=== PATIENT | female | born 1980 | race Two or more races ===

== ENCOUNTER → 2017-07-08 | Outpatient (CLI) | payer OTHER ==
[~2017-07-08] MED LIST: ALBU17IN2 INH; EFFE150C PO; GABA600T PO; GEMF600T PO; LEVO25TA5 PO; LITH300C PO; LITH600C PO; METH20TA29 PO; NORCOTAB PO; NORT25CA2 PO; PAME25CA PO; VENL150C43 PO; ZOFR4TAB3 PO; ZONI50CA3 PO
--- NOTE | 2017-07-08 18:43 | REP ---
Clinical: Anterior knee pain. Technique: AP, lateral, bilateral oblique and sunrise views of the left knee. Findings: No acute fracture dislocation. Mild medial and patellofemoral joint space narrowing along with subtle cortical irregularities to the femoral condyles and lateral tibial plateau. No obvious effusion. Impression: Mild degenerative changes. No obvious acute fracture or dislocation. Signed by Kurt Alvarado MD 07/08/2017 06:33 P
== END ==
LOC: M LRY 18:14
PROVIDERS: ATTEND Nurse Practitioner Family
DX: M17.12 Unilateral primary osteoarthritis, left knee (principal); M25.562 Pain in left knee

== ENCOUNTER 2017-08-26 23:45 | Emergency (ER) | payer OTHER ==
[2017-08-27] MEDS: NORCO, ANEXSIA 5/325MG TABLET (HYDROcodone/ACETAMINOPHEN) PO (02:06)
[2017-08-27] MEDS: NORCO 5/325MG TABLET (BULK FOR ED) PO (02:06)
== END 2017-08-27 02:08 | disposition home or self-care (01) ==
LOC: M ED 23:45
DX: N83.202 Unspecified ovarian cyst, left side (principal); E03.9 Hypothyroidism, unspecified; J45.909 Unspecified asthma, uncomplicated; K21.9 Gastro-esophageal reflux disease without esophagitis; G43.909 Migraine, unspecified, not intractable, without status migrainosus; K58.9 Irritable bowel syndrome, unspecified; Z79.899 Other long term (current) drug therapy; Z79.84 Long term (current) use of oral hypoglycemic drugs; Z88.5 Allergy status to narcotic agent; Z88.8 Allergy status to other drugs, medicaments and biological substances; Z87.42 Personal history of other diseases of the female genital tract
CPT/HCPCS: 76856

== ENCOUNTER 2017-09-16 11:28 | Inpatient (IN) | payer OTHER ==
[2017-09-16 12:52] LABS: AMPHETAMINES LEVEL URINE NEGATIVE (NEGATIVE); BARBITURATES URINE POSITIVE (NEGATIVE); BENZODIAZEPINES URINE NEGATIVE (NEGATIVE); CANNABINOIDS URINE NEGATIVE (NEGATIVE); COCAINE METABOLITE URINE NEGATIVE (NEGATIVE); METHADONE URINE NEGATIVE (NEGATIVE); OPIATES URINE NEGATIVE (NEGATIVE); PHENCYCLIDINE URINE NEGATIVE (NEGATIVE)
[2017-09-16 12:54] LABS: HEMATOCRIT 36.5 % (36.0-47.0); HEMOGLOBIN 11.5 g/dl (12.0-16.0); MEAN CORPUSCULAR HEMOGLOBIN 27.1 pg (27.0-33.0); MEAN CORPUSCULAR HGB CONC 31.5 g/dl (32.0-36.5); MEAN CORPUSCULAR VOLUME 86.1 fl (80.0-96.0); PLATELET COUNT, AUTOMATED 112 10^3/uL (150-450); RED BLOOD COUNT 4.24 10^6/uL (4.00-5.40); RED CELL DISTRIBUTION WIDTH 15.6 % (11.5-14.5)
[2017-09-16 13:22] LABS: ALBUMIN 3.1 GM/DL (3.2-5.2); ALBUMIN/GLOBULIN RATIO 0.76 (1.00-1.93); ALKALINE PHOSPHATASE 54 U/L (45-117); ALT/SGPT 15 U/L (12-78); ANION GAP 7 MEQ/L (8-16); AST/SGOT 9 U/L (7-37); BILIRUBIN,DIRECT < 0.1 MG/DL (0.0-0.2); BILIRUBIN,TOTAL 0.1 MG/DL (0.2-1.0); BLOOD UREA NITROGEN 16 MG/DL (7-18); CALCIUM LEVEL 8.4 MG/DL (8.5-10.1); CARBON DIOXIDE LEVEL 27 MEQ/L (21-32); CHLORIDE LEVEL 108 MEQ/L (98-107); ETHYL ALCOHOL (ETHANOL) < 0.003 % (0.000-0.010); GLOMERULAR FILTRATION RATE > 60.0 (>60); GLUCOSE, FASTING 108 MG/DL (70-100); POTASSIUM SERUM 4.5 MEQ/L (3.5-5.1); SALICYLATE LEVEL < 1.7 MG/DL (5.0-30.0); SODIUM LEVEL 142 MEQ/L (136-145); THYROID STIMULATING HORMONE 0.651 uIU/ML (0.358-3.740); TOTAL PROTEIN 7.2 GM/DL (6.4-8.2)
[2017-09-16 13:35] LABS: ACETAMINOPHEN LEVEL < 2.0 UG/ML (10.0-30.0)
[2017-09-16] MEDS ORDERED: MAALOX 30 ML SUSP *UDC PO (16:00)
[2017-09-16] MEDS ORDERED: traZODone 50 MG TAB PO (16:00)
[2017-09-16] MEDS ORDERED: MOM 30ML SUSPENSION UDC PO (16:00)
[2017-09-16 20:34] LABS: BEDSIDE GLUCOSE 82 MG/DL (70-105)
[2017-09-16] MEDS ORDERED: PRAZOSIN 1 MG CAP PO (21:00)
[2017-09-16] MEDS: GEMFIBROZIL 600 MG TAB PO (22:27)
[2017-09-16] MEDS: busPIRone 5 MG TAB PO (22:27)
[2017-09-16] MEDS: DIVALPROEX 500MG *ER* TAB PO (22:28)
[2017-09-16] MEDS: PRAZOSIN 1 MG CAP PO (22:29)
[2017-09-17] MEDS: LEVOTHYROXINE 50MCG TABLET (0.05MG) PO (06:19)
[2017-09-17 06:32] LABS: BEDSIDE GLUCOSE 85 MG/DL (70-105)
[2017-09-17] MEDS: ESCITALOPRAM OXALATE 10 MG TAB (LEXAPRO) PO (08:47)
[2017-09-17] MEDS: metFORMIN (GLUCOPHAGE) 500 MG TAB PO (08:47)
[2017-09-17] MEDS: buPROPion **XL** TABLET 150MG (WELLBUTRIN XL) PO (08:47)
[2017-09-17] MEDS: DIVALPROEX 500MG *ER* TAB PO ×2 (08:47→21:14)
[2017-09-17] MEDS: GEMFIBROZIL 600 MG TAB PO ×2 (08:48→21:14)
[2017-09-17] MEDS: busPIRone 5 MG TAB PO ×2 (08:48→21:14)
[2017-09-17] MEDS: ACETAMINOPHEN TAB 650MG DOSE (2X325MG) PO (08:48)
[2017-09-17 08:57] LABS: HEMATOCRIT 37.3 % (36.0-47.0); MEAN CORPUSCULAR HEMOGLOBIN 27.4 pg (27.0-33.0); MEAN CORPUSCULAR HGB CONC 32.2 g/dl (32.0-36.5); MEAN CORPUSCULAR VOLUME 85.2 fl (80.0-96.0); PLATELET COUNT, AUTOMATED 105 10^3/uL (150-450); RED BLOOD COUNT 4.38 10^6/uL (4.00-5.40); RED CELL DISTRIBUTION WIDTH 15.6 % (11.5-14.5)
[2017-09-17] MEDS ORDERED: ALBUTEROL 90 MCG/ACT 8GM HFA INHALER INH (09:15)
[2017-09-17] MEDS ORDERED: DOCUSATE SODIUM 100 MG CAP PO (09:15)
[2017-09-17] MEDS ORDERED: MIRALAX *UNIT DOSE* 17GM PACKET PO (09:15)
[2017-09-17 09:22] LABS: CONTROL LINE HCG INT CTR LINE PRESENT; HCG, SERUM QUALITATIVE NEGATIVE (NEGATIVE)
[2017-09-17 09:30] LABS: ALBUMIN 3.2 GM/DL (3.2-5.2); ALBUMIN/GLOBULIN RATIO 0.78 (1.00-1.93); ALKALINE PHOSPHATASE 54 U/L (45-117); ALT/SGPT 19 U/L (12-78); ANION GAP 8 MEQ/L (8-16); AST/SGOT 13 U/L (7-37); BILIRUBIN,TOTAL 0.2 MG/DL (0.2-1.0); BLOOD UREA NITROGEN 20 MG/DL (7-18); CALCIUM LEVEL 8.7 MG/DL (8.5-10.1); CARBON DIOXIDE LEVEL 28 MEQ/L (21-32); CHLORIDE LEVEL 104 MEQ/L (98-107); CREATININE FOR GFR 0.69 MG/DL (0.55-1.30); GLOMERULAR FILTRATION RATE > 60.0 (>60); GLUCOSE, FASTING 124 MG/DL (70-100); POTASSIUM SERUM 4.2 MEQ/L (3.5-5.1); SODIUM LEVEL 140 MEQ/L (136-145); TOTAL PROTEIN 7.3 GM/DL (6.4-8.2); VALPROIC ACID (DEPAKOTE) 55.9 UG/ML (50.0-100.0)
[2017-09-17] MEDS: PANTOPRAZOLE 40MG TAB (PROTONIX) PO (10:13)
[2017-09-17 11:02] LABS: ESTIMATED AVERAGE GLUCOSE 123 MG/DL (60-110); HEMOGLOBIN A1c 5.9 %
[2017-09-17 11:48] LABS: KETONE, URINE AUTO RFX TRACE mg/dL (NEGATIVE); LEUKOCYTE ESTERASE UR AUTO RFX NEGATIVE (NEGATIVE); NITRITE, URINE AUTO RFX NEGATIVE (NEGATIVE); RBC, URINE AUTO RFX 0 /HPF (0-3); SPECIFIC GRAVITY UR AUTO RFX 1.006 (1.002-1.035); SQUAM EPITHELIAL CELL UR AURFX 0 /HPF (0-6); WBC, URINE AUTO RFX 0 /HPF (0-3)
[2017-09-17 12:23] LABS: BEDSIDE GLUCOSE 79 MG/DL (70-105)
[2017-09-17] MEDS: IBUPROFEN 400 MG TAB PO (16:22)
[2017-09-17 17:07] LABS: BEDSIDE GLUCOSE 120 MG/DL (70-105)
[2017-09-17 22:41] LABS: BEDSIDE GLUCOSE 91 MG/DL (70-105)
[2017-09-18] MEDS: IBUPROFEN 400 MG TAB PO (00:36)
[2017-09-18] MEDS: ACETAMINOPHEN TAB 650MG DOSE (2X325MG) PO ×2 (02:40→21:07)
[2017-09-18] MEDS: LEVOTHYROXINE 50MCG TABLET (0.05MG) PO (05:38)
[2017-09-18 06:25] LABS: BEDSIDE GLUCOSE 81 MG/DL (70-105)
[2017-09-18 06:39] LABS: HEMATOCRIT 38.2 % (36.0-47.0); HEMOGLOBIN 12.3 g/dl (12.0-16.0); MEAN CORPUSCULAR HGB CONC 32.2 g/dl (32.0-36.5); MEAN CORPUSCULAR VOLUME 83.8 fl (80.0-96.0); PLATELET COUNT, AUTOMATED 122 10^3/uL (150-450); RED BLOOD COUNT 4.56 10^6/uL (4.00-5.40); RED CELL DISTRIBUTION WIDTH 15.5 % (11.5-14.5); WHITE BLOOD COUNT 13.9 10^3/uL (4.0-10.0)
[2017-09-18] MEDS: busPIRone 5 MG TAB PO ×3 (08:14→21:06)
[2017-09-18] MEDS: buPROPion **XL** TABLET 150MG (WELLBUTRIN XL) PO (08:14)
[2017-09-18] MEDS: CETIRIZINE (ZyrTEC) 10 MG TAB PO (08:14)
[2017-09-18] MEDS: DIVALPROEX 500MG *ER* TAB PO ×2 (08:14→21:06)
[2017-09-18] MEDS: GEMFIBROZIL 600 MG TAB PO ×2 (08:14→21:06)
[2017-09-18] MEDS: ESCITALOPRAM OXALATE 10 MG TAB (LEXAPRO) PO (08:15)
[2017-09-18] MEDS: metFORMIN (GLUCOPHAGE) 500 MG TAB PO (08:15)
[2017-09-18] MEDS: PANTOPRAZOLE 40MG TAB (PROTONIX) PO (08:15)
[2017-09-18] MEDS: FLUTICASONE PROP 0.05% NASAL SPRAY 16 GM (FLONASE) (11:30)
[2017-09-18] MEDS ORDERED: hydrOXYzine 50 MG TAB PO (11:45)
[2017-09-18] MEDS: cloNIDine 0.1 MG TAB PO (12:12)
[2017-09-18 15:02] LABS: DIFF SLIDE NUMBER 60
[2017-09-18 15:41] LABS: ANISOCYTOSIS 1+; ATYPICAL LYMPH 10 % (0-5); BASOPHILS 2 % (0-4); EOSINOPHILS 4 % (0-5); LYMPHOCYTES 27 % (16-52); MONOCYTES 8 % (0-8); NEUTROPHILS 49 % (35-75); PLATELET ESTIMATE DECREASED (NORMAL)
[2017-09-18 15:43] LABS: REASON FOR REVIEW WBC/LEUKEMIA/BLAST; SLIDE REVIEW Report; SOURCE PERIPHERAL SMEAR
[2017-09-18 17:03] LABS: BEDSIDE GLUCOSE 97 MG/DL (70-105)
[2017-09-19] MEDS: LEVOTHYROXINE 50MCG TABLET (0.05MG) PO (06:04)
[2017-09-19] MEDS: cloNIDine 0.1 MG TAB PO ×2 (06:29→12:09)
[2017-09-19 06:30] LABS: BEDSIDE GLUCOSE 96 MG/DL (70-105)
[2017-09-19] MEDS: GEMFIBROZIL 600 MG TAB PO (08:39)
[2017-09-19] MEDS: FLUTICASONE PROP 0.05% NASAL SPRAY 16 GM (FLONASE) (08:39)
[2017-09-19] MEDS: PANTOPRAZOLE 40MG TAB (PROTONIX) PO (08:39)
[2017-09-19] MEDS: buPROPion **XL** TABLET 150MG (WELLBUTRIN XL) PO (08:39)
[2017-09-19] MEDS: CETIRIZINE (ZyrTEC) 10 MG TAB PO (08:39)
[2017-09-19] MEDS: DIVALPROEX 500MG *ER* TAB PO (08:39)
[2017-09-19] MEDS: metFORMIN (GLUCOPHAGE) 500 MG TAB PO (08:40)
[2017-09-19] MEDS: busPIRone 5 MG TAB PO (08:40)
[2017-09-19] MEDS: IBUPROFEN 400 MG TAB PO (10:25)
[2017-09-19] MEDS: ACETAMINOPHEN TAB 650MG DOSE (2X325MG) PO (12:08)
== END 2017-09-19 14:15 | disposition home or self-care (01) | DRG 883 ==
LOC: M ED 11:28 → M ED INP 15:52 → M PSY 16:30
DX: F60.3 Borderline personality disorder (principal); F31.5 Bipolar disorder, current episode depressed, severe, with psychotic features; F41.0 Panic disorder [episodic paroxysmal anxiety]; I10 Essential (primary) hypertension; G47.33 Obstructive sleep apnea (adult) (pediatric); E11.9 Type 2 diabetes mellitus without complications; E03.9 Hypothyroidism, unspecified; Z99.89 Dependence on other enabling machines and devices; Z98.51 Tubal ligation status; Z90.710 Acquired absence of both cervix and uterus; Z90.49 Acquired absence of other specified parts of digestive tract; Z91.5 Personal history of self-harm; Z88.6 Allergy status to analgesic agent; Z88.8 Allergy status to other drugs, medicaments and biological substances; Z79.84 Long term (current) use of oral hypoglycemic drugs; E66.9 Obesity, unspecified

== ENCOUNTER 2017-10-22 14:32 | Inpatient (IN) | payer OTHER ==
[2017-10-22 15:51] LABS: HEMATOCRIT 36.2 % (36.0-47.0); HEMOGLOBIN 11.5 g/dl (12.0-15.5); MEAN CORPUSCULAR HEMOGLOBIN 26.7 pg (27.0-33.0); MEAN CORPUSCULAR HGB CONC 31.8 g/dl (32.0-36.5); PLATELET COUNT, AUTOMATED 223 10^3/uL (150-450); RED BLOOD COUNT 4.31 10^6/uL (4.00-5.40); RED CELL DISTRIBUTION WIDTH 16.2 % (11.5-14.5); WHITE BLOOD COUNT 16.1 10^3/uL (4.0-10.0)
[2017-10-22 16:01] LABS: CONTROL LINE HCG INT CTR LINE PRESENT; HCG, SERUM QUALITATIVE NEGATIVE (NEGATIVE)
[2017-10-22 16:03] LABS: AMPHETAMINES LEVEL URINE NEGATIVE (NEGATIVE); BARBITURATES URINE POSITIVE (NEGATIVE); BENZODIAZEPINES URINE NEGATIVE (NEGATIVE); CANNABINOIDS URINE NEGATIVE (NEGATIVE); COCAINE METABOLITE URINE NEGATIVE (NEGATIVE); METHADONE URINE NEGATIVE (NEGATIVE); OPIATES URINE POSITIVE (NEGATIVE); PHENCYCLIDINE URINE NEGATIVE (NEGATIVE)
[2017-10-22 16:14] LABS: ACETAMINOPHEN LEVEL < 2.0 UG/ML (10.0-30.0); ALBUMIN 2.9 GM/DL (3.2-5.2); ALBUMIN/GLOBULIN RATIO 0.66 (1.00-1.93); ALKALINE PHOSPHATASE 59 U/L (45-117); ALT/SGPT 14 U/L (12-78); ANION GAP 8 MEQ/L (8-16); AST/SGOT 20 U/L (7-37); BILIRUBIN,DIRECT < 0.1 MG/DL (0.0-0.2); BILIRUBIN,TOTAL < 0.1 MG/DL (0.2-1.0); BLOOD UREA NITROGEN 14 MG/DL (7-18); CALCIUM LEVEL 8.4 MG/DL (8.5-10.1); CARBON DIOXIDE LEVEL 25 MEQ/L (21-32); CHLORIDE LEVEL 108 MEQ/L (98-107); CREATININE FOR GFR 0.59 MG/DL (0.55-1.30); ETHYL ALCOHOL (ETHANOL) < 0.003 % (0.000-0.010); GLOMERULAR FILTRATION RATE > 60.0 (>60); GLUCOSE, FASTING 100 MG/DL (70-100); POTASSIUM SERUM 4.3 MEQ/L (3.5-5.1); SALICYLATE LEVEL < 1.7 MG/DL (5.0-30.0); SODIUM LEVEL 141 MEQ/L (136-145); THYROID STIMULATING HORMONE 0.879 uIU/ML (0.358-3.740); TOTAL PROTEIN 7.3 GM/DL (6.4-8.2); VALPROIC ACID (DEPAKOTE) 51.6 UG/ML (50.0-100.0)
[2017-10-22] MEDS ORDERED: traZODone 50 MG TAB PO (19:00)
[2017-10-22] MEDS ORDERED: MAALOX 30 ML SUSP *UDC PO (19:00)
[2017-10-22] MEDS ORDERED: MOM 30ML SUSPENSION UDC PO (19:00)
[2017-10-22] MEDS ORDERED: ALBUTEROL 90 MCG/ACT 8GM HFA INHALER INH (21:00)
[2017-10-22] MEDS: **NOTE PATIENT COMMENT** MISC XX (21:12)
[2017-10-22] MEDS: MELOXICAM (MOBIC) 7.5 MG TAB PO (21:40)
[2017-10-22] MEDS: LORazepam 1 MG TAB PO (21:40)
[2017-10-22] MEDS: DIVALPROEX 500MG *ER* TAB PO (21:40)
[2017-10-23] MEDS: LEVOTHYROXINE 50MCG TABLET (0.05MG) PO (06:18)
[2017-10-23] MEDS: LIDOCAINE 5% (LIDODERM) PATCH TD (08:31)
[2017-10-23] MEDS: DIVALPROEX 500MG *ER* TAB PO (08:31)
[2017-10-23] MEDS ORDERED: LORazepam 2 MG TAB PO (11:45)
[2017-10-23] MEDS: busPIRone 5 MG TAB PO ×3 (12:26→20:32)
[2017-10-23] MEDS: metFORMIN (GLUCOPHAGE) 500 MG TAB PO ×2 (12:26→17:23)
[2017-10-23] MEDS: VENLAFAXINE **XR** 75MG CAPSULE PO (12:26)
[2017-10-23] MEDS: GEMFIBROZIL 600 MG TAB PO ×2 (15:10→20:32)
[2017-10-23 16:44] LABS: BEDSIDE GLUCOSE 97 MG/DL (70-105)
[2017-10-23] MEDS: hydrOXYzine 50 MG TAB PO (20:32)
[2017-10-23] MEDS: **NOTE PATIENT COMMENT** MISC XX (21:09)
[2017-10-23] MEDS: FUROSEMIDE 20 MG TAB PO (22:21)
[2017-10-23] MEDS: cloNIDine 0.2 MG TAB PO (22:22)
[2017-10-23 23:03] LABS: ALBUMIN 2.9 GM/DL (3.2-5.2); ALBUMIN/GLOBULIN RATIO 0.63 (1.00-1.93); ALKALINE PHOSPHATASE 53 U/L (45-117); ALT/SGPT 16 U/L (12-78); ANION GAP 8 MEQ/L (8-16); AST/SGOT 13 U/L (7-37); BILIRUBIN,TOTAL 0.1 MG/DL (0.2-1.0); BLOOD UREA NITROGEN 15 MG/DL (7-18); CALCIUM LEVEL 8.9 MG/DL (8.5-10.1); CARBON DIOXIDE LEVEL 27 MEQ/L (21-32); CHLORIDE LEVEL 104 MEQ/L (98-107); CPK CREATINE PHOSPHOKINASE 92 U/L (26-192); CREATININE FOR GFR 0.75 MG/DL (0.55-1.30); GLOMERULAR FILTRATION RATE > 60.0 (>60); GLUCOSE, FASTING 94 MG/DL (70-100); POTASSIUM SERUM 4.1 MEQ/L (3.5-5.1); SODIUM LEVEL 139 MEQ/L (136-145); TOTAL PROTEIN 7.5 GM/DL (6.4-8.2); TROPONIN I < 0.02 NG/ML (< 0.10)
[2017-10-23 23:04] LABS: CK-MB VALUE MASS < 1.0 NG/ML (<3.6); MB/CK RELATIVE INDEX 1.08 (< OR =4)
[2017-10-24] MEDS: LEVOTHYROXINE 50MCG TABLET (0.05MG) PO (05:40)
[2017-10-24 05:55] LABS: BEDSIDE GLUCOSE 91 MG/DL (70-105)
[2017-10-24 07:37] LABS: ALBUMIN 2.9 GM/DL (3.2-5.2); ALBUMIN/GLOBULIN RATIO 0.73 (1.00-1.93); ALKALINE PHOSPHATASE 51 U/L (45-117); ALT/SGPT 14 U/L (12-78); ANION GAP 7 MEQ/L (8-16); AST/SGOT 13 U/L (7-37); BILIRUBIN,TOTAL 0.3 MG/DL (0.2-1.0); BLOOD UREA NITROGEN 13 MG/DL (7-18); CALCIUM LEVEL 8.6 MG/DL (8.5-10.1); CARBON DIOXIDE LEVEL 29 MEQ/L (21-32); CHLORIDE LEVEL 104 MEQ/L (98-107); CREATININE FOR GFR 0.69 MG/DL (0.55-1.30); GLOMERULAR FILTRATION RATE > 60.0 (>60); GLUCOSE, FASTING 87 MG/DL (70-100); POTASSIUM SERUM 4.1 MEQ/L (3.5-5.1); SODIUM LEVEL 140 MEQ/L (136-145); TOTAL PROTEIN 6.9 GM/DL (6.4-8.2)
[2017-10-24] MEDS: busPIRone 5 MG TAB PO ×3 (08:53→21:44)
[2017-10-24] MEDS: metFORMIN (GLUCOPHAGE) 500 MG TAB PO ×2 (08:53→17:37)
[2017-10-24] MEDS: VENLAFAXINE **XR** 75MG CAPSULE PO (08:53)
[2017-10-24] MEDS: GEMFIBROZIL 600 MG TAB PO ×2 (08:54→21:44)
[2017-10-24] MEDS ORDERED: MIRALAX *UNIT DOSE* 17GM PACKET PO (09:30)
[2017-10-24] MEDS: DOCUSATE SODIUM 100 MG CAP PO (09:55)
[2017-10-24] MEDS: PANTOPRAZOLE 40MG TAB (PROTONIX) PO ×2 (09:55→21:43)
[2017-10-24 10:45] LABS: HEMATOCRIT 37.4 % (36.0-47.0); HEMOGLOBIN 12.1 g/dl (12.0-15.5); MEAN CORPUSCULAR HEMOGLOBIN 26.7 pg (27.0-33.0); MEAN CORPUSCULAR HGB CONC 32.4 g/dl (32.0-36.5); MEAN CORPUSCULAR VOLUME 82.4 fl (80.0-96.0); PLATELET COUNT, AUTOMATED 215 10^3/uL (150-450); RED BLOOD COUNT 4.54 10^6/uL (4.00-5.40); RED CELL DISTRIBUTION WIDTH 15.9 % (11.5-14.5); WHITE BLOOD COUNT 15.4 10^3/uL (4.0-10.0)
[2017-10-24 12:53] LABS: KETONE, URINE AUTO RFX NEGATIVE (NEGATIVE); LEUKOCYTE ESTERASE UR AUTO RFX NEGATIVE (NEGATIVE); NITRITE, URINE AUTO RFX NEGATIVE (NEGATIVE); RBC, URINE AUTO RFX 1 /HPF (0-3); SPECIFIC GRAVITY UR AUTO RFX 1.014 (1.002-1.035); SQUAM EPITHELIAL CELL UR AURFX 9 /HPF (0-6); WBC, URINE AUTO RFX 1 /HPF (0-3)
[2017-10-24] MEDS: ACETAMINOPHEN TAB 650MG DOSE (2X325MG) PO (21:44)
[2017-10-25] MEDS: LEVOTHYROXINE 50MCG TABLET (0.05MG) PO (06:09)
[2017-10-25 06:44] LABS: BEDSIDE GLUCOSE 95 MG/DL (70-105)
[2017-10-25] MEDS: metFORMIN (GLUCOPHAGE) 500 MG TAB PO ×2 (08:58→17:10)
[2017-10-25] MEDS: VENLAFAXINE **XR** 75MG CAPSULE PO (08:59)
[2017-10-25] MEDS: GEMFIBROZIL 600 MG TAB PO ×2 (08:59→21:04)
[2017-10-25] MEDS: DOCUSATE SODIUM 100 MG CAP PO (08:59)
[2017-10-25] MEDS: PANTOPRAZOLE 40MG TAB (PROTONIX) PO ×2 (08:59→21:04)
[2017-10-25] MEDS: busPIRone 5 MG TAB PO ×3 (08:59→21:04)
[2017-10-25] MEDS: ACETAMINOPHEN TAB 650MG DOSE (2X325MG) PO ×2 (09:00→15:45)
[2017-10-25] MEDS: hydrOXYzine 50 MG TAB PO ×2 (13:04→18:29)
[2017-10-25 17:33] LABS: BEDSIDE GLUCOSE 128 MG/DL (70-105)
[2017-10-25 18:26] LABS: BEDSIDE GLUCOSE 96 MG/DL (70-105)
[2017-10-26] MEDS: LEVOTHYROXINE 50MCG TABLET (0.05MG) PO (06:01)
[2017-10-26 06:35] LABS: BEDSIDE GLUCOSE 102 MG/DL (70-105)
[2017-10-26] MEDS: metFORMIN (GLUCOPHAGE) 500 MG TAB PO ×2 (08:49→17:12)
[2017-10-26] MEDS: DOCUSATE SODIUM 100 MG CAP PO (08:49)
[2017-10-26] MEDS: VENLAFAXINE **XR** 75MG CAPSULE PO (08:49)
[2017-10-26] MEDS: GEMFIBROZIL 600 MG TAB PO ×2 (08:49→21:11)
[2017-10-26] MEDS: PANTOPRAZOLE 40MG TAB (PROTONIX) PO ×2 (08:49→21:11)
[2017-10-26] MEDS: busPIRone 5 MG TAB PO (08:49)
[2017-10-26] MEDS: busPIRone 10 MG TAB PO ×2 (15:10→21:11)
[2017-10-26 16:46] LABS: BEDSIDE GLUCOSE 104 MG/DL (70-105)
[2017-10-26 20:14] LABS: BEDSIDE GLUCOSE 100 MG/DL (70-105)
[2017-10-26] MEDS: ACETAMINOPHEN TAB 650MG DOSE (2X325MG) PO (21:17)
[2017-10-27] MEDS: LEVOTHYROXINE 50MCG TABLET (0.05MG) PO (06:08)
[2017-10-27 06:23] LABS: BEDSIDE GLUCOSE 99 MG/DL (70-105)
[2017-10-27] MEDS: PANTOPRAZOLE 40MG TAB (PROTONIX) PO ×2 (08:03→21:11)
[2017-10-27] MEDS: GEMFIBROZIL 600 MG TAB PO ×2 (08:03→21:10)
[2017-10-27] MEDS: busPIRone 10 MG TAB PO ×3 (08:03→21:11)
[2017-10-27] MEDS: DOCUSATE SODIUM 100 MG CAP PO (08:03)
[2017-10-27] MEDS: IBUPROFEN 400 MG TAB PO ×2 (08:03→15:30)
[2017-10-27] MEDS: VENLAFAXINE **XR** 75MG CAPSULE PO (08:03)
[2017-10-27] MEDS: metFORMIN (GLUCOPHAGE) 500 MG TAB PO ×2 (08:04→17:11)
[2017-10-27 17:17] LABS: BEDSIDE GLUCOSE 106 MG/DL (70-105)
[2017-10-27] MEDS: ACETAMINOPHEN TAB 650MG DOSE (2X325MG) PO (21:12)
[2017-10-28] MEDS: LEVOTHYROXINE 50MCG TABLET (0.05MG) PO (06:15)
[2017-10-28 06:54] LABS: BEDSIDE GLUCOSE 91 MG/DL (70-105)
[2017-10-28 07:08] LABS: HEMATOCRIT 36.4 % (36.0-47.0); HEMOGLOBIN 11.7 g/dl (12.0-15.5); MEAN CORPUSCULAR HGB CONC 32.1 g/dl (32.0-36.5); MEAN CORPUSCULAR VOLUME 83.9 fl (80.0-96.0); PLATELET COUNT, AUTOMATED 167 10^3/uL (150-450); RED BLOOD COUNT 4.34 10^6/uL (4.00-5.40); RED CELL DISTRIBUTION WIDTH 15.7 % (11.5-14.5); WHITE BLOOD COUNT 14.4 10^3/uL (4.0-10.0)
[2017-10-28] MEDS: DOCUSATE SODIUM 100 MG CAP PO (08:25)
[2017-10-28] MEDS: busPIRone 10 MG TAB PO ×3 (08:25→21:12)
[2017-10-28] MEDS: metFORMIN (GLUCOPHAGE) 500 MG TAB PO ×2 (08:25→17:06)
[2017-10-28] MEDS: PANTOPRAZOLE 40MG TAB (PROTONIX) PO ×2 (08:25→21:11)
[2017-10-28] MEDS: VENLAFAXINE **XR** 75MG CAPSULE PO (08:25)
[2017-10-28] MEDS: GEMFIBROZIL 600 MG TAB PO ×2 (08:25→21:12)
[2017-10-28] MEDS: IBUPROFEN 400 MG TAB PO ×2 (14:34→21:12)
[2017-10-28 17:14] LABS: BEDSIDE GLUCOSE 114 MG/DL (70-105)
[2017-10-29] MEDS: LEVOTHYROXINE 50MCG TABLET (0.05MG) PO (06:20)
[2017-10-29 06:45] LABS: BEDSIDE GLUCOSE 104 MG/DL (70-105)
[2017-10-29] MEDS: VENLAFAXINE **XR** 75MG CAPSULE PO (08:56)
[2017-10-29] MEDS: metFORMIN (GLUCOPHAGE) 500 MG TAB PO ×2 (08:56→17:18)
[2017-10-29] MEDS: GEMFIBROZIL 600 MG TAB PO ×2 (08:56→21:47)
[2017-10-29] MEDS: PANTOPRAZOLE 40MG TAB (PROTONIX) PO ×2 (08:56→21:47)
[2017-10-29] MEDS: busPIRone 10 MG TAB PO ×3 (08:56→21:47)
[2017-10-29] MEDS: DOCUSATE SODIUM 100 MG CAP PO (08:57)
[2017-10-29 16:44] LABS: BEDSIDE GLUCOSE 126 MG/DL (70-105)
[2017-10-30] MEDS: LEVOTHYROXINE 50MCG TABLET (0.05MG) PO (06:07)
[2017-10-30 06:18] LABS: BEDSIDE GLUCOSE 100 MG/DL (70-105)
[2017-10-30] MEDS: metFORMIN (GLUCOPHAGE) 500 MG TAB PO (08:27)
[2017-10-30] MEDS: PANTOPRAZOLE 40MG TAB (PROTONIX) PO (08:27)
[2017-10-30] MEDS: VENLAFAXINE **XR** 75MG CAPSULE PO (08:27)
[2017-10-30] MEDS: busPIRone 10 MG TAB PO (08:27)
[2017-10-30] MEDS: GEMFIBROZIL 600 MG TAB PO (08:27)
[2017-10-30] MEDS: DOCUSATE SODIUM 100 MG CAP PO (08:27)
== END 2017-10-30 11:19 | disposition home or self-care (01) | DRG 885 ==
LOC: M PSY 10-26 05:05 → M ED 14:32 → M ED INP 19:00 → M PSY 20:03
DX: F33.2 Major depressive disorder, recurrent severe without psychotic features (principal); Z68.42 Body mass index [BMI] 45.0-49.9, adult; Z63.4 Disappearance and death of family member; F50.81 Binge eating disorder; F45.1 Undifferentiated somatoform disorder; F41.9 Anxiety disorder, unspecified; Z79.899 Other long term (current) drug therapy; Z88.8 Allergy status to other drugs, medicaments and biological substances; E03.9 Hypothyroidism, unspecified; J45.909 Unspecified asthma, uncomplicated; K21.9 Gastro-esophageal reflux disease without esophagitis; G47.33 Obstructive sleep apnea (adult) (pediatric); M54.5 Low back pain; G43.909 Migraine, unspecified, not intractable, without status migrainosus; D72.829 Elevated white blood cell count, unspecified; K58.9 Irritable bowel syndrome, unspecified; E11.9 Type 2 diabetes mellitus without complications; E66.9 Obesity, unspecified

== ENCOUNTER 2017-11-11 12:25 | Emergency (ER) | payer OTHER ==
[2017-11-11] MEDS: ONDANSETRON 4MG/2ML VIAL (J2405) IV (13:44)
[2017-11-11] MEDS: METOCLOPRAMIDE INJ 10MG/2ML VIAL (J2765) IV (13:44)
[2017-11-11] MEDS: diphenhydrAMINE INJ 50MG/ML VIAL (J1200) IV (13:45)
[2017-11-11] MEDS: MORPHINE 4 MG/ML 1ML VIAL/SYRINGE (J2270) IV ×2 (14:43→14:45)
[2017-11-11] MEDS: NORCO, ANEXSIA 5/325MG TABLET (HYDROcodone/ACETAMINOPHEN) PO (14:51)
== END 2017-11-11 15:04 | disposition home or self-care (01) ==
LOC: M ED 12:25
DX: R51 Headache (principal); R11.0 Nausea; Z88.8 Allergy status to other drugs, medicaments and biological substances; Z79.899 Other long term (current) drug therapy; Z79.84 Long term (current) use of oral hypoglycemic drugs
CPT/HCPCS: J1200

== ENCOUNTER → 2017-11-19 | Outpatient (REF) | payer OTHER ==
[2017-11-19 13:11] LABS: BASO # 0.1 10^3/uL (0.0-0.2); BASO % 0.6 % (0.0-1.0); EOS # 0.9 10^3/uL (0.0-0.50); EOS % 7.3 % (0.0-3.0); HEMATOCRIT 38.4 % (36.0-47.0); IMMATURE GRANULOCYTE % 0.6 % (0-3.0); LYMPH # 3.9 10^3/uL (1.5-4.5); LYMPH % 32.4 % (24.0-44.0); MEAN CORPUSCULAR HEMOGLOBIN 26.6 pg (27.0-33.0); MEAN CORPUSCULAR HGB CONC 31.3 g/dl (32.0-36.5); MEAN CORPUSCULAR VOLUME 85.1 fl (80.0-96.0); MONO # 0.9 10^3/uL (0.0-0.8); MONO % 7.5 % (0.0-5.0); NEUTROPHILS # 6.3 10^3/uL (1.8-7.7); NEUTROPHILS % 51.6 % (36.0-66.0); PLATELET COUNT, AUTOMATED 268 10^3/uL (150-450); RED BLOOD COUNT 4.51 10^6/uL (4.00-5.40); RED CELL DISTRIBUTION WIDTH 15.4 % (11.5-14.5); WHITE BLOOD COUNT 12.2 10^3/uL (4.0-10.0)
[2017-11-19 13:38] LABS: TOTAL 25(OH) VITAMIN D 45.8 NG/ML (30.0-100.0)
[2017-11-19 13:39] LABS: ERYTHROCYTE SEDIMENTATION RATE 24 mm/hr (0-20)
[2017-11-19 14:09] LABS: ALBUMIN 3.5 GM/DL (3.2-5.2); ALBUMIN/GLOBULIN RATIO 0.83 (1.00-1.93); ALKALINE PHOSPHATASE 67 U/L (45-117); ALT/SGPT 21 U/L (12-78); ANION GAP 8 MEQ/L (8-16); AST/SGOT 12 U/L (7-37); BILIRUBIN,TOTAL < 0.1 MG/DL (0.2-1.0); BLOOD UREA NITROGEN 12 MG/DL (7-18); CALCIUM LEVEL 9.4 MG/DL (8.5-10.1); CARBON DIOXIDE LEVEL 25 MEQ/L (21-32); CHLORIDE LEVEL 108 MEQ/L (98-107); CREATININE FOR GFR 0.59 MG/DL (0.55-1.30); GLOMERULAR FILTRATION RATE > 60.0 (>60); GLUCOSE, FASTING 131 MG/DL (70-100); POTASSIUM SERUM 4.1 MEQ/L (3.5-5.1); RHEUMATOID FACTOR QUANT < 10.0 IU/ML (<15.0); SODIUM LEVEL 141 MEQ/L (136-145); THYROID STIMULATING HORMONE 0.796 uIU/ML (0.358-3.740); TOTAL PROTEIN 7.7 GM/DL (6.4-8.2)
[2017-11-20 14:15] LABS: ANTINUCLEAR ANTIBODIES DIRECT Negative (Negative)
== END ==
LOC: M LABNEURO 08:59
DX: R51 Headache (principal)

== ENCOUNTER 2018-02-13 13:26 | Emergency (ER) | payer OTHER ==
[2018-02-13] MEDS: NS 1,000 ML IV (15:08)
[2018-02-13] MEDS ORDERED: AMMONIA AROMATIC INHALANT (FLOOR STOCK) As Ordered (15:23)
[2018-02-13 15:25] LABS: BASO # 0.1 10^3/uL (0.0-0.2); BASO % 0.5 % (0.0-1.0); EOS # 1.2 10^3/uL (0.0-0.50); EOS % 7.1 % (0.0-3.0); HEMATOCRIT 40.4 % (36.0-47.0); IMMATURE GRANULOCYTE % 0.5 % (0-3.0); LYMPH # 3.6 10^3/uL (1.5-4.5); LYMPH % 21.8 % (24.0-44.0); MEAN CORPUSCULAR HEMOGLOBIN 26.3 pg (27.0-33.0); MEAN CORPUSCULAR HGB CONC 32.2 g/dl (32.0-36.5); MEAN CORPUSCULAR VOLUME 81.6 fl (80.0-96.0); MONO # 0.9 10^3/uL (0.0-0.8); MONO % 5.6 % (0.0-5.0); NEUTROPHILS # 10.7 10^3/uL (1.8-7.7); NEUTROPHILS % 64.5 % (36.0-66.0); PLATELET COUNT, AUTOMATED 224 10^3/uL (150-450); RED BLOOD COUNT 4.95 10^6/uL (4.00-5.40); RED CELL DISTRIBUTION WIDTH 15.6 % (11.5-14.5); WHITE BLOOD COUNT 16.5 10^3/uL (4.0-10.0)
[2018-02-13 15:32] LABS: BEDSIDE GLUCOSE 102 MG/DL (70-105)
[2018-02-13 15:37] LABS: ALBUMIN 3.4 GM/DL (3.2-5.2); ALBUMIN/GLOBULIN RATIO 0.67 (1.00-1.93); ALKALINE PHOSPHATASE 94 U/L (45-117); ALT/SGPT 34 U/L (12-78); ANION GAP 8 MEQ/L (8-16); AST/SGOT 21 U/L (7-37); BILIRUBIN,DIRECT < 0.1 MG/DL (0.0-0.2); BILIRUBIN,TOTAL 0.2 MG/DL (0.2-1.0); BLOOD UREA NITROGEN 11 MG/DL (7-18); CALCIUM LEVEL 9.1 MG/DL (8.5-10.1); CARBON DIOXIDE LEVEL 25 MEQ/L (21-32); CHLORIDE LEVEL 105 MEQ/L (98-107); CPK CREATINE PHOSPHOKINASE 58 U/L (26-192); CREATININE FOR GFR 0.82 MG/DL (0.55-1.30); GLOMERULAR FILTRATION RATE > 60.0 (>60); GLUCOSE, FASTING 90 MG/DL (70-100); POTASSIUM SERUM 3.8 MEQ/L (3.5-5.1); SODIUM LEVEL 138 MEQ/L (136-145); TOTAL PROTEIN 8.5 GM/DL (6.4-8.2); TROPONIN I < 0.02 NG/ML (< 0.10)
[2018-02-13 15:41] LABS: CK-MB VALUE MASS < 1.0 NG/ML (<3.6); MB/CK RELATIVE INDEX 1.72 (< OR =4)
[2018-02-13 16:50] LABS: KETONE, URINE AUTO RFX NEGATIVE (NEGATIVE); LEUKOCYTE ESTERASE UR AUTO RFX NEGATIVE (NEGATIVE); NITRITE, URINE AUTO RFX NEGATIVE (NEGATIVE); RBC, URINE AUTO RFX 1 /HPF (0-3); SPECIFIC GRAVITY UR AUTO RFX 1.009 (1.002-1.035); SQUAM EPITHELIAL CELL UR AURFX 1 /HPF (0-6); WBC, URINE AUTO RFX 0 /HPF (0-3)
== END 2018-02-13 18:09 | disposition home or self-care (01) ==
LOC: M ED 13:26
DX: R55 Syncope and collapse (principal); M54.9 Dorsalgia, unspecified; R26.2 Difficulty in walking, not elsewhere classified; E11.9 Type 2 diabetes mellitus without complications; J45.909 Unspecified asthma, uncomplicated; K21.9 Gastro-esophageal reflux disease without esophagitis; Z79.899 Other long term (current) drug therapy
CPT/HCPCS: 93005

== ENCOUNTER 2018-02-28 05:33 | Inpatient (IN) | payer OTHER ==
[2018-02-28] MEDS ORDERED: MOM 30ML SUSPENSION UDC PO (06:45)
[2018-02-28] MEDS ORDERED: ACETAMINOPHEN TAB 650MG DOSE (2X325MG) PO (06:45)
[2018-02-28] MEDS ORDERED: MAALOX 30 ML SUSP *UDC PO (06:45)
[2018-02-28] MEDS: NICOTINE 21MG/24HR 1 EA TRANSDERMAL TD (09:00)
[2018-02-28] MEDS ORDERED: MIRALAX *UNIT DOSE* 17GM PACKET PO (15:15)
[2018-02-28] MEDS ORDERED: PROMETHAZINE 25 MG TAB PO (15:15)
[2018-02-28] MEDS ORDERED: ALBUTEROL 90 MCG/ACT 8GM HFA INHALER INH (15:15)
[2018-02-28] MEDS: GABAPENTIN 300 MG CAP PO ×2 (15:29→21:06)
[2018-02-28] MEDS: busPIRone 10 MG TAB PO ×2 (15:29→21:05)
[2018-02-28 17:05] LABS: BEDSIDE GLUCOSE 83 MG/DL (70-105)
[2018-02-28] MEDS: metFORMIN XR 500MG TAB *GLUCOPHAGE XR PO (17:37)
[2018-02-28] MEDS: MONTELUKAST 10 MG TAB PO (21:05)
[2018-02-28] MEDS: GEMFIBROZIL 600 MG TAB PO (21:05)
[2018-02-28] MEDS: DOXEPIN 25 MG CAP PO (21:06)
[2018-02-28] MEDS: PANTOPRAZOLE 40MG TAB (PROTONIX) PO (21:06)
[2018-03-01] MEDS: LEVOTHYROXINE 50MCG TABLET (0.05MG) PO (06:18)
[2018-03-01 06:21] LABS: BEDSIDE GLUCOSE 84 MG/DL (70-105)
[2018-03-01] MEDS: metFORMIN XR 500MG TAB *GLUCOPHAGE XR PO ×2 (08:00→17:06)
[2018-03-01] MEDS: GEMFIBROZIL 600 MG TAB PO ×2 (08:18→21:23)
[2018-03-01] MEDS: CETIRIZINE (ZyrTEC) 10 MG TAB PO (08:18)
[2018-03-01] MEDS: METOPROLOL TART 25 MG TABLET PO (08:18)
[2018-03-01] MEDS: busPIRone 10 MG TAB PO ×3 (08:18→21:24)
[2018-03-01] MEDS: PANTOPRAZOLE 40MG TAB (PROTONIX) PO ×2 (08:18→21:25)
[2018-03-01] MEDS: GABAPENTIN 300 MG CAP PO ×3 (08:18→21:25)
[2018-03-01] MEDS: DOCUSATE SODIUM 100 MG CAP PO (12:09)
[2018-03-01] MEDS: hydrOXYzine 50 MG TAB PO (12:09)
[2018-03-01 16:47] LABS: BEDSIDE GLUCOSE 114 MG/DL (70-105)
[2018-03-01] MEDS: IBUPROFEN 800 MG TAB PO (18:04)
[2018-03-01] MEDS: ANALGESIC BALM CRM 120 GM TOP (21:00)
[2018-03-01] MEDS: MONTELUKAST 10 MG TAB PO (21:23)
[2018-03-01] MEDS: ARIPiprazole 10 MG TAB PO (21:24)
[2018-03-01] MEDS: DOXEPIN 25 MG CAP PO (21:25)
[2018-03-02] MEDS: LEVOTHYROXINE 50MCG TABLET (0.05MG) PO (06:18)
[2018-03-02 06:23] LABS: BEDSIDE GLUCOSE 91 MG/DL (70-105)
[2018-03-02] MEDS: metFORMIN XR 500MG TAB *GLUCOPHAGE XR PO ×2 (07:59→18:00)
[2018-03-02] MEDS: busPIRone 10 MG TAB PO ×3 (08:53→21:56)
[2018-03-02] MEDS: DOCUSATE SODIUM 100 MG CAP PO (08:53)
[2018-03-02] MEDS: GEMFIBROZIL 600 MG TAB PO ×2 (08:54→21:56)
[2018-03-02] MEDS: ARIPiprazole 10 MG TAB PO ×2 (08:54→21:56)
[2018-03-02] MEDS: GABAPENTIN 300 MG CAP PO ×3 (08:54→21:56)
[2018-03-02] MEDS: ACETAMINOPHEN 500 MG TAB PO (08:54)
[2018-03-02] MEDS: CETIRIZINE (ZyrTEC) 10 MG TAB PO (08:54)
[2018-03-02] MEDS: PANTOPRAZOLE 40MG TAB (PROTONIX) PO ×2 (08:54→21:56)
[2018-03-02] MEDS: METOPROLOL TART 25 MG TABLET PO (08:55)
[2018-03-02] MEDS: ANALGESIC BALM CRM 120 GM TOP ×3 (08:55→21:57)
[2018-03-02] MEDS: hydrOXYzine 50 MG TAB PO (14:18)
[2018-03-02 17:23] LABS: BEDSIDE GLUCOSE 102 MG/DL (70-105)
[2018-03-02] MEDS: MONTELUKAST 10 MG TAB PO (21:56)
[2018-03-02] MEDS: IBUPROFEN 800 MG TAB PO (21:56)
[2018-03-03] MEDS: LEVOTHYROXINE 50MCG TABLET (0.05MG) PO (06:01)
[2018-03-03 06:04] LABS: BEDSIDE GLUCOSE 98 MG/DL (70-105)
[2018-03-03] MEDS: metFORMIN XR 500MG TAB *GLUCOPHAGE XR PO ×2 (08:00→17:18)
[2018-03-03] MEDS: ARIPiprazole 10 MG TAB PO ×2 (08:36→21:03)
[2018-03-03] MEDS: busPIRone 10 MG TAB PO ×3 (08:36→21:03)
[2018-03-03] MEDS: PANTOPRAZOLE 40MG TAB (PROTONIX) PO ×2 (08:36→21:03)
[2018-03-03] MEDS: GEMFIBROZIL 600 MG TAB PO ×2 (08:36→21:03)
[2018-03-03] MEDS: GABAPENTIN 300 MG CAP PO ×3 (08:36→21:03)
[2018-03-03] MEDS: METOPROLOL TART 25 MG TABLET PO (08:37)
[2018-03-03] MEDS: ANALGESIC BALM CRM 120 GM TOP ×3 (08:37→21:00)
[2018-03-03] MEDS: CETIRIZINE (ZyrTEC) 10 MG TAB PO (08:37)
[2018-03-03] MEDS: ACETAMINOPHEN 500 MG TAB PO ×2 (08:42→16:14)
[2018-03-03] MEDS: IBUPROFEN 800 MG TAB PO (12:16)
[2018-03-03] MEDS: MONTELUKAST 10 MG TAB PO (21:03)
[2018-03-04] MEDS: LEVOTHYROXINE 50MCG TABLET (0.05MG) PO (06:07)
[2018-03-04] MEDS: metFORMIN XR 500MG TAB *GLUCOPHAGE XR PO ×2 (07:30→17:13)
[2018-03-04 07:33] LABS: BEDSIDE GLUCOSE 118 MG/DL (70-105)
[2018-03-04] MEDS: GEMFIBROZIL 600 MG TAB PO ×2 (08:51→21:11)
[2018-03-04] MEDS: PANTOPRAZOLE 40MG TAB (PROTONIX) PO ×2 (08:52→21:13)
[2018-03-04] MEDS: ANALGESIC BALM CRM 120 GM TOP ×3 (08:52→21:00)
[2018-03-04] MEDS: CETIRIZINE (ZyrTEC) 10 MG TAB PO (08:52)
[2018-03-04] MEDS: busPIRone 10 MG TAB PO ×3 (08:52→21:12)
[2018-03-04] MEDS: METOPROLOL TART 25 MG TABLET PO (08:52)
[2018-03-04] MEDS: ARIPiprazole 10 MG TAB PO ×2 (08:52→21:14)
[2018-03-04] MEDS: GABAPENTIN 300 MG CAP PO ×3 (08:52→21:14)
[2018-03-04] MEDS: hydrOXYzine 50 MG TAB PO ×2 (11:46→21:13)
[2018-03-04] MEDS: ACETAMINOPHEN 500 MG TAB PO (11:47)
[2018-03-04] MEDS: IBUPROFEN 800 MG TAB PO (14:39)
[2018-03-04] MEDS: LORazepam 1 MG TAB PO (15:21)
[2018-03-04 16:30] LABS: BEDSIDE GLUCOSE 105 MG/DL (70-105)
[2018-03-04] MEDS: MONTELUKAST 10 MG TAB PO (21:12)
[2018-03-04] MEDS: SUMAtriptan SUCCINATE 25 MG TAB PO (21:12)
[2018-03-04] MEDS: diphenhydrAMINE 50 MG CAP PO (21:14)
[2018-03-04] MEDS: TOPIRAMATE (TopAMAX) 25 MG TAB PO (21:14)
[2018-03-05] MEDS: LEVOTHYROXINE 50MCG TABLET (0.05MG) PO (06:11)
[2018-03-05 06:12] LABS: BEDSIDE GLUCOSE 104 MG/DL (70-105)
[2018-03-05] MEDS: metFORMIN XR 500MG TAB *GLUCOPHAGE XR PO ×2 (08:00→17:01)
[2018-03-05] MEDS: GEMFIBROZIL 600 MG TAB PO ×2 (08:39→21:00)
[2018-03-05] MEDS: busPIRone 10 MG TAB PO ×3 (08:40→21:01)
[2018-03-05] MEDS: METOPROLOL TART 25 MG TABLET PO (08:40)
[2018-03-05] MEDS: GABAPENTIN 300 MG CAP PO ×3 (08:40→21:02)
[2018-03-05] MEDS: ARIPiprazole 10 MG TAB PO ×2 (08:40→21:02)
[2018-03-05] MEDS: TOPIRAMATE (TopAMAX) 25 MG TAB PO (08:40)
[2018-03-05] MEDS: PANTOPRAZOLE 40MG TAB (PROTONIX) PO ×2 (08:40→21:02)
[2018-03-05] MEDS: CETIRIZINE (ZyrTEC) 10 MG TAB PO (08:40)
[2018-03-05] MEDS: ANALGESIC BALM CRM 120 GM TOP ×3 (08:41→21:00)
[2018-03-05 09:10] LABS: BEDSIDE GLUCOSE 96 MG/DL (70-105)
[2018-03-05 10:44] LABS: HEMATOCRIT 38.6 % (36.0-47.0); HEMOGLOBIN 12.4 g/dl (12.0-15.5); MEAN CORPUSCULAR HEMOGLOBIN 25.6 pg (27.0-33.0); MEAN CORPUSCULAR HGB CONC 32.1 g/dl (32.0-36.5); MEAN CORPUSCULAR VOLUME 79.6 fl (80.0-96.0); PLATELET COUNT, AUTOMATED 214 10^3/uL (150-450); RED BLOOD COUNT 4.85 10^6/uL (4.00-5.40); RED CELL DISTRIBUTION WIDTH 16.1 % (11.5-14.5)
[2018-03-05 11:04] LABS: ALBUMIN 3.2 GM/DL (3.2-5.2); ALBUMIN/GLOBULIN RATIO 0.82 (1.00-1.93); ALKALINE PHOSPHATASE 62 U/L (45-117); ALT/SGPT 29 U/L (12-78); ANION GAP 8 MEQ/L (8-16); AST/SGOT 19 U/L (7-37); BILIRUBIN,TOTAL 0.2 MG/DL (0.2-1.0); BLOOD UREA NITROGEN 10 MG/DL (7-18); CARBON DIOXIDE LEVEL 27 MEQ/L (21-32); CHLORIDE LEVEL 110 MEQ/L (98-107); CREATININE FOR GFR 0.79 MG/DL (0.55-1.30); GLOMERULAR FILTRATION RATE > 60.0 (>60); GLUCOSE, FASTING 92 MG/DL (70-100); POTASSIUM SERUM 4.1 MEQ/L (3.5-5.1); SODIUM LEVEL 145 MEQ/L (136-145); TOTAL PROTEIN 7.1 GM/DL (6.4-8.2)
[2018-03-05] MEDS: hydrOXYzine 50 MG TAB PO ×2 (11:30→21:45)
[2018-03-05] MEDS: ACETAMINOPHEN 500 MG TAB PO ×2 (11:30→21:46)
[2018-03-05 16:27] LABS: BEDSIDE GLUCOSE 87 MG/DL (70-105)
[2018-03-05] MEDS ORDERED: TOPIRAMATE (TopAMAX) 25 MG TAB PO (21:00)
[2018-03-05] MEDS: MONTELUKAST 10 MG TAB PO (21:01)
[2018-03-05] MEDS: DIVALPROEX 250MG *ER* TAB PO (21:02)
[2018-03-05] MEDS: diphenhydrAMINE 50 MG CAP PO (21:45)
[2018-03-06] MEDS: LEVOTHYROXINE 50MCG TABLET (0.05MG) PO (06:15)
[2018-03-06 06:17] LABS: BEDSIDE GLUCOSE 96 MG/DL (70-105)
[2018-03-06] MEDS: metFORMIN XR 500MG TAB *GLUCOPHAGE XR PO ×2 (07:42→17:04)
[2018-03-06] MEDS: PANTOPRAZOLE 40MG TAB (PROTONIX) PO ×2 (08:39→21:04)
[2018-03-06] MEDS: ARIPiprazole 10 MG TAB PO ×2 (08:39→21:05)
[2018-03-06] MEDS: GEMFIBROZIL 600 MG TAB PO ×2 (08:39→21:05)
[2018-03-06] MEDS: CETIRIZINE (ZyrTEC) 10 MG TAB PO (08:40)
[2018-03-06] MEDS: METOPROLOL TART 25 MG TABLET PO (08:40)
[2018-03-06] MEDS: busPIRone 10 MG TAB PO ×3 (08:40→21:05)
[2018-03-06] MEDS: GABAPENTIN 300 MG CAP PO ×3 (08:40→21:05)
[2018-03-06] MEDS: ANALGESIC BALM CRM 120 GM TOP ×3 (08:41→21:06)
[2018-03-06] MEDS: hydrOXYzine 50 MG TAB PO ×2 (10:35→18:35)
[2018-03-06] MEDS: IBUPROFEN 800 MG TAB PO (10:35)
[2018-03-06 16:47] LABS: BEDSIDE GLUCOSE 103 MG/DL (70-105)
[2018-03-06] MEDS: MONTELUKAST 10 MG TAB PO (21:05)
[2018-03-06] MEDS: DIVALPROEX 250MG *ER* TAB PO (21:05)
[2018-03-07] MEDS: LEVOTHYROXINE 50MCG TABLET (0.05MG) PO (06:11)
[2018-03-07] MEDS: metFORMIN XR 500MG TAB *GLUCOPHAGE XR PO ×2 (08:00→17:16)
[2018-03-07] MEDS: busPIRone 10 MG TAB PO ×3 (08:10→20:53)
[2018-03-07] MEDS: GABAPENTIN 300 MG CAP PO ×3 (08:10→20:53)
[2018-03-07] MEDS: ARIPiprazole 10 MG TAB PO ×2 (08:10→20:53)
[2018-03-07] MEDS: GEMFIBROZIL 600 MG TAB PO ×2 (08:10→20:53)
[2018-03-07] MEDS: METOPROLOL TART 25 MG TABLET PO (08:10)
[2018-03-07] MEDS: PANTOPRAZOLE 40MG TAB (PROTONIX) PO ×2 (08:10→20:53)
[2018-03-07] MEDS: CETIRIZINE (ZyrTEC) 10 MG TAB PO (08:11)
[2018-03-07] MEDS: ANALGESIC BALM CRM 120 GM TOP ×3 (08:11→20:54)
[2018-03-07] MEDS: hydrOXYzine 50 MG TAB PO (14:40)
[2018-03-07 16:49] LABS: BEDSIDE GLUCOSE 90 MG/DL (70-105)
[2018-03-07] MEDS: DIVALPROEX 500MG *ER* TAB PO (20:53)
[2018-03-07] MEDS: MONTELUKAST 10 MG TAB PO (20:54)
[2018-03-08] MEDS: LEVOTHYROXINE 50MCG TABLET (0.05MG) PO (06:10)
[2018-03-08 06:41] LABS: BEDSIDE GLUCOSE 95 MG/DL (70-105)
[2018-03-08] MEDS: metFORMIN XR 500MG TAB *GLUCOPHAGE XR PO ×2 (08:00→17:07)
[2018-03-08] MEDS: ANALGESIC BALM CRM 120 GM TOP ×3 (09:00→21:17)
[2018-03-08] MEDS: PANTOPRAZOLE 40MG TAB (PROTONIX) PO ×2 (09:06→21:16)
[2018-03-08] MEDS: CETIRIZINE (ZyrTEC) 10 MG TAB PO (09:06)
[2018-03-08] MEDS: GABAPENTIN 300 MG CAP PO ×3 (09:06→21:16)
[2018-03-08] MEDS: ARIPiprazole 10 MG TAB PO ×2 (09:06→21:16)
[2018-03-08] MEDS: GEMFIBROZIL 600 MG TAB PO ×2 (09:06→21:16)
[2018-03-08] MEDS: busPIRone 10 MG TAB PO ×3 (09:07→21:16)
[2018-03-08] MEDS: METOPROLOL TART 25 MG TABLET PO (09:07)
[2018-03-08 16:37] LABS: BEDSIDE GLUCOSE 96 MG/DL (70-105)
[2018-03-08] MEDS: ACETAMINOPHEN 500 MG TAB PO (18:55)
[2018-03-08] MEDS: hydrOXYzine 50 MG TAB PO (18:55)
[2018-03-08] MEDS: DIVALPROEX 500MG *ER* TAB PO (21:16)
[2018-03-08] MEDS: MONTELUKAST 10 MG TAB PO (21:16)
[2018-03-09] MEDS: LEVOTHYROXINE 50MCG TABLET (0.05MG) PO (06:02)
[2018-03-09 06:14] LABS: BEDSIDE GLUCOSE 88 MG/DL (70-105)
[2018-03-09] MEDS: busPIRone 10 MG TAB PO (08:15)
[2018-03-09] MEDS: PANTOPRAZOLE 40MG TAB (PROTONIX) PO (08:15)
[2018-03-09] MEDS: GEMFIBROZIL 600 MG TAB PO (08:15)
[2018-03-09] MEDS: metFORMIN XR 500MG TAB *GLUCOPHAGE XR PO (08:15)
[2018-03-09] MEDS: GABAPENTIN 300 MG CAP PO (08:16)
[2018-03-09] MEDS: ANALGESIC BALM CRM 120 GM TOP (08:16)
[2018-03-09] MEDS: METOPROLOL TART 25 MG TABLET PO (08:16)
[2018-03-09] MEDS: CETIRIZINE (ZyrTEC) 10 MG TAB PO (08:16)
[2018-03-09] MEDS: ARIPiprazole 10 MG TAB PO (08:16)
[2018-03-09] MEDS: hydrOXYzine 50 MG TAB PO (09:44)
== END 2018-03-09 10:27 | disposition home or self-care (01) | DRG 885 ==
LOC: M PSY 03-01 15:41 → M ED 05:33 → M ED INP 06:35 → M PSY 09:15
PROVIDERS: Psychiatry & Neurology Psychiatry
DX: F31.9 Bipolar disorder, unspecified (principal); Z68.42 Body mass index [BMI] 45.0-49.9, adult; F60.3 Borderline personality disorder; F41.0 Panic disorder [episodic paroxysmal anxiety]; G43.909 Migraine, unspecified, not intractable, without status migrainosus; Z79.899 Other long term (current) drug therapy; E03.9 Hypothyroidism, unspecified; E11.9 Type 2 diabetes mellitus without complications; K21.9 Gastro-esophageal reflux disease without esophagitis; G47.33 Obstructive sleep apnea (adult) (pediatric); K58.8 Other irritable bowel syndrome; Z90.81 Acquired absence of spleen; M54.5 Low back pain; E78.5 Hyperlipidemia, unspecified; K59.00 Constipation, unspecified; I10 Essential (primary) hypertension; E66.9 Obesity, unspecified; M25.561 Pain in right knee; M25.562 Pain in left knee

== ENCOUNTER 2018-04-10 13:37 | Emergency (ER) | payer OTHER ==
[2018-04-10] MEDS: NS 1,000 ML IV (16:07)
[2018-04-10 16:17] LABS: HEMATOCRIT 38.2 % (36.0-47.0); HEMOGLOBIN 12.2 g/dl (12.0-15.5); MEAN CORPUSCULAR HEMOGLOBIN 25.7 pg (27.0-33.0); MEAN CORPUSCULAR HGB CONC 31.9 g/dl (32.0-36.5); MEAN CORPUSCULAR VOLUME 80.4 fl (80.0-96.0); PLATELET COUNT, AUTOMATED 214 10^3/uL (150-450); RED BLOOD COUNT 4.75 10^6/uL (4.00-5.40); RED CELL DISTRIBUTION WIDTH 16.9 % (11.5-14.5); WHITE BLOOD COUNT 15.2 10^3/uL (4.0-10.0)
[2018-04-10 16:27] LABS: ADD MANUAL DIFFER YES; DIFF SLIDE NUMBER 237; POSITIVE MORPH POS FLAG
[2018-04-10 16:29] LABS: INR 0.92; PROTHROMBIN TIME 12.5 SECONDS (12.1-14.4)
[2018-04-10 16:30] LABS: PARTIAL THROMBOPLASTIN TIME 26.3 SECONDS (25.4-37.6)
[2018-04-10 16:43] LABS: BEDSIDE GLUCOSE 85 MG/DL (70-105)
[2018-04-10 16:51] LABS: ANION GAP 6 MEQ/L (8-16); BLOOD UREA NITROGEN 9 MG/DL (7-18); CALCIUM LEVEL 9.1 MG/DL (8.5-10.1); CARBON DIOXIDE LEVEL 28 MEQ/L (21-32); CHLORIDE LEVEL 110 MEQ/L (98-107); CK-MB VALUE MASS < 1.0 NG/ML (<3.6); CPK CREATINE PHOSPHOKINASE 65 U/L (26-192); CREATININE FOR GFR 0.62 MG/DL (0.55-1.30); GLOMERULAR FILTRATION RATE > 60.0 (>60); GLUCOSE, FASTING 97 MG/DL (70-100); MB/CK RELATIVE INDEX 1.54 (< OR =4); POTASSIUM SERUM 4.2 MEQ/L (3.5-5.1); SODIUM LEVEL 144 MEQ/L (136-145); THYROID STIMULATING HORMONE 0.794 uIU/ML (0.358-3.740); TROPONIN I < 0.02 NG/ML (< 0.10)
[2018-04-10 16:55] LABS: ATYPICAL LYMPH 18 % (0-5); BASOPHILS 1 % (0-4); EOSINOPHILS 9 % (0-5); LYMPHOCYTES 15 % (16-52); MONOCYTES 8 % (0-8); NEUTROPHILS 49 % (35-75)
[2018-04-10 16:56] LABS: PLATELET ESTIMATE NORMAL (NORMAL)
[2018-04-10] MEDS: ONDANSETRON 4MG/2ML VIAL (J2405) IV (17:14)
[2018-04-10] MEDS: ACETAMINOPHEN 325 MG TAB PO (17:14)
[2018-04-10] MEDS: KETOROLAC 30 MG/ML VIAL (J1885) IV (17:57)
[2018-04-10 18:10] LABS: AMPHETAMINES LEVEL URINE NEGATIVE (NEGATIVE); BARBITURATES URINE NEGATIVE (NEGATIVE); BENZODIAZEPINES URINE NEGATIVE (NEGATIVE); CANNABINOIDS URINE NEGATIVE (NEGATIVE); COCAINE METABOLITE URINE NEGATIVE (NEGATIVE); METHADONE URINE NEGATIVE (NEGATIVE); OPIATES URINE NEGATIVE (NEGATIVE); PHENCYCLIDINE URINE NEGATIVE (NEGATIVE)
[2018-04-10 19:04] LABS: CONTROL LINE MONO RF C INT CTR LINE PRESENT; MONO REFLEX EBV COMP NEGATIVE (NEGATIVE)
[2018-04-10] MEDS: diphenhydrAMINE INJ 50MG/ML VIAL (J1200) IV (19:15)
[2018-04-10] MEDS: MORPHINE 4 MG/ML 1ML VIAL/SYRINGE (J2270) IV (19:15)
[2018-04-10] MEDS: METOCLOPRAMIDE INJ 10MG/2ML VIAL (J2765) IV (19:37)
[2018-04-14 00:07] LABS: EBV VIRAL CAPSID AG IgM <36.0 U/mL (0.0-35.9)
[2018-04-14 00:07] LABS: EBV AB TO NUCLEAR ANTIGEN <18.0 U/mL (0.0-17.9); EBV VIRAL CAPSID AG IgG <18.0 U/mL (0.0-17.9)
== END 2018-04-10 20:08 | disposition home or self-care (01) ==
LOC: M ED 13:37
DX: G43.909 Migraine, unspecified, not intractable, without status migrainosus (principal); J06.9 Acute upper respiratory infection, unspecified; I10 Essential (primary) hypertension; J45.909 Unspecified asthma, uncomplicated; E03.9 Hypothyroidism, unspecified; G47.30 Sleep apnea, unspecified; K58.9 Irritable bowel syndrome, unspecified; E78.00 Pure hypercholesterolemia, unspecified; F33.9 Major depressive disorder, recurrent, unspecified; F41.9 Anxiety disorder, unspecified; Z88.5 Allergy status to narcotic agent; Z88.8 Allergy status to other drugs, medicaments and biological substances; Z79.899 Other long term (current) drug therapy; Z79.84 Long term (current) use of oral hypoglycemic drugs; Z86.69 Personal history of other diseases of the nervous system and sense organs
CPT/HCPCS: J2405

== ENCOUNTER 2018-05-03 17:20 | Emergency (ER) | payer OTHER ==
[2018-05-03] MEDS ORDERED: NS 1,000 ML IV (18:30)
[2018-05-03] MEDS: MORPHINE 4 MG/ML 1ML VIAL/SYRINGE (J2270) IV (20:37)
[2018-05-03] MEDS: FLUCONAZOLE 50MG TABLET PO (22:26)
[2018-05-03] MEDS: AMOXICILLIN 500 MG CAP PO (22:26)
[2018-05-03] MEDS: OXYCODONE/APAP 5MG/325MG(BULK FOR ED) 1 TABLET PO (22:27)
[2018-05-03 22:42] LABS: BEDSIDE GLUCOSE 91 MG/DL (70-105)
== END 2018-05-03 22:51 | disposition home or self-care (01) ==
LOC: M ED 17:20
DX: J02.9 Acute pharyngitis, unspecified (principal); B37.3 Candidiasis of vulva and vagina; Z88.5 Allergy status to narcotic agent; Z88.6 Allergy status to analgesic agent; Z88.8 Allergy status to other drugs, medicaments and biological substances; Z79.899 Other long term (current) drug therapy; Z79.84 Long term (current) use of oral hypoglycemic drugs; Z79.890 Hormone replacement therapy
CPT/HCPCS: J2270

== ENCOUNTER → 2018-05-12 | Outpatient (CLI) | payer OTHER ==
[~2018-05-12] MED LIST changes: -ALBU17IN2 INH; -EFFE150C PO; -GABA600T PO; -GEMF600T PO; -LEVO25TA5 PO; -LITH300C PO; -LITH600C PO; -METH20TA29 PO; +METHACHOLINE KIT (J7674) INH; -NORCOTAB PO; -NORT25CA2 PO; -PAME25CA PO; -VENL150C43 PO; -ZOFR4TAB3 PO; -ZONI50CA3 PO
== END ==
LOC: M CARPUL 11:46
DX: R06.00 Dyspnea, unspecified (principal)
CPT/HCPCS: J7674

== ENCOUNTER 2018-05-21 09:13 | Emergency (ER) | payer OTHER ==
[2018-05-21 09:56] LABS: HEMATOCRIT 37.1 % (36.0-47.0); HEMOGLOBIN 11.9 g/dl (12.0-15.5); MEAN CORPUSCULAR HEMOGLOBIN 25.6 pg (27.0-33.0); MEAN CORPUSCULAR HGB CONC 32.1 g/dl (32.0-36.5); PLATELET COUNT, AUTOMATED 338 10^3/uL (150-450); RED BLOOD COUNT 4.64 10^6/uL (4.00-5.40); WHITE BLOOD COUNT 16.8 10^3/uL (4.0-10.0)
[2018-05-21 10:26] LABS: APPEARANCE, URINE HAZY (CLEAR); BACTERIA, URINE AUTO 1+ (NEGATIVE); BILIRUBIN, URINE AUTO NEGATIVE (NEGATIVE); BLOOD, URINE BLOOD NEGATIVE (NEGATIVE); COLOR, URINE YELLOW (YELLOW); GLUCOSE, URINE (UA) AUTO NEGATIVE (NEGATIVE); KETONE, URINE AUTO NEGATIVE (NEGATIVE); LEUKOCYTE ESTERASE, URINE AUTO NEGATIVE (NEGATIVE); NITRITE, URINE AUTO NEGATIVE (NEGATIVE); PROTEIN, URINE AUTO NEGATIVE (NEGATIVE); RBC, URINE AUTO 0 /HPF (0-3); SPECIFIC GRAVITY URINE AUTO 1.006 (1.002-1.035); SQUAMOUS EPITHELIAL CELL UR AU 0 /HPF (0-6); UROBILINOGEN, URINE AUTO 0.2 mg/dL (0.0-2.0); WBC, URINE AUTO 1 /HPF (0-3)
[2018-05-21] MEDS: ACETAMINOPHEN 325 MG TAB PO (10:32)
[2018-05-21] MEDS: IBUPROFEN 800 MG TAB PO (10:32)
[2018-05-21 10:33] LABS: ALBUMIN 3.2 GM/DL (3.2-5.2); ALBUMIN/GLOBULIN RATIO 0.74 (1.00-1.93); ALKALINE PHOSPHATASE 64 U/L (45-117); ALT/SGPT 16 U/L (12-78); ANION GAP 8 MEQ/L (8-16); AST/SGOT 8 U/L (7-37); BILIRUBIN,DIRECT < 0.1 MG/DL (0.0-0.2); BILIRUBIN,TOTAL 0.2 MG/DL (0.2-1.0); BLOOD UREA NITROGEN 12 MG/DL (7-18); CALCIUM LEVEL 9.5 MG/DL (8.5-10.1); CARBON DIOXIDE LEVEL 23 MEQ/L (21-32); CHLORIDE LEVEL 109 MEQ/L (98-107); CREATININE FOR GFR 0.64 MG/DL (0.55-1.30); GLOMERULAR FILTRATION RATE > 60.0 (>60); GLUCOSE, FASTING 168 MG/DL (70-100); POTASSIUM SERUM 4.1 MEQ/L (3.5-5.1); SALICYLATE LEVEL < 1.7 MG/DL (5.0-30.0); SODIUM LEVEL 140 MEQ/L (136-145); THYROID STIMULATING HORMONE 0.688 uIU/ML (0.358-3.740); TOTAL PROTEIN 7.5 GM/DL (6.4-8.2)
[2018-05-21 10:34] LABS: ACETAMINOPHEN LEVEL < 2.0 UG/ML (10.0-30.0); ETHYL ALCOHOL (ETHANOL) < 0.003 % (0.000-0.010)
[2018-05-21] MEDS ORDERED: ISOVUE-370 76% 100ML VIAL (Q9967) As Ordered (13:02)
[2018-05-21] MEDS: PROMETHAZINE INJ 25 MG/ML VIAL (J2550) IM (14:10)
[2018-05-21 16:41] LABS: AMPHETAMINES LEVEL URINE NEGATIVE (NEGATIVE); BARBITURATES URINE NEGATIVE (NEGATIVE); BENZODIAZEPINES URINE NEGATIVE (NEGATIVE); CANNABINOIDS URINE NEGATIVE (NEGATIVE); COCAINE METABOLITE URINE NEGATIVE (NEGATIVE)
[2018-05-21 16:42] LABS: METHADONE URINE NEGATIVE (NEGATIVE); OPIATES URINE NEGATIVE (NEGATIVE); PHENCYCLIDINE URINE NEGATIVE (NEGATIVE)
[2018-05-21 18:08] LABS: LITHIUM LEVEL < 0.20 MEQ/L (0.60-1.20); VALPROIC ACID (DEPAKOTE) 24.4 UG/ML (50.0-100.0)
[2018-05-21] MEDS: GABAPENTIN 300 MG CAP PO (18:45)
[2018-05-21] MEDS: metFORMIN (GLUCOPHAGE) 500 MG TAB PO (18:46)
[2018-05-21] MEDS: DIVALPROEX 500 MG TAB PO (18:47)
[2018-05-21] MEDS: LITHIUM CARBONATE 300 MG CAP PO (18:47)
[2018-05-21] MEDS: busPIRone 10 MG TAB PO (18:47)
[2018-05-21] MEDS: GEMFIBROZIL 600 MG TAB PO (20:51)
[2018-05-21] MEDS: sulfaSALAzine 500 MG TABEC PO (20:52)
== END 2018-05-22 01:49 | disposition short-term general hospital (02) ==
LOC: M ED 05-22 01:49
DX: R45.851 Suicidal ideations (principal); F99 Mental disorder, not otherwise specified; Z91.5 Personal history of self-harm; Z88.8 Allergy status to other drugs, medicaments and biological substances; Z88.5 Allergy status to narcotic agent; Z88.4 Allergy status to anesthetic agent; Z79.899 Other long term (current) drug therapy; Z79.84 Long term (current) use of oral hypoglycemic drugs
CPT/HCPCS: Q9967

== ENCOUNTER → 2018-07-01 | Outpatient (REF) | payer OTHER ==
[~2018-07-01] MED LIST changes: +ACET-683 PO; +ALBU17IN2 INH; +AMOX500C PO; +ARIP10TAB PO; +ARIP1TAB2 PO; +ATIV1TAB7 PO; +BENA25TA10 PO; +BENT10CA PO; +BUPR150T3 PO; +BUSP10TA PO; +BUSP15TA47 PO; +BUSP5TA PO; +CARA1TAB6 PO; +CATA0.1T PO; +CLON0.1D3 TD; +COLA100C5 PO; +DEPA500T2 PO; +DICL1GEL3 TD; +DICY20TA11 PO; +EFFE150C2 PO; +FIOR1CAP PO; +FLON1SPR; +GABA-843 PO; +GABA600T PO; +GEMF600T5 PO; +HYDRO50TAB PO; +IBUP80TA PO; +IMOD2CAP PO; +LATU120T PO; +LEVO25TA5 PO; +LEVO50TA5 PO; +LEXA1TAB2 PO; +LIDO5DIS41 TD; +LITH300C PO; +LITH300T PO; +LITH600C PO; +MELO15TA28 PO; +METF500T13 PO; +METF500T4 PO; +METH20TA29 PO; -METHACHOLINE KIT (J7674) INH; +METO1TAB87 PO; +MIRA3350 PO; +MONT10TA2 PO; +NORCOTAB PO; +NORT25CA2 PO; +PAME25CA PO; +PANT40TA3 PO; +PERC5TAB12 PO; +PHEN1SUP6 PO; +PRAZ5CAP PO; +PROM50TA4 PO; +PROT1TAB2 PO; +RANI15TA PO; +SULF50TA; +SUMA50TA2 PO; +TRAZ-160 PO; +VENL150C43 PO; +VENL75CA47 PO; +WELLTAB40 PO; +ZOFR4TAB14 PO; +ZONI50CA3 PO; +ZYRT10CA PO
[2018-07-01 14:03] LABS: BACTERIA, URINE AUTO 1+ (NEGATIVE); RBC, URINE AUTO 1 /HPF (0-3); SQUAMOUS EPITHELIAL CELL UR AU 4 /HPF (0-6); WBC, URINE AUTO 1 /HPF (0-3)
== END ==
LOC: M SMT 13:39
PROVIDERS: ATTEND Specialist
DX: N30.90 Cystitis, unspecified without hematuria (principal)

== ENCOUNTER 2018-09-24 12:01 | Inpatient (IN) | payer OTHER ==
[~2018-09-24] VITALS: Ht 167.6 cm; Wt 134.7 kg
[~2018-09-24 12:01] MED LIST changes: -GABA600T PO; +GABA600T4 PO; -SULF50TA; +SULF50TA PO
[2018-09-24] MEDS ORDERED: SUCRALFATE SUSP 1GM/10ML UD PO ONE (12:30)
[2018-09-24] MEDS ORDERED: PRAZ2CAP PO (13:03)
[2018-09-24] MEDS ORDERED: DULO30CA PO (13:03)
[2018-09-24 13:33] LABS: HEMATOCRIT 36.4 % (36.0-47.0); HEMOGLOBIN 11.6 g/dl (12.0-15.5); MEAN CORPUSCULAR HEMOGLOBIN 26.7 pg (27.0-33.0); MEAN CORPUSCULAR HGB CONC 31.9 g/dl (32.0-36.5); MEAN CORPUSCULAR VOLUME 83.7 fl (80.0-96.0); PLATELET COUNT, AUTOMATED 399 10^3/uL (150-450); RED BLOOD COUNT 4.35 10^6/uL (4.00-5.40); WHITE BLOOD COUNT 14.2 10^3/uL (4.0-10.0)
[2018-09-24 13:47] LABS: AMPHETAMINES LEVEL URINE NEGATIVE (NEGATIVE); BARBITURATES URINE NEGATIVE (NEGATIVE); BENZODIAZEPINES URINE NEGATIVE (NEGATIVE); CANNABINOIDS URINE NEGATIVE (NEGATIVE); COCAINE METABOLITE URINE NEGATIVE (NEGATIVE); METHADONE URINE NEGATIVE (NEGATIVE); OPIATES URINE NEGATIVE (NEGATIVE); PHENCYCLIDINE URINE NEGATIVE (NEGATIVE)
[2018-09-24 14:16] LABS: ALT/SGPT 18 U/L (12-78); BILIRUBIN,DIRECT 0.1 MG/DL (0.0-0.2); BILIRUBIN,TOTAL 0.3 MG/DL (0.2-1.0); BLOOD UREA NITROGEN 9 MG/DL (7-18); CALCIUM LEVEL 9.5 MG/DL (8.5-10.1); CARBON DIOXIDE LEVEL 26 MEQ/L (21-32); CHLORIDE LEVEL 105 MEQ/L (98-107); CREATININE FOR GFR 0.71 MG/DL (0.55-1.30); ETHYL ALCOHOL (ETHANOL) < 0.003 % (0.000-0.010); GLOMERULAR FILTRATION RATE > 60.0 (>60); GLUCOSE, FASTING 106 MG/DL (70-100); LIPASE 467 U/L (73-393); POTASSIUM SERUM 4.4 MEQ/L (3.5-5.1); SALICYLATE LEVEL < 1.7 MG/DL (5.0-30.0); SODIUM LEVEL 139 MEQ/L (136-145); TOTAL PROTEIN 7.4 GM/DL (6.4-8.2)
[2018-09-24 14:17] LABS: ACETAMINOPHEN LEVEL < 2.0 UG/ML (10.0-30.0)
[2018-09-24] MEDS ORDERED: ALBU17IN2 INH (15:15)
[2018-09-24] MEDS ORDERED: BUSP15TA47 PO (15:15)
[2018-09-24] MEDS ORDERED: LITH300C PO (15:22)
[2018-09-24] MEDS ORDERED: SUMA50TA2 PO (15:22)
[2018-09-24] MEDS ORDERED: BENGGEL2 TOP (15:31)
[2018-09-24] MEDS ORDERED: CALC600T60 PO (15:31)
[2018-09-24] MEDS ORDERED: D 50CAP PO (15:31)
[2018-09-24] MEDS ORDERED: PROBCAP14 PO (15:31)
[2018-09-24] MEDS ORDERED: VITMTA PO (15:31)
[2018-09-24] MEDS ORDERED: PRED5TA PO (15:31)
[2018-09-24] MEDS ORDERED: OXYB10TA PO (15:31)
[2018-09-24] MEDS ORDERED: VITA500C24 PO (15:31)
[2018-09-24] MEDS ORDERED: B COTAB3 PO (15:31)
[2018-09-24] MEDS ORDERED: FERR325T3 PO (15:31)
[2018-09-24] MEDS ORDERED: MAGN400C2 PO (15:31)
[2018-09-24] MEDS ORDERED: CYCL10TA PO (15:31)
[2018-09-24] MEDS ORDERED: ACETAMINOPHEN TAB 650MG DOSE (2X325MG) PO PRN (15:45)
[2018-09-24] MEDS ORDERED: MOM 30ML SUSPENSION UDC PO PRN (15:45)
[2018-09-24] MEDS ORDERED: MAALOX 30 ML SUSP *UDC PO PRN (15:45)
[2018-09-24] MEDS ORDERED: traZODone 50 MG TAB PO PRN (15:45)
[2018-09-24 17:00] VITALS: BP 130/84
[2018-09-24] MEDS ORDERED: ALBUTEROL 90 MCG/ACT 8GM HFA INHALER INH PRN (18:15)
[2018-09-24] MEDS ORDERED: IBUPROFEN 800 MG TAB PO PRN (18:15)
[2018-09-24] MEDS ORDERED: CYCLOBENZAPRINE 10 MG TAB PO PRN (18:15)
[2018-09-24] MEDS ORDERED: DICYCLOMINE 10 MG CAP PO PRN (18:30)
--- NOTE | 2018-09-24 19:22 | ECGEPIP ---
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
[2018-09-24] MEDS: METOPROLOL TART 25 MG TABLET PO SCH (21:00)
[2018-09-24] MEDS: MONTELUKAST 10 MG TAB PO SCH (21:00)
[2018-09-24] MEDS: ANALGESIC BALM CRM 120 GM TOP SCH (21:00)
[2018-09-24] MEDS: GABAPENTIN 300 MG CAP PO SCH (21:00)
[2018-09-24] MEDS: GEMFIBROZIL 600 MG TAB PO SCH (21:00)
[2018-09-24] MEDS: PRAZOSIN 1 MG CAP PO SCH (21:00)
[2018-09-24] MEDS: sulfaSALAzine 500 MG TABEC PO SCH (21:00)
[2018-09-24] MEDS: busPIRone 5 MG TAB PO SCH (21:00)
[2018-09-24] MEDS ORDERED: LITHIUM CARBONATE 300 MG CAP PO SCH (21:00)
[2018-09-24] MEDS: PANTOPRAZOLE 40MG TAB (PROTONIX) PO SCH (21:00)
[2018-09-25 06:21] VITALS: BP 149/73
[2018-09-25] MEDS: LEVOTHYROXINE 50MCG TABLET (0.05MG) PO SCH (06:26)
[2018-09-25] MEDS: VITAMIN D 1,000 INTERNATIONAL UNITS TABLET PO SCH (08:27)
[2018-09-25] MEDS: MULTIVITAMINS/MINERALS THERAP 1 TAB PO SCH (08:28)
[2018-09-25] MEDS: oxyBUTYnin *DITROPAN XL* 5 MG TABCR PO SCH (08:29)
[2018-09-25] MEDS: VITAMIN B COMPLEX/VIT C CAP PO SCH (08:29)
[2018-09-25] MEDS: DULoxetine 30 MG CAP (CYMBALTA) PO SCH (08:29)
[2018-09-25] MEDS: sulfaSALAzine 500 MG TABEC PO SCH ×2 (08:29→20:39)
[2018-09-25] MEDS: busPIRone 5 MG TAB PO SCH ×2 (08:29→20:39)
[2018-09-25] MEDS: PANTOPRAZOLE 40MG TAB (PROTONIX) PO SCH ×2 (08:29→20:39)
[2018-09-25] MEDS: GABAPENTIN 300 MG CAP PO SCH ×3 (08:29→20:42)
[2018-09-25] MEDS ORDERED: LITHIUM CARBONATE 300 MG CAP PO SCH (09:00)
[2018-09-25] MEDS ORDERED: ASCORBIC ACID 500 MG TAB PO SCH (09:00)
--- NOTE | 2018-09-25 09:33 | HPEPDOC ---
[facility] Medical History & Physical Date of Admission Sep 24, 2018 History and Physical PCP: [facility] ATTENDING: Dr. Michelle Frazier HPI: 38yoF admitted to [facility] for unspecified depressive disorder, being medically examined today. No acute medical complaints today. Denies any fevers, chills, weakness, fatigue, LUCAS, CP, SOB, cough, palpitations, abdominal pain, N/V/D or changes in bowel or bladder habits. PMHx: Hypothyroid HLD Asthma Allergic rhinitis NIDDM, diet controlled. Anxiety Depression History of SI/SA, overdose. GERD IBS H/O ITP S/P splenectomy Migraine LUCAS. Follows with [facility]. chronic back pain, h/o injections with [facility]. Chronic knee pain BAM. CPAP. Pseudoseizure. (per pt) Follows with [facility]. OAB. [facility]. Rheumatoid arthritis PSHX: Appendectomy Tubal ligation Hysterectomy Splenectomy 2010 Cholecystectomy Sinus reconstruction Ventral hernia repair SOCHX: Resides in: [facility] Marital Status: Kids: 1 Tobacco use: denies ETOH: denies Illicit Drugs: Denies IV Drug Use: Denies Tattoos done unprofessionally: Denies FAMHX: Mother: Alive, DM Father: Alive, well ROS: As noted in HPI, otherwise 11pt ROS of systems reviewed and remarkable only for LMP NA, hysterectomy. PE: GEN: 38yoF, appears stated age. No acute distress. Alert and oriented x 3. Fl at affect, avoids eye contact. HEENT: Normocephalic, atraumatic. Pupils are equal, round, and reactive to light. Extraocular movements are intact. No nystagmus appreciated. Sclera are nonicteric. Conjunctiva without injection. Nose midline. EACs both patent BL. TMs both visualized and hansen with good cone of light, no bulging or erythema. No facial asymmetry. Moist mucous membranes. Dentition fair. Pharynx pink and moist, no cobblestoning. Neck supple, trachea midline. No lymphadenopathy or thyromegaly appreciated. CHEST: Regular rate and rhythm, +S1, +S2 LUNGS: Clear to auscultation bilaterally. No wheezes, rales, or rhonchi. Breathing appears symmetric and easy. Patient is speaking in full sentences. No accessory muscle use. ABD: Round, soft, non-tender, non-distended. +Bowel sounds throughout. No rebound or guarding. No costovertebral angle tenderness. EXT: Pulses 2+ bilaterally dorsalis pedis and radial. No lower extremity edema appreciated. SKIN: [place], dry, warm. Capillary refill <2sec. No rashes. NEURO: Alert and oriented x 3. Cranial nerves III-XII are intact. No focal deficits appreciated. EKG: SINUS RHYTHM MODERATE INTRAVENTRICULAR CONDUCTION DELAY SIMILAR TO 05/21/18 Electronically Signed On 09-24-2018 19:22:22 EDT by Vega Bass A&P: 38yoF admitted to [facility] for unspecified depressive disorder 1. Psych. Management as per Psychiatry. EKG on file. 2.. Follow up with PCP on discharge. 3. Chronic migraine headache. Patient remains on gabapentin 600 mg 3 times a day. Imitrex 50mg daily as needed.. Tylenol 650 mg every 6 hours as needed. Ibuprofen 800 mg Q8h as needed. Follows with [facility], consider consultation if needed. Pt states LUCAS have currently been controlled. 4. History of pseudoseizure. Continue outpt F/U with Neurology. 5. Chronic knee pain/back pain/chronic pain. Continue Tylenol as needed. Continue ibuprofen as needed. Continue gabapentin 600 mg by mouth 3 times a day. Continue Cymbalta 60 mg daily. Continue topical grey fernandez as needed. Continue Flexeril 10 mg BID prn. Pt has followed with [facility] in the past. Consider pain mgmt consultation if needed. 7. NIDDM. Diet controlled, not on meds currently. BS on admission noted to be 106. A1c 09/28 5.9. Consistent carbohydrate diet. Monitor. Continue outpt F/U with PCP. 8. Hypothyroidism. Continue levothyroxine 50 g daily. TSH is noted within normal limits. 9. Hyperlipidemia. Continue gemfibrozil 600 mg twice a day. 10. Gastroesophageal reflux disease. Continue Protonix 40 mg twice a day. 11. Hypertension. Continue metoprolol 25 mg daily. Monitor BP. 12. Obesity. BMI 48.5. Complicates care. TSH within normal limits A1c 3 noted to be 5.9 BS 106 on admission. 13. Asthma. Continue singular 10 mg daily. Continue albuterol HFA 2 puffs every 4 hours as needed. 14. IBS/Chronic constipation/Chronic abdominal pain. Pt states no recent changes/issues. Continue Bentyl 20mg Q6hr as needed. MOM daily as needed. 15. OAB. Continue Oxybutynin. Continue outpt F/U with [facility]. 16. Rheumatoid arthritis. Pt on sulfasalazine 1500mg BID. 17. BAM. Continue CPAP with home settings. 18. Staff member Kiya present throughout exam. Vital Signs Vital Signs Date Time Temp Pulse Resp B/P (MAP) Pulse Ox O2 Delivery O2 Flow Rate FiO2 09/25/18 06:21 97.7 66 14 149/73 (98) 09/24/18 17:00 99 09/24/18 15:33 Room Air Laboratory Data Labs 24H Laboratory Tests 2 09/24/18 13:07: Nucleated Red Blood Cells % (auto) 0.3H, Anion Gap 8, Glomerular Filtration Rate > 60.0, Calcium Level 9.5, Aspartate Amino Transf (AST/SGOT) 13, Alanine Aminotransferase (ALT/SGPT) 18, Alkaline Phosphatase 67, Total Bilirubin 0.3, Direct Bilirubin 0.1, Total Protein 7.4, Albumin 4.0, Albumin/Globulin Ratio 1.18, Lipase 467H, Thyroid Stimulating Hormone (TSH) 1.330, Salicylates Level < 1.7L, Urine Amphetamines Screen NEGATIVE, Urine Benzodiazepines Screen NEGATIVE, Urine Opiates Screen NEGATIVE, Urine Methadone Screen NEGATIVE, Acetaminophen Level < 2.0L, Urine Barbiturates Screen NEGATIVE, Urine Phencyclidine Screen NEGATIVE, Urine Cocaine Metabolite Screen NEGATIVE, Urine Cannabinoids Screen NEGATIVE, Ethyl Alcohol Level < 0.003 CBC/BMP Laboratory Tests 09/24/18 13:07 Red Blood Count 4.35, Mean Corpuscular Volume 83.7, Mean Corpuscular Hemoglobin 26.7 L, Mean Corpuscular Hemoglobin Concent 31.9 L, Red Cell Distribution Width 15.6 H Home Medications Scheduled (Magnesium) 400 Mg Cap, 400 MG PO BID (B Complex) 1 Tab Tab, 1 TAB PO DAILY (Probiotic) 1 Cap Cap, 1 CAP PO DAILY (Bengay Cold Therapy) 5 % Gel, 1 APLCT TOP QHS APPLIES TO KNEES AND LOWER BACK Ascorbic Acid (Vitamin C) 500 Mg Cap, 500 MG PO DAILY Buspirone HCl (Buspirone HCl) 15 Mg Tab, 15 MG PO BID Calcium Carbonate (Calcium) 600 Mg Tab, 600 MG PO DAILY Cholecalciferol (Vitamin D3) 5,000 Unit Cap, 10,000 UNIT PO DAILY Duloxetine Hcl (Cymbalta) 30 Mg Cap, 60 MG PO DAILY Ferrous Sulfate (Ferrous Sulfate) 325 Mg Tab, 325 MG PO QAM TAKES AT 3 AM WITH A GLASS OF ORANGE JUICE Gabapentin (Gabapentin) 300 Mg Cap, 600 MG PO TID Gemfibrozil (Gemfibrozil) 600 Mg Tab, 600 MG PO BID Levothyroxine Sodium (Synthroid) 50 Mcg Tab, 50 MCG PO DAILY Panacea Carbonate (Panacea Carbonate) 300 Mg Cap, 300 MG PO DAILY Panacea Carbonate (Panacea Carbonate) 300 Mg Cap, 600 MG PO QHS Metoprolol Tartrate (Metoprolol Tartrate) 25 Mg Tab, 25 MG PO QHS Montelukast Sodium (Montelukast Sodium) 10 Mg Tab, 10 MG PO QPM Multivitamins *[facility] STOCKED* (Thera M Plus *[facility] STOCKED*) 1 Tab Tab, 1 TAB PO DAILY Oxybutynin Chloride (Oxybutynin Chloride ER) 10 Mg Tab, 10 MG PO DAILY Pantoprazole Sodium (Pantoprazole Sodium) 40 Mg Tab, 40 MG PO BID Prazosin Hcl (Prazosin HCl) 2 Mg Cap, 4 MG PO QHS Prednisone (Prednisone) 5 Mg Tab, 10 MG PO DAILY TAPER. STARTED 09/18/18 INITIAL DOSING 4 TAB QD X 4 DAYS, THEN DECREASE BY 1 TABLET EVERY 4 DAYS UNTIL DONE. DURATION: 16 DAYS. (PT STATES TODAY IS FIRST DAY OF 2QD) Sulfasalazine (Sulfasalazine Delayed Release) 500 Mg Tabec, 1,500 MG PO BID Scheduled PRN Acetaminophen (Acetaminophen Extra Stren) 500 Mg Tab, 1,000 MG PO Q6H PRN for PAIN Albuterol Sulfate (Proventil Hfa) 108 Mcg/Act Aer, 2 PUFF INH Q4H PRN for SHORTNESS OF BREATH Cyclobenzaprine HCl (Cyclobenzaprine HCl) 10 Mg Tab, 10 MG PO BID PRN for MUSCLE SPASMS Dicyclomine HCl (Dicyclomine HCl) 20 Mg Tab, 20 MG PO QID PRN for ABDOMINAL PAIN Diphenhydramine Hcl (Benadryl Allergy) 25 Mg Tab, 50 MG PO PRN PRN for ALLERGIES Fluticasone Propionate (Flonase Allergy Relief) 50 Mcg/Act Spr, 1 SPRAY NA DAILY PRN for NASAL CONGESTION Hydroxyzine HCl (Hydroxyzine HCl) 50 Mg Tab, 50 MG PO Q6H PRN for ANXIETY MAY TAKE 100MG AT BEDTIME Ibuprofen (Ibuprofen) 800 Mg Tab, 800 MG PO Q8H PRN for PAIN Polyethylene Glycol (Miralax) 1 Pow Pow, 17 GM PO DAILY PRN for CONSTIPATION Promethazine Hcl (Promethazine HCl) 50 Mg Tab, 25 MG PO Q12H PRN for NAUSEA Sumatriptan Succinate (Sumatriptan Succinate) 50 Mg Tab, 50 MG PO DAILY PRN for HEADACHE Allergies Coded Allergies: Modafinil (Verified Allergy, Severe, THROAT SWELLS, 02/28/18) Zolpidem (Verified Allergy, Severe, RASH/DIFFICULTY BREATHING, 02/28/18) Bupivacaine (Verified Allergy, Intermediate, 02/28/18) Naproxen (Verified Allergy, Intermediate, RASH (TAKES IBUPROFEN AND MELOXICAM AT HOME), 02/28/18) Tramadol (Verified Allergy, Intermediate, RASH, 02/28/18) Trazodone (Verified Adverse Reaction, Intermediate, increases patient's depression, 02/28/18) Michaela Anderson Sep 25, 2018 09:33
--- NOTE | 2018-09-25 11:26 | MHHPEPDOC ---
General Date Of Admission: Sep 24, 2018 Legal Status: 9.39 Chief Complaint "I'm feeling suicidal". History of Present Illness HISTORY OF THE PRESENT ILLNESS: Patient is a 38 -year-old , female, with a history of depression, SA via OD, self harm, anxiety, borderline personality d/o well known to [facility] due to history multiple admissions who was sent to ED after seen at outpatient therapy appt where she was endorsing panic attacks and SI for a few days with plan to OD. Pt in the ED stated she been having panic attacks at times waking her from sleep during the night and causing headache, chest pain, stomach upset, and sore throat. Pt denies any triggers but her divorce was recently finalized after long separation due to him cheating on her. Pt's mother called from the ED and stated that pt at home appeared to be doing well. Pt in the ED endorsed depressed mood, anxiety, SI. Psychiatric Review of Systems Depression (2 or more weeks): depressed mood, feelings of worthlesness, difficulty concentrating, appetite changes, suicidal thoughts Verenice (4 or more days of): denies Psychosis: denies PTSD: history of trauma, mood fluctuations Anxiety: gen/non-specific anxiety, situational anxiety, stressor related anxiety, panic attacks Anxiety/ 6 months or more of: difficulty concentrating, irritability, muscle tension, personality cluster A,BC (b) Past Psychiatric History Previous Psychiatric Diagnosis: Major Depressive Disorder, Post Depression, Borderline Personality Disorder Previous Psychiatric Admissions: multiple in [place] for depression and SI, multiple to [facility] for SI last May 2018 Suicide Attempts: OD on pills 02/2018, hx cutting, banging head, hitting knees and legs with a hammer Psychiatric Follow-up: [facility] Psychiatric medications: wellburtin xl, depakote, ativan, buspar, latuda, effexor, lithium Past Medical History Medical Problems DMII, hypercholesteremia, IBS, Pseudoseizures, chronic pain, migraines, fibroids, hx of ovarian cysts Head Injury: No Seizures: No Hospitalizations: Yes Surgeries: Yes (appendectom , splenectomy 2010, hernia repair 2011, cholycystectomy 2012) Family Medical/Psychiatric HX Medical Problems noncontributory Psychiatric Disorders: No Addiction: No Suicide Attemps/Completions: No Addiction History other (food, shopping) Social History Childhood: Born and raised 2 parent home with 1 sister in [place], [place]. Good, happy childhood Abuse/Trauma: 1 tubal , 1 miscarriage Current Living Situation: lives with parents and sister in [place], [place] Education: high school edu, some college Employment: unemployed, on disability Social Support: family Legal: denies Marital: divorce recently finalized after long separation, and 15y/o in [place], cheated on her Mental Status Examination General Appearance: unkempt, appears stated age, hospital scubs/clothing Build: overweight Demeanor: very figety Eye Contact: poor Activity: anxious Behavior: cooperative, restless Speech: clear, spontaneous, normal volume, reg/rate,rhythm,volume Mood: depressed, anxious, irritable Mood panicky all the time Affect: constricted, flat, congruent, anxious Thought Process: logical/linear, depressed, intact, other (somatization) Thought Content (Delusions): denies SI, HI, AVH Thought Content (Other): preoccupied Thought Content (Aggressive): none reported Perception (Hallucinations): none reported Perception (Other): none reported Cognition (Impairment of): none reported Cognition(Intelligence Est.): average Oriented: Awake, Alert, Oriented times three Insight: poor Judgment: Poor Psychosis: Denies Diagnoses Major 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 I'm never home." States over the last 6wks she's had at 1 doctor appt per day for follow-up. Also states her rhuematoid arthritis, bladder cystitis, pain all getting worse. She has a history of being very somatic. Pt states her meds are ok. States lithium had to be decreased due to tremor outpatient and therefore not very effective for mood and anxiety now. Agreeable to discontinuing as unable to take therapeutic does due to side effect. Willing to try rexulti as an antidepressant augmentor of cymbalta and see if it's beneficial. Ris ks/benefits discussed. Continues to endorse anxiety and very somatic today. Appears anxious and fidgety. Denies SI and feels safe here. Denies HI, hallucinations, delusions. Initial Treatment Plan 1. Patient was admitted on a 9.39 status. 2. Complete history was obtained. 3. With patients permission, family will be contacted and database will be expanded. 4. Patients medication regimen will be reviewed and changed accordingly. 5. Patient will be provided with protected environment. 6. Patient will be treated with individual, group, and milieu therapies. 7. Patient will receive supportive psych-education. 8. Discharge planning will commence immediately. 9. Outpatient follow-up treatment will be strongly recommended. 10. The initial treatment plan will focus initially on: * Depression. * Risk for suicide. * Substance abuse. 11. d/c lithium and start rexulti 1mg daily ESTIMATED LENGTH OF STAY: 7-9 DAYS. TIME SPENT COUNSELING AND COORDINATING INITIAL CARE: 60 minutes. Vital Signs Vital Signs Date Time Temp Pulse Resp B/P (MAP) Pulse Ox O2 Delivery O2 Flow Rate FiO2 09/25/18 06:21 97.7 66 14 149/73 (98) 09/24/18 17:00 99 09/24/18 15:33 Room Air Laboratory Data 24H Labs Laboratory Tests 2 09/24/18 13:07: Nucleated Red Blood Cells % (auto) 0.3H, Anion Gap 8, Glomerular Filtration Rate > 60.0, Calcium Level 9.5, Aspartate Amino Transf (AST/SGOT) 13, Alanine Aminotransferase (ALT/SGPT) 18, Alkaline Phosphatase 67, Total Bilirubin 0.3, Direct Bilirubin 0.1, Total Protein 7.4, Albumin 4.0, Albumin/Globulin Ratio 1.18, Lipase 467H, Thyroid Stimulating Hormone (TSH) 1.330, Salicylates Level < 1.7L, Urine Amphetamines Screen NEGATIVE, Urine Benzodiazepines Screen NEGATIVE, Urine Opiates Screen NEGATIVE, Urine Methadone Screen NEGATIVE, Acetaminophen Level < 2.0L, Urine Barbiturates Screen NEGATIVE, Urine Phencyclidine Screen NEGATIVE, Urine Cocaine Metabolite Screen NEGATIVE, Urine Cannabinoids Screen NEGATIVE, Ethyl Alcohol Level < 0.003 CBC/BMP Laboratory Tests 09/24/18 13:07 Red Blood Count 4.35, Mean Corpuscular Volume 83.7, Mean Corpuscular Hemoglobin 26.7 L, Mean Corpuscular Hemoglobin Concent 31.9 L, Red Cell Distribution Width 15.6 H Medications Scheduled (Magnesium) 400 Mg Cap, 400 MG PO BID, (Reported) (B Complex) 1 Tab Tab, 1 TAB PO DAILY, (Reported) (Probiotic) 1 Cap Cap, 1 CAP PO DAILY, (Reported) (Bengay Cold Therapy) 5 % Gel, 1 APLCT TOP QHS, (Reported) APPLIES TO KNEES AND LOWER BACK Ascorbic Acid (Vitamin C) 500 Mg Cap, 500 MG PO DAILY, (Reported) Buspirone HCl (Buspirone HCl) 15 Mg Tab, 15 MG PO BID, (Reported) Calcium Carbonate (Calcium) 600 Mg Tab, 600 MG PO DAILY, (Reported) Cholecalciferol (Vitamin D3) 5,000 Unit Cap, 10,000 UNIT PO DAILY, (Reported) Duloxetine Hcl (Cymbalta) 30 Mg Cap, 60 MG PO DAILY, (Reported) Ferrous Sulfate (Ferrous Sulfate) 325 Mg Tab, 325 MG PO QAM, (Reported) TAKES AT 3 AM WITH A GLASS OF ORANGE JUICE Gabapentin (Gabapentin) 300 Mg Cap, 600 MG PO TID, (Reported) Gemfibrozil (Gemfibrozil) 600 Mg Tab, 600 MG PO BID, (Reported) Levothyroxine Sodium (Synthroid) 50 Mcg Tab, 50 MCG PO DAILY, (Reported) Th[place]morton Carbonate (Th[place]morton Carbonate) 300 Mg Cap, 300 MG PO DAILY, (Reported) [place] Carbonate ([place] Carbonate) 300 Mg Cap, 600 MG PO QHS, (Reported) Metoprolol Tartrate (Metoprolol Tartrate) 25 Mg Tab, 25 MG PO QHS, (Reported) Montelukast Sodium (Montelukast Sodium) 10 Mg Tab, 10 MG PO QPM, (Reported) Multivitamins *[facility] STOCKED* (Thera M Plus *[facility] STOCKED*) 1 Tab Tab, 1 TAB PO DAILY, (Reported) Oxybutynin Chloride (Oxybutynin Chloride ER) 10 Mg Tab, 10 MG PO DAILY, (Reported) Pantoprazole Sodium (Pantoprazole Sodium) 40 Mg Tab, 40 MG PO BID, (Reported) Prazosin Hcl (Prazosin HCl) 2 Mg Cap, 4 MG PO QHS, (Reported) Prednisone (Prednisone) 5 Mg Tab, 10 MG PO DAILY, (Reported) TAPER. STARTED 09/18/18 INITIAL DOSING 4 TAB QD X 4 DAYS, THEN DECREASE BY 1 TABLET EVERY 4 DAYS UNTIL DONE. DURATION: 16 DAYS. (PT STATES TODAY IS FIRST DAY OF 2QD) Sulfasalazine (Sulfasalazine Delayed Release) 500 Mg Tabec, 1,500 MG PO BID, (Reported) Scheduled PRN Acetaminophen (Acetaminophen Extra Stren) 500 Mg Tab, 1,000 MG PO Q6H PRN for PAIN, (Reported) Albuterol Sulfate (Proventil Hfa) 108 Mcg/Act Aer, 2 PUFF INH Q4H PRN for SHORTNESS OF BREATH, (Reported) Cyclobenzaprine HCl (Cyclobenzaprine HCl) 10 Mg Tab, 10 MG PO BID PRN for MUSCLE SPASMS, (Reported) Dicyclomine HCl (Dicyclomine HCl) 20 Mg Tab, 20 MG PO QID PRN for ABDOMINAL PAIN, (Reported) Diphenhydramine Hcl (Benadryl Allergy) 25 Mg Tab, 50 MG PO PRN PRN for ALLERGIES, (Reported) Fluticasone Propionate (Flonase Allergy Relief) 50 Mcg/Act Spr, 1 SPRAY NA DAILY PRN for NASAL CONGESTION, (Reported) Hydroxyzine HCl (Hydroxyzine HCl) 50 Mg Tab, 50 MG PO Q6H PRN for ANXIETY, (Reported) MAY TAKE 100MG AT BEDTIME Ibuprofen (Ibuprofen) 800 Mg Tab, 800 MG PO Q8H PRN for PAIN, (Reported) Polyethylene Glycol (Miralax) 1 Pow Pow, 17 GM PO DAILY PRN for CONSTIPATION, (Reported) Promethazine Hcl (Promethazine HCl) 50 Mg Tab, 25 MG PO Q12H PRN for NAUSEA, (Reported) Sumatriptan Succinate (Sumatriptan Succinate) 50 Mg Tab, 50 MG PO DAILY PRN for HEADACHE, (Reported) Allergies Coded Allergies: Modafinil (Verified Allergy, Severe, THROAT SWELLS, 02/28/18) Zolpidem (Verified Allergy, Severe, RASH/DIFFICULTY BREATHING, 02/28/18) Bupivacaine (Verified Allergy, Intermediate, 02/28/18) Naproxen (Verified Allergy, Intermediate, RASH (TAKES IBUPROFEN AND MELOXICAM AT HOME), 02/28/18) Tramadol (Verified Allergy, Intermediate, RASH, 02/28/18) Trazodone (Verified Adverse Reaction, Intermediate, increases patient's depression, 02/28/18) RADHA FOOTE DO Sep 25, 2018 11:26
[2018-09-25] MEDS ORDERED: BREXPIPRAZOLE 0.5MG TABLET (REXULTI) PO ONE (11:30)
[2018-09-25] MEDS: GEMFIBROZIL 600 MG TAB PO SCH ×2 (12:12→20:39)
[2018-09-25 18:00] VITALS: BP 148/79
[2018-09-25] MEDS: MONTELUKAST 10 MG TAB PO SCH (20:39)
[2018-09-25] MEDS: METOPROLOL TART 25 MG TABLET PO SCH (20:40)
[2018-09-25] MEDS: PRAZOSIN 1 MG CAP PO SCH (20:41)
[2018-09-25] MEDS: ANALGESIC BALM CRM 120 GM TOP SCH (21:00)
[2018-09-26 06:00] VITALS: BP 142/80
[2018-09-26] MEDS: LEVOTHYROXINE 50MCG TABLET (0.05MG) PO SCH (06:01)
[2018-09-26] MEDS: GABAPENTIN 300 MG CAP PO SCH ×3 (08:45→21:58)
[2018-09-26] MEDS: busPIRone 5 MG TAB PO SCH ×2 (08:45→21:58)
[2018-09-26] MEDS: GEMFIBROZIL 600 MG TAB PO SCH ×2 (08:45→21:57)
[2018-09-26] MEDS: sulfaSALAzine 500 MG TABEC PO SCH ×2 (08:46→21:57)
[2018-09-26] MEDS: oxyBUTYnin *DITROPAN XL* 5 MG TABCR PO SCH (08:46)
[2018-09-26] MEDS: VITAMIN D 1,000 INTERNATIONAL UNITS TABLET PO SCH (08:46)
[2018-09-26] MEDS: VITAMIN B COMPLEX/VIT C CAP PO SCH (08:47)
[2018-09-26] MEDS: BREXPIPRAZOLE 0.5MG TABLET (REXULTI) PO SCH (08:47)
[2018-09-26] MEDS: MULTIVITAMINS/MINERALS THERAP 1 TAB PO SCH (08:47)
[2018-09-26] MEDS: PANTOPRAZOLE 40MG TAB (PROTONIX) PO SCH ×2 (08:47→21:58)
[2018-09-26] MEDS: DULoxetine 30 MG CAP (CYMBALTA) PO SCH (08:47)
--- NOTE | 2018-09-26 09:59 | MHIPNPDOC ---
[facility] Progress Note Progress Note DATE OF SERVICE: 09/26/18 HISTORY: Patient is a 38 -year-old , female, with a history of depression, SA via OD, self harm, anxiety, borderline personality d/o well known to [facility] due to history multiple admissions who was sent to ED after seen at outpatient therapy appt where she was endorsing panic attacks and SI for a few days with plan to OD. Pt in the ED stated she been having panic attacks at times waking her from sleep during the night and causing headache, chest pain, stomach upset, and sore throat. Pt denies any triggers but her divorce was rec ently finalized after long separation due to him cheating on her. Pt's mother called from the ED and stated that pt at home appeared to be doing well. Pt in the ED endorsed depressed mood, anxiety, SI. VITAL SIGNS: See below. NEW TEST RESULTS: See below. CURRENT MEDICATIONS: See below. MENTAL STATUS EXAMINATION: General Appearance: clean, appears stated age, own clothing Build: overweight Demeanor: cooperative Eye Contact: poor Activity: irritable, slow Behavior: cooperative, slow Speech: clear, spontaneous, normal volume, reg/rate,rhythm,volume Mood: depressed, anxious, irritable Mood "ok" Affect: constricted, flat, congruent, anxious Thought Process: logical/linear, depressed, intact, other (somatization), worrisome thoughts, self deprecating thoughts, and procrastination Thought Content (Delusions): denies SI, HI, AVH Thought Content (Other): preoccupied Thought Content (Aggressive): none reported Perception (Hallucinations): none reported Perception (Other): none reported Cognition (Impairment of): none reported Cognition(Intelligence Est.): average Oriented: Awake, Alert, Oriented times three Insight: poor Judgment: Poor Psychosis: Denies DIAGNOSES: Major Depressive Disorder severe recurrent w/o psychosis Generalized Anxiety d/o Panic attack w/o agoraphobia Borderline personality d/o ASSESSMENT:Pt seen today and states she feels a little better. Is going to groups and does enjoy socializing on the unit which is the norm for her as at home she is isolates there, depends on her family to aid her, makes no effort toward independence, procrastinates and makes excuses why she can't go doing things (simple errands to getting a job, returning to school), and denies knowing where she aspires to be a year from now. Pt admits she likes to so cialize but makes no effort to do so when not in the hospital and will often just shake her head in agreement that she wants to go do something but won't do it. Therefore gave pt homework to write down her future goals/aspirations for me to see tomorrow so she can't just shake her head then not do it. She seems very involved in self pity. States she's tolerating rexulti but has yet to notice benefit. Appears depressed and sorry for self. Is tolerating the rest of her meds well and finding beneficial. Continues to struggle with anxiety related to worrisome thoughts, self deprecating thoughts, and procrastination. Denies SI and feels safe here. Denies HI, hallucinations, delusions. MANAGEMENT PLAN: continue plan Medications: rexulti 1mg daily Buspar 15 mg BID Cymbalta 60 mg DAILY Gabapentin 600 mg TID Atarax 50 mg Q6HP PRN PO ANXIETY Prazosin 4 mg QHS TIME SPENT: 30 minutes. Vital Signs Vital Signs Date Time Temp Pulse Resp B/P (MAP) Pulse Ox O2 Delivery O2 Flow Rate FiO2 09/26/18 06:00 97.9 65 12 142/80 (100) 09/24/18 17:00 99 09/24/18 15:33 Room Air Current Medications Current Medications Acetaminophen (Tylenol Tab) 650 mg Q6HP PRN PO HEADACHE or DISCOMFORT Last administered on 09/26/18at 01:58; Start 09/24/18 at 15:45 Al Hydrox/Mg Hydrox/Simethicone (Mylanta) 30 ml Q4HP PRN PO HEARTBURN/INDIGESTION; Start 09/24/18 at 15:45 Albuterol Sulfate (Proventil, Ventolin Hfa) 2 puff Q4HP PRN INH SHORTNESS OF BREATH; Start 09/24/18 at 18:15 Ascorbic Acid (Vitamin C) 500 mg DAILY PO ; Start 09/25/18 at 09:00; Status Cancel Brexpiprazole (Rexulti) 1 mg DAILY PO Last administered on 09/26/18at 08:47; Start 09/26/18 at 09:00 Buspirone HCl (Buspar) 15 mg BID PO Last administered on 09/26/18 08:45; Start 09/24/18 at 21:00 Cyclobenzaprine HCl (Flexeril) 10 mg BIDP PRN PO MUSCLE SPASMS; Start 09/24/18 at 18:15 Dicyclomine HCl (Bentyl) 20 mg Q6HP PRN PO ABDOMINAL PAIN Last administered on 09/25/18at 15:34; Start 09/24/18 at 18:30 Duloxetine HCl (Cymbalta) 60 mg DAILY PO Last administered on 09/26/18 08:47; Start 09/25/18 at 09:00 Gabapentin (Neurontin) 600 mg TID PO Last administered on 09/26/18 08:45; Start 09/24/18 at 21:00 Gemfibrozil (Lopid) 600 mg BID PO Last administered on 09/26/18 08:45; Start 09/24/18 at 21:00 Home Med (Med Rec Complete!) ASDIRECTED XX ; Start 09/24/18 at 15:45; Stop 09/24/18 at 15:51; Status DC Hydroxyzine HCl (Atarax) 50 mg Q6HP PRN PO ANXIETY; Start 09/24/18 at 18:15 Ibuprofen (Advil) 800 mg Q8HP PRN PO PAIN; Start 09/24/18 at 18:15 Levothyroxine Sodium (Synthroid) 50 mcg DAILY@0600 PO Last administered on 09/26/18at 06:01; Start 09/25/18 at 06:00 [place] Carbonate ([place] Carbonate) 300 mg DAILY PO Last administered on 09/25/18at 08:28; Start 09/25/18 at 09:00; Stop 09/25/18 at 11:28; Status DC [place] Carbonate ([place] Carbonate) 600 mg QHS PO ; Start 09/24/18 at 21:00; Stop 09/25/18 at 11:28; Status DC Magnesium Hydroxide (Milk Of Magnesia) 30 ml DAILYPRN PRN PO CONSTIPATION; Start 09/24/18 at 15:45 Menthol/Methyl Salicylate ([place]eng[place] Cream) apply to knees and lower back QHS TOP ; Start 09/24/18 at 21:00 Metoprolol Tartrate (Lopressor) 25 mg QHS PO Last administered on 09/25/18at 20:40; Start 09/24/18 at 21:00 Montelukast Sodium (Singulair) 10 mg QPM PO Last administered on 09/25/18 20:39; Start 09/24/18 at 21:00 Multivitamins (Theragram-M) 1 tab DAILY PO Last administered on 09/26/18 08:47; Start 09/25/18 at 09:00 Oxybutynin Chloride (Ditropan Xl) 10 mg DAILY PO Last administered on 09/26/18 08:46; Start 09/25/18 at 09:00 Pantoprazole Sodium (Protonix) 40 mg BID PO Last administered on 09/26/18 08:47; Start 09/24/18 at 21:00 Prazosin HCl (Minipress) 4 mg QHS PO Last administered on 09/25/18 20:41; Start 09/24/18 at 21:00 Sulfasalazine (Azulfidine Entabs) 1,500 mg BID PO Last administered on 09/26/18 08:46; Start 09/24/18 at 21:00 Sumatriptan Succinate (Imitrex) 50 mg DAILYPRN PRN PO HEADACHE; Start 09/24/18 at 18:15 Trazodone HCl (Desyrel) 50 mg QHSP PRN PO INSOMNIA; Start 09/24/18 at 15:45; Stop 09/24/18 at 15:55; Status DC Vitamin B Complex/ Vitamin C (Therapeutic B Complex w/C) 1 cap DAILY PO Last administered on 09/26/18 08:47; Start 09/25/18 at 09:00 Vitamin D (Vitamin D) 10,000 units DAILY PO Last administered on 09/26/18 08:46; Start 09/25/18 at 09:00 Allergies Coded Allergies: Modafinil (Verified Allergy, Severe, THROAT SWELLS, 02/28/18) Zolpidem (Verified Allergy, Severe, RASH/DIFFICULTY BREATHING, 02/28/18) Bupivacaine (Verified Allergy, Intermediate, 02/28/18) Naproxen (Verified Allergy, Intermediate, RASH (TAKES IBUPROFEN AND MELOXICAM AT HOME), 02/28/18) Tramadol (Verified Allergy, Intermediate, RASH, 02/28/18) Trazodone (Verified Adverse Reaction, Intermediate, increases patient's depression, 02/28/18) RADHA FOOTE DO Sep 26, 2018 9:59 am
[2018-09-26] MEDS: hydrOXYzine 50 MG TAB PO PRN ×2 (13:16→21:58)
[2018-09-26] MEDS: SUMAtriptan SUCCINATE 25 MG TAB PO PRN (13:16)
[2018-09-26 18:11] VITALS: BP 134/77
[2018-09-26] MEDS: MONTELUKAST 10 MG TAB PO SCH (21:58)
[2018-09-26] MEDS: METOPROLOL TART 25 MG TABLET PO SCH (21:58)
[2018-09-26] MEDS: ANALGESIC BALM CRM 120 GM TOP SCH (22:00)
[2018-09-26] MEDS: PRAZOSIN 1 MG CAP PO SCH (22:03)
[2018-09-27] MEDS: hydrOXYzine 50 MG TAB PO PRN (05:46)
[2018-09-27] MEDS: LEVOTHYROXINE 50MCG TABLET (0.05MG) PO SCH (06:10)
[2018-09-27 06:51] VITALS: BP 137/80
[2018-09-27] MEDS: GEMFIBROZIL 600 MG TAB PO SCH ×2 (08:18→21:11)
[2018-09-27] MEDS: MULTIVITAMINS/MINERALS THERAP 1 TAB PO SCH (08:18)
[2018-09-27] MEDS: VITAMIN B COMPLEX/VIT C CAP PO SCH (08:18)
[2018-09-27] MEDS: BREXPIPRAZOLE 0.5MG TABLET (REXULTI) PO SCH (08:18)
[2018-09-27] MEDS: GABAPENTIN 300 MG CAP PO SCH ×3 (08:18→21:10)
[2018-09-27] MEDS: oxyBUTYnin *DITROPAN XL* 5 MG TABCR PO SCH (08:18)
[2018-09-27] MEDS: sulfaSALAzine 500 MG TABEC PO SCH ×2 (08:18→21:10)
[2018-09-27] MEDS: PANTOPRAZOLE 40MG TAB (PROTONIX) PO SCH ×2 (08:18→21:11)
[2018-09-27] MEDS: busPIRone 5 MG TAB PO SCH ×2 (08:18→21:10)
[2018-09-27] MEDS: DULoxetine 30 MG CAP (CYMBALTA) PO SCH (08:19)
[2018-09-27] MEDS: VITAMIN D 1,000 INTERNATIONAL UNITS TABLET PO SCH (08:21)
--- NOTE | 2018-09-27 10:01 | MHIPNPDOC ---
[facility] Progress Note Progress Note DATE OF SERVICE: 09/27/18 HISTORY: Patient is a 38 -year-old , female, with a history of depression, SA via OD, self harm, anxiety, borderline personality d/o well known to [facility] due to history multiple admissions who was sent to ED after seen at outpatient therapy appt where she was endorsing panic attacks and SI for a few days with plan to OD. Pt in the ED stated she been having panic attacks at times waking her from sleep during the night and causing headache, chest pain, stomach upset, and sore throat. Pt denies any triggers but her divorce was rec ently finalized after long separation due to him cheating on her. Pt's mother called from the ED and stated that pt at home appeared to be doing well. Pt in the ED endorsed depressed mood, anxiety, SI. VITAL SIGNS: See below. NEW TEST RESULTS: See below. CURRENT MEDICATIONS: See below. MENTAL STATUS EXAMINATION: General Appearance: clean, appears stated age, own clothing Build: overweight Demeanor: cooperative Eye Contact: poor Activity: irritable, slow Behavior: cooperative, slow Speech: clear, spontaneous, normal volume, reg/rate,rhythm,volume Mood: depressed, anxious, irritable Mood "irritable" Affect: constricted, flat, congruent, anxious Thought Process: logical/linear, depressed, intact, other (somatization), worrisome thoughts, self deprecating thoughts, and procrastination Thought Content (Delusions): denies SI, HI, AVH Thought Content (Other): preoccupied Thought Content (Aggressive): none reported Perception (Hallucinations): none reported Perception (Other): none reported Cognition (Impairment of): none reported Cognition(Intelligence Est.): average Oriented: Awake, Alert, Oriented times three Insight: poor Judgment: Poor Psychosis: Denies DIAGNOSES: Major Depressive Disorder severe 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 She currently isn't on anything for insomnia and agreeable to trying doxepin prn insomnia to see if it helps. Pt did write down her goals for her future (art therapy, BOCES, basic computer course, starting a book club, bible study) and encouraged to start with one that is most important to her and go on from there in a slow/tolerable course so as not to become overwhelmed with a dramatic change in daily activity/responsibility. She is a very dependent person as easily likes to let others care for her rather than herself doing so which also she admits causes her poor self worth. Is going to groups and does enjoy socializing on the unit which is the norm for her as at home she is isolates there, depends on her family to aid her, makes no effort toward independence, procrastinates and makes excuses why she can't go doing things. Pt admits she likes to socialize but makes no effort to do so when not in the hospital and will often just shake her head in agreement that she wants to go do something but won't do it. She seems very involved in self pity. States she's tolerating rexulti but has yet to notice benefit. Appears depressed and sorry for self. Is tolerating the rest of her meds well and finding beneficial. Continues to struggle with anxiety related to worrisome thoughts, self deprecating thoughts, and procrastination. Denies SI and feels safe here. Denies HI, hallucinations, delusions. MANAGEMENT PLAN: continue plan. start doxepin prn insomnia and increase rexulti Medications: rexulti 2mg daily Buspar 15 mg BID Cymbalta 60 mg DAILY Gabapentin 600 mg TID Atarax 50 mg Q6HP PRN PO ANXIETY Prazosin 4 mg QHS doxepin 10mg qhs prn insomnia TIME SPENT: 30 minutes. Vital Signs Vital Signs Date Time Temp Pulse Resp B/P (MAP) Pulse Ox O2 Delivery O2 Flow Rate FiO2 09/27/18 06:51 98.5 69 16 137/80 (99) 09/24/18 17:00 99 09/24/18 15:33 Room Air Current Medications Current Medications Acetaminophen (Tylenol Tab) 650 mg Q6HP PRN PO HEADACHE or DISCOMFORT Last administered on 09/26/18at 01:58; Start 09/24/18 at 15:45 Al Hydrox/Mg Hydrox/Simethicone (Mylanta) 30 ml Q4HP PRN PO HEARTBURN/INDIGESTION; Start 09/24/18 at 15:45 Albuterol Sulfate (Proventil, Ventolin Hfa) 2 puff Q4HP PRN INH SHORTNESS OF BREATH; Start 09/24/18 at 18:15 Ascorbic Acid (Vitamin C) 500 mg DAILY PO ; Start 09/25/18 at 09:00; Status Cancel Brexpiprazole (Rexulti) 1 mg DAILY PO Last administered on 09/27/18at 08:18; Start 09/26/18 at 09:00 Buspirone HCl (Buspar) 15 mg BID PO Last administered on 09/27/18at 08:18; Start 09/24/18 at 21:00 Cyclobenzaprine HCl (Flexeril) 10 mg BIDP PRN PO MUSCLE SPASMS; Start 09/24/18 at 18:15 Dicyclomine HCl (Bentyl) 20 mg Q6HP PRN PO ABDOMINAL PAIN Last administered on 09/25/18at 15:34; Start 09/24/18 at 18:30 Duloxetine HCl (Cymbalta) 60 mg DAILY PO Last administered on 09/27/18at 08:19; Start 09/25/18 at 09:00 Gabapentin (Neurontin) 600 mg TID PO Last administered on 09/27/18at 08:18; Start 09/24/18 at 21:00 Gemfibrozil (Lopid) 600 mg BID PO Last administered on 09/27/18at 08:18; Start 09/24/18 at 21:00 Home Med (Med Rec Complete!) ASDIRECTED XX ; Start 09/24/18 at 15:45; Stop 09/24/18 at 15:51; Status DC Hydroxyzine HCl (Atarax) 50 mg Q6HP PRN PO ANXIETY Last administered on 09/27/18at 05:46; Start 09/24/18 at 18:15 Ibuprofen (Advil) 800 mg Q8HP PRN PO PAIN; Start 09/24/18 at 18:15 Levothyroxine Sodium (Synthroid) 50 mcg DAILY@0600 PO Last administered on 09/27/18at 06:10; Start 09/25/18 at 06:00 [place] Carbonate ([place] Carbonate) 300 mg DAILY PO Last administered on 09/25/18at 08:28; Start 09/25/18 at 09:00; Stop 09/25/18 at 11:28; Status DC [place] Carbonate ([place] Carbonate) 600 mg QHS PO ; Start 09/24/18 at 21:00; Stop 09/25/18 at 11:28; Status DC Magnesium Hydroxide (Milk Of Magnesia) 30 ml DAILYPRN PRN PO CONSTIPATION; Start 09/24/18 at 15:45 Menthol/Methyl Salicylate ([place]eng[place] Cream) apply to knees and lower back QHS TOP Last administered on 09/26/18 22:00; Start 09/24/18 at 21:00 Metoprolol Tartrate (Lopressor) 25 mg QHS PO Last administered on 09/26/18 21:58; Start 09/24/18 at 21:00 Montelukast Sodium (Singulair) 10 mg QPM PO Last administered on 09/26/18 21:58; Start 09/24/18 at 21:00 Multivitamins (Theragram-M) 1 tab DAILY PO Last administered on 09/27/18 08:18; Start 09/25/18 at 09:00 Oxybutynin Chloride (Ditropan Xl) 10 mg DAILY PO Last administered on 09/27/18 08:18; Start 09/25/18 at 09:00 Pantoprazole Sodium (Protonix) 40 mg BID PO Last administered on 09/27/18 08:18; Start 09/24/18 at 21:00 Prazosin HCl (Minipress) 4 mg QHS PO Last administered on 09/26/18 22:03; Start 09/24/18 at 21:00 Sulfasalazine (Azulfidine Entabs) 1,500 mg BID PO Last administered on 09/27/18 08:18; Start 09/24/18 at 21:00 Sumatriptan Succinate (Imitrex) 50 mg DAILYPRN PRN PO HEADACHE Last administered on 09/26/18 13:16; Start 09/24/18 at 18:15 Trazodone HCl (Desyrel) 50 mg QHSP PRN PO INSOMNIA; Start 09/24/18 at 15:45; Stop 09/24/18 at 15:55; Status DC Vitamin B Complex/ Vitamin C (Therapeutic B Complex w/C) 1 cap DAILY PO Last administered on 09/27/18 08:18; Start 09/25/18 at 09:00 Vitamin D (Vitamin D) 10,000 units DAILY PO Last administered on 09/27/18at 08:21; Start 09/25/18 at 09:00 Allergies Coded Allergies: Modafinil (Verified Allergy, Severe, THROAT SWELLS, 02/28/18) Zolpidem (Verified Allergy, Severe, RASH/DIFFICULTY BREATHING, 02/28/18) Bupivacaine (Verified Allergy, Intermediate, 02/28/18) Naproxen (Verified Allergy, Intermediate, RASH (TAKES IBUPROFEN AND MELOXICAM AT HOME), 02/28/18) Tramadol (Verified Allergy, Intermediate, RASH, 02/28/18) Trazodone (Verified Adverse Reaction, Intermediate, increases patient's depression, 02/28/18) RADHA FOOTE DO Sep 27, 2018 10:01
[2018-09-27] MEDS ORDERED: BREXPIPRAZOLE 0.5MG TABLET (REXULTI) PO ONE (10:15)
[2018-09-27 18:13] VITALS: BP 132/65
[2018-09-27] MEDS: SUMAtriptan SUCCINATE 25 MG TAB PO PRN (18:16)
[2018-09-27] MEDS: MONTELUKAST 10 MG TAB PO SCH (21:10)
[2018-09-27] MEDS: DOXEPIN 10 MG CAP PO PRN (21:11)
[2018-09-27] MEDS: PRAZOSIN 1 MG CAP PO SCH (21:11)
[2018-09-27] MEDS: METOPROLOL TART 25 MG TABLET PO SCH (21:11)
[2018-09-27] MEDS: ANALGESIC BALM CRM 120 GM TOP SCH (21:11)
[2018-09-28] MEDS: LEVOTHYROXINE 50MCG TABLET (0.05MG) PO SCH (06:00)
[2018-09-28 06:34] VITALS: BP 140/88
[2018-09-28] MEDS: BREXPIPRAZOLE 2MG TABLET (REXULTI) PO SCH (08:32)
[2018-09-28] MEDS: sulfaSALAzine 500 MG TABEC PO SCH ×2 (08:32→20:18)
[2018-09-28] MEDS: VITAMIN D 1,000 INTERNATIONAL UNITS TABLET PO SCH (08:33)
[2018-09-28] MEDS: oxyBUTYnin *DITROPAN XL* 5 MG TABCR PO SCH (08:33)
[2018-09-28] MEDS: DULoxetine 30 MG CAP (CYMBALTA) PO SCH (08:33)
[2018-09-28] MEDS: GABAPENTIN 300 MG CAP PO SCH ×3 (08:33→20:19)
[2018-09-28] MEDS: MULTIVITAMINS/MINERALS THERAP 1 TAB PO SCH (08:33)
[2018-09-28] MEDS: busPIRone 5 MG TAB PO SCH ×2 (08:33→20:19)
[2018-09-28] MEDS: VITAMIN B COMPLEX/VIT C CAP PO SCH (08:33)
[2018-09-28] MEDS: GEMFIBROZIL 600 MG TAB PO SCH ×2 (08:33→20:19)
[2018-09-28] MEDS: PANTOPRAZOLE 40MG TAB (PROTONIX) PO SCH ×2 (08:34→20:19)
[2018-09-28] MEDS: hydrOXYzine 50 MG TAB PO PRN (09:27)
--- NOTE | 2018-09-28 10:18 | MHIPNPDOC ---
[facility] Progress Note Progress Note DATE OF SERVICE: 09/28/18 HISTORY: Patient is a 38 -year-old , female, with a history of depression, SA via OD, self harm, anxiety, borderline personality d/o well known to [facility] due to history multiple admissions who was sent to ED after seen at outpatient therapy appt where she was endorsing panic attacks and SI for a few days with plan to OD. Pt in the ED stated she been having panic attacks at times waking her from sleep during the night and causing headache, chest pain, stomach upset, and sore throat. Pt denies any triggers but her divorce was rec ently finalized after long separation due to him cheating on her. Pt's mother called from the ED and stated that pt at home appeared to be doing well. Pt in the ED endorsed depressed mood, anxiety, SI. VITAL SIGNS: See below. NEW TEST RESULTS: See below. CURRENT MEDICATIONS: See below. MENTAL STATUS EXAMINATION: General Appearance: clean, appears stated age, own clothing Build: overweight Demeanor: cooperative Eye Contact: fair Activity: irritable, slow Behavior: cooperative, average Speech: clear, spontaneous, normal volume, reg/rate,rhythm,volume Mood: less depressed, anxious, less irritable Mood "ok" Affect: less constricted, congruent, anxious Thought Process: logical/linear, depressed, intact, other (somatization), worrisome thoughts, self deprecating thoughts, and procrastination Thought Content (Delusions): denies SI, HI, AVH Thought Content (Other): preoccupied Thought Content (Aggressive): none reported Perception (Hallucinations): none reported Perception (Other): none reported Cognition (Impairment of): none reported Cognition(Intelligence Est.): average Oriented: Awake, Alert, Oriented times three Insight: improving Judgment: improving Psychosis: Denies DIAGNOSES: Major Depressive Disorder severe recurrent w/o psychosis Generalized Anxiety d/o Panic attack w/o agoraphobia Borderline personality d/o ASSESSMENT:Pt seen today and states she feels "better." States increase in rexulti feels beneficial as mood, anxiety, and motivation are all improved today. Slept well with doxepin last night and tolerated it well. Denies nightmares. Is going to groups and does enjoy socializing on the unit which is the norm for her as at home she is isolates there, depends on her family to aid her, makes no effort toward independence, procrastinates and makes excuses why she can't go doing things. Provided continued support for pt to work on future goals with daily life activities (part-time job, education, meeting with friends). Is tolerating the rest of her meds well and finding beneficial. Continues to struggle with anxiety related to worrisome thoughts, self deprecating thoughts, and procrastination. Denies SI and feels safe here. Denies HI, hallucinations, delusions. MANAGEMENT PLAN: continue plan. Medications: rexulti 2mg daily Buspar 15 mg BID Cymbalta 60 mg DAILY Gabapentin 600 mg TID Atarax 50 mg Q6HP PRN PO ANXIETY Prazosin 4 mg QHS doxepin 10mg qhs prn insomnia TIME SPENT: 30 minutes. Vital Signs Vital Signs Date Time Temp Pulse Resp B/P (MAP) Pulse Ox O2 Delivery O2 Flow Rate FiO2 09/28/18 06:34 97.7 70 20 140/88 (105) 09/24/18 17:00 99 09/24/18 15:33 Room Air Current Medications Current Medications Acetaminophen (Tylenol Tab) 650 mg Q6HP PRN PO HEADACHE or DISCOMFORT Last administered on 09/26/18at 01:58; Start 09/24/18 at 15:45 Al Hydrox/Mg Hydrox/Simethicone (Mylanta) 30 ml Q4HP PRN PO HEARTBUR N/INDIGESTION; Start 09/24/18 at 15:45 Albuterol Sulfate (Proventil, Ventolin Hfa) 2 puff Q4HP PRN INH SHORTNESS OF BREATH; Start 09/24/18 at 18:15 Ascorbic Acid (Vitamin C) 500 mg DAILY PO ; Start 09/25/18 at 09:00; Status Cancel Brexpiprazole (Rexulti) 1 mg DAILY PO Last administered on 09/27/18at 08:18; Start 09/26/18 at 09:00; Stop 09/27/18 at 10:02; Status DC Brexpiprazole (Rexulti) 2 mg DAILY PO Last administered on 09/28/18at 08:32; Start 09/28/18 at 09:00 Buspirone HCl (Buspar) 15 mg BID PO Last administered on 09/28/18at 08:33; Start 09/24/18 at 21:00 Cyclobenzaprine HCl (Flexeril) 10 mg BIDP PRN PO MUSCLE SPASMS; Start 09/24/18 at 18:15 Dicyclomine HCl (Bentyl) 20 mg Q6HP PRN PO ABDOMINAL PAIN Last administered on 09/25/18at 15:34; Start 09/24/18 at 18:30 Doxepin HCl (SINEquan) 10 mg QHS PRN PO INSOMNIA Last administered on 09/27/18at 21:11; Start 09/27/18 at 21:00 Duloxetine HCl (Cymbalta) 60 mg DAILY PO Last administered on 09/28/18 08:33; Start 09/25/18 at 09:00 Gabapentin (Neurontin) 600 mg TID PO Last administered on 09/28/18at 08:33; Start 09/24/18 at 21:00 Gemfibrozil (Lopid) 600 mg BID PO Last administered on 09/28/18at 08:33; Start 09/24/18 at 21:00 Home Med (Med Rec Complete!) ASDIRECTED XX ; Start 09/24/18 at 15:45; Stop 09/24/18 at 15:51; Status DC Hydroxyzine HCl (Atarax) 50 mg Q6HP PRN PO ANXIETY Last administered on 09/27/18at 05:46; Start 09/24/18 at 18:15 Ibuprofen (Advil) 800 mg Q8HP PRN PO PAIN; Start 09/24/18 at 18:15 Levothyroxine Sodium (Synthroid) 50 mcg DAILY@0600 PO Last administered on 09/28/18at 06:00; Start 09/25/18 at 06:00 [place] Carbonate ([place] Carbonate) 300 mg DAILY PO Last administered on 09/25/18at 08:28; Start 09/25/18 at 09:00; Stop 09/25/18 at 11:28; Status DC [place] Carbonate ([place] Carbonate) 600 mg QHS PO ; Start 09/24/18 at 21:00; Stop 09/25/18 at 11:28; Status DC Magnesium Hydroxide (Milk Of Magnesia) 30 ml DAILYPRN PRN PO CONSTIPATION; Start 09/24/18 at 15:45 Menthol/Methyl Salicylate (Bengay Cream) apply to knees and lower back QHS TOP Last administered on 09/27/18 21:11; Start 09/24/18 at 21:00 Metoprolol Tartrate (Lopressor) 25 mg QHS PO Last administered on 09/27/18 21:11; Start 09/24/18 at 21:00 Montelukast Sodium (Singulair) 10 mg QPM PO Last administered on 09/27/18 21:10; Start 09/24/18 at 21:00 Multivitamins (Theragram-M) 1 tab DAILY PO Last administered on 09/28/18 08:33; Start 09/25/18 at 09:00 Oxybutynin Chloride (Ditropan Xl) 10 mg DAILY PO Last administered on 09/28/18 08:33; Start 09/25/18 at 09:00 Pantoprazole Sodium (Protonix) 40 mg BID PO Last administered on 09/28/18 08:34; Start 09/24/18 at 21:00 Prazosin HCl (Minipress) 4 mg QHS PO Last administered on 09/27/18 21:11; Start 09/24/18 at 21:00 Sulfasalazine (Azulfidine Entabs) 1,500 mg BID PO Last administered on 09/28/18 08:32; Start 09/24/18 at 21:00 Sumatriptan Succinate (Imitrex) 50 mg DAILYPRN PRN PO HEADACHE Last administered on 09/27/18 18:16; Start 09/24/18 at 18:15 Trazodone HCl (Desyrel) 50 mg QHSP PRN PO INSOMNIA; Start 09/24/18 at 15:45; Stop 09/24/18 at 15:55; Status DC Vitamin B Complex/ Vitamin C (Therapeutic B Complex w/C) 1 cap DAILY PO Last administered on 09/28/18 08:33; Start 09/25/18 at 09:00 Vitamin D (Vitamin D) 10,000 units DAILY PO Last administered on 09/28/18 08:33; Start 09/25/18 at 09:00 Allergies Coded Allergies: Modafinil (Verified Allergy, Severe, THROAT SWELLS, 02/28/18) Zolpidem (Verified Allergy, Severe, RASH/DIFFICULTY BREATHING, 02/28/18) Bupivacaine (Verified Allergy, Intermediate, 02/28/18) Naproxen (Verified Allergy, Intermediate, RASH (TAKES IBUPROFEN AND MELOXICAM AT HOME), 02/28/18) Tramadol (Verified Allergy, Intermediate, RASH, 02/28/18) Trazodone (Verified Adverse Reaction, Intermediate, increases patient's depression, 02/28/18) RADHA FOOTE DO Sep 28, 2018 9:24 am
[2018-09-28 18:51] VITALS: BP 144/80
[2018-09-28] MEDS: METOPROLOL TART 25 MG TABLET PO SCH (20:19)
[2018-09-28] MEDS: MONTELUKAST 10 MG TAB PO SCH (20:19)
[2018-09-28 20:20] VITALS: BP 154/90
[2018-09-28] MEDS: PRAZOSIN 1 MG CAP PO SCH (20:20)
[2018-09-28] MEDS: ANALGESIC BALM CRM 120 GM TOP SCH (20:21)
[2018-09-28] MEDS: DOXEPIN 10 MG CAP PO PRN (21:37)
[2018-09-29] MEDS: LEVOTHYROXINE 50MCG TABLET (0.05MG) PO SCH (06:07)
[2018-09-29 06:55] VITALS: BP 133/68
[2018-09-29] MEDS: MULTIVITAMINS/MINERALS THERAP 1 TAB PO SCH (08:30)
[2018-09-29] MEDS: DULoxetine 30 MG CAP (CYMBALTA) PO SCH (08:30)
[2018-09-29] MEDS: busPIRone 5 MG TAB PO SCH (08:30)
[2018-09-29] MEDS: GABAPENTIN 300 MG CAP PO SCH (08:30)
[2018-09-29] MEDS: VITAMIN B COMPLEX/VIT C CAP PO SCH (08:31)
[2018-09-29] MEDS: VITAMIN D 1,000 INTERNATIONAL UNITS TABLET PO SCH (08:31)
[2018-09-29] MEDS: sulfaSALAzine 500 MG TABEC PO SCH (08:31)
[2018-09-29] MEDS: oxyBUTYnin *DITROPAN XL* 5 MG TABCR PO SCH (08:31)
[2018-09-29] MEDS: GEMFIBROZIL 600 MG TAB PO SCH (08:31)
[2018-09-29] MEDS: PANTOPRAZOLE 40MG TAB (PROTONIX) PO SCH (08:31)
[2018-09-29] MEDS: BREXPIPRAZOLE 2MG TABLET (REXULTI) PO SCH (08:31)
[2018-09-29] MEDS ORDERED: DOXE10CA PO (08:51)
[2018-09-29] MEDS ORDERED: PRAZ2CAP PO (08:51)
[2018-09-29] MEDS ORDERED: HYDRO50TAB PO (08:51)
[2018-09-29] MEDS ORDERED: DULO30CA PO (08:51)
[2018-09-29] MEDS ORDERED: REXU1TAB4 PO (08:51)
[2018-09-29] MEDS ORDERED: BUSP15TA47 PO (08:52)
--- NOTE | 2018-09-29 08:53 | MHDSPDOC ---
[facility] Discharge Summary Discharge Summary DATE OF ADMISSION: Sep 24, 2018 at 3:37 pm DATE OF DISCHARGE: Sep 29, 2018 DISCHARGE DIAGNOSES: Major Depressive Disorder severe recurrent w/o psychosis Generalized Anxiety d/o Panic attack w/o agoraphobia Borderline personality d/o REASON FOR ADMISSION: Patient is a 38 -year-old , female, with a history of depression, SA via OD, self harm, anxiety, borderline personality d/o well known to [facility] due to history multiple admissions who was sent to ED after seen at outpatient therapy appt where she was endorsing panic attacks and SI for a few days with plan to OD. Pt in the ED stated she been having panic attacks at times waking her from sleep during the night and causing headache, chest pain, stomach upset, and sore throat. Pt denies any triggers but her divorce was recently finalized after long separation due to him cheating on her. Pt's mother called from the ED and stated that pt at home appeared to be doing well. Pt in the ED endorsed depressed mood, anxiety, SI. CONSULTANTS INVOLVED: TREATMENT AND PROGRESS ON THE UNIT : Pt was admitted to [facility], seen for psychiatric assessment and restarted on her outpatient Buspar 15 mg BID , C ymbalta 60 mg DAILY , Gabapentin 600 mg TID, Atarax 50 mg Q6HP PRN PO ANXIETY, Prazosin 4 mg QHS. Her lithium was discontinued due to side effect of tremor and she was started on rexulti increased to 2mg daily that she found beneficial and tolerated well. She was provided doxepin 10mg qhs prn insomnia. She was continued on her medical meds during admission. Pt found her medications beneficial and tolerated them well. She attended groups daily during her stay. Her symptoms improved with treatment. On day of discharge she denied depression, anxiety, insomnia, SI/HI, hallucinations, delusions. She was discharged home after family meeting with her parents with follow-up at [facility]. She felt safe for discharge. DISCHARGE ASSESSMENT: Pt seen today and states she feels "good" and is looking forward to being discharged home. States rexulti feels beneficial as mood, anxiety, and motivation are all improved. Slept well with doxepin last night and tolerated it well. Denies nightmares. Is going to groups and does enjoy socializing on the unit. Provided continued support for pt to work on future goals with daily life activities (part-time job, education, meeting with friends). Is tolerating the rest of her meds well and finding beneficial. Denies depression, anxiety, insomnia, SI/HI, hallucinations, delusions. Feels safe to be discharged home. MENTAL STATUS EXAMINATION ON DISCHARGE: General Appearance: clean, appears stated age, own clothing Build: overweight Demeanor: cooperative Eye Contact: fair Activity: average Behavior: cooperative, average Speech: clear, spontaneous, normal volume, reg/rate,rhythm,volume Mood: euthymic, full Mood "good" Affect: euthymic, full Thought Process: logical/linear, intact Thought Content (Delusions): denies SI, HI, AVH Thought Content (Other): none reported Thought Content (Aggressive): none reported Perception (Hallucinations): none reported Perception (Other): none reported Cognition (Impairment of): none reported Cognition(Intelligence Est.): average Oriented: Awake, Alert, Oriented times three Insight: good Judgment: good Psychosis: Denies MEDICATIONS ON DISCHARGE: rexulti 2mg daily Buspar 15 mg BID Cymbalta 60 mg DAILY Gabapentin 600 mg TID Atarax 50 mg Q6HP PRN PO ANXIETY Prazosin 4 mg QHS doxepin 10mg qhs prn insomnia PLAN/FOLLOWUP ARRANGEMENTS: D/c home with follow-up at [facility]. The amount of time spent in the coordination of care for this patient was approximately 30 minutes. Vital Signs/I&Os Vital Signs Date Time Temp Pulse Resp B/P (MAP) Pulse Ox O2 Delivery O2 Flow Rate FiO2 09/29/18 06:55 98.0 69 14 133/68 (89) 09/24/18 17:00 99 09/24/18 15:33 Room Air Medications Scheduled (Magnesium) 400 Mg Cap, 400 MG PO BID, (Reported) (B Complex) 1 Tab Tab, 1 TAB PO DAILY, (Reported) (Probiotic) 1 Cap Cap, 1 CAP PO DAILY, (Reported) (Bengay Cold Therapy) 5 % Gel, 1 APLCT TOP QHS, (Reported) APPLIES TO KNEES AND LOWER BACK Ascorbic Acid (Vitamin C) 500 Mg Cap, 500 MG PO DAILY, (Reported) Buspirone HCl (Buspirone HCl) 15 Mg Tab, 15 MG PO BID, (Reported) Calcium Carbonate (Calcium) 600 Mg Tab, 600 MG PO DAILY, (Reported) Cholecalciferol (Vitamin D3) 5,000 Unit Cap, 10,000 UNIT PO DAILY, (Reported) Duloxetine Hcl (Cymbalta) 30 Mg Cap, 60 MG PO DAILY, (Reported) Ferrous Sulfate (Ferrous Sulfate) 325 Mg Tab, 325 MG PO QAM, (Reported) TAKES AT 3 AM WITH A GLASS OF ORANGE JUICE Gabapentin (Gabapentin) 300 Mg Cap, 600 MG PO TID, (Reported) Gemfibrozil (Gemfibrozil) 600 Mg Tab, 600 MG PO BID, (Reported) Levothyroxine Sodium (Synthroid) 50 Mcg Tab, 50 MCG PO DAILY, (Reported) [place] Carbonate ([place] Carbonate) 300 Mg Cap, 300 MG PO DAILY, (Reported) [place] Carbonate ([place] Carbonate) 300 Mg Cap, 600 MG PO QHS, (Reported) Metoprolol Tartrate (Metoprolol Tartrate) 25 Mg Tab, 25 MG PO QHS, (Reported) Montelukast Sodium (Montelukast Sodium) 10 Mg Tab, 10 MG PO QPM, (Reported) Multivitamins *[facility] STOCKED* (Thera M Plus *[facility] STOCKED*) 1 Tab Tab, 1 TAB PO DAILY, (Reported) Oxybutynin Chloride (Oxybutynin Chloride ER) 10 Mg Tab, 10 MG PO DAILY, (Reported) Pantoprazole Sodium (Pantoprazole Sodium) 40 Mg Tab, 40 MG PO BID, (Reported) Prazosin Hcl (Prazosin HCl) 2 Mg Cap, 4 MG PO QHS, (Reported) Prednisone (Prednisone) 5 Mg Tab, 10 MG PO DAILY, (Reported) TAPER. STARTED 09/18/18 INITIAL DOSING 4 TAB QD X 4 DAYS, THEN DECREASE BY 1 TABLET EVERY 4 DAYS UNTIL DONE. DURATION: 16 DAYS. (PT STATES TODAY IS FIRST DAY OF 2QD) Sulfasalazine (Sulfasalazine Delayed Release) 500 Mg Tabec, 1,500 MG PO BID, (Reported) Scheduled PRN Acetaminophen (Acetaminophen Extra Stren) 500 Mg Tab, 1,000 MG PO Q6H PRN for PAIN, (Reported) Albuterol Sulfate (Proventil Hfa) 108 Mcg/Act Aer, 2 PUFF INH Q4H PRN for SHORTNESS OF BREATH, (Reported) Cyclobenzaprine HCl (Cyclobenzaprine HCl) 10 Mg Tab, 10 MG PO BID PRN for MUSCLE SPASMS, (Reported) Dicyclomine HCl (Dicyclomine HCl) 20 Mg Tab, 20 MG PO QID PRN for ABDOMINAL PAIN, (Reported) Diphenhydramine Hcl (Benadryl Allergy) 25 Mg Tab, 50 MG PO PRN PRN for ALLERGIES, (Reported) Fluticasone Propionate (Flonase Allergy Relief) 50 Mcg/Act Spr, 1 SPRAY NA DAILY PRN for NASAL CONGESTION, (Reported) Hydroxyzine HCl (Hydroxyzine HCl) 50 Mg Tab, 50 MG PO Q6H PRN for ANXIETY, ( Reported) MAY TAKE 100MG AT BEDTIME Ibuprofen (Ibuprofen) 800 Mg Tab, 800 MG PO Q8H PRN for PAIN, (Reported) Polyethylene Glycol (Miralax) 1 Pow Pow, 17 GM PO DAILY PRN for CONSTIPATION, ( Reported) Promethazine Hcl (Promethazine HCl) 50 Mg Tab, 25 MG PO Q12H PRN for NAUSEA, (Reported) Sumatriptan Succinate (Sumatriptan Succinate) 50 Mg Tab, 50 MG PO DAILY PRN for HEADACHE, (Reported) Allergies Coded Allergies: Modafinil (Verified Allergy, Severe, THROAT SWELLS, 02/28/18) Zolpidem (Verified Allergy, Severe, RASH/DIFFICULTY BREATHING, 02/28/18) Bupivacaine (Verified Allergy, Intermediate, 02/28/18) Naproxen (Verified Allergy, Intermediate, RASH (TAKES IBUPROFEN AND MELOXICAM AT HOME), 02/28/18) Tramadol (Verified Allergy, Intermediate, RASH, 02/28/18) Trazodone (Verified Adverse Reaction, Intermediate, increases patient's depression, 02/28/18) RADHA FOOTE DO Sep 29, 2018 8:53 am
[2018-09-29] MEDS: hydrOXYzine 50 MG TAB PO PRN (11:46)
[2018-09-29] MEDS: SUMAtriptan SUCCINATE 25 MG TAB PO PRN (11:46)
== END 2018-09-29 13:30 | disposition home or self-care (01) | DRG 751 ==
LOC: M ED 12:01 → M ED INP 15:37 → M PSY 16:51
PROVIDERS: ADMIT Psychiatry & Neurology Psychiatry; ATTEND Psychiatry & Neurology Psychiatry
DX: F33.2 Major depressive disorder, recurrent severe without psychotic features (principal); Z68.42 Body mass index [BMI] 45.0-49.9, adult; E11.9 Type 2 diabetes mellitus without complications; G40.909 Epilepsy, unspecified, not intractable, without status epilepticus; F41.0 Panic disorder [episodic paroxysmal anxiety]; F60.3 Borderline personality disorder; Z79.899 Other long term (current) drug therapy; Z88.8 Allergy status to other drugs, medicaments and biological substances; E03.9 Hypothyroidism, unspecified; K21.9 Gastro-esophageal reflux disease without esophagitis; G47.33 Obstructive sleep apnea (adult) (pediatric); M54.5 Low back pain; J45.909 Unspecified asthma, uncomplicated; G43.909 Migraine, unspecified, not intractable, without status migrainosus; M06.9 Rheumatoid arthritis, unspecified; E78.5 Hyperlipidemia, unspecified; E66.9 Obesity, unspecified; K59.00 Constipation, unspecified

== ENCOUNTER 2018-11-01 12:50 | Emergency (ER) | payer OTHER ==
[~2018-11-01] VITALS: Ht 167.6 cm; Wt 140.0 kg
[~2018-11-01 12:50] MED LIST changes: -ARIP10TAB PO; +ARIP1TAB PO; +B COTAB3 PO; +BENGGEL2 TOP; +CALC600T60 PO; +CYCL10TA PO; +D 50CAP PO; +DOXE10CA PO; +DULO30CA9 PO; +FERR325T3 PO; +HYDR-3715 PO; +MAGN400C2 PO; -NORCOTAB PO; +OXYB10TA PO; +PRAZ2CAP PO; +PRED5TA PO; +PROBCAP14 PO; +REXU1TAB4 PO; +VITA500C24 PO; +VITMTA PO
[2018-11-01 15:31] LABS: BASO # 0.1 10^3/uL (0.0-0.2); EOS # 0.4 10^3/uL (0.0-0.50); HEMATOCRIT 36.4 % (36.0-47.0); HEMOGLOBIN 11.5 g/dl (12.0-15.5); LYMPH # 3.6 10^3/uL (1.5-4.5); LYMPH % 46.4 % (24.0-44.0); MEAN CORPUSCULAR HEMOGLOBIN 26.6 pg (27.0-33.0); MEAN CORPUSCULAR HGB CONC 31.6 g/dl (32.0-36.5); MEAN CORPUSCULAR VOLUME 84.3 fl (80.0-96.0); MONO # 1.1 10^3/uL (0.0-0.8); MONO % 14.3 % (0.0-5.0); NEUTROPHILS # 2.6 10^3/uL (1.8-7.7); NEUTROPHILS % 32.5 % (36.0-66.0); PLATELET COUNT, AUTOMATED 102 10^3/uL (150-450); RED BLOOD COUNT 4.32 10^6/uL (4.00-5.40); WHITE BLOOD COUNT 7.8 10^3/uL (4.0-10.0)
[2018-11-01 15:51] LABS: ALBUMIN 3.8 GM/DL (3.2-5.2); ALT/SGPT 47 U/L (12-78); BILIRUBIN,DIRECT 0.1 MG/DL (0.0-0.2); BILIRUBIN,TOTAL 0.4 MG/DL (0.2-1.0); BLOOD UREA NITROGEN 7 MG/DL (7-18); CALCIUM LEVEL 8.7 MG/DL (8.5-10.1); CARBON DIOXIDE LEVEL 26 MEQ/L (21-32); CHLORIDE LEVEL 108 MEQ/L (98-107); CK-MB VALUE MASS < 1.0 NG/ML (<3.6); CPK CREATINE PHOSPHOKINASE 60 U/L (26-192); CREATININE FOR GFR 0.64 MG/DL (0.55-1.30); GLOMERULAR FILTRATION RATE > 60.0 (>60); GLUCOSE, FASTING 92 MG/DL (70-100); LIPASE 200 U/L (73-393); MB/CK RELATIVE INDEX 1.66 (< OR =4); NT-PRO BNP 32 PG/ML (<125); POTASSIUM SERUM 3.7 MEQ/L (3.5-5.1); SODIUM LEVEL 142 MEQ/L (136-145); THYROID STIMULATING HORMONE 0.951 uIU/ML (0.358-3.740); TOTAL PROTEIN 6.9 GM/DL (6.4-8.2); TROPONIN I < 0.02 NG/ML (< 0.10)
[2018-11-01] MEDS ORDERED: ISOVUE-370 76% 100ML VIAL (Q9967) As Ordered ONE (15:58)
[2018-11-01] MEDS ORDERED: ONDANSETRON 4MG/2ML VIAL (J2405) IV ONE (18:30)
[2018-11-01 18:58] LABS: CK-MB VALUE MASS < 1.0 NG/ML (<3.6); CPK CREATINE PHOSPHOKINASE 59 U/L (26-192); MB/CK RELATIVE INDEX 1.69 (< OR =4); TROPONIN I < 0.02 NG/ML (< 0.10)
[2018-11-01 21:00] VITALS: BP 126/81
--- NOTE | 2018-11-01 21:01 | ECGEPIP ---
Stationary ECG Study [facility] - ED Test Date: 2018-11-01 Pat Name: BROOKLYNN TINEO Department: Room: - Gender: F Patient Care Coordinator: : 1980 Requested By: Vega Medrano Order Number: [id number] Reading MD: Tiffanie Florence Measurements Intervals [place] Rate: 71 P: 49 DE: 164 QRS: 36 QRSD: 116 T: 40 QT: 419 QTc: 457 Interpretive Statements SINUS RHYTHM MODERATE INTRAVENTRICULAR CONDUCTION DELAY SIMILAR 09/24/18 Electronically Signed On 11-01-2018 21:01:31 EDT by Tiffanie Florence
--- NOTE | 2018-11-01 21:05 | ECGEPIP ---
Stationary ECG Study [facility] - ED Test Date: 2018-11-01 Pat Name: BROOKLYNN TINEO Department: Room: - Gender: F General Dentist/Owner: MARIBEL : 1980 Requested By: RICHIE Leonard PA-C Order Number: [id number] Reading MD: Tiffanie Florence Measurements Intervals [place] Rate: 77 P: 43 ND: 158 QRS: 41 QRSD: 107 T: 44 QT: 399 QTc: 454 Interpretive Statements SINUS RHYTHM IVCD SIMILAR 11/01/18 Electronically Signed On 11-01-2018 21:04:53 EDT by Tiffanie Florence
--- NOTE | 2018-11-02 08:15 | REP ---
REASON: Chest pain. FINDINGS: The superior mediastinal structures are midline. The cardiac silhouette is unremarkable in size, shape, and position. The diaphragmatic surfaces of the lungs are regular, and the costophrenic angles are clear. The pulmonary masterson are clear. The imaged osseous structures are intact. IMPRESSION: There is no acute cardiopulmonary disease. Electronically Signed by Reji Castro DO 11/02/2018 02:02 P
--- NOTE | 2018-11-02 08:17 | REP ---
REASON: Pain and swelling bilateral. TECHNIQUE: Multiple ultrasonographic images of the deep venous structures of the right and left thighs were obtained from the common femoral vein to the popliteal vein along with Doppler interrogation and color flow Doppler images. FINDINGS: There is no abnormal echogenic material seen within any of the visualized deep venous structures that would suggest acute thrombosis. Coaptation is unremarkable throughout. Doppler interrogation shows an expected response to respiratory variability and augmentation. The color flow images show what appears to be a normal vascular pattern throughout. IMPRESSION: There is no ultrasonographic evidence of deep venous thrombosis involving any of the visualized deep venous structures of the right and left thighs, as described above. Seen only on the right in the posterior popliteal fossa soft-tissues there is a 5 cm sized mixed echo but predominately anechoic structure consistent with a Helm's cyst. Electronically Signed by Reji Castro DO 11/02/2018 02:02 P
--- NOTE | 2018-11-02 09:13 | REP ---
REASON: Dyspnea and pain. PRIORS: None. CONTRAST: 100 mL Isovue-370. There is excellent visualization of the pulmonary arterial vasculature without evidence of a focal filling defect present that would be considered consistent with a pulmonary embolus. There are no pleural or pericardial effusions. The imaged upper abdomen is within normal limits. The imaged osseous structure are within normal limits. There are minimal bilateral pleural effusions. Evaluation of the lung masterson show no abnormal patch opacities, significant nodules, or masses. There is a slight increase in the interstitial markings, however, the lung masterson are less than optimally expanded. The hypoexpansion causes subsegmental atelectatic change. IMPRESSION:No evidence of a pulmonary embolus. Findings as described above. Electronically Signed by Reji Castro DO 11/02/2018 02:05 P
== END 2018-11-01 21:00 | disposition home or self-care (01) ==
LOC: M ED 12:50
DX: R07.89 Other chest pain (principal); I45.89 Other specified conduction disorders; I10 Essential (primary) hypertension; E78.5 Hyperlipidemia, unspecified; K21.9 Gastro-esophageal reflux disease without esophagitis; J45.909 Unspecified asthma, uncomplicated; G43.909 Migraine, unspecified, not intractable, without status migrainosus; K58.9 Irritable bowel syndrome, unspecified; G47.30 Sleep apnea, unspecified; F41.9 Anxiety disorder, unspecified; F32.9 Major depressive disorder, single episode, unspecified; F31.9 Bipolar disorder, unspecified; F43.10 Post-traumatic stress disorder, unspecified; Z79.899 Other long term (current) drug therapy; Z88.8 Allergy status to other drugs, medicaments and biological substances; Z88.6 Allergy status to analgesic agent; Z88.5 Allergy status to narcotic agent
CPT/HCPCS: 71046; 71275; 80048; 80076; 82550; 82553; 83690; 83880; 84439; 84443; 85025; 93005; 93041; 93970; 96374; 99285; J2405; Q9967

== ENCOUNTER 2019-01-04 11:03 | Emergency (ER) | payer OTHER ==
[~2019-01-04] VITALS: Ht 170.2 cm; Wt 139.1 kg
[~2019-01-04 11:03] MED LIST changes: +HYDR1TAB33 PO; -HYDRO50TAB PO; +METF-791 PO; -METF500T4 PO; -OXYB10TA PO; +OXYB10TA23 PO; +PROV108A INH; -TRAZ-160 PO; +TRAZ-252 PO; +ZONI50CA11 PO; -ZONI50CA3 PO
[2019-01-04 12:07] LABS: BASO # 0.2 10^3/uL (0.0-0.2); BASO % 1.3 % (0.0-1.0); EOS # 0.2 10^3/uL (0.0-0.50); EOS % 1.6 % (0.0-3.0); HEMATOCRIT 40.1 % (36.0-47.0); HEMOGLOBIN 12.6 g/dl (12.0-15.5); LYMPH # 2.8 10^3/uL (1.5-4.5); LYMPH % 21.9 % (24.0-44.0); MEAN CORPUSCULAR HEMOGLOBIN 26.5 pg (27.0-33.0); MEAN CORPUSCULAR HGB CONC 31.4 g/dl (32.0-36.5); MEAN CORPUSCULAR VOLUME 84.2 fl (80.0-96.0); NEUTROPHILS # 8.5 10^3/uL (1.8-7.7); NEUTROPHILS % 66.6 % (36.0-66.0); PLATELET COUNT, AUTOMATED 309 10^3/uL (150-450); RED BLOOD COUNT 4.76 10^6/uL (4.00-5.40); WHITE BLOOD COUNT 12.8 10^3/uL (4.0-10.0)
[2019-01-04 12:08] LABS: APPEARANCE, URINE HAZY (CLEAR); BACTERIA, URINE AUTO 1+ (NEGATIVE); BILIRUBIN, URINE AUTO NEGATIVE (NEGATIVE); BLOOD, URINE BLOOD NEGATIVE (NEGATIVE); COLOR, URINE AMBER (YELLOW); GLUCOSE, URINE (UA) AUTO NEGATIVE (NEGATIVE); KETONE, URINE AUTO NEGATIVE (NEGATIVE); LEUKOCYTE ESTERASE, URINE AUTO NEGATIVE (NEGATIVE); NITRITE, URINE AUTO NEGATIVE (NEGATIVE); PROTEIN, URINE AUTO NEGATIVE (NEGATIVE); RBC, URINE AUTO 3 /HPF (0-3); SPECIFIC GRAVITY URINE AUTO 1.009 (1.002-1.035); SQUAMOUS EPITHELIAL CELL UR AU 2 /HPF (0-6); TRANSITIONAL EPITHELIAL AUTO <1 /HPF; UROBILINOGEN, URINE AUTO 0.2 mg/dL (0.0-2.0); WBC, URINE AUTO 2 /HPF (0-3)
[2019-01-04] MEDS ORDERED: KETOROLAC 30 MG/ML VIAL (J1885) IM ONE (12:30)
[2019-01-04 12:35] LABS: BLOOD UREA NITROGEN 12 MG/DL (7-18); CALCIUM LEVEL 9.8 MG/DL (8.5-10.1); CARBON DIOXIDE LEVEL 25 MEQ/L (21-32); CHLORIDE LEVEL 107 MEQ/L (98-107); CREATININE FOR GFR 0.83 MG/DL (0.55-1.30); GLOMERULAR FILTRATION RATE > 60.0 (>60); GLUCOSE, FASTING 110 MG/DL (70-100); POTASSIUM SERUM 4.6 MEQ/L (3.5-5.1); SODIUM LEVEL 142 MEQ/L (136-145)
[2019-01-04 13:12] LABS: AMPHETAMINES LEVEL URINE NEGATIVE (NEGATIVE); BARBITURATES URINE NEGATIVE (NEGATIVE); BENZODIAZEPINES URINE NEGATIVE (NEGATIVE); CANNABINOIDS URINE NEGATIVE (NEGATIVE); COCAINE METABOLITE URINE NEGATIVE (NEGATIVE); METHADONE URINE NEGATIVE (NEGATIVE); OPIATES URINE NEGATIVE (NEGATIVE); PHENCYCLIDINE URINE NEGATIVE (NEGATIVE)
--- NOTE | 2019-01-04 13:42 | REP ---
Pelvic ultrasound including transabdominal, endovaginal and Doppler ultrasound assessment: Comparison is 05/21/2018. On the comparison study the patient had a hysterectomy, however the ovaries remain. There was a dominant 1.6 cm left ovarian follicle. On the study today the bladder is adequately distended. The uterus is again surgically absent however the ovaries remain. Right ovary: There is a 4.3 x 2.1 x 4.0 cm right ovarian cyst. Including the cyst the right ovary is enlarged measuring 5.7 x 3.4 x 4.6 cm. There is vascular flow in the right ovary. The Doppler resistive index of the parenchymal arteries is 0.49. Left ovary: The left ovary measures 3.3 x 2.6 x 2.0 cm. There is no dominant left ovarian mass, cyst or dominant follicle. The previous dominant follicle has involuted. There is vascular flow with the parenchymal artery Doppler resistive index of 0.49. Impression: Dominant right ovarian cyst as described. The previous left ovarian dominant follicle has involuted. Electronically Signed by Linden Armas MD 01/04/2019 01:34 P
[2019-01-04] MEDS ORDERED: ISOVUE-370 76% 100ML VIAL (Q9967) As Ordered ONE (14:21)
--- NOTE | 2019-01-04 15:44 | REP ---
CT of the abdomen and pelvis with IV contrast, without bowel contrast for worsening pelvic pain for 1 week: Comparisons are the abdomen pelvis CT dated 05/21/2008 and the pelvic ultrasound performed earlier today. The the patient has a cholecystectomy, appendectomy, splenectomy and hysterectomy. However, the patient's ovaries remain. The visualized lung masterson are unremarkable. The hepatic parenchyma, and pancreas and unremarkable. The adrenals are unremarkable. The kidneys are unremarkable. The 1 cm right renal simple cyst at the lower pole is seen to better advantage on the prior study because of differences in renal cortical enhancement but is faintly visible today. A tiny abdominal aorta is unremarkable. There is no retroperitoneal adenopathy or mass. There is no bowel distension or obstruction. The mesentery is unremarkable. The terminal ileum has an unremarkable appearance. There are a few normal-size mesenteric nodes in the right lower quadrant, as previously. There is no ascites. Pelvis: There is a 4.7 cm right adnexal cyst, similar to that identified on the pelvic ultrasound earlier today. The left adnexa is unremarkable. The a uterus is surgically absent. The vaginal cuff and adnexa are unremarkable. The bladder is unremarkable. There is no free fluid. The bowel and mesentery are unremarkable. Impression: There is a right adnexal cyst that measures 4.[address] This is similar to the pelvic ultrasound earlier today. Otherwise, essentially negative CT study of the abdomen and pelvis. There is a 1 cm simple right renal lower pole cyst. There is a cholecystectomy, splenectomy, appendectomy and hysterectomy. Electronically Signed by Linden Armas MD 01/04/2019 03:35 P
[2019-01-04] MEDS: NS 1,000 ML IV ONE ×2 (16:14→16:15)
[2019-01-04 18:21] VITALS: BP 127/66
--- NOTE | 2019-01-05 15:30 | ECGEPIP ---
[facility] - ED Test Date: 2019-01-04 Pat Name: BROOKLYNN TINEO Department: Room: - Gender: Female Him Analyst: NICOLE : 1980 Requested By: Marilou Dorsey [facility] Order Number: [id number] Reading MD: Tiffanie Florence Measurements Intervals [place] Rate: 70 P: 53 NC: 182 QRS: 66 QRSD: 109 T: 56 QT: 414 QTc: 447 Interpretive Statements SINUS RHYTHM IVCD similar to prior EKG 11/01/18 Electronically Signed on 01-05-2019 15:30:26 EDT by Tiffanie Florence
--- NOTE | 2019-01-11 14:41 | ED PDOC ---
Post-Departure Follow-Up dr simental faxed formal report of ct abd/p for fu Sha Barrera MD Jan 11, 2019 14:41
[2019-02-01] MEDS ORDERED: ETAN50PE SC (21:32)
[2019-05-07] MEDS ORDERED: DICY20TA11 PO (14:51)
[2019-05-07] MEDS ORDERED: ESTR2TAB2 PO (14:51)
[2019-05-07] MEDS ORDERED: HUMI40KI2 SC (14:51)
[2019-05-07] MEDS ORDERED: SYMB80INH INH (14:51)
[2019-05-07] MEDS ORDERED: TIZA4CAP PO (14:51)
[2019-05-07] MEDS ORDERED: BOTO10VL IM (14:51)
== END 2019-01-04 18:39 | disposition home or self-care (01) ==
LOC: M ED 11:03
DX: N83.201 Unspecified ovarian cyst, right side (principal); R29.6 Repeated falls; R42 Dizziness and giddiness; R53.1 Weakness; E11.9 Type 2 diabetes mellitus without complications; M54.9 Dorsalgia, unspecified; J32.9 Chronic sinusitis, unspecified; G43.909 Migraine, unspecified, not intractable, without status migrainosus; F44.5 Conversion disorder with seizures or convulsions; F31.9 Bipolar disorder, unspecified; G47.30 Sleep apnea, unspecified; E03.9 Hypothyroidism, unspecified; K58.9 Irritable bowel syndrome, unspecified; Z87.42 Personal history of other diseases of the female genital tract; D25.9 Leiomyoma of uterus, unspecified; Z87.891 Personal history of nicotine dependence; Z88.8 Allergy status to other drugs, medicaments and biological substances; Z88.6 Allergy status to analgesic agent; Z88.5 Allergy status to narcotic agent; Z79.899 Other long term (current) drug therapy
CPT/HCPCS: 74177; 76830; 76856; 80048; 80307; 81001; 84702; 85025; 87040; 93005; 93976; 96360; 96361; 96372; 99285; J1885; Q9967

== ENCOUNTER 2019-02-01 20:02 | Inpatient (IN) | payer OTHER ==
[~2019-02-01] VITALS: Ht 170.2 cm; Wt 134.4 kg
[~2019-02-01 20:02] MED LIST changes: -HYDR1TAB33 PO; +HYDRO50TAB PO; -METF-791 PO; +METF500T4 PO; +OXYB10TA PO; -OXYB10TA23 PO; -PROV108A INH; -ZONI50CA11 PO; +ZONI50CA3 PO
[2019-02-01] MEDS: ANALGESIC BALM CRM 120 GM TOP SCH (21:00)
[2019-02-01] MEDS ORDERED: ACETAMINOPHEN TAB 650MG DOSE (2X325MG) PO PRN (21:15)
[2019-02-01] MEDS ORDERED: MAALOX 30 ML SUSP *UDC PO PRN (21:15)
[2019-02-01] MEDS ORDERED: MOM 30ML SUSPENSION UDC PO PRN (21:15)
[2019-02-01] MEDS ORDERED: ENBR50IN4 SC (21:32)
[2019-02-01] MEDS ORDERED: VITA1CAP25 PO (21:32)
[2019-02-01] MEDS ORDERED: GLUCTAB6 PO (21:32)
[2019-02-01] MEDS ORDERED: MOBI4TAB PO (21:32)
[2019-02-01] MEDS ORDERED: GABA600T4 PO (21:32)
[2019-02-01] MEDS ORDERED: ASCO500T PO (21:32)
[2019-02-01] MEDS ORDERED: DULO60CA35 PO (21:32)
[2019-02-01] MEDS ORDERED: DOXE10CA PO (21:32)
[2019-02-01] MEDS ORDERED: PRAZ2CAP PO (21:32)
[2019-02-01] MEDS ORDERED: TOPI50TA9 PO (21:32)
[2019-02-01] MEDS ORDERED: ONDA4TAB6 PO (21:32)
[2019-02-01] MEDS ORDERED: NORT1TAB3 PO (21:32)
[2019-02-01] MEDS ORDERED: [UNRECOGNIZED DRUG - CODE] PO (21:32)
[2019-02-01] MEDS ORDERED: BUSP15TA47 PO (21:32)
[2019-02-01] MEDS ORDERED: REXU1TAB4 PO (21:32)
[2019-02-01] MEDS ORDERED: DICY20TA PO (21:32)
[2019-02-01] MEDS ORDERED: PRED5TA PO (21:32)
[2019-02-01] MEDS ORDERED: TROS60CA2 PO (21:32)
[2019-02-01] MEDS ORDERED: LITH300C PO (21:32)
[2019-02-01] MEDS ORDERED: TIZA4TAB4 PO (21:32)
[2019-02-01] MEDS ORDERED: BACITAB PO (21:32)
[2019-02-01] MEDS ORDERED: ALLE180T33 PO (21:32)
[2019-02-01] MEDS ORDERED: MIRALAX *UNIT DOSE* 17GM PACKET PO PRN (22:30)
[2019-02-01] MEDS ORDERED: CYCLOBENZAPRINE 10 MG TAB PO PRN (22:30)
[2019-02-01] MEDS ORDERED: PROMETHAZINE 25 MG TAB PO PRN (22:30)
[2019-02-01] MEDS ORDERED: ALBUTEROL 90 MCG/ACT 8GM HFA INHALER INH PRN (22:30)
[2019-02-01] MEDS ORDERED: CALCIUM CARBONATE 500 MG CHEW U/D PO PRN (22:30)
[2019-02-01 23:26] VITALS: BP 160/93
[2019-02-01] MEDS: PRAZOSIN 1 MG CAP PO SCH (23:57)
[2019-02-01] MEDS: GABAPENTIN 300 MG CAP PO SCH (23:58)
[2019-02-01] MEDS: MONTELUKAST 10 MG TAB PO SCH (23:58)
[2019-02-01] MEDS: MAGNESIUM OXIDE 400 MG TAB (MAG-OX) PO SCH (23:58)
[2019-02-01] MEDS: PANTOPRAZOLE 40MG TAB (PROTONIX) PO SCH (23:58)
[2019-02-01] MEDS: busPIRone 5 MG TAB PO SCH (23:58)
[2019-02-01] MEDS: DOXEPIN 10 MG CAP PO SCH (23:59)
[2019-02-02] MEDS: LEVOTHYROXINE 50MCG TABLET (0.05MG) PO SCH (06:28)
[2019-02-02] MEDS: GEMFIBROZIL 600 MG TAB PO SCH ×2 (06:30→17:11)
[2019-02-02 06:38] VITALS: BP 116/60
[2019-02-02] MEDS: FLUTICASONE PROP 0.05% NASAL SPRAY 16 GM (FLONASE) NARES SCH ×2 (08:28→21:13)
[2019-02-02] MEDS: PANTOPRAZOLE 40MG TAB (PROTONIX) PO SCH ×2 (08:29→21:15)
[2019-02-02] MEDS: sulfaSALAzine 500 MG TABEC PO SCH ×2 (08:29→21:15)
[2019-02-02] MEDS: MULTIVITAMINS/MINERALS THERAP 1 TAB PO SCH (08:29)
[2019-02-02] MEDS: LACTOBACILLUS ACIDOPHILUS CAP (BACID) PO SCH (08:29)
[2019-02-02] MEDS: DULoxetine 30 MG CAP (CYMBALTA) PO SCH (08:29)
[2019-02-02] MEDS: ASCORBIC ACID 500 MG TAB PO SCH (08:29)
[2019-02-02] MEDS: busPIRone 5 MG TAB PO SCH ×2 (08:29→21:16)
[2019-02-02] MEDS: VITAMIN B COMPLEX/VIT C CAP PO SCH (08:29)
[2019-02-02] MEDS: BREXPIPRAZOLE 2MG TABLET (REXULTI) PO SCH (08:29)
[2019-02-02] MEDS: GABAPENTIN 300 MG CAP PO SCH ×3 (08:29→21:16)
[2019-02-02] MEDS: FERROUS SULFATE 325MG TAB PO SCH (08:30)
[2019-02-02] MEDS: MAGNESIUM OXIDE 400 MG TAB (MAG-OX) PO SCH ×2 (08:30→21:14)
[2019-02-02] MEDS: hydrOXYzine 50 MG TAB PO PRN (11:49)
[2019-02-02] MEDS: SUMAtriptan SUCCINATE 25 MG TAB PO PRN (11:49)
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
[2019-02-02 18:00] VITALS: BP 118/61
--- NOTE | 2019-02-02 20:13 | HPEPDOC ---
General Date of Admission Feb 01, 2019 at 21:13 Date of Service: Feb 02, 2019 Chief Complaint The patient is a 38-year-old female admitted with a reason for visit of Unspecified Depressive D/O. History of Present Illness 38-year-old female with past medical history listed below has been admitted to the inpatient mental health unit for an unspecified depressive disorder. At this time, the patient states that she is feeling well and denies any complaints of fevers, chills, chest pain, palpitations, abdominal pain, or any nausea/vomiting/diarrhea. Home Medications Scheduled Ascorbic Acid (Ascorbic Acid) 500 Mg Tablet, 500 MG PO DAILY, (Reported) Brexpiprazole (Rexulti) 2 Mg Tablet, 2 MG PO DAILY, (Reported) Buspirone HCl (Buspirone HCl) 15 Mg Tablet, 15 MG PO BID, (Reported) Calcium/Magnesium/Vitamin D3 (Bacilio-Mag Complex 300-150 mg Tab) 1 Each Tablet, 1 TAB PO DAILY, (Reported) Cholecalciferol (Vitamin D3) (Vitamin D3) 50,000 Unit Capsule, 50,000 UNIT PO 1XWK, (Reported) FRIDAY MORNINGS Doxepin HCl (Doxepin HCl) 10 Mg Capsule, 10 MG PO QHS, (Reported) Duloxetine HCl (Duloxetine HCl) 60 Mg Capsule.dr, 60 MG PO DAILY, (Reported) Etanercept (Enbrel Sureclick) 50 Mg/1 Ml Pen.injctr, 50 MG SC 1XWK, (Reported) FRIDAY MORNINGS Ferrous Sulfate (Ferrous Sulfate) 325 Mg Tab, 325 MG PO DAILY, (Reported) Fexofenadine HCl (Essie Allergy) 180 Mg Tablet, 180 MG PO DAILY, (Reported) Gabapentin (Gabapentin) 600 Mg Tablet, 600 MG PO TID, (Reported) Gemfibrozil (Gemfibrozil) 600 Mg Tab, 600 MG PO BID, (Reported) Gluc Dyer/Chondro Dyer A/Vit C/Mn (Glucosamine Chondroitin Tab) 1 Each Tablet, 1 TAB PO DAILY, (Reported) L.acidoph/L.bulg/B.bif/S.therm (Bacid Caplet) 1 Each Tablet, 1 TAB PO DAILY, (Reported) Levothyroxine Sodium (Levothyroxine Sodium) 50 Mcg Tab, 50 MCG PO DAILY, (Reported) Heartland Carbonate (Heartland Carbonate) 300 Mg Capsule, 300 MG PO QHS, (Reported) Magnesium Oxide (Magnesium) 400 Mg Cap, 400 MG PO BID, (Reported) Menthol (Bengay) 5 % Gel, 1 DOSE TOP QHS, (Reported) APPLIES TO KNEES AND LOWER BACK Montelukast Sodium (Montelukast Sodium) 10 Mg Tab, 10 MG PO QHS, (Reported) Multivitamins (Thera M Plus Tablet) 1 Tab Tab, 1 TAB PO DAILY, (Reported) Norethindrone-Ethinyl Estrad (Nortrel 1-35 28 Tablet) 1 Each Tablet, 1 EACH PO DAILY, (Reported) Pantoprazole Sodium (Pantoprazole Sodium) 40 Mg Tab, 40 MG PO BID, (Reported) Prazosin Hcl (Prazosin HCl) 2 Mg Capsule, 4 MG PO QHS, (Reported) Prednisone (Prednisone) 5 Mg Tablet, 5 MG PO DAILY, (Reported) Sulfasalazine (Sulfasalazine Dr) 500 Mg Tabec, 1,500 MG PO BID, (Reported) Topiramate (Topiramate) 50 Mg Tablet, 50 MG PO BID, (Reported) Trospium Chloride (Trospium Chloride ER) 60 Mg Cap.er.24h, 60 MG PO DAILY, (Reported) Vitamin B Complex (Vitamin B Complex) 1 Tab Tab, 1 TAB PO DAILY, (Reported) Scheduled PRN Acetaminophen (Acetaminophen) 500 Mg Tab, 1,000 MG PO Q6H PRN for PAIN, (Reported) Albuterol Sulfate (Proventil Hfa) 108 Mcg/Act Aer, 2 PUFF INH Q4H PRN for SHORTNESS OF BREATH, (Reported) Dicyclomine HCl (Dicyclomine HCl) 20 Mg Tablet, 20 MG PO Q6H PRN for ABDOMINAL PAIN, (Reported) Fluticasone Propionate (Flonase Allergy Relief) 50 Mcg/Act Spr, 1 SPRAY NA DAILY PRN for NASAL CONGESTION, (Reported) Ibuprofen (Ibuprofen) 800 Mg Tab, 800 MG PO Q8H PRN for PAIN, (Reported) Meloxicam (Mobic) 7.5 Mg Tablet, 7.5 MG PO DAILY PRN for PAIN, (Reported) WITH FOOD Ondansetron (Ondansetron Odt) 4 Mg Tab.rapdis, 4 MG PO TID PRN for NAUSEA, (Reported) Polyethylene Glycol 3350 (Miralax) 1 Pow Pow, 17 GM PO DAILY PRN for CONSTIPATION, (Reported) Sumatriptan Succinate (Sumatriptan Succinate) 50 Mg Tab, 50 MG PO BID PRN for HEADACHE, (Reported) Tizanidine HCl (Tizanidine HCl) 4 Mg Tablet, 4 MG PO TID PRN for MUSCLE SPASMS, (Reported) Allergies Coded Allergies: modafinil (Verified Allergy, Severe, throat swells, 11/01/18) zolpidem (Verified Allergy, Severe, rash/difficulty breathing, 11/01/18) bupivacaine (Verified Allergy, Intermediate, 11/01/18) naproxen (Verified Allergy, Intermediate, rash (takes ibuprofen and meloxicam at home), 11/01/18) tramadol (Verified Allergy, Unknown, rash, 11/01/18) trazodone (Verified Adverse Reaction, Intermediate, increased patient's depression, 11/01/18) Past Medical History Medical History Hypothyroid HLD Asthma Allergic rhinitis NIDDM, diet controlled. Anxiety Depression History of SI/SA, overdose. GERD IBS H/O ITP S/P splenectomy Migraine LUCAS. Follows with [facility]. chronic back pain, h/o injections with [facility]. Chronic knee pain BAM. CPAP. Pseudoseizure. (per pt) Follows with [facility]. OAB. [facility] Urology. Rheumatoid arthritis Surgical History Appendectomy Tubal ligation Hysterectomy Splenectomy 2010 Cholecystectomy Sinus reconstruction Ventral hernia repair Social History Resides in: [facility] Marital Status: Kids: 1 Tobacco use: denies ETOH: denies Illicit Drugs: Denies IV Drug Use: Denies Review of Systems Other systems 10 point review of systems negative unless otherwise specified in HPI. Physical Examination General Exam: Positive: Alert, Cooperative, No Acute Distress ENT Exam: Positive: Atraumatic, Mucous membr. moist/pink Neck Exam: Negative: JVD Chest Exam: Positive: Clear to auscultation, Normal air movement Heart Exam: Positive: Rate Normal, Normal S1, Normal S2 Abdomen Exam: Positive: Soft; Negative: Tenderness Extremity Exam: Negative: Tenderness, Swelling Psych Exam: Positive: Oriented x 3 Vital Signs Vital Signs Date Time Temp Pulse Resp B/P (MAP) Pulse Ox O2 Delivery O2 Flow Rate FiO2 02/02/19 18:00 98.8 62 16 118/61 (80) 02/01/19 20:34 95 Room Air Plan / VTE VTE Prophylaxis Ordered?: No VTE Exclusion Mechanical Proph: Low Risk for VTE Plan Plan Psych disorder Management as per Psychiatry Chronic migraine headache. Continue regimen as ordered History of pseudoseizure. Continue outpt F/U with Neurology. Chronic knee pain/back pain/chronic pain. Continue regimen as ordered NIDDM. Diet controlled, not on meds currently. Continue outpt F/U with PCP. Hypothyroidism. Continue levothyroxine 50 g daily. TSH is noted within normal limits. Hyperlipidemia. Continue gemfibrozil 600 mg twice a day. Gastroesophageal reflux disease. Continue Protonix 40 mg twice a day. Hypertension. Continue metoprolol 25 mg daily. Obesity Complicates care. Asthma. Continue singular 10 mg daily. Continue albuterol HFA 2 puffs every 4 hours as needed. IBS/Chronic constipation/Chronic abdominal pain. Continue Bentyl 20mg Q6hr as needed. MOM daily as needed. OAB. Continue Oxybutynin. Continue outpt F/U with [facility] Urology. Rheumatoid arthritis. sulfasalazine 1500mg BID ESTELLA FLANNERY MD Feb 02, 2019 20:13
[2019-02-02] MEDS: ANALGESIC BALM CRM 120 GM TOP SCH (21:00)
[2019-02-02] MEDS ORDERED: PRAMIPEXOLE 0.25 MG TAB PO SCH (21:00)
[2019-02-02] MEDS: MONTELUKAST 10 MG TAB PO SCH (21:13)
[2019-02-02] MEDS: PRAZOSIN 1 MG CAP PO SCH (21:15)
[2019-02-02] MEDS: DOXEPIN 10 MG CAP PO SCH (21:15)
[2019-02-03] MEDS: LEVOTHYROXINE 50MCG TABLET (0.05MG) PO SCH (06:05)
[2019-02-03 06:32] VITALS: BP 127/69
[2019-02-03] MEDS: GEMFIBROZIL 600 MG TAB PO SCH ×2 (07:20→16:58)
[2019-02-03] MEDS: MAGNESIUM OXIDE 400 MG TAB (MAG-OX) PO SCH ×2 (08:19→21:29)
[2019-02-03] MEDS: sulfaSALAzine 500 MG TABEC PO SCH ×2 (08:20→21:29)
[2019-02-03] MEDS: DULoxetine 30 MG CAP (CYMBALTA) PO SCH (08:20)
[2019-02-03] MEDS: BREXPIPRAZOLE 2MG TABLET (REXULTI) PO SCH (08:20)
[2019-02-03] MEDS: FLUTICASONE PROP 0.05% NASAL SPRAY 16 GM (FLONASE) NARES SCH ×2 (08:20→21:32)
[2019-02-03] MEDS: VITAMIN B COMPLEX/VIT C CAP PO SCH (08:20)
[2019-02-03] MEDS: MULTIVITAMINS/MINERALS THERAP 1 TAB PO SCH (08:20)
[2019-02-03] MEDS: busPIRone 5 MG TAB PO SCH ×2 (08:20→21:29)
[2019-02-03] MEDS: FERROUS SULFATE 325MG TAB PO SCH (08:20)
[2019-02-03] MEDS: PANTOPRAZOLE 40MG TAB (PROTONIX) PO SCH ×2 (08:20→21:29)
[2019-02-03] MEDS: GABAPENTIN 300 MG CAP PO SCH ×3 (08:20→21:26)
[2019-02-03] MEDS: LACTOBACILLUS ACIDOPHILUS CAP (BACID) PO SCH (08:20)
[2019-02-03] MEDS: ASCORBIC ACID 500 MG TAB PO SCH (08:20)
[2019-02-03] MEDS: ACETAMINOPHEN 500 MG TAB PO PRN (11:23)
[2019-02-03] MEDS: IBUPROFEN 800 MG TAB PO PRN (12:23)
[2019-02-03 13:54] LABS: HEMATOCRIT 38.2 % (36.0-47.0); HEMOGLOBIN 12.3 g/dl (12.0-15.5); MEAN CORPUSCULAR HEMOGLOBIN 27.3 pg (27.0-33.0); MEAN CORPUSCULAR HGB CONC 32.2 g/dl (32.0-36.5); MEAN CORPUSCULAR VOLUME 84.9 fl (80.0-96.0); PLATELET COUNT, AUTOMATED 363 10^3/uL (150-450); WHITE BLOOD COUNT 11.6 10^3/uL (4.0-10.0)
[2019-02-03 14:22] LABS: ALBUMIN 3.8 GM/DL (3.2-5.2); ALT/SGPT 26 U/L (12-78); BILIRUBIN,TOTAL 0.2 MG/DL (0.2-1.0); BLOOD UREA NITROGEN 16 MG/DL (7-18); CALCIUM LEVEL 9.3 MG/DL (8.5-10.1); CARBON DIOXIDE LEVEL 26 MEQ/L (21-32); CHLORIDE LEVEL 107 MEQ/L (98-107); CREATININE FOR GFR 0.77 MG/DL (0.55-1.30); GLOMERULAR FILTRATION RATE > 60.0 (>60); GLUCOSE, FASTING 133 MG/DL (70-100); POTASSIUM SERUM 3.8 MEQ/L (3.5-5.1); SODIUM LEVEL 139 MEQ/L (136-145); TOTAL PROTEIN 7.9 GM/DL (6.4-8.2)
--- NOTE | 2019-02-03 14:42 | MHIPNPDOC ---
[facility] Progress Note Progress Note Date of Service: 02/03/2019 History of Present Illness The patient a 38-year-old woman presented to [facility] after being brought from [facility]. Initially in the ER, she had presented with back pain, but had subsequently endorsed suicidal thoughts and severe depression for the last month with an intent to overdose or crash her car. She was transported to [facility] for evaluation and subsequently made to the inpatient mental health unit. Interval History The patient is met with today. She describes that she has not noticed any significant change and was curious whether she had been started on the Mirapex the previous evening. She denies any new side effects. She reports continued p roblems with flank pain and dysuria. She otherwise has no other complaints and reports that her depression still is difficult and she has difficulties coping with on the unit as well as anxiety around others. No major behavioral problems noted over the evening. Review Of Systems As above. Psychotherapy None on this visit. Vital Signs Reviewed. Mental Status Examination General: Fair hygiene Speech: Spontaneous and fluid Thought processes: Hopeless and pessimistic MSK: Smooth and coordinated gait, no signs of tremors or involuntary orofacial movements Thought content: Future orientated Abstract reasoning, and computation: Intact Description of associations: Intact Description of abnormal or psychotic thoughts: The patient admits to passive suicidality at this moment. Denies any homicidal ideation. Denies any auditory or visual hallucinations. Does not appear to be responding to internal stimuli. Judgment: Poor Insight: Fair Orientation: Alert and orientated 3 Cognition: Grossly normal Recent and remote memory: Intact Attention span and concentration: Intact Fund of knowledge: Adequate Mood: "Bad" Affect: Profoundly dysthymic with a constricted range. Diagnoses Unspecified depressive disorder. Rule out bipolar disorder versus MDD versus adjustment disorder. Unspecified personality disorder. Rule out borderline versus dependent personality. Unspecified trauma disorder. Rule out adjustment versus PTSD. Assessment and Plan The patient appears to make little improvement with the pramipexole 0.25 mg daily, however, increased to 0.5 mg with continuation of her other medications as listed below such as REXULTI 2 mg nightly and duloxetine 60 mg daily. Her chronic pain and dysuria as well as flank pain will be parsed out with a urinalysis and CMP, CBC as she does not have one on file here as she was transferred from an outside hospital. Disposition The patient will need an inpatient admission lasting longer than two midnights due to the severity of her depression and suicidality. Time Spent 20 minutes [id number]. Friday Vital Signs Vital Signs Date Time Temp Pulse Resp B/P (MAP) Pulse Ox O2 Delivery O2 Flow Rate FiO2 02/03/19 06:32 97.9 72 14 127/69 (88) 02/01/19 20:34 95 Room Air Laboratory Data 24H Labs Laboratory Tests 2 02/03/19 13:32: Nucleated Red Blood Cells % (auto) 0.0, Anion Gap 6L, Glomerular Filtration Rate > 60.0, Blood Urea Nitrogen 16, Creatinine 0.77, Sodium Level 139, Potassium Level 3.8, Chloride Level 107, Carbon Dioxide Level 26, Calcium Level 9.3, Aspartate Amino Transf (AST/SGOT) 24, Alanine Aminotransferase (ALT/SGPT) 26, Alkaline Phosphatase 50, Total Bilirubin 0.2, Total Protein 7.9, Albumin 3.8, Albumin/Globulin Ratio 0.93L CBC/BMP Laboratory Tests 02/03/19 13:32 Red Blood Count 4.50, Mean Corpuscular Volume 84.9, Mean Corpuscular Hemoglobin 27.3, Mean Corpuscular Hemoglobin Concent 32.2, Red Cell Distribution Width 16.4 H, Calcium Level 9.3, Aspartate Amino Transf (AST/SGOT) 24, Alanine Aminotransferase (ALT/SGPT) 26, Alkaline Phosphatase 50, Total Bilirubin 0.2, Total Protein 7.9, Albumin 3.8 Current Medications Current Medications Acetaminophen (Tylenol Tab) 650 mg Q6HP PRN PO HEADACHE or DISCOMFORT; Start 02/01/19 at 21:15; Stop 02/01/19 at 22:31; Status DC Acetaminophen (Tylenol Tab) 1,000 mg Q6HP PRN PO PAIN / FEVER Last administered on 02/03/19at 11:23; Start 02/01/19 at 22:30 Al Hydrox/Mg Hydrox/Simethicone (Mylanta) 30 ml Q4HP PRN PO HEARTBURN/INDIGESTION; Start 02/01/19 at 21:15 Albuterol Sulfate (Proventil, Ventolin Hfa) 2 puff Q4HP PRN INH SHORTNESS OF BREATH; Start 02/01/19 at 22:30 Ascorbic Acid (Vitamin C) 500 mg DAILY PO Last administered on 02/03/19 08:20; Start 02/02/19 at 09:00 Brexpiprazole (Rexulti) 2 mg DAILY PO Last administered on 02/03/19 08:20; Start 02/02/19 at 09:00 Buspirone HCl (Buspar) 15 mg BID PO Last administered on 02/03/19 08:20; Start 02/01/19 at 21:00 Calcium Carbonate (Tums) 500 mg DAILY PRN PO INDIGESTION; Start 02/01/19 at 22:30 Cyclobenzaprine HCl (Flexeril) 10 mg BIDP PRN PO MUSCLE SPASMS Last administered on 02/02/19 21:13; Start 02/01/19 at 22:30 Doxepin HCl (SINEquan) 10 mg QHS PO Last administered on 02/02/19 21:15; Start 02/01/19 at 21:00 Duloxetine HCl (Cymbalta) 60 mg DAILY PO Last administered on 02/03/19 08:20; Start 02/02/19 at 09:00 Ferrous Sulfate (Ferrous Sulfate) 325 mg DAILY PO Last administered on 02/03/19 08:20; Start 02/02/19 at 09:00 Fluticasone Propionate (Flonase 0.05% Nasal [place]) 1 spray BID NARES Last administered on 02/03/19 08:20; Start 02/02/19 at 09:00 Gabapentin (Neurontin) 600 mg TID PO Last administered on 02/03/19 08:20; Start 02/01/19 at 21:00 Gemfibrozil (Lopid) 600 mg BID@0730,1730 PO Last administered on 02/03/19 07:20; Start 02/02/19 at 07:30 Home Med (Med Rec Complete!) ASDIRECTED XX ; Start 02/01/19 at 21:45; Stop 02/01/19 at 21:45; Status DC Hydroxyzine HCl (Atarax) 50 mg Q6HP PRN PO ANXIETY Last administered on 02/02/19 11:49; Start 02/01/19 at 22:30 Ibuprofen (Advil) 800 mg Q8HP PRN PO MODERATE PAIN (PS 5-7) Last administered on 7/24/19at 12:23; Start 02/01/19 at 22:30 Lactobacillus Acidophilus (Bacid) 1 ea DAILY PO Last administered on 02/03/19 08:20; Start 02/02/19 at 09:00 Levothyroxine Sodium (Synthroid) 50 mcg DAILY@06 PO Last administered on 06:05; Start 02/02/19 at 06:00 Magnesium Hydroxide (Milk Of Magnesia) 30 ml DAILYPRN PRN PO CONSTIPATION; Start 02/01/19 at 21:15 Magnesium Oxide (Mag-Ox) 400 mg BID PO Last administered on 02/03/19 08:19; Start 02/01/19 at 21:00 Menthol/Methyl Salicylate (Bengay Cream) 1 dose QHS TOP ; Start 02/01/19 at 21:00 Montelukast Sodium (Singulair) 10 mg QHS PO Last administered on 02/02/19at 2 1:13; Start 02/01/19 at 21:00 Multivitamins (Theragram-M) 1 tab DAILY PO Last administered on 02/03/19 08:20; Start 02/02/19 at 09:00 Pantoprazole Sodium (Protonix) 40 mg BID PO Last administered on 02/03/19 08:20; Start 02/01/19 at 21:00 Polyethylene Glycol (Miralax) 1 pkt DAILYPRN PRN PO CONSTIPATION; Start 02/01/19 at 22:30 Pramipexole Dihydrochloride (Mirapex) 0.25 mg QHS PO Last administered on 02/02/19 21:16; Start 02/02/19 at 21:00; Stop 02/03/19 at 13:15; Status DC Pramipexole Dihydrochloride (Mirapex) 0.5 mg QHS PO ; Start 02/03/19 at 21:00 Prazosin HCl (Minipress) 4 mg QHS PO Last administered on 02/02/19 21:15; Start 02/01/19 at 21:00 Promethazine HCl (Phenergan) 25 mg Q12HP PRN PO NAUSEA Last administered on 02/03/19 11:27; Start 02/01/19 at 22:30 Sulfasalazine (Azulfidine Entabs) 1,500 mg BID PO Last administered on 7/24/19at 08:20; Start 02/02/19 at 09:00 Sumatriptan Succinate (Imitrex) 50 mg DAILYPRN PRN PO MIGRAINE Last administered on 02/02/19at 11:49; Start 02/01/19 at 22:30 Vitamin B Complex/ Vitamin C (Therapeutic B Complex w/C) 1 cap DAILY PO Last a dministered on 02/03/19at 08:20; Start 02/02/19 at 09:00 Allergies Coded Allergies: modafinil (Verified Allergy, Severe, throat swells, 11/01/18) zolpidem (Verified Allergy, Severe, rash/difficulty breathing, 11/01/18) bupivacaine (Verified Allergy, Intermediate, 11/01/18) naproxen (Verified Allergy, Intermediate, rash (takes ibuprofen and oscar oxicam at home), 11/01/18) tramadol (Verified Allergy, Unknown, rash, 11/01/18) trazodone (Verified Adverse Reaction, Intermediate, increased patient's depression, 11/01/18) JOSE HATCH DO Feb 03, 2019 14:42
[2019-02-03 17:30] LABS: APPEARANCE, URINE HAZY (CLEAR); BACTERIA, URINE AUTO 1+ (NEGATIVE); BILIRUBIN, URINE AUTO NEGATIVE (NEGATIVE); BLOOD, URINE BLOOD NEGATIVE (NEGATIVE); COLOR, URINE AMBER (YELLOW); GLUCOSE, URINE (UA) AUTO NEGATIVE (NEGATIVE); KETONE, URINE AUTO NEGATIVE (NEGATIVE); LEUKOCYTE ESTERASE, URINE AUTO NEGATIVE (NEGATIVE); NITRITE, URINE AUTO NEGATIVE (NEGATIVE); PROTEIN, URINE AUTO NEGATIVE (NEGATIVE); RBC, URINE AUTO 0 /HPF (0-3); SPECIFIC GRAVITY URINE AUTO 1.012 (1.002-1.035); SQUAMOUS EPITHELIAL CELL UR AU 1 /HPF (0-6); UROBILINOGEN, URINE AUTO 0.2 mg/dL (0.0-2.0); WBC, URINE AUTO 0 /HPF (0-3)
[2019-02-03 18:00] VITALS: BP 141/88
[2019-02-03] MEDS: hydrOXYzine 50 MG TAB PO PRN (18:50)
[2019-02-03] MEDS: ANALGESIC BALM CRM 120 GM TOP SCH (21:00)
[2019-02-03] MEDS ORDERED: PRAMIPEXOLE 0.25 MG TAB PO SCH (21:00)
[2019-02-03] MEDS: DOXEPIN 10 MG CAP PO SCH (21:27)
[2019-02-03] MEDS: PRAZOSIN 1 MG CAP PO SCH (21:29)
[2019-02-03] MEDS: MONTELUKAST 10 MG TAB PO SCH (21:29)
[2019-02-04] MEDS: LEVOTHYROXINE 50MCG TABLET (0.05MG) PO SCH (06:07)
[2019-02-04 06:31] VITALS: BP 144/81
[2019-02-04] MEDS: GEMFIBROZIL 600 MG TAB PO SCH ×2 (07:35→17:05)
[2019-02-04] MEDS: PANTOPRAZOLE 40MG TAB (PROTONIX) PO SCH ×2 (08:45→20:42)
[2019-02-04] MEDS: FLUTICASONE PROP 0.05% NASAL SPRAY 16 GM (FLONASE) NARES SCH ×2 (08:45→20:44)
[2019-02-04] MEDS: ASCORBIC ACID 500 MG TAB PO SCH (08:45)
[2019-02-04] MEDS: MAGNESIUM OXIDE 400 MG TAB (MAG-OX) PO SCH ×2 (08:45→20:43)
[2019-02-04] MEDS: LACTOBACILLUS ACIDOPHILUS CAP (BACID) PO SCH (08:45)
[2019-02-04] MEDS: sulfaSALAzine 500 MG TABEC PO SCH ×2 (08:45→20:43)
[2019-02-04] MEDS: VITAMIN B COMPLEX/VIT C CAP PO SCH (08:45)
[2019-02-04] MEDS: DULoxetine 30 MG CAP (CYMBALTA) PO SCH (08:45)
[2019-02-04] MEDS: BREXPIPRAZOLE 2MG TABLET (REXULTI) PO SCH (08:45)
[2019-02-04] MEDS: GABAPENTIN 300 MG CAP PO SCH ×3 (08:45→20:43)
[2019-02-04] MEDS: MULTIVITAMINS/MINERALS THERAP 1 TAB PO SCH (08:46)
[2019-02-04] MEDS: FERROUS SULFATE 325MG TAB PO SCH (08:46)
[2019-02-04] MEDS: busPIRone 5 MG TAB PO SCH ×2 (08:46→20:42)
--- NOTE | 2019-02-04 11:19 | IPNPDOC ---
Text Note Date of Service The patient was seen on 02/04/19. NOTE Subjective: Complains of frequency and lower abdominal pain. Denies chills or f ever. Objective GENERAL: Obese female in no acute distress SKIN : Warm, dry intact HEENT: Atraumatic, normocephalic, PERRL, moist mucous membrane CARDIOVASCULAR: Regular rate and rhythm, S1S2, no JVD, no edema, distal pulses + palpable RESP: CTAB, no accessory muscle use noted ABDOMEN: BS+ non distended non tender MS: no joint deformities NEURO: Alert and oriented x 3, CN2-12 grossly intact PSYCH: no anxiety or agitation, appropriate mood and affect. Assessment and plan Dysuria -With complaints of flank pain -CT abdomen and pelvis completed 01/04/2019 abnormal for 4 cm right adnexal cyst -Consult RESOLUTION SPECIALIST specialist for persisting symptoms and pain -Pain control -Follow recommendations by RESOLUTION SPECIALIST specialist VSSteven, I+O VS, Steven, I+O Laboratory Tests 02/03/19 13:32 Red Blood Count 4.50, Mean Corpuscular Volume 84.9, Mean Corpuscular Hemoglobin 27.3, Mean Corpuscular Hemoglobin Concent 32.2, Red Cell Distribution Width 16.4 H, Calcium Level 9.3, Aspartate Amino Transf (AST/SGOT) 24, Alanine Aminotransferase (ALT/SGPT) 26, Alkaline Phosphatase 50, Total Bilirubin 0.2, Total Protein 7.9, Albumin 3.8 Vital Signs Date Time Temp Pulse Resp B/P (MAP) Pulse Ox O2 Delivery O2 Flow Rate FiO2 02/04/19 06:31 99.6 71 14 144/81 (102) 02/01/19 20:34 95 Room Air [facility] Feb 04, 2019 11:18
--- NOTE | 2019-02-04 15:38 | CR ---
DATE OF CONSULTATION:02/04/2019 A 38-year-old female hospital day number two, admitted to the inpatient mental health unit (IM) with worsening depression and suicidal ideations. She relates to her providers that she has had intermittent pelvic pain for several months. This pain got worse in the last day on the right side. It is sharp and intermittent. On 01/04/2019, she was diagnosed with a 5 cm right ovarian cyst on ultrasound. She has been on control pills through the gynecologic ([facility]AM [facility]UCKER) provider for the purpose of trying to suppress ovarian cyst formation. She also relates that she leaks urine and has strong urgency symptoms. She sees Dr. Sherita Cedeno for her [facility]AM [facility]UCKER care. PAST MEDICAL HISTORY: 1. Hypothyroidism. 2. Asthma. 3. Allergic rhinitis. 4. Peh-xengnvk-oparnulzt diabetes. 5. Anxiety. 6. Depression. 7. Gastroesophageal reflux disease (GERD). 8. Irritable bowel syndrome (IBS). 9. Chronic back pain. 10. Migraines. 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 12. Ovarian cysts. PAST SURGICAL HISTORY: 1. Appendectomy. 2. Tubal ligation. 3. Hysterectomy. 4. Splenectomy. 5. Cholecystectomy. 6. Sinus reconstruction. 7. Ventral hernia repair. ALLERGIES: 1. TRAZODONE. 2. TRAMADOL. 3. NAPROXEN. 4. BUPIVACAINE. 5. ZOLPIDEM. 6. MODAFINIL. SOCIAL HISTORY: The patient lives in [place], [place]. She is . She has one child. Denies current use of alcohol or drugs. FAMILY HISTORY: Noncontributory. REVIEW OF SYSTEMS: Negative. PHYSICAL EXAMINATION: Blood pressure 144/81, temperature 99.6, pulse 71. She is no apparent distress. HEAD AND NECK: Normal. LUNGS: Clear. HEART: Regular rate and rhythm. ABDOMEN: Nontender, soft, nondistended. No masses palpable. PELVIC EXAMINATION: Deferred. EXTREMITIES: Nontender. IMAGING STUDIES: Ultrasound 01/04/2019 revealed a 5 x 4 cm cyst of the right ovary confirmed on CT scan. ASSESSMENT: A 38-year-old female with intermittent right ovarian cyst and pelvic pain. RECOMMENDATIONS: Repeat pelvic ultrasound to assess for resolution of right ovarian cyst since it has now been a month since her prior imaging study. Could consider control pills to help with cyst suppression. We will follow.
--- NOTE | 2019-02-04 16:31 | REP ---
REASON FOR EXAM: History of right ovarian cyst. COMPARISON EXAM: 01/04/2019 which showed a 4.3 x 2.1 x 4 cm right ovarian cyst. Transvesical and transvaginal imaging was obtained. Patient is status-post a hysterectomy. Right ovary measures 2.6 x 2.6 x 2.7 cm. This is seen previously and has resolved. The right ovarian RI is 0.46. Left ovary measures 3.2 x 2.2 x 3.0 cm and is within normal limits with an RI of 0.62. Urinary bladder measures 8 x 7 x 9 cm. IMPRESSION:Status post hysterectomy. Pelvic ultrasonography is within normal limits. Previously present right ovarian cyst has resolved. Electronically Signed by Reji Castro DO 02/05/2019 02:15 P
[2019-02-04 18:00] VITALS: BP 148/88
[2019-02-04] MEDS: hydrOXYzine 50 MG TAB PO PRN (18:24)
[2019-02-04] MEDS: ACETAMINOPHEN 500 MG TAB PO PRN (18:55)
[2019-02-04 20:35] VITALS: BP 162/78
[2019-02-04] MEDS: MONTELUKAST 10 MG TAB PO SCH (20:42)
[2019-02-04] MEDS: SUMAtriptan SUCCINATE 25 MG TAB PO PRN (20:42)
[2019-02-04 20:43] VITALS: BP 162/78
[2019-02-04] MEDS: IBUPROFEN 800 MG TAB PO PRN (20:43)
[2019-02-04] MEDS: PRAZOSIN 1 MG CAP PO SCH (20:43)
[2019-02-04] MEDS: ANALGESIC BALM CRM 120 GM TOP SCH (20:44)
[2019-02-04] MEDS: DOXEPIN 10 MG CAP PO SCH (20:44)
[2019-02-04] MEDS ORDERED: PRAMIPEXOLE 0.25 MG TAB PO SCH (21:00)
[2019-02-04 21:27] VITALS: BP 143/76
--- NOTE | 2019-02-04 23:24 | REPVR ---
EXAM: CT Head Without Contrast EXAM DATE/TIME: 02/04/2019 10:47 PM CLINICAL HISTORY: 38 years old, female; Injury or trauma; Fall; Initial encounter; Blunt trauma (contusions or hematomas); Consciousness not specified; Additional info: Patient fell, hit head TECHNIQUE: Imaging protocol: Computed tomography images of the head without contrast. Radiation optimization: All CT scans at this facility use at least one of these dose optimization techniques: automated exposure control; mA and/or kV adjustment per patient size (includes targeted exams where dose is matched to clinical indication); or iterative reconstruction. COMPARISON: CT Head without contrast 04/10/2018 3:38 PM FINDINGS: Brain: Normal. No hemorrhage. Unremarkable white matter. No mass effect. Ventricles: Normal. No ventriculomegaly. Bones/joints: Unremarkable. No acute fracture. Sinuses: Visualized sinuses are unremarkable. No fluid levels. Mastoid air cells: Visualized mastoid air cells are well aerated. No mastoid effusion. Soft tissues: Unremarkable. IMPRESSION: Negative noncontrast head CT, unchanged from 04/10/2018. Electronically signed by: Jamel Woodard On 02/04/2019 23:23:51 PM
--- NOTE | 2019-02-04 23:37 | ECGEPIP ---
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
[2019-02-05] MEDS: ACETAMINOPHEN 500 MG TAB PO PRN (06:15)
[2019-02-05] MEDS: LEVOTHYROXINE 50MCG TABLET (0.05MG) PO SCH (06:15)
[2019-02-05 06:43] VITALS: BP 140/90
[2019-02-05] MEDS: GEMFIBROZIL 600 MG TAB PO SCH (07:40)
[2019-02-05] MEDS: FLUTICASONE PROP 0.05% NASAL SPRAY 16 GM (FLONASE) NARES SCH (07:58)
[2019-02-05] MEDS: ASCORBIC ACID 500 MG TAB PO SCH (07:59)
[2019-02-05] MEDS: sulfaSALAzine 500 MG TABEC PO SCH (07:59)
[2019-02-05] MEDS: busPIRone 5 MG TAB PO SCH (07:59)
[2019-02-05] MEDS: MULTIVITAMINS/MINERALS THERAP 1 TAB PO SCH (07:59)
[2019-02-05] MEDS: GABAPENTIN 300 MG CAP PO SCH (07:59)
[2019-02-05] MEDS: DULoxetine 30 MG CAP (CYMBALTA) PO SCH (07:59)
[2019-02-05] MEDS: MAGNESIUM OXIDE 400 MG TAB (MAG-OX) PO SCH (07:59)
[2019-02-05] MEDS: BREXPIPRAZOLE 2MG TABLET (REXULTI) PO SCH (07:59)
[2019-02-05] MEDS: PANTOPRAZOLE 40MG TAB (PROTONIX) PO SCH (07:59)
[2019-02-05] MEDS: VITAMIN B COMPLEX/VIT C CAP PO SCH (08:00)
[2019-02-05] MEDS: FERROUS SULFATE 325MG TAB PO SCH (08:00)
[2019-02-05] MEDS: LACTOBACILLUS ACIDOPHILUS CAP (BACID) PO SCH (08:00)
--- NOTE | 2019-02-05 08:36 | MHIPNPDOC ---
[facility] Progress Note Progress Note Date of Service: 02/04/2019 History of Present Illness The patient a 38-year-old woman presented to [facility] after being brought from [facility]. Initially in the ER, she had presented with back pain, but had subsequently endorsed suicidal thoughts and severe depression for the last month with an intent to overdose or crash her car. She was transported to [facility] for evaluation and subsequently made to the inpatient mental health unit. Interval History The patient's met with today. She has notably made some progress with her depression. She has done well with the pramipexole augmentation to her Rexulti and reports that she is more able to socialize and that she no longer has any suicidal thoughts. She still reports some feelings of self harm. Her family are still confused at the amount of stressors as it appears discordant with their observations. The patient does report some chronic flank pain that is getting worse. Hospital has saw patient and recommended a CHEMICAL ENGINEERING TECHNOLOGIST consult of which ordered a ultrasound due to the history of ovarian cysts. She's been attending groups with no major behavioral problems on the unit. Review Of Systems Denies any side effects from her pramipexole such as nauseousness. Continues to report her flank pain. Psychotherapy None on this visit. Vital Signs Reviewed. Mental Status Examination General: Fair hygiene Speech: Spontaneous and fluid Thought processes: Hopeless and pessimistic MSK: Smooth and coordinated gait, no signs of tremors or involuntary orofacial movements Thought content: Future orientated Abstract reasoning, and computation: Intact Description of associations: Intact Description of abnormal or psychotic thoughts: The patient admits to self harm thoughts, but no suicidal thoughts or homicidal thoughts. Denies any auditory or visual hallucinations. Does not appear to be responding to internal stimuli. Judgment: Improving Insight: Improving Orientation: Alert and orientated 3 Cognition: Grossly normal Recent and remote memory: Intact Attention span and concentration: Intact Fund of knowledge: Adequate Mood: "Okay" Affect: Less dysthymic with a constricted range. Diagnoses Unspecified depressive disorder. Rule out bipolar disorder versus MDD versus adjustment disorder. Unspecified personality disorder. Rule out borderline versus dependent personality. Unspecified trauma disorder. Rule out adjustment versus PTSD. Assessment and Plan The patient appears to be making some modest improvements on the pramipexole augmentation. Will increase to 0.75 mg daily, continuing Rexulti and duloxetine as below as well as doxepin with no changes. Psychometric could be useful. However, her SPOA application only required the initial intake note. Disposition The patient will need a further inpatient admission in order to titrate her me dications and accurately parse out her diagnosis as well as ensure a safe and effective discharge plan. Time Spent 15 minutes. Vital Signs Vital Signs Date Time Temp Pulse Resp B/P (MAP) Pulse Ox O2 Delivery O2 Flow Rate FiO2 02/05/19 06:43 98.6 78 18 140/90 (107) 02/04/19 21:27 96 02/01/19 20:34 Room Air Current Medications Current Medications Medications (Trade) Dose Ordered Sig/Acstro Route PRN Reason Start Time Stop Time Status Last Admin Dose Admin Acetaminophen (Tylenol Tab) 650 mg Q6HP PRN PO HEADACHE or DISCOMFORT 02/01/19 21:15 02/01/19 22:31 DC Acetaminophen (Tylenol Tab) 1,000 mg Q6HP PRN PO PAIN / FEVER 02/01/19 22:30 02/05/19 06:15 Al Hydrox/Mg Hydrox/Simethicone (Mylanta) 30 ml Q4HP PRN PO HEARTBURN/INDIGESTION 02/01/19 21:15 Albuterol Sulfate (Proventil, Ventolin Hfa) 2 puff Q4HP PRN INH SHORTNESS OF BREATH 02/01/19 22:30 Ascorbic Acid (Vitamin C) 500 mg DAILY PO 02/02/19 09:00 02/05/19 07:59 Brexpiprazole (Rexulti) 2 mg DAILY PO 02/02/19 09:00 02/05/19 07:59 Buspirone HCl (Buspar) 15 mg BID PO 02/01/19 21:00 02/05/19 07:59 Calcium Carbonate (Tums) 500 mg DAILY PRN PO INDIGESTION 02/01/19 22:30 Cyclobenzaprine HCl (Flexeril) 10 mg BIDP PRN PO MUSCLE SPASMS 02/01/19 22:30 02/02/19 21:13 Doxepin HCl (SINEquan) 10 mg QHS PO 02/01/19 21:00 02/04/19 20:44 Duloxetine HCl (Cymbalta) 60 mg DAILY PO 02/02/19 09:00 02/05/19 07:59 Ferrous Sulfate (Ferrous Sulfate) 325 mg DAILY PO 02/02/19 09:00 02/05/19 08:00 Fluticasone Propionate (Flonase 0.05% Nasal [place]) 1 spray BID NARES 02/02/19 09:00 02/05/19 07:58 Gabapentin (Neurontin) 600 mg TID PO 02/01/19 21:00 02/05/19 07:59 Gemfibrozil (Lopid) 600 mg BID@0730,1730 PO 02/02/19 07:30 02/05/19 07:40 Home Med (Med Rec Complete!) ASDIRECTED XX 02/01/19 21:45 02/01/19 21:45 DC Hydroxyzine HCl (Atarax) 50 mg Q6HP PRN PO ANXIETY 02/01/19 22:30 02/04/19 18:24 Ibuprofen (Advil) 800 mg Q8HP PRN PO MODERATE PAIN (PS 5-7) 02/01/19 22:30 02/04/19 20:43 Lactobacillus Acidophilus (Bacid) 1 ea DAILY PO 02/02/19 09:00 02/05/19 08:00 Levothyroxine Sodium (Synthroid) 50 mcg DAILY@06 PO 02/02/19 06:00 02/05/19 06:15 Magnesium Hydroxide (Milk Of Magnesia) 30 ml DAILYPRN PRN PO CONSTIPATION 02/01/19 21:15 Magnesium Oxide (Mag-Ox) 400 mg BID PO 02/01/19 21:00 02/05/19 07:59 Menthol/Methyl Salicylate (Bengay Cream) 1 dose QHS TOP 02/01/19 21:00 Montelukast Sodium (Singulair) 10 mg QHS PO 02/01/19 21:00 02/04/19 20:42 Multivitamins (Theragram-M) 1 tab DAILY PO 02/02/19 09:00 02/05/19 07:59 Pantoprazole Sodium (Protonix) 40 mg BID PO 02/01/19 21:00 02/05/19 07:59 Polyethylene Glycol (Miralax) 1 pkt DAILYPRN PRN PO CONSTIPATION 02/01/19 22:30 Pramipexole Dihydrochloride (Mirapex) 0.25 mg QHS PO 02/02/19 21:00 02/03/19 13:15 DC 02/02/19 21:16 Pramipexole Dihydrochloride (Mirapex) 0.5 mg QHS PO 02/03/19 21:00 02/04/19 15:49 DC 02/03/19 21:26 Pramipexole Dihydrochloride (Mirapex) 0.75 mg QHS PO 02/04/19 21:00 02/04/19 20:44 Prazosin HCl (Minipress) 4 mg QHS PO 02/01/19 21:00 02/04/19 20:43 Promethazine HCl (Phenergan) 25 mg Q12HP PRN PO NAUSEA 02/01/19 22:30 02/03/19 11:27 Sulfasalazine (Azulfidine Entabs) 1,500 mg BID PO 02/02/19 09:00 02/05/19 07:59 Sumatriptan Succinate (Imitrex) 50 mg DAILYPRN PRN PO MIGRAINE 02/01/19 22:30 02/04/19 20:42 Vitamin B Complex/ Vitamin C (Therapeutic B Complex w/C) 1 cap DAILY PO 02/02/19 09:00 02/05/19 08:00 Allergies Coded Allergies: modafinil (Verified Allergy, Severe, throat swells, 11/01/18) zolpidem (Verified Allergy, Severe, rash/difficulty breathing, 11/01/18) bupivacaine (Verified Allergy, Intermediate, 11/01/18) naproxen (Verified Allergy, Intermediate, rash (takes ibuprofen and meloxicam at home), 11/01/18) tramadol (Verified Allergy, Unknown, rash, 11/01/18) trazodone (Verified Adverse Reaction, Intermediate, increased patient's depression, 11/01/18) JOSE HATCH DO Feb 05, 2019 08:36
[2019-02-05] MEDS ORDERED: MIRA0.254 PO (09:42)
[2019-02-05] MEDS: hydrOXYzine 50 MG TAB PO PRN (09:49)
--- NOTE | 2019-02-05 13:19 | MHDSPDOC ---
[facility] Discharge Summary Discharge Summary DATE OF ADMISSION: Feb 01, 2019 at 21:13 DATE OF DISCHARGE: 02/05/19 Date of Service: 02/05/2019 Diagnoses Unspecified depressive disorder. Unspecified trauma/stress-related disorder. History of Present Illness The patient a 38-year-old woman presented to [facility] after being brought from [facility]. Initially in the ER, she had presented with back pain, but had subsequently endorsed suicidal thoughts and severe depression for the last month with an intent to overdose or crash her car. She was transported to [facility] for evaluation and subsequently made to the inpatient mental health unit. Consultants Involved Hospitalist/PCP screening [employer] Consult for cysts CT scan after reported fall with CT head that was normal Treatment and Progress On The Unit The patient was admitted to the unit initially suicidal. She was on a complex medication regimen including Cymbalta 60 mg daily and Rexulti 2 mg nightly with doxepin for sleep among many medications for medical conditions as well. The patient was placed on augmentation with pramipexole starting initially at 0.25 mg daily and increased to 0.75 mg nightly that had an effective treatment response with her depression lifting. She became no longer suicidal and did not express any self-harm thoughts or suicidal thoughts of the 24 hours prior to her discharge. She was able to attend to groups and had no major behavioral problems on the unit. She did have one notable episode of a reported fall; however, staff observed it and appeared to be more behavioral as the patient has had times in the past where she has done this for attention. She does carry a diagnosis of borderline personality disorder. However, testing was not able to be done in time for her discharge. However, it's highly recommended that she undergo testing. Collateral information from her parents revealed no significant stressors and that she was welcome to return to home. Discharge Assessment 38-year-old woman who presents depressed. She has a complex set of diagnoses that are conflicting at times. She did appear to benefit from a low-dose augmentation with pramipexole. It's unclear whether she is bipolar borderline, primary unipolar depression or PTSD. However, outpatient testing could be quite helpful in determining a suitable treatment plan for her. Mental Status Examination General: Well dressed with good hygiene Speech: Spontaneous and fluid Thought processes: Linear and logical MSK: Smooth and coordinated gait, no signs of tremors or involuntary orofacial movements Thought content: Future orientated Abstract reasoning, and computation: Intact Description of associations: Intact Description of abnormal or psychotic thoughts: Denies any suicidal or homicidal ideation. Denies any auditory or visual hallucinations. Does not appear to be responding to internal stimuli. Does not appear to be endorsing any bizarre or paranoid ideation. Judgment: fair Insight: fair Orientation: Alert and orientated 3 Cognition: Grossly normal Recent and remote memory: Intact Attention span and concentration: Intact Fund of knowledge: Adequate Mood: "okay" Affect: Euthymic with a full range Follow Up The social work team worked during the predischarge meeting in order to evaluate for further issues of lethality address them fully before discharge. They worked on safety planning with the patient's family members in order to ensure that the patient will have a safe and effective discharge. Time Spent The amount of time spent in the coordination of care for this patient was approximately 30 minutes. Friday Vital Signs/I&Os Vital Signs Date Time Temp Pulse Resp B/P (MAP) Pulse Ox O2 Delivery O2 Flow Rate FiO2 02/05/19 06:43 98.6 78 18 140/90 (107) 02/04/19 21:27 96 02/01/19 20:34 Room Air Medications Scheduled Ascorbic Acid (Ascorbic Acid) 500 Mg Tablet, 500 MG PO DAILY, (Reported) Brexpiprazole (Rexulti) 2 Mg Tablet, 2 MG PO DAILY, (Reported) Buspirone HCl (Buspirone HCl) 15 Mg Tablet, 15 MG PO BID, (Reported) Calcium/Magnesium/Vitamin D3 (Bacilio-Mag Complex 300-150 mg Tab) 1 Each Tablet, 1 TAB PO DAILY, (Reported) Cholecalciferol (Vitamin D3) (Vitamin D3) 50,000 Unit Capsule, 50,000 UNIT PO 1XWK, (Reported) FRIDAY MORNINGS Doxepin HCl (Doxepin HCl) 10 Mg Capsule, 10 MG PO QHS, (Reported) Duloxetine HCl (Duloxetine HCl) 60 Mg Capsule.dr, 60 MG PO DAILY, (Reported) Etanercept (Enbrel Sureclick) 50 Mg/1 Ml Pen.injctr, 50 MG SC 1XWK, (Reported) FRIDAY MORNINGS Ferrous Sulfate (Ferrous Sulfate) 325 Mg Tab, 325 MG PO DAILY, (Reported) Fexofenadine HCl (Essie Allergy) 180 Mg Tablet, 180 MG PO DAILY, (Reported) Gabapentin (Gabapentin) 600 Mg Tablet, 600 MG PO TID, (Reported) Gemfibrozil (Gemfibrozil) 600 Mg Tab, 600 MG PO BID, (Reported) Gluc Dyer/Chondro Dyer A/Vit C/Mn (Glucosamine Chondroitin Tab) 1 Each Tablet, 1 TAB PO DAILY, (Reported) L.acidoph/L.bulg/B.bif/S.therm (Bacid Caplet) 1 Each Tablet, 1 TAB PO DAILY, (Reported) Levothyroxine Sodium (Levothyroxine Sodium) 50 Mcg Tab, 50 MCG PO DAILY, (Reported) [place]ley Carbonate (Hurley Carbonate) 300 Mg Capsule, 300 MG PO QHS, (Reported) Magnesium Oxide (Magnesium) 400 Mg Cap, 400 MG PO BID, (Reported) Menthol (Bengay) 5 % Gel, 1 DOSE TOP QHS, (Reported) APPLIES TO KNEES AND LOWER BACK Montelukast Sodium (Montelukast Sodium) 10 Mg Tab, 10 MG PO QHS, (Reported) Multivitamins (Thera M Plus Tablet) 1 Tab Tab, 1 TAB PO DAILY, (Reported) Norethindrone-Ethinyl Estrad (Nortrel 1-35 28 Tablet) 1 Each Tablet, 1 EACH PO DAILY, (Reported) Pantoprazole Sodium (Pantoprazole Sodium) 40 Mg Tab, 40 MG PO BID, (Reported) Pramipexole Di-HCl (Mirapex) 0.25 Mg Tablet, 0.75 MG PO QHS for mood for 7 Days, #21 Prazosin Hcl (Prazosin HCl) 2 Mg Capsule, 4 MG PO QHS, (Reported) Prednisone (Prednisone) 5 Mg Tablet, 5 MG PO DAILY, (Reported) Sulfasalazine (Sulfasalazine Dr) 500 Mg Tabec, 1,500 MG PO BID, (Reported) Topiramate (Topiramate) 50 Mg Tablet, 50 MG PO BID, (Reported) Trospium Chloride (Trospium Chloride ER) 60 Mg Cap.er.24h, 60 MG PO DAILY, (Reported) Vitamin B Complex (Vitamin B Complex) 1 Tab Tab, 1 TAB PO DAILY, (Reported) Scheduled PRN Acetaminophen (Acetaminophen) 500 Mg Tab, 1,000 MG PO Q6H PRN for PAIN, (Reported) Albuterol Sulfate (Proventil Hfa) 108 Mcg/Act Aer, 2 PUFF INH Q4H PRN for SHORTNESS OF BREATH, (Reported) Dicyclomine HCl (Dicyclomine HCl) 20 Mg Tablet, 20 MG PO Q6H PRN for ABDOMINAL PAIN, (Reported) Fluticasone Propionate (Flonase Allergy Relief) 50 Mcg/Act Spr, 1 SPRAY NA DAILY PRN for NASAL CONGESTION, (Reported) Ibuprofen (Ibuprofen) 800 Mg Tab, 800 MG PO Q8H PRN for PAIN, (Reported) Meloxicam (Mobic) 7.5 Mg Tablet, 7.5 MG PO DAILY PRN for PAIN, (Reported) WITH FOOD Ondansetron (Ondansetron Odt) 4 Mg Tab.rapdis, 4 MG PO TID PRN for NAUSEA, (Reported) Polyethylene Glycol 3350 (Miralax) 1 Pow Pow, 17 GM PO DAILY PRN for CONSTIPATION, (Reported) Sumatriptan Succinate (Sumatriptan Succinate) 50 Mg Tab, 50 MG PO BID PRN for HEADACHE, (Reported) Tizanidine HCl (Tizanidine HCl) 4 Mg Tablet, 4 MG PO TID PRN for MUSCLE SPASMS, (Reported) Allergies Coded Allergies: modafinil (Verified Allergy, Severe, throat swells, 11/01/18) zolpidem (Verified Allergy, Severe, rash/difficulty breathing, 11/01/18) bupivacaine (Verified Allergy, Intermediate, 11/01/18) naproxen (Verified Allergy, Intermediate, rash (takes ibuprofen and meloxicam at home), 11/01/18) tramadol (Verified Allergy, Unknown, rash, 11/01/18) trazodone (Verified Adverse Reaction, Intermediate, increased patient's depression, 11/01/18) JOSE HATCH DO Feb 05, 2019 13:19
== END 2019-02-05 13:00 | disposition home or self-care (01) | DRG 754 ==
LOC: M ED 20:02 → M ED INP 21:13 → M PSY 22:51
PROVIDERS: ADMIT Psychiatry & Neurology Psychiatry; ATTEND Psychiatry & Neurology Addiction Medicine
DX: F32.9 Major depressive disorder, single episode, unspecified (principal); E11.9 Type 2 diabetes mellitus without complications; R45.851 Suicidal ideations; F43.9 Reaction to severe stress, unspecified; Z79.899 Other long term (current) drug therapy; Z88.8 Allergy status to other drugs, medicaments and biological substances; E03.9 Hypothyroidism, unspecified; J30.9 Allergic rhinitis, unspecified; G47.33 Obstructive sleep apnea (adult) (pediatric); J45.909 Unspecified asthma, uncomplicated; K21.9 Gastro-esophageal reflux disease without esophagitis; G43.909 Migraine, unspecified, not intractable, without status migrainosus; M54.5 Low back pain; M06.9 Rheumatoid arthritis, unspecified; E78.5 Hyperlipidemia, unspecified; E66.9 Obesity, unspecified; N83.201 Unspecified ovarian cyst, right side

== ENCOUNTER 2019-02-10 01:43 | Inpatient (IN) | payer OTHER ==
[~2019-02-10] VITALS: Ht 170.2 cm; Wt 138.3 kg
[~2019-02-10 01:43] MED LIST changes: +ALLE180T33 PO; +ASCO500T PO; +BACITAB PO; +DICY20TA PO; +DULO60CA35 PO; +ETAN50PE SC; +GLUCTAB6 PO; +HYDR1TAB33 PO; -HYDRO50TAB PO; +MIRA0.254 PO; +MOBI4TAB PO; +NORT1TAB3 PO; +ONDA4TAB6 PO; -OXYB10TA PO; +OXYB10TA2 PO; +TIZA4TAB4 PO; +TOPI50TA9 PO; +TROS60CA2 PO; +VITA1CAP25 PO; +[UNRECOGNIZED DRUG - CODE] PO
[2019-02-10] MEDS ORDERED: MOM 30ML SUSPENSION UDC PO PRN (03:00)
[2019-02-10] MEDS ORDERED: MIRA0.254 PO (03:09)
[2019-02-10] MEDS ORDERED: DIPH25CA32 PO (03:11)
[2019-02-10] MEDS ORDERED: KETOROLAC 60 MG/2 ML VIAL (J1885) IM ONE (03:45)
[2019-02-10 04:48] VITALS: BP 145/84
--- NOTE | 2019-02-10 08:43 | HPEPDOC ---
[facility] Medical History & Physical Date of Admission Feb 10, 2019 Date of Service: Feb 10, 2019 History and Physical CHIEF COMPLAINT: suicide attempt/OD HISTORY OF PRESENT ILLNESS: Pt is a 38y/o f with multiple medical problems including DMII, hypothyroid, asthma, anxiety/depression with multiple [facility] who presents for drug overdose/suicide attempt. Pt recently discharged on 02/05/19 after presenting for depression and SI. Pt was at home on day of presentation when she decided to overdose on tylenol, ibuprofen, benedryl, a muscle relaxer and a medication for nausea. Per pt she took a total of about 50 pills. PT currently endorsing suicidal ideation but denies homicidal ideation. Pt endorses some N and abdominal discomfort but denies other symptoms of fever, chills, CP, SOB, V, diarrhea, leg pain or swelling. PAST MEDICAL HISTORY: Hypothyroid HLD Asthma Allergic rhinitis NIDDM, diet controlled. Anxiety Depression History of SI/SA, overdose. GERD IBS H/O ITP S/P splenectomy Migraine LUCAS. Follows with [facility]. chronic back pain, h/o injections with [place] [facility]. Chronic knee pain BAM. CPAP. Pseudoseizure. (per pt) Follows with [facility]. OAB. [facility]. Rheumatoid arthritis PAST SURGICAL HISTORY: Appendectomy Tubal ligation Hysterectomy Splenectomy 2011 Cholecystectomy Sinus reconstruction Ventral hernia repair SOCIAL HISTORY: Marital Status: Kids: 1 Tobacco use: denies ETOH: denies Illicit Drugs: Denies IV Drug Use: Denies FAMILY HISTORY: DMII ALLERGIES: Please see below. REVIEW OF SYSTEMS: 14 point ROS reviewed and pertinent pos and neg documented as per HPI. All other reviewed ROS neg. HOME MEDICATIONS: Please see below. PHYSICAL EXAMINATION: VITAL SIGNS: Please see below. GENERAL APPEARANCE: depressed, obese appearing female sitting on exam table in NAD, HEENT: PERRL, EOMI, OP clear, tongue straight CARDIOVASCULAR: RRR, nl s1/2 no mrg LUNGS: CTA b/l no w/r/r ABDOMEN: obese, soft, NTTP, ND MUSCULOSKELETAL: no gross deformities EXTREMITIES: no edema, intact distal pulses NEUROLOGICAL: no focal deficits, moving all extremities spontaneous PSYCHIATRIC: depressed mood, A&Ox3 LABORATORY DATA: See below. MICROBIOLOGY: Please see below. ASSESSMENT: Pt is a 38y/o f with multiple medical problems including DMII, hypothyroid, asthma, anxiety/depression with multiple suicide attempts who presents for drug overdose/suicide attempt. Pt endorses taking tylenol along with ibuprofen, benydryl, nausea medicine and a muscle relaxer. Pt still having suicidal thoughts. PLAN: 1. OD -tylenol level as i can't find where this was done -basic labs (BMP, CBC, mag) also don't see where this was checked -EKG 2. depression/bipolar/PTSD/borderline personality disorder -Management as per Psychiatry 3. History of pseudoseizure. -Continue outpt F/U with Neurology. 4. Chronic knee pain/back pain/chronic pain. -will cont. to monitor -have held ibuprofen and tylenol given that these are the medicines she overdosed on -will have to reintroduce when safe 5. NIDDM. -Diet controlled, not on meds currently. -Continue outpt F/U with PCP. -Diabetic cardiac diet 6. Hypothyroidism. -Continue levothyroxine 50 g daily. 7. Hyperlipidemia. -Continue gemfibrozil 600 mg twice a day. 8. Gastroesophageal reflux disease. -Continue Protonix 40 mg twice a day. 9. Hypertension. -will cont. to monitor -can start HTN med as needed -currently pt between SBP 120's-140's 10. Morbid Obesity -Complicates care. 11. Asthma. -Continue albuterol HFA 2 puffs every 4 hours as needed. 12. IBS/Chronic constipation/Chronic abdominal pain. -miralax PRN 13. OAB. -Continue outpt F/U with [facility]rology. 14. Rheumatoid arthritis. -cont. sulfasalazine 1500mg BID -cont. pred 5mg 15. Migraine Headache -cont. home meds DVT PPX: low risk and ambulatory Vital Signs Vital Signs Date Time Temp Pulse Resp B/P (MAP) Pulse Ox O2 Delivery O2 Flow Rate FiO2 02/10/19 04:48 99.6 78 14 145/84 (104) 98 02/10/19 03:42 Room Air Home Medications Scheduled Ascorbic Acid (Ascorbic Acid) 500 Mg Tablet, 500 MG PO DAILY Brexpiprazole (Rexulti) 2 Mg Tablet, 2 MG PO DAILY Buspirone HCl (Buspirone HCl) 15 Mg Tablet, 15 MG PO BID Calcium/Magnesium/Vitamin D3 (Bacilio-Mag Complex 300-150 mg Tab) 1 Each Tablet, 1 TAB PO DAILY Cholecalciferol (Vitamin D3) (Vitamin D3) 50,000 Unit Capsule, 50,000 UNIT PO 1XWK FRIDAY MORNINGS Doxepin HCl (Doxepin HCl) 10 Mg Capsule, 10 MG PO QHS Duloxetine HCl (Duloxetine HCl) 60 Mg Capsule.dr, 60 MG PO DAILY Etanercept (Enbrel Sureclick) 50 Mg/1 Ml Pen.injctr, 50 MG SC 1XWK FRIDAY MORNINGS Ferrous Sulfate (Ferrous Sulfate) 325 Mg Tab, 325 MG PO DAILY Fexofenadine HCl (Essie Allergy) 180 Mg Tablet, 180 MG PO DAILY Gabapentin (Gabapentin) 600 Mg Tablet, 600 MG PO TID Gemfibrozil (Gemfibrozil) 600 Mg Tab, 600 MG PO BID Gluc Dyer/Chondro Dyer A/Vit C/Mn (Glucosamine Chondroitin Tab) 1 Each Tablet, 1 TAB PO DAILY L.acidoph/L.bulg/B.bif/S.therm (Bacid Caplet) 1 Each Tablet, 1 TAB PO DAILY Levothyroxine Sodium (Levothyroxine Sodium) 50 Mcg Tab, [address] [place] Carbonate ([place] Carbonate) 300 Mg Capsule, 300 MG PO QHS Magnesium Oxide (Magnesium) 400 Mg Cap, 400 MG PO BID Menthol (Bengay) 5 % Gel, 1 DOSE TOP QHS APPLIES TO KNEES AND LOWER BACK Montelukast Sodium (Montelukast Sodium) 10 Mg Tab, 10 MG PO QHS Multivitamins (Thera M Plus Tablet) 1 Tab Tab, 1 TAB PO DAILY Norethindrone-Ethinyl Estrad (Nortrel 1-35 28 Tablet) 1 Each Tablet, 1 EACH PO DAILY Pantoprazole Sodium (Pantoprazole Sodium) 40 Mg Tab, 40 MG PO BID Pramipexole Di-HCl (Mirapex) 0.25 Mg Tablet, 0.75 MG PO QHS Prazosin Hcl (Prazosin HCl) 2 Mg Capsule, 4 MG PO QHS Prednisone (Prednisone) 5 Mg Tablet, 5 MG PO DAILY PATIENT STATES SHE IS ON THE 1 TABLET DAILY PORTION OF THE TAPER Sulfasalazine (Sulfasalazine Dr) 500 Mg Tabec, 1,500 MG PO BID Topiramate (Topiramate) 50 Mg Tablet, 50 MG PO BID Trospium Chloride (Trospium Chloride ER) 60 Mg Cap.er.24h, 60 MG PO DAILY Vitamin B Complex (Vitamin B Complex) 1 Tab Tab, 1 TAB PO DAILY Scheduled PRN Acetaminophen (Acetaminophen) 500 Mg Tab, 1,000 MG PO Q6H PRN for PAIN Albuterol Sulfate (Proventil Hfa) 108 Mcg/Act Aer, 2 PUFF INH Q4H PRN for SHORTNESS OF BREATH Dicyclomine HCl (Dicyclomine HCl) 20 Mg Tablet, 20 MG PO Q6H PRN for ABDOMINAL PAIN Diphenhydramine HCl (Diphenhydramine HCl) 25 Mg Capsule, 25 MG PO Q6H PRN for ALLERGY Fluticasone Propionate (Flonase Allergy Relief) 50 Mcg/Act Spr, 1 SPRAY NA DAILY PRN for NASAL CONGESTION Ibuprofen (Ibuprofen) 800 Mg Tab, 800 MG PO Q8H PRN for PAIN Meloxicam (Mobic) 7.5 Mg Tablet, 7.5 MG PO DAILY PRN for PAIN WITH FOOD Ondansetron (Ondansetron Odt) 4 Mg Tab.rapdis, 4 MG PO TID PRN for NAUSEA Polyethylene Glycol 3350 (Miralax) 1 Pow Pow, 17 GM PO DAILY PRN for CONSTIPATION Sumatriptan Succinate (Sumatriptan Succinate) 50 Mg Tab, 50 MG PO BID PRN for HEADACHE Tizanidine HCl (Tizanidine HCl) 4 Mg Tablet, 4 MG PO TID PRN for MUSCLE SPASMS Allergies Coded Allergies: modafinil (Verified Allergy, Severe, throat swells, 02/10/19) zolpidem (Verified Allergy, Severe, rash/difficulty breathing, 02/10/19) bupivacaine (Verified Allergy, Intermediate, 02/10/19) naproxen (Verified Allergy, Intermediate, rash (takes ibuprofen and meloxicam at home), 02/10/19) tramadol (Verified Allergy, Unknown, rash, 02/10/19) trazodone (Verified Adverse Reaction, Intermediate, increased patient's depression, 02/10/19) A-FIB/CHADSVASC A-FIB History Current/History of A-Fib/PAF?: No DEA ANGEL MD Feb 10, 2019 08:43
[2019-02-10] MEDS ORDERED: FLUTICASONE PROP 0.05% NASAL SPRAY 16 GM (FLONASE) PRN ×2 (08:45→09:00)
[2019-02-10] MEDS ORDERED: MIRALAX *UNIT DOSE* 17GM PACKET PO PRN (08:45)
[2019-02-10] MEDS ORDERED: ALBUTEROL 90 MCG/ACT 8GM HFA INHALER INH PRN (08:45)
[2019-02-10] MEDS ORDERED: busPIRone 5 MG TAB PO SCH (09:00)
[2019-02-10] MEDS ORDERED: BREXPIPRAZOLE 2MG TABLET (REXULTI) PO SCH (09:00)
[2019-02-10] MEDS ORDERED: GABAPENTIN 300 MG CAP PO SCH (09:00)
[2019-02-10 09:11] LABS: HEMATOCRIT 36.7 % (36.0-47.0); HEMOGLOBIN 11.4 g/dl (12.0-15.5); MEAN CORPUSCULAR HEMOGLOBIN 27.5 pg (27.0-33.0); MEAN CORPUSCULAR HGB CONC 31.1 g/dl (32.0-36.5); MEAN CORPUSCULAR VOLUME 88.4 fl (80.0-96.0); PLATELET COUNT, AUTOMATED 295 10^3/uL (150-450); RED BLOOD COUNT 4.15 10^6/uL (4.00-5.40); WHITE BLOOD COUNT 14.9 10^3/uL (4.0-10.0)
[2019-02-10 09:18] LABS: BLOOD UREA NITROGEN 9 MG/DL (7-18); CALCIUM LEVEL 8.3 MG/DL (8.5-10.1); CARBON DIOXIDE LEVEL 24 MEQ/L (21-32); CHLORIDE LEVEL 112 MEQ/L (98-107); CREATININE FOR GFR 0.71 MG/DL (0.55-1.30); GLOMERULAR FILTRATION RATE > 60.0 (>60); GLUCOSE, FASTING 104 MG/DL (70-100); MAGNESIUM LEVEL 2.1 MG/DL (1.8-2.4); POTASSIUM SERUM 3.6 MEQ/L (3.5-5.1); SODIUM LEVEL 142 MEQ/L (136-145)
--- NOTE | 2019-02-10 09:51 | MHHPEPDOC ---
[facility] History & Physical History and Physical DATE OF ADMISSION: Feb 10, 2019 at 02:56 Date of Service: 02/10/2019 Chief Complaint "I don't want to talk about it." History of Present Illness The patient a 30 year old female presents again shortly after being discharged from the unit. She reports that she had done quite well after leaving the unit with a positive outlook. However, she had notable problems on the day of her reported overdose. She reported waking up on that day feeling anxious and hopeless that was resistant to her falling asleep again. She reports that she was generally unable to attend to her sudden sense of impulsivity and reports that she took an overdose of Tylenol and several other medications and then subsequently sought care from her assertive outpatient team that had coincidentally an appointment that very same day. She was brought to the ER and evaluate and subsequently admitted. However, reviewing the integrated healthcare notes from [facility], it appears at the patients Tylenol was very low even sub-therapeutic, suggesting that the events described by the patient were unlikely to be accurate. The patient reports that her depression appears to generally be controlled, but she still struggles with hopelessness and impulsivity. When the patient was met with, she described feeling ashamed and remorseful about the attempt that it brought her back but describing that she was unsure as to why she had done this despite reportedly feeling better with no recurrence of her symptoms since her discharge. The psychosocial information below is derived from my previous H&P. Review Of Systems Depression: As above, has had episodes in the past but none currently. Anxiety: Has had in the past, reports baseline level at this time. Verenice: No recent behaviors or symptoms reported. Psychotic: No recent behaviors or symptoms reported. Trauma: No changes in symptoms. Borderline: Previously screened as positive. Past Psychiatric History The patient reports no history of psychiatric admissions, medication trials or current follow up. Allergies Please see below. Family Psychiatric History The patient denies/is unaware any history of mental health history including addictions and suicide. Social History Substance Abuse History The patient denies any excessive alcohol use, tobacco or illicit drug use, denies history of substance use treatment. Medical History Patient has no significant past medical history. Mental Status Examination General: Well dressed with good hygienentated Abstract reasoning, and computation: Intact Description of associations: Intact Description of abnormal or psychotic thoughts: Admits to passive suicidal ideation but no plan or intention. Denies any homicidal thoughts. Denies any auditory or visual hallucinations. Does not appear to be responding to internal stimuli. Judgment: limited Insight: poor Orientation: Alert and orientated 3 Cognition: Grossly normal Recent and remote memory: Intact Attention span and concentration: Intact Fund of knowledge: Adequate Mood: "okay" Affect: Dysthymic with a constricted range Diagnoses Unspecified depressive disorder. R/O Bipolar disorder Unsp Trauma/Stressor Borderline personality disorder. Assessment and Plan The patient is a 38 year old woman with a history of borderline personality disorder presents after an impulsive overdose that does not appear to have been as significant as the patient had reported who was admitted under an involuntary status. She reports no significant symptoms or recurrence of her depression. Her diagnosis is still very unclear. However, borderline personality disorder remains a high level on the differential for her current presentation as she has reported difficulties tolerating stress with her family and despite having very little responsibilities hase patient ymptoms and suicidal thoughtser to stabilize her symptoms and suicidal thoughts as well as improve her ioms and suicidal thoughts as well as improve her ineffectivuicidal thoughts as well as i mprove her ineffective coping and plan for a more safe and effective discharge. Problem List 1. Depression 2. Anxiety 3. Ineffective coping Initial Treatment Plan 1. Patient was admitted on a 9.39 legal status. 2. Complete history was obtained. 3. With patients permission, family will be contacted and database will be expanded. 4. Patients medication regimen will be reviewed and changed accordingly. 5. Patient will be provided with protected environment. 6. Patient will be treated with individual, group, and milieu therapies. 7. Patient will receive supportive psych-education. 8. Discharge planning will commence immediately. 9. Outpatient follow-up treatment will be strongly recommended. 10. The initial treatment plan will focus initially on a medication wash out which was discussed with the patient. Will be discontinuing patients brexpiprazole, Cymbalta, cutting prazosin to 1 milligram nightly from 4 in order to ascertain her baseline symptoms as well as potentially getting psychological testing. Her lithium was additionally removed as this likely due to her chronic impulsivity likely related from borderline personality disorder poses a risk with little benefit as the studies are primarily done in patients with confirmed bipolar disorder and suicide and is currently off-label for borderline patients and general suicide prevention Estimated Length Of Stay 4 days. Time Spent 45 minutes. Friday Vital Signs Vital Signs Date Time Temp Pulse Resp B/P (MAP) Pulse Ox O2 Delivery O2 Flow Rate FiO2 02/10/19 04:48 99.6 78 14 145/84 (104) 98 02/10/19 03:42 Room Air Laboratory Data 24H Labs Laboratory Tests 2 02/10/19 08:31: Nucleated Red Blood Cells % (auto) 0.0, Anion Gap 6L, Glomerular Filtration Rate > 60.0, Blood Urea Nitrogen 9, Creatinine 0.71, Sodium Level 142, Potassium Level 3.6, Chloride Level 112H, Carbon Dioxide Level 24, Calcium Level 8.3L, Magnesium Level 2.1, Acetaminophen Level < 2.0L CBC/BMP Laboratory Tests 02/10/19 08:31 Red Blood Count 4.15, Mean Corpuscular Volume 88.4, Mean Corpuscular Hemoglobin 27.5, Mean Corpuscular Hemoglobin Concent 31.1 L, Red Cell Distribution Width 16.7 H, Calcium Level 8.3 L Medications Scheduled Ascorbic Acid (Ascorbic Acid) 500 Mg Tablet, 500 MG PO DAILY, (Reported) Brexpiprazole (Rexulti) 2 Mg Tablet, 2 MG PO DAILY, (Reported) Buspirone HCl (Buspirone HCl) 15 Mg Tablet, 15 MG PO BID, (Reported) Calcium/Magnesium/Vitamin D3 (Bacilio-Mag Complex 300-150 mg Tab) 1 Each Tablet, 1 TAB PO DAILY, (Reported) Cholecalciferol (Vitamin D3) (Vitamin D3) 50,000 Unit Capsule, 50,000 UNIT PO 1XWK, (Reported) FRIDAY MORNINGS Doxepin HCl (Doxepin HCl) 10 Mg Capsule, 10 MG PO QHS, (Reported) Duloxetine HCl (Duloxetine HCl) 60 Mg Capsule.dr, 60 MG PO DAILY, (Reported) Etanercept (Enbrel Sureclick) 50 Mg/1 Ml Pen.injctr, 50 MG SC 1XWK, (Reported) FRIDAY MORNINGS Ferrous Sulfate (Ferrous Sulfate) 325 Mg Tab, 325 MG PO DAILY, (Reported) Fexofenadine HCl (Essie Allergy) 180 Mg Tablet, 180 MG PO DAILY, (Reported) Gabapentin (Gabapentin) 600 Mg Tablet, 600 MG PO TID, (Reported) Gemfibrozil (Gemfibrozil) 600 Mg Tab, 600 MG PO BID, (Reported) Gluc Dyer/Chondro Dyer A/Vit C/Mn (Glucosamine Chondroitin Tab) 1 Each Tablet, 1 TAB PO DAILY, (Reported) L.acidoph/L.bulg/B.bif/S.therm (Bacid Caplet) 1 Each Tablet, 1 TAB PO DAILY, (Reported) Levothyroxine Sodium (Levothyroxine Sodium) 50 Mcg Tab, 50 MCG PO DAILY, (Reported) [place] Carbonate (R[place]bury Carbonate) 300 Mg Capsule, 300 MG PO QHS, (Reported) Magnesium Oxide (Magnesium) 400 Mg Cap, 400 MG PO BID, (Reported) Menthol (Bengay) 5 % Gel, 1 DOSE TOP QHS, (Reported) APPLIES TO KNEES AND LOWER BACK Montelukast Sodium (Montelukast Sodium) 10 Mg Tab, 10 MG PO QHS, (Reported) Multivitamins (Thera M Plus Tablet) 1 Tab Tab, 1 TAB PO DAILY, (Reported) Norethindrone-Ethinyl Estrad (Nortrel 1-35 28 Tablet) 1 Each Tablet, 1 EACH PO DAILY, (Reported) Pantoprazole Sodium (Pantoprazole Sodium) 40 Mg Tab, 40 MG PO BID, (Reported) Pramipexole Di-HCl (Mirapex) 0.25 Mg Tablet, 0.75 MG PO QHS, (Reported) Prazosin Hcl (Prazosin HCl) 2 Mg Capsule, 4 MG PO QHS, (Reported) Prednisone (Prednisone) 5 Mg Tablet, 5 MG PO DAILY, (Reported) PATIENT STATES SHE IS ON THE 1 TABLET DAILY PORTION OF THE TAPER Sulfasalazine (Sulfasalazine Dr) 500 Mg Tabec, 1,500 MG PO BID, (Reported) Topiramate (Topiramate) 50 Mg Tablet, 50 MG PO BID, (Reported) Trospium Chloride (Trospium Chloride ER) 60 Mg Cap.er.24h, 60 MG PO DAILY, (Reported) Vitamin B Complex (Vitamin B Complex) 1 Tab Tab, 1 TAB PO DAILY, (Reported) Scheduled PRN Acetaminophen (Acetaminophen) 500 Mg Tab, 1,000 MG PO Q6H PRN for PAIN, (Reported) Albuterol Sulfate (Proventil Hfa) 108 Mcg/Act Aer, 2 PUFF INH Q4H PRN for SHORTNESS OF BREATH, (Reported) Dicyclomine HCl (Dicyclomine HCl) 20 Mg Tablet, 20 MG PO Q6H PRN for ABDOMINAL PAIN, (Reported) Diphenhydramine HCl (Diphenhydramine HCl) 25 Mg Capsule, 25 MG PO Q6H PRN for ALLERGY, (Reported) Fluticasone Propionate (Flonase Allergy Relief) 50 Mcg/Act Spr, 1 SPRAY NA DAILY PRN for NASAL CONGESTION, (Reported) Ibuprofen (Ibuprofen) 800 Mg Tab, 800 MG PO Q8H PRN for PAIN, (Reported) Meloxicam (Mobic) 7.5 Mg Tablet, 7.5 MG PO DAILY PRN for PAIN, (Reported) WITH FOOD Ondansetron (Ondansetron Odt) 4 Mg Tab.rapdis, 4 MG PO TID PRN for NAUSEA, (Reported) Polyethylene Glycol 3350 (Miralax) 1 Pow Pow, 17 GM PO DAILY PRN for CONSTIPATION, (Reported) Sumatriptan Succinate (Sumatriptan Succinate) 50 Mg Tab, 50 MG PO BID PRN for HEADACHE, (Reported) Tizanidine HCl (Tizanidine HCl) 4 Mg Tablet, 4 MG PO TID PRN for MUSCLE SPASMS, (Reported) Allergies Coded Allergies: modafinil (Verified Allergy, Severe, throat swells, 02/10/19) zolpidem (Verified Allergy, Severe, rash/difficulty breathing, 02/10/19) bupivacaine (Verified Allergy, Intermediate, 02/10/19) naproxen (Verified Allergy, Intermediate, rash (takes ibuprofen and meloxicam at home), 02/10/19) tramadol (Verified Allergy, Unknown, rash, 02/10/19) trazodone (Verified Adverse Reaction, Intermediate, increased patient's depression, 02/10/19) JOSE HATCH DO Feb 10, 2019 09:50
[2019-02-10] MEDS: sulfaSALAzine 500 MG TABEC PO SCH ×2 (10:16→21:04)
[2019-02-10] MEDS: LACTOBACILLUS ACIDOPHILUS CAP (BACID) PO SCH (10:17)
[2019-02-10] MEDS: ASCORBIC ACID 500 MG TAB PO SCH (10:18)
[2019-02-10] MEDS: MULTIVITAMINS/MINERALS THERAP 1 TAB PO SCH (10:18)
[2019-02-10] MEDS: FEXOFENADINE 60 MG TAB PO SCH (10:19)
[2019-02-10] MEDS: predniSONE 5 MG TAB PO SCH (10:19)
[2019-02-10] MEDS: PANTOPRAZOLE 40MG TAB (PROTONIX) PO SCH ×2 (10:20→21:04)
[2019-02-10] MEDS: TOPIRAMATE (TopAMAX) 25 MG TAB PO SCH ×2 (10:20→21:04)
[2019-02-10] MEDS: FERROUS SULFATE 325MG TAB PO SCH (10:20)
[2019-02-10] MEDS: LEVOTHYROXINE 50MCG TABLET (0.05MG) PO SCH (10:24)
[2019-02-10] MEDS: GEMFIBROZIL 600 MG TAB PO SCH ×2 (10:24→17:25)
[2019-02-10] MEDS ORDERED: RAMELTEON 8 MG TAB (ROZEREM) PO PRN (13:30)
[2019-02-10] MEDS: GABAPENTIN 400 MG CAP PO SCH ×2 (15:15→21:03)
[2019-02-10 18:00] VITALS: BP 142/84
[2019-02-10 21:00] VITALS: BP 158/98
[2019-02-10] MEDS ORDERED: LITHIUM CARBONATE 300 MG CAP PO SCH (21:00)
[2019-02-10] MEDS ORDERED: DOXEPIN 10 MG CAP PO SCH (21:00)
[2019-02-10] MEDS ORDERED: PRAMIPEXOLE 0.25 MG TAB PO SCH (21:00)
[2019-02-10] MEDS ORDERED: PRAZOSIN 1 MG CAP PO SCH ×2 (21:00)
[2019-02-10] MEDS: MONTELUKAST 10 MG TAB PO SCH (21:04)
[2019-02-10 22:30] VITALS: BP 158/86
[2019-02-11] MEDS ORDERED: LORazepam 1 MG TAB PO ONE (00:45)
[2019-02-11] MEDS ORDERED: LORazepam 0.5 MG TAB PO ONE (01:00)
[2019-02-11] MEDS: LEVOTHYROXINE 50MCG TABLET (0.05MG) PO SCH (05:36)
[2019-02-11 06:34] VITALS: BP 130/70
[2019-02-11] MEDS: LACTOBACILLUS ACIDOPHILUS CAP (BACID) PO SCH (08:46)
[2019-02-11] MEDS: GABAPENTIN 400 MG CAP PO SCH ×3 (08:46→21:02)
[2019-02-11] MEDS: FERROUS SULFATE 325MG TAB PO SCH (08:46)
[2019-02-11] MEDS: PANTOPRAZOLE 40MG TAB (PROTONIX) PO SCH ×2 (08:46→21:02)
[2019-02-11] MEDS: TOPIRAMATE (TopAMAX) 25 MG TAB PO SCH ×2 (08:48→21:02)
[2019-02-11] MEDS: predniSONE 5 MG TAB PO SCH (08:48)
[2019-02-11] MEDS: GEMFIBROZIL 600 MG TAB PO SCH ×2 (08:48→17:49)
[2019-02-11] MEDS: MULTIVITAMINS/MINERALS THERAP 1 TAB PO SCH (08:48)
[2019-02-11] MEDS: ASCORBIC ACID 500 MG TAB PO SCH (08:48)
[2019-02-11] MEDS: sulfaSALAzine 500 MG TABEC PO SCH ×2 (08:49→21:03)
[2019-02-11] MEDS: FEXOFENADINE 60 MG TAB PO SCH (08:49)
--- NOTE | 2019-02-11 09:19 | MHIPNPDOC ---
[facility] Progress Note Progress Note Date of Service: 02/11/2019 History of Present Illness The patient a 30 year old female presents again shortly after being discharged from the unit. She reports that she had done quite well after leaving the unit with a positive outlook. However, she had notable problems on the day of her reported overdose. She reported waking up on that day feeling anxious and hopeless that was resistant to her falling asleep again. She reports that she was generally unable to attend to her sudden sense of impulsivity and reports that she took an overdose of Tylenol and several other medications and then subsequently sought care from her assertive outpatient team that had coincidentally an appointment that very same day. She was brought to the ER and evaluate and subsequently admitted. However, reviewing the integrated healthcare notes from [facility], it appears at the patients Tylenol was very low even sub-therapeutic, suggesting that the events described by the patient were unlikely to be accurate. The patient reports that her depression appears to generally be controlled, but she still struggles with hopelessness and impulsivity. Interval History The patient's met with today. She describes that she had had a difficult time sleeping and had been given a dose of Ativan to help sleep. She is currently being worked up by the medical providers for difficulties with chest pain and breathing and leukocytosis. She reports that she has been having more nightmares and without her CPAP machine is unable to sleep. She reports being sleepy during the day secondary to this with increased anxiety and depression in the medication washout period. Staff have noticed that she is generally isolative to her room, but at times will get up to engage with groups. No major behavioral problems noted overnight. Review Of Systems Reports the aforementioned malaise symptoms, nightmares and insomnia as mentioned above. Psychotherapy None on this visit. Vital Signs Reviewed. Mental Status Examination General: Well dressed with good hygiene Speech: Spontaneous and fluid Thought processes: Linear and logical MSK: Smooth and coordinated gait, no signs of tremors or involuntary orofacial movements Thought content: Future orientated Abstract reasoning, and computation: Intact Description of associations: Intact Description of abnormal or psychotic thoughts: Admits to passive suicidal ideation but no plan or intention. Denies any homicidal thoughts. Denies any auditory or visual hallucinations. Does not appear to be responding to internal stimuli. Judgment: limited Insight: poor Orientation: Alert and orientated 3 Cognition: Grossly normal Recent and remote memory: Intact Attention span and concentration: Intact Fund of knowledge: Adequate Mood: "okay" Affect: Dysthymic with a constricted range Diagnoses Unspecified depressive disorder Borderline personality disorder Unspecified trauma/stressor related disorder Assessment and Plan The patient has had some recurrence of possible PTSD related symptoms. However, her overall diagnosis is difficult at this time. She after discussion consented to starting venlafaxine 37.5 mg extended release daily after a long and complex discussion in which the risks and benefits were explored, as well as potential alternatives. Additionally temazepam 7.5 mg nightly was started as needed for insomnia. Patient's CPAP will be brought in, discussed the risks, benefits and potential side effects in relation to her sleep apnea on the unit. Patient stated that she would take it if she needed to. Increased prazosin to 2 mg nightly due to nightmares. Discussed with patient Gmapryl Raman as a potential therapeutic community for her as she has done poorly in the outpatient setting. Disposition The patient will need a further inpatient admission likely longer than two midnights in order to stabilize her symptoms and suicidal thoughts as well as improve her ineffective coping and plan for a more safe and effective discharge. Time Spent 20 minutes face to face. Vital Signs Vital Signs Date Time Temp Pulse Resp B/P (MAP) Pulse Ox O2 Delivery O2 Flow Rate FiO2 02/11/19 06:34 97.3 70 14 130/70 (90) 02/10/19 04:48 98 02/10/19 03:42 Room Air Current Medications Current Medications Medications (Trade) Dose Ordered Sig/Castro Route PRN Reason Start Time Stop Time Status Last Admin Dose Admin Acetaminophen (Tylenol Tab) 650 mg Q6HP PRN PO HEADACHE or DISCOMFORT 02/10/19 03:00 Al Hydrox/Mg Hydrox/Simethicone (Mylanta) 30 ml Q4HP PRN PO HEARTBURN/INDIGESTION 02/10/19 03:00 Albuterol Sulfate (Proventil, Ventolin Hfa) 2 puff Q4H PRN INH SHORTNESS OF BREATH 02/10/19 08:45 Ascorbic Acid (Vitamin C) 500 mg DAILY PO 02/10/19 09:00 02/11/19 08:48 Brexpiprazole (Rexulti) 2 mg DAILY PO 02/10/19 09:00 02/10/19 13:24 DC 02/10/19 10:22 Buspirone HCl (Buspar) 15 mg BID PO 02/10/19 09:00 02/10/19 13:24 DC 02/10/19 10:17 Doxepin HCl (SINEquan) 10 mg QHS PO 02/10/19 21:00 02/10/19 21:00 DC Ferrous Sulfate (Ferrous Sulfate) 325 mg DAILY PO 02/10/19 09:00 02/11/19 08:46 Fexofenadine HCl (Essie) 180 mg DAILY PO 02/10/19 09:00 02/11/19 08:49 Fluticasone Propionate (Flonase 0.05% Nasal [place]) 1 SPRAY IN EACH NOSTRIL DAILY PRN NA NASAL CONGESTION 02/10/19 09:00 Fluticasone Propionate (Flonase 0.05% Nasal [place]) 1 spray DAILY PRN NA NASAL CONGESTION 02/10/19 08:45 02/10/19 08:59 DC Gabapentin (Neurontin) 400 mg TID PO 02/10/19 16:00 02/11/19 08:46 Gabapentin (Neurontin) 600 mg TID PO 02/10/19 09:00 02/10/19 13:25 DC 02/10/19 10:18 Gemfibrozil (Lopid) 600 mg BID@0800,1800 PO 02/10/19 08:00 02/11/19 08:48 Home Med (Med Rec Complete!) ASDIRECTED XX 02/10/19 03:30 02/10/19 03:30 DC Lactobacillus Acidophilus (Bacid) 1 ea DAILY PO 02/10/19 09:00 02/11/19 08:46 Levothyroxine Sodium (Synthroid) 50 mcg DAILY@0600 PO 02/10/19 06:00 02/11/19 05:36 [place] Carbonate ([place] Carbonate) 300 mg QHS PO 02/10/19 21:00 02/10/19 21:00 DC Magnesium Hydroxide (Milk Of Magnesia) 30 ml DAILYPRN PRN PO CONSTIPATION 02/10/19 03:00 Montelukast Sodium (Singulair) 10 mg QHS PO 02/10/19 21:00 02/10/19 21:04 Multivitamins (Theragram-M) 1 tab DAILY PO 02/10/19 09:00 02/11/19 08:48 Pantoprazole Sodium (Protonix) 40 mg BID PO 02/10/19 09:00 02/11/19 08:46 Polyethylene Glycol (Miralax) 1 pkt DAILY PRN PO CONSTIPATION 02/10/19 08:45 Pramipexole Dihydrochloride (Mirapex) 0.75 mg QHS PO 02/10/19 21:00 02/10/19 21:00 DC Prazosin HCl (Minipress) 1 mg QHS PO 02/10/19 21:00 02/10/19 21:07 Prazosin HCl (Minipress) 4 mg QHS PO 02/10/19 21:00 02/10/19 21:00 DC Prednisone (Deltasone) 5 mg DAILY PO 02/10/19 09:00 02/11/19 08:48 Ramelteon (Rozerem) 8 mg QHS PRN PO sleep 02/10/19 13:30 02/10/19 21:04 Sulfasalazine (Azulfidine Entabs) 1,500 mg BID PO 02/10/19 09:00 02/11/19 08:49 Sumatriptan Succinate (Imitrex) 50 mg BID PRN PO HEADACHE 02/10/19 08:45 Topiramate (TopAMAX) 50 mg BID PO 02/10/19 09:00 02/11/19 08:48 Allergies Coded Allergies: modafinil (Verified Allergy, Severe, throat swells, 02/10/19) zolpidem (Verified Allergy, Severe, rash/difficulty breathing, 02/10/19) bupivacaine (Verified Allergy, Intermediate, 02/10/19) naproxen (Verified Allergy, Intermediate, rash (takes ibuprofen and meloxicam at home), 02/10/19) tramadol (Verified Allergy, Unknown, rash, 02/10/19) trazodone (Verified Adverse Reaction, Intermediate, increased patient's depression, 02/10/19) JOSE HATCH DO Feb 11, 2019 09:19
--- NOTE | 2019-02-11 09:59 | ECGEPIP ---
[facility] Test Date: 2019-02-10 Pat Name: BROOKLYNN TINEO Department: Room: [place] [address] Gender: Female Processing Spec: MALU : 1980 Requested By: EDA Gonzales Order Number: [id number] Reading MD: Joe Fajardo Measurements Intervals [place] Rate: 75 P: 55 [place]: 174 QRS: 65 QRSD: 109 T: 42 QT: 390 QTc: 437 Interpretive Statements SINUS RHYTHM QTc normalized from tracing done 02-04-19 Electronically Signed on 02-11-2019 9:59:19 EDT by Joe Fajardo
[2019-02-11] MEDS ORDERED: ISOVUE-370 76% 100ML VIAL (Q9967) As Ordered ONE (11:48)
[2019-02-11 12:13] LABS: BASO # 0.1 10^3/uL (0.0-0.2); BASO % 0.5 % (0.0-1.0); EOS # 0.4 10^3/uL (0.0-0.50); EOS % 3.3 % (0.0-3.0); HEMATOCRIT 38.3 % (36.0-47.0); HEMOGLOBIN 12.1 g/dl (12.0-15.5); LYMPH # 2.4 10^3/uL (1.5-4.5); LYMPH % 18.9 % (24.0-44.0); MEAN CORPUSCULAR HEMOGLOBIN 27.8 pg (27.0-33.0); MEAN CORPUSCULAR HGB CONC 31.6 g/dl (32.0-36.5); MEAN CORPUSCULAR VOLUME 87.8 fl (80.0-96.0); MONO # 1.1 10^3/uL (0.0-0.8); MONO % 8.5 % (0.0-5.0); NEUTROPHILS # 8.5 10^3/uL (1.8-7.7); NEUTROPHILS % 68.3 % (36.0-66.0); PLATELET COUNT, AUTOMATED 291 10^3/uL (150-450); RED BLOOD COUNT 4.36 10^6/uL (4.00-5.40); WHITE BLOOD COUNT 12.5 10^3/uL (4.0-10.0)
[2019-02-11 12:36] LABS: ERYTHROCYTE SEDIMENTATION RATE 7 mm/hr (0-20)
[2019-02-11 12:46] LABS: CK-MB VALUE MASS < 1.0 NG/ML (<3.6); CPK CREATINE PHOSPHOKINASE 74 U/L (26-192); MB/CK RELATIVE INDEX 1.35 (< OR =4); TROPONIN I < 0.02 NG/ML (< 0.10)
--- NOTE | 2019-02-11 13:24 | IPNPDOC ---
Date Seen The patient was seen on 02/11/19. Progress Note SUBJECTIVE: Pt denies any fever, chills, sore throat, ear discharge, nausea, vomiting, abdominal pain, sob, pleurisy, cough, dysuria, urgency, frequency. she c/o chest tightness last for hours on and off nonexertional with history of gerd in the past without hematemesis, dysphagia, weight loss,hematochezia, or melena. Substernal wihtout radiation down left arm, or feeling of impending doom. car diac markers negative. OBJECTIVE: PHYSICAL EXAMINATION: VITALS: PLS SEE BELOW GENERAL APPEARANCE: flat affect. obese NAD, no conversational dyspnea, no use of accessory respiratory muscles. HEENT: anicteric no jaundice PERRL, EOMI, OP clear, tongue midline CARDIOVASCULAR: RRR S1S2 LUNGS: CTA b/l AEBE ABDOMEN: obese, soft, NT ND MUSCULOSKELETAL: no gross deformities EXTREMITIES: no edema, intact distal pulses NEUROLOGICAL: no focal deficits, moving all extremities spontaneous PSYCHIATRIC: depressed mood, A&Ox3 LABORATORY DATA, IMAGING STUDIES, MICROBIOLOGY: PLS SEE BELOW ASSESSMENT AND PLAN: Pt is a 38y/o f with multiple medical problems including DMII, hypothyroid, asthma, anxiety/depression with multiple suicide attempts who presents for drug overdose/suicide attempt. Pt recently discharged on 02/05/19 after presenting for depression and SI. Pt was at home on day of presentation when she decided to overdose on tylenol, ibuprofen, benedryl, a muscle relaxer and a medication for nausea. Per pt she took a total of about 50 pills. PT currently endorsing suicidal ideation but denies homicidal ideation. Pt endorses some N and abdominal discomfort but denies other symptoms of fever, chills, CP, SOB, V, diarrhea, leg pain or swelling. Intentional Drug Overdose -managed by primary team Leukocytosis -reactive, inflammatory, vs infectious -due to history of splenectomy, will need full infectious workup and empiric abx if becomes febrile 100.4 or higher. -check procalcitonin, esr,crp, ct chest due to c/o chest tightness with white count elevation to rule out early pneumonia. depression/bipolar/PTSD/borderline personality disorder -Management as per Psychiatry History of pseudoseizure. -Continue outpt F/U with Neurology. Chronic knee pain/back pain/chronic pain. -will cont. to monitor -have held ibuprofen and tylenol given that these are the medicines she overdosed on -will have to reintroduce when safe NIDDM. -Diet controlled, not on meds currently. -Continue outpt F/U with PCP. -Diabetic cardiac diet Hypothyroidism. -Continue levothyroxine 50 g daily. Hyperlipidemia. -Continue gemfibrozil 600 mg twice a day. Gastroesophageal reflux disease. -Continue Protonix 40 mg twice a day. Hypertension. -will cont. to monitor -can start HTN med as needed -currently pt between SBP 120's-140's Morbid Obesity BMI 47 -Complicates care. Asthma. -Continue albuterol HFA 2 puffs every 4 hours as needed. IBS/Chronic constipation/Chronic abdominal pain. -miralax PRN OverActive Bladder. -Continue outpt F/U with [facility]. Rheumatoid arthritis. -cont. sulfasalazine 1500mg BID -cont. pred 5mg Migraine Headache -cont. home meds History of splenectomy -at risk for gram negative infections. -monitor for fevers -check ua, ct chest due to c/o chest pressure. History of SI/SA, overdose. -managed by primary team DVT PPX: low risk and ambulatory VS, I&O, 24H, Fishbone Vital Signs/I&O Vital Signs Date Time Temp Pulse Resp B/P (MAP) Pulse Ox O2 Delivery O2 Flow Rate FiO2 02/11/19 06:34 97.3 70 14 130/70 (90) 02/10/19 04:48 98 02/10/19 03:42 Room Air Laboratory Data 24H LABS Laboratory Tests 2 02/11/19 11:50: Immature Granulocyte % (Auto) 0.5, White Blood Count 12.5H, Red Blood Count 4.36, Hemoglobin 12.1, Hematocrit 38.3, Mean Corpuscular Volume 87.8, Mean Corpu scular Hemoglobin 27.8, Mean Corpuscular Hemoglobin Concent 31.6L, Red Cell Distribution Width 16.9H, Platelet Count 291, Neutrophils (%) (Auto) 68.3H, Lymphocytes (%) (Auto) 18.9L, Monocytes (%) (Auto) 8.5H, Eosinophils (%) (Auto) 3.3H, Basophils (%) (Auto) 0.5, Neutrophils # (Auto) 8.5H, Lymphocytes # (Auto) 2.4, Monocytes # (Auto) 1.1H, Eosinophils # (Auto) 0.4, Basophils # (Auto) 0.1, Nucleated Red Blood Cells % (auto) 0.0, Erythrocyte Sedimentation Rate 7, D- Dimer, Quantitative 1000.62H, Total Creatine Kinase 74, Creatine Kinase MB < 1.0, Creatine Kinase MB Relative Index 1.35, Troponin I < 0.02, C-Reactive Protein, Quantitative 1.20H, Thyroid Stimulating Hormone (TSH) 2.510 CBC/BMP Laboratory Tests 02/11/19 11:50 Red Blood Count 4.36, Mean Corpuscular Volume 87.8, Mean Corpuscular Hemoglobin 27.8, Mean Corpuscular Hemoglobin Concent 31.6 L, Red Cell Distribution Width 16.9 H, Neutrophils (%) (Auto) 68.3 H, Lymphocytes (%) (Auto) 18.9 L, Monocytes (%) (Auto) 8.5 H, Eosinophils (%) (Auto) 3.3 H, Basophils (%) (Auto) 0.5, Neutrophils # (Auto) 8.5 H, Lymphocytes # (Auto) 2.4, Monocytes # (Auto) 1.1 H, Eosinophils # (Auto) 0.4, Basophils # (Auto) 0.1 [place] DIAZ MD Feb 11, 2019 13:18
--- NOTE | 2019-02-11 13:50 | REP ---
Clinical: Acute chest pain and leukocytosis . Comparison: 11/01/2018 . Technique: PA and lateral. Findings: The mediastinum and cardiac silhouette are normal. The lung masterson are clear and without acute consolidation, effusion, or pneumothorax. The skeletal structures are intact and normal. Impression: 1. No acute cardiopulmonary process. Electronically Signed by Kurt Alvarado MD 02/11/2019 01:42 P
[2019-02-11 13:55] LABS: HEMOGLOBIN A1c 5.2 %
[2019-02-11 18:00] VITALS: BP 148/82
[2019-02-11] MEDS: MONTELUKAST 10 MG TAB PO SCH (21:02)
[2019-02-11] MEDS: PRAZOSIN 1 MG CAP PO SCH (21:03)
[2019-02-11] MEDS: TEMAZEPAM 7.5 MG CAP PO PRN (21:29)
[2019-02-12] MEDS ORDERED: MIRTAZAPINE 15 MG TAB PO ONE (01:30)
[2019-02-12] MEDS: LEVOTHYROXINE 50MCG TABLET (0.05MG) PO SCH (06:07)
[2019-02-12 06:41] VITALS: BP 150/80
[2019-02-12] MEDS: MULTIVITAMINS/MINERALS THERAP 1 TAB PO SCH (08:06)
[2019-02-12] MEDS: FERROUS SULFATE 325MG TAB PO SCH (08:06)
[2019-02-12] MEDS: LACTOBACILLUS ACIDOPHILUS CAP (BACID) PO SCH (08:06)
[2019-02-12] MEDS: GABAPENTIN 400 MG CAP PO SCH ×3 (08:07→21:25)
[2019-02-12] MEDS: PANTOPRAZOLE 40MG TAB (PROTONIX) PO SCH ×2 (08:07→21:25)
[2019-02-12] MEDS: GEMFIBROZIL 600 MG TAB PO SCH ×2 (08:07→17:22)
[2019-02-12] MEDS: predniSONE 5 MG TAB PO SCH (08:07)
[2019-02-12] MEDS: sulfaSALAzine 500 MG TABEC PO SCH ×2 (08:07→21:23)
[2019-02-12] MEDS: FEXOFENADINE 60 MG TAB PO SCH (08:07)
[2019-02-12] MEDS: ASCORBIC ACID 500 MG TAB PO SCH (08:07)
[2019-02-12] MEDS: TOPIRAMATE (TopAMAX) 25 MG TAB PO SCH ×2 (08:07→21:25)
[2019-02-12] MEDS ORDERED: VENLAFAXINE **XR** 37.5 MG CAPSULE PO SCH (09:00)
[2019-02-12 11:59] LABS: BASO # 0.1 10^3/uL (0.0-0.2); BASO % 0.4 % (0.0-1.0); EOS # 0.5 10^3/uL (0.0-0.50); EOS % 4.1 % (0.0-3.0); HEMATOCRIT 37.8 % (36.0-47.0); LYMPH # 2.9 10^3/uL (1.5-4.5); LYMPH % 24.2 % (24.0-44.0); MEAN CORPUSCULAR HGB CONC 31.7 g/dl (32.0-36.5); MEAN CORPUSCULAR VOLUME 84.9 fl (80.0-96.0); MONO # 1.2 10^3/uL (0.0-0.8); MONO % 9.7 % (0.0-5.0); NEUTROPHILS # 7.2 10^3/uL (1.8-7.7); NEUTROPHILS % 61.3 % (36.0-66.0); PLATELET COUNT, AUTOMATED 274 10^3/uL (150-450); RED BLOOD COUNT 4.45 10^6/uL (4.00-5.40); WHITE BLOOD COUNT 11.8 10^3/uL (4.0-10.0)
[2019-02-12 12:18] LABS: ERYTHROCYTE SEDIMENTATION RATE 6 mm/hr (0-20)
[2019-02-12] MEDS: MAALOX 30 ML SUSP *UDC PO PRN (12:33)
[2019-02-12] MEDS: SUMAtriptan SUCCINATE 25 MG TAB PO PRN (17:22)
[2019-02-12 17:32] VITALS: BP_SYST 152; BP_SYST 185; BP_DIAS 106; BP_DIAS 82
[2019-02-12] MEDS: PRAZOSIN 1 MG CAP PO SCH (21:24)
[2019-02-12] MEDS: MONTELUKAST 10 MG TAB PO SCH (21:25)
--- NOTE | 2019-02-12 21:29 | MHIPNPDOC ---
[facility] Progress Note Progress Note Inpatient Progress Note Jessica Birch MRN: N/[id number] Date of : N/A Date of Service: 02/12/2019 History of Present Illness The patient a 30 year old female presents again shortly after being discharged from the unit. She reports that she had done quite well after leaving the unit with a positive outlook. However, she had notable problems on the day of her reported overdose. She reported waking up on that day feeling anxious and hopeless that was resistant to her falling asleep again. She reports that she was generally unable to attend to her sudden sense of impulsivity and reports that she took an overdose of Tylenol and several other medications and then subsequently sought care from her assertive outpatient team that had coincidentally an appointment that very same day. She was brought to the ER and evaluate and subsequently admitted. However, reviewing the integrated healthcare notes from [facility], it appears at the patients Tylenol was very low even sub-therapeutic, suggesting that the events described by the patient were unlikely to be accurate. The patient reports that her depression appears to gen erally be controlled, but she still struggles with hopelessness and impulsivity. Interval History The patient still reports significant depression, hopelessness and loss of interest. She reports insomnia, and that she was able to be given ramelteon last night that was helpful for her sleep. She notably complained of problems with her mother, however, she was noted to have a visit with her mother that she describes as productive this evening. Nurses notes that she is generally isolated at her room at times. However, she reports only some mild GI upset from her venlafaxine today. She describes that she feels the [facility] is too expensive for her and that she is hopeless about options to help her feel better. She has reported some self-harm behavior on unit, namely scratching herself with an earring but relinquished it on her own volition. Review Of Systems Denies any tremors. Report some continued chronic dizziness. Psychotherapy None on this visit. Vital Signs Reviewed. Mental Status Examination General: Well dressed with good hygiene Speech: Spontaneous and fluid Thought processes: Linear and logical MSK: Smooth and coordinated gait, no signs of tremors or involuntary orofacial movements Thought content: Future orientated Abstract reasoning, and computation: Intact Description of associations: Intact Description of abnormal or psychotic thoughts: Admits to passive suicidal ideation but no plan or intention. Denies any homicidal thoughts. Denies any auditory or visual hallucinations. Does not appear to be responding to internal stimuli. Judgment: limited Insight: poor Orientation: Alert and orientated 3 Cognition: Grossly normal Recent and remote memory: Intact Attention span and concentration: Intact Fund of knowledge: Adequate Mood: "okay" Affect: Dysthymic with a constricted range Diagnoses Unspecified depressive disorder Borderline personality disorder Unspecified trauma/stressor related disorder Assessment and Plan The patient appears to continue to tolerate the medication washout. She has a significant history of likely borderline personality disorder. However, it's unclear as to what continues to feed her readmissions as she does have significant avoidance behaviors. She does appear to continue to be somatically preoccupied. We'll increase Effexor to 75 mg daily, increase temazepam to 15 mg nightly with Rozerem 8 mg nightly. Disposition The patient will need a further inpatient admission in order to treat her suicidality and depression. Time Spent 15 minutes [id number]. Friday Vital Signs Vital Signs Date Time Temp Pulse Resp B/P (MAP) Pulse Ox O2 Delivery O2 Flow Rate FiO2 02/12/19 21:24 152/90 02/12/19 17:32 98.4 18 02/12/19 06:41 96 02/10/19 04:48 98 02/10/19 03:42 Room Air Laboratory Data 24H Labs Laboratory Tests 2 02/12/19 11:15: Urine Color YELLOW, Urine Appearance CLEAR, Urine pH 7.0, Urine Specific [place] 1.005, Urine Protein NEGATIVE, Urine Glucose (UA) NEGATIVE, Urine Ketones NEGATIVE, Urine Blood NEGATIVE, Urine Nitrite NEGATIVE, Urine Bilirubin NEG ATIVE, Urine Urobilinogen 0.2, Urine Leukocyte Esterase NEGATIVE, Urine WBC (Auto) 2, Urine RBC (Auto) 1, Urine Hyaline Casts (Auto) 0, Urine Bacteria (Auto) 1+H, Urine Squamous Epithelial Cells 0, Urine Sperm (Auto) 02/12/19 11:31: Immature Granulocyte % (Auto) 0.3, White Blood Count 11.8H, Red Blood Count 4.45, Hemoglobin 12.0, Hematocrit 37.8, Mean Corpuscular Volume 84.9, Mean Corpuscular Hemoglobin 27.0, Mean Corpuscular Hemoglobin Concent 31.7L, Red Cell Distribution Width 16.6H, Platelet Count 274, Neutrophils (%) (Auto) 61.3, Lymphocytes (%) (Auto) 24.2, Monocytes (%) (Auto) 9.7H, Eosinophils (%) (Auto) 4.1H, Basophils (%) (Auto) 0.4, Neutrophils # (Auto) 7.2, Lymphocytes # (Auto) 2.9, Monocytes # (Auto) 1.2H, Eosinophils # (Auto) 0.5, Basophils # (Auto) 0.1, Nucleated Red Blood Cells % (auto) 0.0, Erythrocyte Sedimentation Rate 6, C- Reactive Protein, Quantitative 1.51H CBC/BMP Laboratory Tests 02/12/19 11:31 Red Blood Count 4.45, Mean Corpuscular Volume 84.9, Mean Corpuscular Hemoglobin 27.0, Mean Corpuscular Hemoglobin Concent 31.7 L, Red Cell Distribution Width 16.6 H, Neutrophils (%) (Auto) 61.3, Lymphocytes (%) (Auto) 24.2, Monocytes (%) (Auto) 9.7 H, Eosinophils (%) (Auto) 4.1 H, Basophils (%) (Auto) 0.4, Neutrophils # (Auto) 7.2, Lymphocytes # (Auto) 2.9, Monocytes # (Auto) 1.2 H, Eosinophils # (Auto) 0.5, Basophils # (Auto) 0.1 Current Medications Current Medications Medications (Trade) Dose Ordered Sig/Castro Route PRN Reason Start Time Stop Time Status Last Admin Dose Admin Acetaminophen (Tylenol Tab) 650 mg Q6HP PRN PO HEADACHE or DISCOMFORT 02/10/19 03:00 Al Hydrox/Mg Hydrox/Simethicone (Mylanta) 30 ml Q4HP PRN PO HEARTBURN/INDIGESTION 02/10/19 03:00 02/12/19 12:33 Albuterol Sulfate (Proventil, Ventolin Hfa) 2 puff Q4H PRN INH SHORTNESS OF BREATH 02/10/19 08:45 Ascorbic Acid (Vitamin C) 500 mg DAILY PO 02/10/19 09:00 02/12/19 08:07 Brexpiprazole (Rexulti) 2 mg DAILY PO 02/10/19 09:00 02/10/19 13:24 DC 02/10/19 10:22 Buspirone HCl (Buspar) 15 mg BID PO 02/10/19 09:00 02/10/19 13:24 DC 02/10/19 10:17 Doxepin HCl (SINEquan) 10 mg QHS PO 02/10/19 21:00 02/10/19 21:00 DC Ferrous Sulfate (Ferrous Sulfate) 325 mg DAILY PO 02/10/19 09:00 02/12/19 08:06 Fexofenadine HCl (Essie) 180 mg DAILY PO 02/10/19 09:00 02/12/19 08:07 Fluticasone Propionate (Flonase 0.05% Nasal [place]) 1 SPRAY IN EACH NOSTRIL DAILY PRN NA NASAL CONGESTION 02/10/19 09:00 Fluticasone Propionate (Flonase 0.05% Nasal [place]) 1 spray DAILY PRN NA NASAL CONGESTION 02/10/19 08:45 02/10/19 08:59 DC Gabapentin (Neurontin) 400 mg TID PO 02/10/19 16:00 02/12/19 21:25 Gabapentin (Neurontin) 600 mg TID PO 02/10/19 09:00 02/10/19 13:25 DC 02/10/19 10:18 Gemfibrozil (Lopid) 600 mg BID@0800,1800 PO 02/10/19 08:00 02/12/19 17:22 Home Med (Med Rec Complete!) ASDIRECTED XX 02/10/19 03:30 02/10/19 03:30 DC Lactobacillus Acidophilus (Bacid) 1 ea DAILY PO 02/10/19 09:00 02/12/19 08:06 Levothyroxine Sodium (Synthroid) 50 mcg DAILY@0600 PO 02/10/19 06:00 02/12/19 06:07 Hughes Carbonate (Hughes Carbonate) 300 mg QHS PO 02/10/19 21:00 02/10/19 21:00 DC Magnesium Hydroxide (Milk Of Magnesia) 30 ml DAILYPRN PRN PO CONSTIPATION 02/10/19 03:00 Montelukast Sodium (Singulair) 10 mg QHS PO 02/10/19 21:00 02/12/19 21:25 Multivitamins (Theragram-M) 1 tab DAILY PO 02/10/19 09:00 02/12/19 08:06 Pantoprazole Sodium (Protonix) 40 mg BID PO 02/10/19 09:00 02/12/19 21:25 Polyethylene Glycol (Miralax) 1 pkt DAILY PRN PO CONSTIPATION 02/10/19 08:45 Pramipexole Dihydrochloride (Mirapex) 0.75 mg QHS PO 02/10/19 21:00 02/10/19 21:00 DC Prazosin HCl (Minipress) 1 mg QHS PO 02/10/19 21:00 02/11/19 16:31 DC 02/10/19 21:07 Prazosin HCl (Minipress) 2 mg QHS PO 02/11/19 21:00 02/12/19 21:24 Prazosin HCl (Minipress) 4 mg QHS PO 02/10/19 21:00 02/10/19 21:00 DC Prednisone (Deltasone) 5 mg DAILY PO 02/10/19 09:00 02/12/19 08:07 Ramelteon (Rozerem) 8 mg QHS PRN PO sleep 02/10/19 13:30 02/11/19 16:31 DC 02/10/19 21:04 Sulfasalazine (Azulfidine Entabs) 1,500 mg BID PO 02/10/19 09:00 02/12/19 21:23 Sumatriptan Succinate (Imitrex) 50 mg BID PRN PO HEADACHE 02/10/19 08:45 02/12/19 17:22 Temazepam (Restoril) 7.5 mg QHSP PRN PO sleep 02/11/19 16:45 02/11/19 21:29 Topiramate (TopAMAX) 50 mg BID PO 02/10/19 09:00 02/12/19 21:25 Venlafaxine HCl (Effexor Xr) 37.5 mg DAILY PO 02/12/19 09:00 02/12/19 08:07 Allergies Coded Allergies: modafinil (Verified Allergy, Severe, throat swells, 02/10/19) zolpidem (Verified Allergy, Severe, rash/difficulty breathing, 02/10/19) bupivacaine (Verified Allergy, Intermediate, 02/10/19) naproxen (Verified Allergy, Intermediate, rash (takes ibuprofen and meloxicam at home), 02/10/19) tramadol (Verified Allergy, Unknown, rash, 02/10/19) trazodone (Verified Adverse Reaction, Intermediate, increased patient's depression, 02/10/19) JOSE HATCH DO Feb 12, 2019 21:29
[2019-02-12] MEDS: TEMAZEPAM 7.5 MG CAP PO PRN (21:44)
[2019-02-12] MEDS: RAMELTEON 8 MG TAB (ROZEREM) PO SCH (22:39)
[2019-02-13] MEDS: LEVOTHYROXINE 50MCG TABLET (0.05MG) PO SCH (06:11)
[2019-02-13 06:55] VITALS: BP 122/69
[2019-02-13] MEDS: TOPIRAMATE (TopAMAX) 25 MG TAB PO SCH ×2 (08:44→21:11)
[2019-02-13] MEDS: LACTOBACILLUS ACIDOPHILUS CAP (BACID) PO SCH (08:44)
[2019-02-13] MEDS: GABAPENTIN 400 MG CAP PO SCH ×3 (08:44→21:12)
[2019-02-13] MEDS: GEMFIBROZIL 600 MG TAB PO SCH ×2 (08:44→18:01)
[2019-02-13] MEDS: FEXOFENADINE 60 MG TAB PO SCH (08:45)
[2019-02-13] MEDS: sulfaSALAzine 500 MG TABEC PO SCH ×2 (08:45→21:11)
[2019-02-13] MEDS: MULTIVITAMINS/MINERALS THERAP 1 TAB PO SCH (08:45)
[2019-02-13] MEDS: predniSONE 5 MG TAB PO SCH (08:45)
[2019-02-13] MEDS: VENLAFAXINE **XR** 75MG CAPSULE PO SCH (08:45)
[2019-02-13] MEDS: ASCORBIC ACID 500 MG TAB PO SCH (08:45)
[2019-02-13] MEDS: ACETAMINOPHEN TAB 650MG DOSE (2X325MG) PO PRN ×2 (08:46→18:01)
[2019-02-13] MEDS: FERROUS SULFATE 325MG TAB PO SCH (08:46)
[2019-02-13] MEDS: PANTOPRAZOLE 40MG TAB (PROTONIX) PO SCH ×2 (08:46→21:11)
--- NOTE | 2019-02-13 10:33 | MHIPNPDOC ---
[facility] Progress Note Progress Note DATE OF SERVICE: 02/13/19 HISTORY: Per Dr. Dorsey "The patient a 30 year old female presents again shortly after being discharged from the unit. She reports that she had done quite well after leaving the unit with a positive outlook. However, she had notable problems on the day of her reported overdose. She reported waking up on that day feeling anxious and hopeless that was resistant to her falling asleep again. She reports that she was generally unable to attend to her sudden sense of impulsivity and reports that she took an overdose of Tylenol and several other medications and then subsequently sought care from her assertive outpatient team that had coincidentally an appointment that very same day. She was brought to the ER and evaluate and subsequently admitted. However, reviewing the integrated healthcare notes from [facility], it appears at the patients Tylenol was very low even sub-therapeutic, suggesting that the events described by the patient were unlikely to be accurate. The patient reports that her depression appears to generally be controlled, but she still struggles with hopelessness and impulsivity. " Interval History Per Dr. Dorsey "The patient's met with today. She describes that she had had a difficult time sleeping and had been given a dose of Ativan to help sleep. She is currently being worked up by the medical providers for difficulties with chest pain and breathing and leukocytosis. She reports that she has been having more nightmares and without her CPAP machine is unable to sleep. She reports being sleepy during the day secondary to this with increased anxiety and depression in the m edication washout period. Staff have noticed that she is generally isolative to her room, but at times will get up to engage with groups. No major behavioral problems noted overnight." Vital Signs Reviewed. Mental Status Examination General: Well dressed with good hygiene Speech: Spontaneous and fluid Thought processes: Linear and logical MSK: Smooth and coordinated gait, no signs of tremors or involuntary orofacial movements Thought content: Future orientated Abstract reasoning, and computation: Intact Description of associations: Intact Description of abnormal or psychotic thoughts: Denies suicidal ideation even passive. Denies any homicidal thoughts. Denies any auditory or visual halluc inations. Does not appear to be responding to internal stimuli. Judgment: limited Insight: poor Orientation: Alert and orientated 3 Cognition: Grossly normal Recent and remote memory: Intact Attention span and concentration: Intact Fund of knowledge: Adequate Mood: "not good" (due to knee pain) Affect: appears to be in moderate pain, euthymic Diagnoses Unspecified depressive disorder Borderline personality disorder Unspecified trauma/stressor related disorder Assessment:Pt seen and states that her mood is ok just is having knee pain b/c "snapped" it today (knee cracked on bending down) and is waiting for motrin from nurse. Otherwise, no complaints, euthymic and pleasant. States she's being social on the milieu which is beneficial. States she slept well last night. Feels she is tolerating her medications and they're beneficial. She is attending groups and finding them helpful. She denies SI/HI, hallucinations, delusions. Pt feels safe here. Plan: Continue Dr. Dorsey's treatment Minutes: 30min Vital Signs Vital Signs Date Time Temp Pulse Resp B/P (MAP) Pulse Ox O2 Delivery O2 Flow Rate FiO2 02/13/19 06:55 98.0 68 16 122/69 (86) 02/10/19 04:48 98 02/10/19 03:42 Room Air Laboratory Data 24H Labs Laboratory Tests 2 02/12/19 11:15: Urine Color YELLOW, Urine Appearance CLEAR, Urine pH 7.0, Urine Specific [place] 1.005, Urine Protein NEGATIVE, Urine Glucose (UA) NEGATIVE, Urine Ketones NEGATIVE, Urine Blood NEGATIVE, Urine Nitrite NEGATIVE, Urine Bilirubin NEGATIVE, Urine Urobilinogen 0.2, Urine Leukocyte Esterase NEGATIVE, Urine WBC (Auto) 2, Urine RBC (Auto) 1, Urine Hyaline Casts (Auto) 0, Urine Bacteria (Auto) 1+H, Urine Squamous Epithelial Cells 0, Urine Sperm (Auto) 02/12/19 11:31: Immature Granulocyte % (Auto) 0.3, White Blood Count 11.8H, Red Blood Count 4.45, Hemoglobin 12.0, Hematocrit 37.8, Mean Corpuscular Volume 84.9, Mean Corpuscular Hemoglobin 27.0, Mean Corpuscular Hemoglobin Concent 31.7L, Red Cell Distribution Width 16.6H, Platelet Count 274, Neutrophils (%) (Auto) 61.3, Lymphocytes (%) (Auto) 24.2, Monocytes (%) (Auto) 9.7H, Eosinophils (%) (Auto) 4.1H, Basophils (%) (Auto) 0.4, Neutrophils # (Auto) 7.2, Lymphocytes # (Auto) 2.9, Monocytes # (Auto) 1.2H, Eosinophils # (Auto) 0.5, Basophils # (Auto) 0.1, Nucleated Red Blood Cells % (auto) 0.0, Erythrocyte Sedimentation Rate 6, C- Reactive Protein, Quantitative 1.51H CBC/BMP Laboratory Tests 02/12/19 11:31 Red Blood Count 4.45, Mean Corpuscular Volume 84.9, Mean Corpuscular Hemoglobin 27.0, Mean Corpuscular Hemoglobin Concent 31.7 L, Red Cell Distribution Width 16.6 H, Neutrophils (%) (Auto) 61.3, Lymphocytes (%) (Auto) 24.2, Monocytes (%) (Auto) 9.7 H, Eosinophils (%) (Auto) 4.1 H, Basophils (%) (Auto) 0.4, Neutro phils # (Auto) 7.2, Lymphocytes # (Auto) 2.9, Monocytes # (Auto) 1.2 H, Eosinophils # (Auto) 0.5, Basophils # (Auto) 0.1 Current Medications Current Medications Medications (Trade) Dose Ordered Sig/Castro Route PRN Reason Start Time Stop Time Status Last Admin Dose Admin Acetaminophen (Tylenol Tab) 650 mg Q6HP PRN PO HEADACHE or DISCOMFORT 02/10/19 03:00 02/13/19 08:46 Al Hydrox/Mg Hydrox/Simethicone (Mylanta) 30 ml Q4HP PRN PO HEARTBURN/INDIGESTION 02/10/19 03:00 02/12/19 12:33 Albuterol Sulfate (Proventil, Ventolin Hfa) 2 puff Q4H PRN INH SHORTNESS OF BREATH 02/10/19 08:45 Ascorbic Acid (Vitamin C) 500 mg DAILY PO 02/10/19 09:00 02/13/19 08:45 Brexpiprazole (Rexulti) 2 mg DAILY PO 02/10/19 09:00 02/10/19 13:24 DC 02/10/19 10:22 Buspirone HCl (Buspar) 15 mg BID PO 02/10/19 09:00 02/10/19 13:24 DC 02/10/19 10:17 Doxepin HCl (SINEquan) 10 mg QHS PO 02/10/19 21:00 02/10/19 21:00 DC Ferrous Sulfate (Ferrous Sulfate) 325 mg DAILY PO 02/10/19 09:00 02/13/19 08:46 Fexofenadine HCl (Essie) 180 mg DAILY PO 02/10/19 09:00 02/13/19 08:45 Fluticasone Propionate (Flonase 0.05% Nasal [place]) 1 SPRAY IN EACH NOSTRIL DAILY PRN NA NASAL CONGESTION 02/10/19 09:00 Fluticasone Propionate (Flonase 0.05% Nasal [place]) 1 spray DAILY PRN NA NASAL CONGESTION 02/10/19 08:45 02/10/19 08:59 DC Gabapentin (Neurontin) 400 mg TID PO 02/10/19 16:00 02/13/19 08:44 Gabapentin (Neurontin) 600 mg TID PO 02/10/19 09:00 02/10/19 13:25 DC 02/10/19 10:18 Gemfibrozil (Lopid) 600 mg BID@0800,1800 PO 02/10/19 08:00 02/13/19 08:44 Home Med (Med Rec Complete!) ASDIRECTED XX 02/10/19 03:30 02/10/19 03:30 DC Lactobacillus Acidophilus (Bacid) 1 ea DAILY PO 02/10/19 09:00 02/13/19 08:44 Levothyroxine Sodium (Synthroid) 50 mcg DAILY@0600 PO 02/10/19 06:00 02/13/19 06:11 M[place] Carbonate (Mccrory Carbonate) 300 mg QHS PO 02/10/19 21:00 02/10/19 21:00 DC Magnesium Hydroxide (Milk Of Magnesia) 30 ml DAILYPRN PRN PO CONSTIPATION 02/10/19 03:00 Montelukast Sodium (Singulair) 10 mg QHS PO 02/10/19 21:00 02/12/19 21:25 Multivitamins (Theragram-M) 1 tab DAILY PO 02/10/19 09:00 02/13/19 08:45 Pantoprazole Sodium (Protonix) 40 mg BID PO 02/10/19 09:00 02/13/19 08:46 Polyethylene Glycol (Miralax) 1 pkt DAILY PRN PO CONSTIPATION 02/10/19 08:45 Pramipexole Dihydrochloride (Mirapex) 0.75 mg QHS PO 02/10/19 21:00 02/10/19 21:00 DC Prazosin HCl (Minipress) 1 mg QHS PO 02/10/19 21:00 02/11/19 16:31 DC 02/10/19 21:07 Prazosin HCl (Minipress) 2 mg QHS PO 02/11/19 21:00 02/12/19 21:24 Prazosin HCl (Minipress) 4 mg QHS PO 02/10/19 21:00 02/10/19 21:00 DC Prednisone (Deltasone) 5 mg DAILY PO 02/10/19 09:00 02/13/19 08:45 Ramelteon (Rozerem) 8 mg QHS PO 02/12/19 21:00 02/12/19 22:39 Ramelteon (Rozerem) 8 mg QHS PRN PO sleep 02/10/19 13:30 02/11/19 16:31 DC 02/10/19 21:04 Sulfasalazine (Azulfidine Entabs) 1,500 mg BID PO 02/10/19 09:00 02/13/19 08:45 Sumatriptan Succinate (Imitrex) 50 mg BID PRN PO HEADACHE 02/10/19 08:45 02/12/19 17:22 Temazepam (Restoril) 7.5 mg QHSP PRN PO sleep 02/11/19 16:45 02/12/19 21:59 DC 02/12/19 21:44 Temazepam (Restoril) 15 mg QHSP PRN PO sleep 02/12/19 22:00 Topiramate (TopAMAX) 50 mg BID PO 02/10/19 09:00 02/13/19 08:44 Venlafaxine HCl (Effexor Xr) 37.5 mg DAILY PO 02/12/19 09:00 02/12/19 21:59 DC 02/12/19 08:07 Venlafaxine HCl (Effexor Xr) 75 mg DAILY PO 02/13/19 09:00 02/13/19 08:45 Allergies Coded Allergies: modafinil (Verified Allergy, Severe, throat swells, 02/10/19) zolpidem (Verified Allergy, Severe, rash/difficulty breathing, 02/10/19) bupivacaine (Verified Allergy, Intermediate, 02/10/19) naproxen (Verified Allergy, Intermediate, rash (takes ibuprofen and oscar oxicam at home), 02/10/19) tramadol (Verified Allergy, Unknown, rash, 02/10/19) trazodone (Verified Adverse Reaction, Intermediate, increased patient's depression, 02/10/19) RADHA FOOTE DO Feb 13, 2019 10:33 am
--- NOTE | 2019-02-13 12:53 | REP ---
Clinical: Trauma. Technique: AP, lateral, bilateral oblique and sunrise views right knee . Findings: Mild degenerative changes are appreciated. No definite acute fracture. Impression: No definite acute fracture or dislocation. Electronically Signed by Kurt Alvarado MD 02/13/2019 12:45 P
[2019-02-13 18:23] VITALS: BP 156/90
[2019-02-13] MEDS: PRAZOSIN 1 MG CAP PO SCH (21:11)
[2019-02-13] MEDS: RAMELTEON 8 MG TAB (ROZEREM) PO SCH (21:12)
[2019-02-13] MEDS: TEMAZEPAM 15 MG CAP PO PRN (21:12)
[2019-02-13] MEDS: MONTELUKAST 10 MG TAB PO SCH (21:12)
[2019-02-14] MEDS: LEVOTHYROXINE 50MCG TABLET (0.05MG) PO SCH (06:11)
[2019-02-14] MEDS: ACETAMINOPHEN TAB 650MG DOSE (2X325MG) PO PRN ×2 (06:32→13:59)
[2019-02-14 06:56] VITALS: BP 142/83
[2019-02-14] MEDS: ASCORBIC ACID 500 MG TAB PO SCH (09:58)
[2019-02-14] MEDS: GABAPENTIN 400 MG CAP PO SCH ×3 (09:58→20:47)
[2019-02-14] MEDS: predniSONE 5 MG TAB PO SCH (09:58)
[2019-02-14] MEDS: VENLAFAXINE **XR** 75MG CAPSULE PO SCH (09:58)
[2019-02-14] MEDS: LACTOBACILLUS ACIDOPHILUS CAP (BACID) PO SCH (09:58)
[2019-02-14] MEDS: MULTIVITAMINS/MINERALS THERAP 1 TAB PO SCH (09:58)
[2019-02-14] MEDS: FERROUS SULFATE 325MG TAB PO SCH (09:58)
[2019-02-14] MEDS: PANTOPRAZOLE 40MG TAB (PROTONIX) PO SCH ×2 (09:58→20:46)
[2019-02-14] MEDS: GEMFIBROZIL 600 MG TAB PO SCH ×2 (09:58→17:42)
[2019-02-14] MEDS: sulfaSALAzine 500 MG TABEC PO SCH ×2 (09:58→20:46)
[2019-02-14] MEDS: FEXOFENADINE 60 MG TAB PO SCH (09:58)
[2019-02-14] MEDS: TOPIRAMATE (TopAMAX) 25 MG TAB PO SCH ×2 (09:58→20:46)
[2019-02-14 18:27] VITALS: BP 153/87
[2019-02-14] MEDS: RAMELTEON 8 MG TAB (ROZEREM) PO SCH (20:46)
[2019-02-14] MEDS: TEMAZEPAM 15 MG CAP PO PRN (20:46)
[2019-02-14] MEDS: PRAZOSIN 1 MG CAP PO SCH (20:47)
[2019-02-14] MEDS: MONTELUKAST 10 MG TAB PO SCH (20:47)
[2019-02-14 22:15] VITALS: BP 143/89
[2019-02-15] MEDS ORDERED: LORazepam 2 MG TAB PO ONE (03:15)
[2019-02-15] MEDS: LEVOTHYROXINE 50MCG TABLET (0.05MG) PO SCH (06:14)
[2019-02-15 06:56] VITALS: BP 138/98
[2019-02-15] MEDS: GEMFIBROZIL 600 MG TAB PO SCH ×2 (08:35→17:20)
[2019-02-15] MEDS: GABAPENTIN 400 MG CAP PO SCH ×3 (08:35→20:42)
[2019-02-15] MEDS: ASCORBIC ACID 500 MG TAB PO SCH (08:35)
[2019-02-15] MEDS: MULTIVITAMINS/MINERALS THERAP 1 TAB PO SCH (08:36)
[2019-02-15] MEDS: predniSONE 5 MG TAB PO SCH (08:36)
[2019-02-15] MEDS: PANTOPRAZOLE 40MG TAB (PROTONIX) PO SCH ×2 (08:36→20:41)
[2019-02-15] MEDS: TOPIRAMATE (TopAMAX) 25 MG TAB PO SCH ×2 (08:36→20:41)
[2019-02-15] MEDS: sulfaSALAzine 500 MG TABEC PO SCH ×2 (08:36→20:42)
[2019-02-15] MEDS: FERROUS SULFATE 325MG TAB PO SCH (08:36)
[2019-02-15] MEDS: LACTOBACILLUS ACIDOPHILUS CAP (BACID) PO SCH (08:36)
[2019-02-15] MEDS: FEXOFENADINE 60 MG TAB PO SCH (08:36)
[2019-02-15] MEDS: VENLAFAXINE **XR** 75MG CAPSULE PO SCH (08:36)
--- NOTE | 2019-02-15 10:51 | MHIPNPDOC ---
[facility] Progress Note Progress Note Date of Service: 02/15/2019 History of Present Illness The patient a 30 year old female presents again shortly after being discharged from the unit. She reports that she had done quite well after leaving the unit with a positive outlook. However, she had notable problems on the day of her reported overdose. She reported waking up on that day feeling anxious and hopeless that was resistant to her falling asleep again. She reports that she was generally unable to attend to her sudden sense of impulsivity and reports that she took an overdose of Tylenol and several other medications and then subsequently sought care from her assertive outpatient team that had coincidentally an appointment that very same day. She was brought to the ER and evaluate and subsequently admitted. However, reviewing the integrated healthcare notes from [facility], it appears at the patients Tylenol was very low even sub-therapeutic, suggesting that the events described by the patient were unlikely to be accurate. The patient reports that her depression appears to generally be controlled, but she still struggles with hopelessness and impulsivity. Interval History The patient's met with today. She describes the she increasingly depressed, hopeless and has thoughts of self-harm. She describes that she scratches herself. She additionally notes seeing reported "visual hallucination" of "Satan" as she is attempting to go to bed. She describes that this is fairly dysphoric and uncomfortable for her. Staff note at times, she is able to socialize, but at other times appears to focus heavily and be preoccupied on somatic complaints. She has been attending groups and has had no major behavioral problems on the unit per report. Review Of Systems Patient reports increased depression, hopelessness, loss of energy and fatigue as well as reported onset of visual hallucinations. Psychotherapy None on this visit. Vital Signs Reviewed. Mental Status Examination General: Well dressed with good hygiene Speech: Spontaneous and fluid Thought processes: Linear and logical MSK: Smooth and coordinated gait, no signs of tremors or involuntary orofacial movements Thought content: Future orientated Abstract reasoning, and computation: Intact Description of associations: Intact Description of abnormal or psychotic thoughts: Admits to passive suicidal ideati on but no plan or intention. Denies any homicidal thoughts. Denies any auditory or visual hallucinations. Does not appear to be responding to internal stimuli. Judgment: limited Insight: poor Orientation: Alert and orientated 3 Cognition: Grossly normal Recent and remote memory: Intact Attention span and concentration: Intact Fund of knowledge: Adequate Mood: "bad" Affect: Dysthymic with a constricted range Diagnoses Unspecified depressive disorder Borderline personality disorder Unspecified trauma/stressor related disorder Assessment and Plan The patient appears to be stating she's having some form of visual halluc inations that appear primarily to be hypnagogic hallucinations. The patient's sleep generally appears interrupted as her CPAP has finally been brought in. However, her depression will still need continued treatment with a titration up to 112.5 mg of Effexor of which she appears to be tolerating well. The temazepam appears ineffective for her sleep and thus will be discontinued. Appears that low-dose Ativan appears to be helpful for the patient's sleep and thus 0.5 mg at night is needed. 8 mg of ramelteon will be continued and prazosin will be increased to 4 mg nightly as this has had positive effects in the past. Additionally, the patient will be petitioned for transfer to [place] as she has done fairly poorly as an outpatient with chronic impulsivity and depression being generally poorly handled. The patient's condition continues to deteriorate despite medication washout. Disposition The patient will need a further inpatient admission in order to stabilize her self-harm behaviors and severe depression. Time Spent 20 minutes face to face Friday Vital Signs Vital Signs Date Time Temp Pulse Resp B/P (MAP) Pulse Ox O2 Delivery O2 Flow Rate FiO2 02/15/19 06:56 98.9 77 16 138/98 (111) 02/10/19 04:48 98 02/10/19 03:42 Room Air Current Medications Current Medications Medications (Trade) Dose Ordered Sig/Castro Route PRN Reason Start Time Stop Time Status Last Admin Dose Admin Acetaminophen (Tylenol Tab) 650 mg Q6HP PRN PO HEADACHE or DISCOMFORT 02/10/19 03:00 02/14/19 13:59 Al Hydrox/Mg Hydrox/Simethicone (Mylanta) 30 ml Q4HP PRN PO HEARTBURN/INDIGESTION 02/10/19 03:00 02/12/19 12:33 Albuterol Sulfate (Proventil, Ventolin Hfa) 2 puff Q4H PRN INH SHORTNESS OF BREATH 02/10/19 08:45 Ascorbic Acid (Vitamin C) 500 mg DAILY PO 02/10/19 09:00 02/15/19 08:35 Brexpiprazole (Rexulti) 2 mg DAILY PO 02/10/19 09:00 02/10/19 13:24 DC 02/10/19 10:22 Buspirone HCl (Buspar) 15 mg BID PO 02/10/19 09:00 02/10/19 13:24 DC 02/10/19 10:17 Doxepin HCl (SINEquan) 10 mg QHS PO 02/10/19 21:00 02/10/19 21:00 DC Ferrous Sulfate (Ferrous Sulfate) 325 mg DAILY PO 02/10/19 09:00 02/15/19 08:36 Fexofenadine HCl (Essie) 180 mg DAILY PO 02/10/19 09:00 02/15/19 08:36 Fluticasone Propionate (Flonase 0.05% Nasal [place]) 1 SPRAY IN EACH NOSTRIL DAILY PRN NA NASAL CONGESTION 02/10/19 09:00 Fluticasone Propionate (Flonase 0.05% Nasal [place]) 1 spray DAILY PRN NA NASAL CONGESTION 02/10/19 08:45 02/10/19 08:59 DC Gabapentin (Neurontin) 400 mg TID PO 02/10/19 16:00 02/15/19 08:35 Gabapentin (Neurontin) 600 mg TID PO 02/10/19 09:00 02/10/19 13:25 DC 02/10/19 10:18 Gemfibrozil (Lopid) 600 mg BID@0800,1800 PO 02/10/19 08:00 02/15/19 08:35 Home Med (Med Rec Complete!) ASDIRECTED XX 02/10/19 03:30 02/10/19 03:30 DC Ibuprofen (Advil) 800 mg Q6HP PRN PO PAIN SCALE 6-10 02/13/19 21:30 Lactobacillus Acidophilus (Bacid) 1 ea DAILY PO 02/10/19 09:00 02/15/19 08:36 Levothyroxine Sodium (Synthroid) 50 mcg DAILY@0600 PO 02/10/19 06:00 02/15/19 06:14 Ferrer Comunidad Carbonate (Ferrer Comunidad Carbonate) 300 mg QHS PO 02/10/19 21:00 02/10/19 21:00 DC Magnesium Hydroxide (Milk Of Magnesia) 30 ml DAILYPRN PRN PO CONSTIPATION 02/10/19 03:00 Montelukast Sodium (Singulair) 10 mg QHS PO 02/10/19 21:00 02/14/19 20:47 Multivitamins (Theragram-M) 1 tab DAILY PO 02/10/19 09:00 02/15/19 08:36 Pantoprazole Sodium (Protonix) 40 mg BID PO 02/10/19 09:00 02/15/19 08:36 Polyethylene Glycol (Miralax) 1 pkt DAILY PRN PO CONSTIPATION 02/10/19 08:45 Pramipexole Dihydrochloride (Mirapex) 0.75 mg QHS PO 02/10/19 21:00 02/10/19 21:00 DC Prazosin HCl (Minipress) 1 mg QHS PO 02/10/19 21:00 02/11/19 16:31 DC 02/10/19 21:07 Prazosin HCl (Minipress) 2 mg QHS PO 02/11/19 21:00 02/14/19 20:47 Prazosin HCl (Minipress) 4 mg QHS PO 02/10/19 21:00 02/10/19 21:00 DC Prednisone (Deltasone) 5 mg DAILY PO 02/10/19 09:00 02/15/19 08:36 Ramelteon (Rozerem) 8 mg QHS PO 02/12/19 21:00 02/14/19 20:46 Ramelteon (Rozerem) 8 mg QHS PRN PO sleep 02/10/19 13:30 02/11/19 16:31 DC 02/10/19 21:04 Sulfasalazine (Azulfidine Entabs) 1,500 mg BID PO 02/10/19 09:00 02/15/19 08:36 Sumatriptan Succinate (Imitrex) 50 mg BID PRN PO HEADACHE 02/10/19 08:45 02/12/19 17:22 Temazepam (Restoril) 7.5 mg QHSP PRN PO sleep 02/11/19 16:45 02/12/19 21:59 DC 02/12/19 21:44 Temazepam (Restoril) 15 mg QHSP PRN PO sleep 02/12/19 22:00 02/14/19 20:46 Topiramate (TopAMAX) 50 mg BID PO 02/10/19 09:00 02/15/19 08:36 Venlafaxine HCl (Effexor Xr) 37.5 mg DAILY PO 02/12/19 09:00 02/12/19 21:59 DC 02/12/19 08:07 Venlafaxine HCl (Effexor Xr) 75 mg DAILY PO 02/13/19 09:00 02/15/19 08:36 Allergies Coded Allergies: modafinil (Verified Allergy, Severe, throat swells, 02/10/19) zolpidem (Verified Allergy, Severe, rash/difficulty breathing, 02/10/19) bupivacaine (Verified Allergy, Intermediate, 02/10/19) naproxen (Verified Allergy, Intermediate, rash (takes ibuprofen and meloxicam at home), 02/10/19) tramadol (Verified Allergy, Unknown, rash, 02/10/19) trazodone (Verified Adverse Reaction, Intermediate, increased patient's depression, 02/10/19) JOSE HATCH DO Feb 15, 2019 10:51
[2019-02-15] MEDS: SUMAtriptan SUCCINATE 25 MG TAB PO PRN (11:48)
[2019-02-15] MEDS ORDERED: LORazepam 0.5 MG TAB PO PRN (15:45)
[2019-02-15 18:19] VITALS: BP 136/77
[2019-02-15 20:39] VITALS: BP 158/100
[2019-02-15] MEDS: IBUPROFEN 800 MG TAB PO PRN (20:39)
[2019-02-15] MEDS: RAMELTEON 8 MG TAB (ROZEREM) PO SCH (20:41)
[2019-02-15] MEDS: PRAZOSIN 1 MG CAP PO SCH (20:41)
[2019-02-15] MEDS: MONTELUKAST 10 MG TAB PO SCH (20:41)
--- NOTE | 2019-02-15 21:06 | ECGEPIP ---
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
[2019-02-15 22:06] VITALS: BP 120/73
[2019-02-16] MEDS: LEVOTHYROXINE 50MCG TABLET (0.05MG) PO SCH (06:14)
[2019-02-16 06:41] VITALS: BP 140/78
[2019-02-16] MEDS: GEMFIBROZIL 600 MG TAB PO SCH ×2 (07:38→17:05)
[2019-02-16] MEDS: sulfaSALAzine 500 MG TABEC PO SCH ×2 (09:01→20:12)
[2019-02-16] MEDS: TOPIRAMATE (TopAMAX) 25 MG TAB PO SCH ×2 (09:01→20:12)
[2019-02-16] MEDS: VENLAFAXINE **XR** 37.5 MG CAPSULE PO SCH (09:01)
[2019-02-16] MEDS: LACTOBACILLUS ACIDOPHILUS CAP (BACID) PO SCH (09:01)
[2019-02-16] MEDS: PANTOPRAZOLE 40MG TAB (PROTONIX) PO SCH ×2 (09:01→20:11)
[2019-02-16] MEDS: GABAPENTIN 400 MG CAP PO SCH ×3 (09:01→20:11)
[2019-02-16] MEDS: MULTIVITAMINS/MINERALS THERAP 1 TAB PO SCH (09:01)
[2019-02-16] MEDS: predniSONE 5 MG TAB PO SCH (09:02)
[2019-02-16] MEDS: ASCORBIC ACID 500 MG TAB PO SCH (09:02)
[2019-02-16] MEDS: FERROUS SULFATE 325MG TAB PO SCH (09:02)
[2019-02-16] MEDS: FEXOFENADINE 60 MG TAB PO SCH (09:02)
[2019-02-16] MEDS: IBUPROFEN 800 MG TAB PO PRN (13:17)
[2019-02-16] MEDS ORDERED: OXYMETAZOLINE NASAL SPRAY (AFRIN) PRN (16:15)
--- NOTE | 2019-02-16 17:17 | MHIPNPDOC ---
[facility] Progress Note Progress Note Date of Service: 02/16/2019 History of Present Illness The patient a 30 year old female presents again shortly after being discharged from the unit. She reports that she had done quite well after leaving the unit with a positive outlook. However, she had notable problems on the day of her reported overdose. She reported waking up on that day feeling anxious and hopeless that was resistant to her falling asleep again. She reports that she was generally unable to attend to her sudden sense of impulsivity and reports that she took an overdose of Tylenol and several other medications and then subsequently sought care from her assertive outpatient team that had coincidentally an appointment that very same day. She was brought to the ER and evaluate and subsequently admitted. However, reviewing the integrated healthcare notes from [facility], it appears at the patients Tylenol was very low even sub-therapeutic, suggesting that the events described by the patient were unlikely to be accurate. The patient reports that her depression appears to generally be controlled, but she still struggles with hopelessness and impulsivity. Interval History The patient is met with today. She describes that she is doing "somewhat better." She is on 112 of Effexor. She reports that she has the self-harm thoughts of wanting to cut, but no overt suicidal thoughts at this time. Discussed with patient the options for treatment, review completed related to her stay and authorized until . The patient's situation appears to continue to regress, however, she does not demonstrate any concerning behaviors at this time on the unit. She is attending groups, but generally remains isolative and unsocial. Discussed with patient the option of clozapine and treating her self-harm thoughts with this off-label treatment. Review Of Systems Denies any side effects from her medication such as dizziness, tremors, GI upset or chest pain. Psychotherapy None on this visit. Vital Signs Reviewed. Mental Status Examination General: Well dressed with good hygiene Speech: Spontaneous and fluid Thought processes: Linear and logical MSK: Smooth and coordinated gait, no signs of tremors or involuntary orofacial movements Thought content: Future orientated Abstract reasoning, and computation: Intact Description of associations: Intact Description of abnormal or psychotic thoughts: Denies any suicidal ideation, but admits to self-harm, self-mutilation thoughts. Denies any homicidal thoughts. Denies any auditory or visual hallucinations. Does not appear to be responding to internal stimuli. Judgment: limited Insight: poor Orientation: Alert and orientated 3 Cognition: Grossly normal Recent and remote memory: Intact Attention span and concentration: Intact Fund of knowledge: Adequate Mood: "bad" Affect: Dysthymic with a constricted range Diagnoses Unspecified depressive disorder Borderline personality disorder Unspecified trauma/stressor related disorder Assessment and Plan The patient will be continued on Effexor 112.5 mg daily and Rozerem 8 mg for sleep, however, she will be started on clozapine 25 mg nightly. Discussed with the patient extensively the risk, benefits as well as potential side effects of this medication regimen. Additionally, we will draw a CBC at this time. Disposition The patient will need a further inpatient admission in order to stabilize her self-harm behaviors and severe depression. Time Spent 20 minutes [id number]. Friday Vital Signs Vital Signs Date Time Temp Pulse Resp B/P (MAP) Pulse Ox O2 Delivery O2 Flow Rate FiO2 02/16/19 06:41 97.8 77 14 140/78 (98) 02/10/19 04:48 98 02/10/19 03:42 Room Air Laboratory Data CBC/BMP Current Medications Current Medications Medications (Trade) Dose Ordered Sig/Castro Route PRN Reason Start Time Stop Time Status Last Admin Dose Admin Acetaminophen (Tylenol Tab) 650 mg Q6HP PRN PO HEADACHE or DISCOMFORT 02/10/19 03:00 02/14/19 13:59 Al Hydrox/Mg Hydrox/Simethicone (Mylanta) 30 ml Q4HP PRN PO HEARTBURN/INDIGESTION 02/10/19 03:00 02/12/19 12:33 Albuterol Sulfate (Proventil, Ventolin Hfa) 2 puff Q4H PRN INH SHORTNESS OF BREATH 02/10/19 08:45 Ascorbic Acid (Vitamin C) 500 mg DAILY PO 02/10/19 09:00 02/16/19 09:02 Brexpiprazole (Rexulti) 2 mg DAILY PO 02/10/19 09:00 02/10/19 13:24 DC 02/10/19 10:22 Buspirone HCl (Buspar) 15 mg BID PO 02/10/19 09:00 02/10/19 13:24 DC 02/10/19 10:17 Clozapine (Clozaril) 25 mg QHS PO 02/16/19 21:00 Doxepin HCl (SINEquan) 10 mg QHS PO 02/10/19 21:00 02/10/19 21:00 DC Ferrous Sulfate (Ferrous Sulfate) 325 mg DAILY PO 02/10/19 09:00 02/16/19 09:02 Fexofenadine HCl (Essie) 180 mg DAILY PO 02/10/19 09:00 02/16/19 09:02 Fluticasone Propionate (Flonase 0.05% Nasal [place]) 1 SPRAY IN EACH NOSTRIL DAILY PRN NA NASAL CONGESTION 02/10/19 09:00 Fluticasone Propionate (Flonase 0.05% Nasal [place]) 1 spray DAILY PRN NA NASAL CONGESTION 02/10/19 08:45 02/10/19 08:59 DC Gabapentin (Neurontin) 400 mg TID PO 02/10/19 16:00 02/16/19 15:29 Gabapentin (Neurontin) 600 mg TID PO 02/10/19 09:00 02/10/19 13:25 DC 02/10/19 10:18 Gemfibrozil (Lopid) 600 mg BID@0800,1800 PO 02/10/19 08:00 02/16/19 17:05 Home Med (Med Rec Complete!) ASDIRECTED XX 02/10/19 03:30 02/10/19 03:30 DC Ibuprofen (Advil) 800 mg Q6HP PRN PO PAIN SCALE 6-10 02/13/19 21:30 02/16/19 13:17 Lactobacillus Acidophilus (Bacid) 1 ea DAILY PO 02/10/19 09:00 02/16/19 09:01 Levothyroxine Sodium (Synthroid) 50 mcg DAILY@0600 PO 02/10/19 06:00 02/16/19 06:14 [place] Carbonate ([place] Carbonate) 300 mg QHS PO 02/10/19 21:00 02/10/19 21:00 DC Lorazepam (Ativan) 0.5 mg QHSP PRN PO ANXIETY 02/15/19 15:45 Magnesium Hydroxide (Milk Of Magnesia) 30 ml DAILYPRN PRN PO CONSTIPATION 02/10/19 03:00 Montelukast Sodium (Singulair) 10 mg QHS PO 02/10/19 21:00 02/15/19 20:41 Multivitamins (Theragram-M) 1 tab DAILY PO 02/10/19 09:00 02/16/19 09:01 Oxymetazoline HCl (Afrin) 2 spray BID PRN NA congestion 02/16/19 16:15 Pantoprazole Sodium (Protonix) 40 mg BID PO 02/10/19 09:00 02/16/19 09:01 Polyethylene Glycol (Miralax) 1 pkt DAILY PRN PO CONSTIPATION 02/10/19 08:45 Pramipexole Dihydrochloride (Mirapex) 0.75 mg QHS PO 02/10/19 21:00 02/10/19 21:00 DC Prazosin HCl (Minipress) 1 mg QHS PO 02/10/19 21:00 02/11/19 16:31 DC 02/10/19 21:07 Prazosin HCl (Minipress) 2 mg QHS PO 02/11/19 21:00 02/15/19 15:35 DC 02/14/19 20:47 Prazosin HCl (Minipress) 4 mg QHS PO 02/10/19 21:00 02/10/19 21:00 DC Prazosin HCl (Minipress) 4 mg QHS PO 02/15/19 21:00 02/15/19 20:41 Prednisone (Deltasone) 5 mg DAILY PO 02/10/19 09:00 02/16/19 09:02 Ramelteon (Rozerem) 8 mg QHS PO 02/12/19 21:00 02/15/19 20:41 Ramelteon (Rozerem) 8 mg QHS PRN PO sleep 02/10/19 13:30 02/11/19 16:31 DC 02/10/19 21:04 Sulfasalazine (Azulfidine Entabs) 1,500 mg BID PO 02/10/19 09:00 02/16/19 09:01 Sumatriptan Succinate (Imitrex) 50 mg BID PRN PO HEADACHE 02/10/19 08:45 02/15/19 11:48 Temazepam (Restoril) 7.5 mg QHSP PRN PO sleep 02/11/19 16:45 02/12/19 21:59 DC 02/12/19 21:44 Temazepam (Restoril) 15 mg QHSP PRN PO sleep 02/12/19 22:00 02/15/19 15:35 DC 02/14/19 20:46 Topiramate (TopAMAX) 50 mg BID PO 02/10/19 09:00 02/16/19 09:01 Venlafaxine HCl (Effexor Xr) 37.5 mg DAILY PO 02/12/19 09:00 02/12/19 21:59 DC 02/12/19 08:07 Venlafaxine HCl (Effexor Xr) 75 mg DAILY PO 02/13/19 09:00 02/15/19 15:35 DC 02/15/19 08:36 Venlafaxine HCl (Effexor Xr) 112.5 mg DAILY PO 02/16/19 09:00 02/16/19 09:01 Allergies Coded Allergies: modafinil (Verified Allergy, Severe, throat swells, 02/10/19) zolpidem (Verified Allergy, Severe, rash/difficulty breathing, 02/10/19) bupivacaine (Verified Allergy, Intermediate, 02/10/19) naproxen (Verified Allergy, Intermediate, rash (takes ibuprofen and meloxicam at home), 02/10/19) tramadol (Verified Allergy, Unknown, rash, 02/10/19) trazodone (Verified Adverse Reaction, Intermediate, increased patient's depression, 02/10/19) JOSE HATCH DO Feb 16, 2019 17:17
[2019-02-16 17:20] LABS: BASO # 0.1 10^3/uL (0.0-0.2); BASO % 0.8 % (0.0-1.0); EOS # 0.6 10^3/uL (0.0-0.50); EOS % 4.7 % (0.0-3.0); HEMATOCRIT 39.7 % (36.0-47.0); HEMOGLOBIN 12.6 g/dl (12.0-15.5); LYMPH # 3.4 10^3/uL (1.5-4.5); LYMPH % 28.5 % (24.0-44.0); MEAN CORPUSCULAR HEMOGLOBIN 27.4 pg (27.0-33.0); MEAN CORPUSCULAR HGB CONC 31.7 g/dl (32.0-36.5); MEAN CORPUSCULAR VOLUME 86.3 fl (80.0-96.0); MONO % 8.7 % (0.0-5.0); NEUTROPHILS # 6.7 10^3/uL (1.8-7.7); NEUTROPHILS % 56.8 % (36.0-66.0); PLATELET COUNT, AUTOMATED 214 10^3/uL (150-450); WHITE BLOOD COUNT 11.7 10^3/uL (4.0-10.0)
[2019-02-16 18:00] VITALS: BP 120/58
[2019-02-16] MEDS: RAMELTEON 8 MG TAB (ROZEREM) PO SCH (20:11)
[2019-02-16] MEDS: cloZAPine 25 MG TAB (S0136) PO SCH (20:11)
[2019-02-16] MEDS: MONTELUKAST 10 MG TAB PO SCH (20:11)
[2019-02-16] MEDS: PRAZOSIN 1 MG CAP PO SCH (20:13)
[2019-02-17] MEDS ORDERED: OLANZapine ORAL DISINTEGRATING TAB 5MG PO PRN (02:37)
[2019-02-17] MEDS: LEVOTHYROXINE 50MCG TABLET (0.05MG) PO SCH (06:03)
[2019-02-17 06:38] VITALS: BP 143/84
[2019-02-17] MEDS: GEMFIBROZIL 600 MG TAB PO SCH ×2 (07:30→17:15)
[2019-02-17 08:45] VITALS: BP 141/83
[2019-02-17] MEDS: VENLAFAXINE **XR** 37.5 MG CAPSULE PO SCH (09:07)
[2019-02-17] MEDS: LACTOBACILLUS ACIDOPHILUS CAP (BACID) PO SCH (09:07)
[2019-02-17] MEDS: FEXOFENADINE 60 MG TAB PO SCH (09:07)
[2019-02-17] MEDS: FERROUS SULFATE 325MG TAB PO SCH (09:07)
[2019-02-17] MEDS: ASCORBIC ACID 500 MG TAB PO SCH (09:07)
[2019-02-17] MEDS: sulfaSALAzine 500 MG TABEC PO SCH ×2 (09:07→20:05)
[2019-02-17] MEDS: predniSONE 5 MG TAB PO SCH (09:07)
[2019-02-17] MEDS: TOPIRAMATE (TopAMAX) 25 MG TAB PO SCH ×2 (09:08→20:06)
[2019-02-17] MEDS: GABAPENTIN 400 MG CAP PO SCH ×3 (09:08→20:06)
[2019-02-17] MEDS: PANTOPRAZOLE 40MG TAB (PROTONIX) PO SCH ×2 (09:08→20:05)
[2019-02-17] MEDS: MULTIVITAMINS/MINERALS THERAP 1 TAB PO SCH (09:08)
[2019-02-17 10:50] LABS: CK-MB VALUE MASS < 1.0 NG/ML (<3.6); CPK CREATINE PHOSPHOKINASE 62 U/L (26-192); MB/CK RELATIVE INDEX 1.61 (< OR =4); TROPONIN I < 0.02 NG/ML (< 0.10)
--- NOTE | 2019-02-17 10:51 | MHIPNPDOC ---
[facility] Progress Note Progress Note Date of Service: 02/17/2019 History of Present Illness The patient a 30 year old female presents again shortly after being discharged from the unit. She reports that she had done quite well after leaving the unit with a positive outlook. However, she had notable problems on the day of her reported overdose. She reported waking up on that day feeling anxious and hopeless that was resistant to her falling asleep again. She reports that she was generally unable to attend to her sudden sense of impulsivity and reports that she took an overdose of Tylenol and several other medications and then subsequently sought care from her assertive outpatient team that had coincidentally an appointment that very same day. She was brought to the ER and evaluate and subsequently admitted. However, reviewing the integrated healthcare notes from [facility], it appears at the patients Tylenol was very low even sub-therapeutic, suggesting that the events described by the patient were unlikely to be accurate. The patient reports that her depression appears to generally be controlled, but she still struggles with hopelessness and impulsivity. Interval History The patient is met with today. She describes being initially over sedated as she was given some Zyprexa last night for anxiety. She was tried on Clozaril last night and does report significant reduction in her self-harm thoughts. She describes still feeling somewhat depressed, but that things feel to be lifting. She describes sleeping quite deeply last night. Staff notes no behavioral problems and that she has not been engaging in any self-harm behavior, which archie ear to be quite big improvements for the patient. She has had no demanding behavior or other issues that we expect that she would. Review Of Systems Denies any GI upset. Reports continued sinus congestion. Denies tremors. Reports the aforementioned over sedation. Reports improving mood and interest. Psychotherapy None on this visit. Vital Signs Reviewed. Mental Status Examination General: Well dressed with good hygiene Speech: Spontaneous and fluid Thought processes: Linear and logical MSK: Smooth and coordinated gait, no signs of tremors or involuntary orofacial movements Thought content: Future orientated Abstract reasoning, and computation: Intact Description of associations: Intact Description of abnormal or psychotic thoughts: Denies any suicidal ideation, but admits to improving self-harm thoughts. Denies any homicidal thoughts. Denies any auditory or visual hallucinations. Does not appear to be responding to internal stimuli. Judgment: Improving. Insight: Improving. Orientation: Alert and orientated 3 Cognition: Grossly normal Recent and remote memory: Intact Attention span and concentration: Intact Fund of knowledge: Adequate Mood: "Okay" Affect: Improving with euthymic affect. Diagnoses Unspecified depressive disorder Borderline personality disorder Unspecified trauma/stressor related disorder Assessment and Plan The patient appears to be making strong improvement on the unit. Her venlafaxine will be increased to 150 mg daily as this improves compliance as it comes in a single tablet. Additionally, Rozerem will be discontinued. The reported dizziness she had had this morning and over sedation means that her Minipress will be cut to 2 mg nightly from 4 as Clozaril 25 will usually cause quite a bit of sedation and dizziness. Will continue Clozaril 25 at this time as appears to be making improvements. She is currently still pending [place] transfer. Disposition The patient will need a further inpatient admission in order to further stabilize her medication regimen. However, she could be potentially averted from a long-term inpatient admission depending on her improvement. Time Spent 15 minutes [id number]. Friday Vital Signs Vital Signs Date Time Temp Pulse Resp B/P (MAP) Pulse Ox O2 Delivery O2 Flow Rate FiO2 02/17/19 08:45 107 18 141/83 (102) 02/17/19 06:38 97.6 Laboratory Data 24H Labs Laboratory Tests 2 02/16/19 16:57: Immature Granulocyte % (Auto) 0.5, White Blood Count 11.7H, Red Blood Count 4.60, Hemoglobin 12.6, Hematocrit 39.7, Mean Corpuscular Volume 86.3, Mean Corpuscular Hemoglobin 27.4, Mean Corpuscular Hemoglobin Concent 31.7L, Red Cell Distribution Width 16.7H, Platelet Count 214, Neutrophils (%) (Auto) 56.8, Lymphocytes (%) (Auto) 28.5, Monocytes (%) (Auto) 8.7H, Eosinophils (%) (Auto) 4.7H, Basophils (%) (Auto) 0.8, Neutrophils # (Auto) 6.7, Lymphocytes # (Auto) 3.4, Monocytes # (Auto) 1.0H, Eosinophils # (Auto) 0.6H, Basophils # (Auto) 0.1, Nucleated Red Blood Cells % (auto) 0.0 02/17/19 09:54: Total Creatine Kinase 62, Creatine Kinase MB < 1.0, Creatine Kinase MB Relative Index 1.61, Troponin I < 0.02 CBC/BMP Laboratory Tests 02/16/19 16:57 Red Blood Count 4.60, Mean Corpuscular Volume 86.3, Mean Corpuscular Hemoglobin 27.4, Mean Corpuscular Hemoglobin Concent 31.7 L, Red Cell Distribution Width 16.7 H, Neutrophils (%) (Auto) 56.8, Lymphocytes (%) (Auto) 28.5, Monocytes (%) (Auto) 8.7 H, Eosinophils (%) (Auto) 4.7 H, Basophils (%) (Auto) 0.8, Neutrophils # (Auto) 6.7, Lymphocytes # (Auto) 3.4, Monocytes # (Auto) 1.0 H, Eosinophils # (Auto) 0.6 H, Basophils # (Auto) 0.1 Current Medications Current Medications Medications (Trade) Dose Ordered Sig/Castro Route PRN Reason Start Time Stop Time Status Last Admin Dose Admin Acetaminophen (Tylenol Tab) 650 mg Q6HP PRN PO HEADACHE or DISCOMFORT 02/10/19 03:00 02/14/19 13:59 Al Hydrox/Mg Hydrox/Simethicone (Mylanta) 30 ml Q4HP PRN PO HEARTBURN/INDIGESTION 02/10/19 03:00 02/12/19 12:33 Albuterol Sulfate (Proventil, Ventolin Hfa) 2 puff Q4H PRN INH SHORTNESS OF BREATH 02/10/19 08:45 Ascorbic Acid (Vitamin C) 500 mg DAILY PO 02/10/19 09:00 02/17/19 09:07 Brexpiprazole (Rexulti) 2 mg DAILY PO 02/10/19 09:00 02/10/19 13:24 DC 02/10/19 10:22 Buspirone HCl (Buspar) 15 mg BID PO 02/10/19 09:00 02/10/19 13:24 DC 02/10/19 10:17 Clozapine (Clozaril) 25 mg QHS PO 02/16/19 21:00 02/16/19 20:11 Doxepin HCl (SINEquan) 10 mg QHS PO 02/10/19 21:00 02/10/19 21:00 DC Ferrous Sulfate (Ferrous Sulfate) 325 mg DAILY PO 02/10/19 09:00 02/17/19 09:07 Fexofenadine HCl (Essie) 180 mg DAILY PO 02/10/19 09:00 02/17/19 09:07 Fluticasone Propionate (Flonase 0.05% Nasal [place]) 1 SPRAY IN EACH NOSTRIL DAILY PRN NA NASAL CONGESTION 02/10/19 09:00 Fluticasone Propionate (Flonase 0.05% Nasal [place]) 1 spray DAILY PRN NA NASAL CONGESTION 02/10/19 08:45 02/10/19 08:59 DC Gabapentin (Neurontin) 400 mg TID PO 02/10/19 16:00 02/17/19 09:08 Gabapentin (Neurontin) 600 mg TID PO 02/10/19 09:00 02/10/19 13:25 DC 02/10/19 10:18 Gemfibrozil (Lopid) 600 mg BID@0800,1800 PO 02/10/19 08:00 02/17/19 07:30 Home Med (Med Rec Complete!) ASDIRECTED XX 02/10/19 03:30 02/10/19 03:30 DC Ibuprofen (Advil) 800 mg Q6HP PRN PO PAIN SCALE 6-10 02/13/19 21:30 02/16/19 13:17 Lactobacillus Acidophilus (Bacid) 1 ea DAILY PO 02/10/19 09:00 02/17/19 09:07 Levothyroxine Sodium (Synthroid) 50 mcg DAILY@0600 PO 02/10/19 06:00 02/17/19 06:03 [place] Carbonate ([place] Carbonate) 300 mg QHS PO 02/10/19 21:00 02/10/19 21:00 DC Lorazepam (Ativan) 0.5 mg QHSP PRN PO ANXIETY 02/15/19 15:45 02/16/19 21:15 Magnesium Hydroxide (Milk Of Magnesia) 30 ml DAILYPRN PRN PO CONSTIPATION 02/10/19 03:00 Montelukast Sodium (Singulair) 10 mg QHS PO 02/10/19 21:00 02/16/19 20:11 Multivitamins (Theragram-M) 1 tab DAILY PO 02/10/19 09:00 02/17/19 09:08 Olanzapine (ZyPREXA ZYDIS) 5 mg BIDP PRN PO anxiety/agitation 02/17/19 02:37 02/19/19 02:37 02/17/19 02:47 Oxymetazoline HCl (Afrin) 2 spray BID PRN NA congestion 02/16/19 16:15 02/16/19 21:17 Pantoprazole Sodium (Protonix) 40 mg BID PO 02/10/19 09:00 02/17/19 09:08 Polyethylene Glycol (Miralax) 1 pkt DAILY PRN PO CONSTIPATION 02/10/19 08:45 Pramipexole Dihydrochloride (Mirapex) 0.75 mg QHS PO 02/10/19 21:00 02/10/19 21:00 DC Prazosin HCl (Minipress) 1 mg QHS PO 02/10/19 21:00 02/11/19 16:31 DC 02/10/19 21:07 Prazosin HCl (Minipress) 2 mg QHS PO 02/11/19 21:00 02/15/19 15:35 DC 02/14/19 20:47 Prazosin HCl (Minipress) 4 mg QHS PO 02/10/19 21:00 02/10/19 21:00 DC Prazosin HCl (Minipress) 4 mg QHS PO 02/15/19 21:00 02/16/19 20:13 Prednisone (Deltasone) 5 mg DAILY PO 02/10/19 09:00 02/17/19 09:07 Ramelteon (Rozerem) 8 mg QHS PO 02/12/19 21:00 02/16/19 20:11 Ramelteon (Rozerem) 8 mg QHS PRN PO sleep 02/10/19 13:30 02/11/19 16:31 DC 02/10/19 21:04 Sulfasalazine (Azulfidine Entabs) 1,500 mg BID PO 02/10/19 09:00 02/17/19 09:07 Sumatriptan Succinate (Imitrex) 50 mg BID PRN PO HEADACHE 02/10/19 08:45 02/15/19 11:48 Temazepam (Restoril) 7.5 mg QHSP PRN PO sleep 02/11/19 16:45 02/12/19 21:59 DC 02/12/19 21:44 Temazepam (Restoril) 15 mg QHSP PRN PO sleep 02/12/19 22:00 02/15/19 15:35 DC 02/14/19 20:46 Topiramate (TopAMAX) 50 mg BID PO 02/10/19 09:00 02/17/19 09:08 Venlafaxine HCl (Effexor Xr) 37.5 mg DAILY PO 02/12/19 09:00 02/12/19 21:59 DC 02/12/19 08:07 Venlafaxine HCl (Effexor Xr) 75 mg DAILY PO 02/13/19 09:00 02/15/19 15:35 DC 02/15/19 08:36 Venlafaxine HCl (Effexor Xr) 112.5 mg DAILY PO 02/16/19 09:00 02/17/19 09:07 Allergies Coded Allergies: modafinil (Verified Allergy, Severe, throat swells, 02/10/19) zolpidem (Verified Allergy, Severe, rash/difficulty breathing, 02/10/19) bupivacaine (Verified Allergy, Intermediate, 02/10/19) naproxen (Verified Allergy, Intermediate, rash (takes ibuprofen and meloxicam at home), 02/10/19) tramadol (Verified Allergy, Unknown, rash, 02/10/19) trazodone (Verified Adverse Reaction, Intermediate, increased patient's depression, 02/10/19) JOSE HATCH DO Feb 17, 2019 10:51
[2019-02-17] MEDS ORDERED: PILL CUTTER 1 EACH XX PRN (12:00)
[2019-02-17] MEDS ORDERED: PROPRANOLOL 10 MG TAB PO PRN (13:15)
[2019-02-17] MEDS: IBUPROFEN 800 MG TAB PO PRN (14:30)
[2019-02-17 18:00] VITALS: BP 142/94
[2019-02-17] MEDS: MONTELUKAST 10 MG TAB PO SCH (20:05)
[2019-02-17] MEDS: cloZAPine 25 MG TAB (S0136) PO SCH (20:05)
[2019-02-17] MEDS: PRAZOSIN 1 MG CAP PO SCH (20:06)
[2019-02-18] MEDS: LEVOTHYROXINE 50MCG TABLET (0.05MG) PO SCH (06:01)
[2019-02-18 06:29] VITALS: BP 120/72
[2019-02-18] MEDS: ASCORBIC ACID 500 MG TAB PO SCH (08:19)
[2019-02-18] MEDS: predniSONE 5 MG TAB PO SCH (08:19)
[2019-02-18] MEDS: PANTOPRAZOLE 40MG TAB (PROTONIX) PO SCH ×2 (08:19→20:36)
[2019-02-18] MEDS: MULTIVITAMINS/MINERALS THERAP 1 TAB PO SCH (08:19)
[2019-02-18] MEDS: GEMFIBROZIL 600 MG TAB PO SCH ×2 (08:19→17:01)
[2019-02-18] MEDS: LACTOBACILLUS ACIDOPHILUS CAP (BACID) PO SCH (08:19)
[2019-02-18] MEDS: GABAPENTIN 400 MG CAP PO SCH ×3 (08:19→20:35)
[2019-02-18] MEDS: FERROUS SULFATE 325MG TAB PO SCH (08:19)
[2019-02-18] MEDS: TOPIRAMATE (TopAMAX) 25 MG TAB PO SCH ×2 (08:20→20:37)
[2019-02-18] MEDS: SUMAtriptan SUCCINATE 25 MG TAB PO PRN (08:20)
[2019-02-18] MEDS: VENLAFAXINE **XR** 75MG CAPSULE PO SCH (08:20)
[2019-02-18] MEDS: FEXOFENADINE 60 MG TAB PO SCH (08:20)
[2019-02-18] MEDS: sulfaSALAzine 500 MG TABEC PO SCH ×2 (08:20→20:36)
--- NOTE | 2019-02-18 08:35 | ECGEPIP ---
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
--- NOTE | 2019-02-18 16:18 | MHIPNPDOC ---
[facility] Progress Note Progress Note Date of Service: 02/18/2019 History of Present Illness The patient a 30-year-old female presents again shortly after being discharged from the unit. She reports that she had done quite well after leaving the unit with a positive outlook. However, she had notable problems on the day of her reported overdose. She reported waking up on that day feeling anxious and hopeless that was resistant to her falling asleep again. She reports that she was generally unable to attend to her sudden sense of impulsivity and reports that she took an overdose of Tylenol and several other medications and then subsequently sought care from her assertive outpatient team that had coincidentally an appointment that very same day. She was brought to the ER and evaluated and subsequently admitted. However, reviewing the [facility] are notes from [facility], it appears that the patient's Tylenol was very low, even subtherapeutic, suggesting that the events described by the patient were unlikely to be accurate. The patient reports that her depression appears to generally be controlled, but she still struggles with hopelessness and impulsivity. Interval History The patient's met with today in her room. She reports doing somewhat better and that she only has fleeting thoughts of reported "cutting" that are much more manageable since she started the clozapine. She does report some continued sedation during the day but has notably been in groups and much more social today, engaging in puzzles with strong improvement. The patient was spoken to about long-term treatment and that now, with her improvement, she would likely not be accepted and discussed at length with the patient alternative treatments as well as encouraging her with her positive improvement. She's had no behavioral problems on the unit for several days now and has been engaging in groups. The self-harm thoughts and behavior that had been present earlier on have not re-manifest despite the patient being allowed to have her home clothing. Review Of Systems Denies any constipation, tremors, or other concerning side effects from her clozapine. Psychotherapy None on this visit. Vital Signs Reviewed. Mental Status Examination General: Well dressed with good hygiene Speech: Spontaneous and fluid Thought processes: Linear and logical MSK: Smooth and coordinated gait, no signs of tremors or involuntary orofacial movements Thought content: Future orientated Abstract reasoning, and computation: Intact Description of associations: Intact Description of abnormal or psychotic thoughts: Denies any suicidal ideation, but admits to fleeting self-harm thoughts, primarily "cutting." Denies any homicidal thoughts. Denies any auditory or visual hallucinations. Does not appear to be responding to internal stimuli. Judgment: Improving. Insight: Improving. Orientation: Alert and orientated 3 Cognition: Grossly normal Recent and remote memory: Intact Attention span and concentration: Intact Fund of knowledge: Adequate Mood: "Okay" Affect: Improving with euthymic affect. Diagnoses Unspecified depressive disorder Borderline personality disorder Unspecified trauma/stressor related disorder Assessment and Plan The patient appears to be making some improvement on the clozapine. The venlafaxine will be continued at 150 mg daily, prazosin at 2 mg daily, and clozapine increased to 50 mg daily with a CBC tomorrow to monitor closely, as she is also on immunosuppressive medications for her autoimmune disorders. She does appear to be making improvements now on the clozapine, which is surprising to the treatment team, as she had had significant time with little improvement. After discussing with the patient, she was initially frustrated with long-term treatment being not recommended at this time. However, after significant reframing, the patient was able to see the positives of the situation and that outpatient could be much more helpful. Disposition The patient will need a further inpatient admission in order to titrate her clozapine to full effect. She has multiple readmissions and thus a judicious titration to full effect would likely reduce the chances of a readmission. Additionally, the patient's home environment will need to have advanced safety planning with removal of any excess meds, clearing of her pharmacy, and 7-day supplies prescribed for all medications. Time Spent 15 minutes face to face. Vital Signs Vital Signs Date Time Temp Pulse Resp B/P (MAP) Pulse Ox O2 Delivery O2 Flow Rate FiO2 02/18/19 08:14 Room Air 02/18/19 06:29 97.2 72 18 120/72 (88) Current Medications Current Medications Medications (Trade) Dose Ordered Sig/Castro Route PRN Reason Start Time Stop Time Status Last Admin Dose Admin Acetaminophen (Tylenol Tab) 650 mg Q6HP PRN PO HEADACHE or DISCOMFORT 02/10/19 03:00 02/14/19 13:59 Al Hydrox/Mg Hydrox/Simethicone (Mylanta) 30 ml Q4HP PRN PO HEARTBURN/INDIGESTION 02/10/19 03:00 02/12/19 12:33 Albuterol Sulfate (Proventil, Ventolin Hfa) 2 puff Q4H PRN INH SHORTNESS OF BREATH 02/10/19 08:45 Ascorbic Acid (Vitamin C) 500 mg DAILY PO 02/10/19 09:00 02/18/19 08:19 Brexpiprazole (Rexulti) 2 mg DAILY PO 02/10/19 09:00 02/10/19 13:24 DC 02/10/19 10:22 Buspirone HCl (Buspar) 15 mg BID PO 02/10/19 09:00 02/10/19 13:24 DC 02/10/19 10:17 Clozapine (Clozaril) 25 mg QHS PO 02/16/19 21:00 02/18/19 16:18 DC 02/17/19 20:05 Clozapine (Clozaril) 50 mg QHS PO 02/18/19 21:00 UNV Doxepin HCl (SINEquan) 10 mg QHS PO 02/10/19 21:00 02/10/19 21:00 DC Ferrous Sulfate (Ferrous Sulfate) 325 mg DAILY PO 02/10/19 09:00 02/18/19 08:19 Fexofenadine HCl (Essie) 180 mg DAILY PO 02/10/19 09:00 02/18/19 08:20 Fluticasone Propionate (Flonase 0.05% Nasal [place]) 1 SPRAY IN EACH NOSTRIL DAILY PRN NA NASAL CONGESTION 02/10/19 09:00 Fluticasone Propionate (Flonase 0.05% Nasal [place]) 1 spray DAILY PRN NA NASAL CONGESTION 02/10/19 08:45 02/10/19 08:59 DC Gabapentin (Neurontin) 400 mg TID PO 02/10/19 16:00 02/18/19 08:19 Gabapentin (Neurontin) 600 mg TID PO 02/10/19 09:00 02/10/19 13:25 DC 02/10/19 10:18 Gemfibrozil (Lopid) 600 mg BID@0800,1800 PO 02/10/19 08:00 02/18/19 08:19 Home Med (Med Rec Complete!) ASDIRECTED XX 02/10/19 03:30 02/10/19 03:30 DC Ibuprofen (Advil) 800 mg Q6HP PRN PO PAIN SCALE 6-10 02/13/19 21:30 02/17/19 14:30 Lactobacillus Acidophilus (Bacid) 1 ea DAILY PO 02/10/19 09:00 02/18/19 08:19 Levothyroxine Sodium (Synthroid) 50 mcg DAILY@0600 PO 02/10/19 06:00 02/18/19 06:01 [place] Carbonate ([place] Carbonate) 300 mg QHS PO 02/10/19 21:00 02/10/19 21:00 DC Lorazepam (Ativan) 0.25 mg QHSP PRN PO ANXIETY 02/17/19 11:45 Lorazepam (Ativan) 0.5 mg QHSP PRN PO ANXIETY 02/15/19 15:45 02/17/19 11:43 DC 02/16/19 21:15 Magnesium Hydroxide (Milk Of Magnesia) 30 ml DAILYPRN PRN PO CONSTIPATION 02/10/19 03:00 Montelukast Sodium (Singulair) 10 mg QHS PO 02/10/19 21:00 02/17/19 20:05 Multivitamins (Theragram-M) 1 tab DAILY PO 02/10/19 09:00 02/18/19 08:19 Olanzapine (ZyPREXA ZYDIS) 5 mg BIDP PRN PO anxiety/agitation 02/17/19 02:37 02/19/19 02:37 02/17/19 02:47 Oxymetazoline HCl (Afrin) 2 spray BID PRN NA congestion 02/16/19 16:15 02/16/19 21:17 Pantoprazole Sodium (Protonix) 40 mg BID PO 02/10/19 09:00 02/18/19 08:19 Polyethylene Glycol (Miralax) 1 pkt DAILY PRN PO CONSTIPATION 02/10/19 08:45 Pramipexole Dihydrochloride (Mirapex) 0.75 mg QHS PO 02/10/19 21:00 02/10/19 21:00 DC Prazosin HCl (Minipress) 1 mg QHS PO 02/10/19 21:00 02/11/19 16:31 DC 02/10/19 21:07 Prazosin HCl (Minipress) 2 mg QHS PO 02/11/19 21:00 02/15/19 15:35 DC 02/14/19 20:47 Prazosin HCl (Minipress) 2 mg QHS PO 02/17/19 21:00 02/17/19 20:06 Prazosin HCl (Minipress) 4 mg QHS PO 02/10/19 21:00 02/10/19 21:00 DC Prazosin HCl (Minipress) 4 mg QHS PO 02/15/19 21:00 02/17/19 11:43 DC 02/16/19 20:13 Prednisone (Deltasone) 5 mg DAILY PO 02/10/19 09:00 02/18/19 08:19 Propranolol HCl (Inderal) 10 mg Q6H PRN PO anxiety 02/17/19 13:15 Ramelteon (Rozerem) 8 mg QHS PO 02/12/19 21:00 02/17/19 11:43 DC 02/16/19 20:11 Ramelteon (Rozerem) 8 mg QHS PRN PO sleep 02/10/19 13:30 02/11/19 16:31 DC 02/10/19 21:04 Sulfasalazine (Azulfidine Entabs) 1,500 mg BID PO 02/10/19 09:00 02/18/19 08:20 Sumatriptan Succinate (Imitrex) 50 mg BID PRN PO HEADACHE 02/10/19 08:45 02/18/19 08:20 Temazepam (Restoril) 7.5 mg QHSP PRN PO sleep 02/11/19 16:45 02/12/19 21:59 DC 02/12/19 21:44 Temazepam (Restoril) 15 mg QHSP PRN PO sleep 02/12/19 22:00 02/15/19 15:35 DC 02/14/19 20:46 Topiramate (TopAMAX) 50 mg BID PO 02/10/19 09:00 02/18/19 08:20 Venlafaxine HCl (Effexor Xr) 37.5 mg DAILY PO 02/12/19 09:00 02/12/19 21:59 DC 02/12/19 08:07 Venlafaxine HCl (Effexor Xr) 75 mg DAILY PO 02/13/19 09:00 02/15/19 15:35 DC 02/15/19 08:36 Venlafaxine HCl (Effexor Xr) 112.5 mg DAILY PO 02/16/19 09:00 02/17/19 11:43 DC 02/17/19 09:07 Venlafaxine HCl (Effexor Xr) 150 mg DAILY PO 02/18/19 09:00 02/18/19 08:20 Allergies Coded Allergies: modafinil (Verified Allergy, Severe, throat swells, 02/10/19) zolpidem (Verified Allergy, Severe, rash/difficulty breathing, 02/10/19) bupivacaine (Verified Allergy, Intermediate, 02/10/19) naproxen (Verified Allergy, Intermediate, rash (takes ibuprofen and meloxicam at home), 02/10/19) tramadol (Verified Allergy, Unknown, rash, 02/10/19) trazodone (Verified Adverse Reaction, Intermediate, increased patient's depression, 02/10/19) JOSE HATCH DO Feb 18, 2019 16:18
[2019-02-18 18:00] VITALS: BP 142/97
[2019-02-18] MEDS: PRAZOSIN 1 MG CAP PO SCH (20:35)
[2019-02-18] MEDS: MONTELUKAST 10 MG TAB PO SCH (20:35)
[2019-02-18] MEDS ORDERED: cloZAPine 25 MG TAB (S0136) PO SCH (21:00)
[2019-02-19] MEDS: LEVOTHYROXINE 50MCG TABLET (0.05MG) PO SCH (06:09)
[2019-02-19 06:43] VITALS: BP 140/87
[2019-02-19 07:07] LABS: HEMATOCRIT 37.8 % (36.0-47.0); MEAN CORPUSCULAR HEMOGLOBIN 27.9 pg (27.0-33.0); MEAN CORPUSCULAR HGB CONC 31.7 g/dl (32.0-36.5); MEAN CORPUSCULAR VOLUME 87.9 fl (80.0-96.0); PLATELET COUNT, AUTOMATED 212 10^3/uL (150-450)
[2019-02-19 07:12] LABS: WHITE BLOOD COUNT 11.7 10^3/uL (4.0-10.0)
[2019-02-19] MEDS: GEMFIBROZIL 600 MG TAB PO SCH ×2 (07:32→17:23)
[2019-02-19 07:38] LABS: ATYPICAL LYMPH 3 % (0-5); EOSINOPHILS 5 % (0-5); LYMPHOCYTES 49 % (16-52); MONOCYTES 7 % (0-8); NEUTROPHILS 36 % (35-75); PLATELET ESTIMATE NORMAL (NORMAL); POLYCHROMASIA 1+
[2019-02-19 07:39] LABS: ANISOCYTOSIS 1+
[2019-02-19] MEDS: NORTREL PO SCH (09:01)
[2019-02-19] MEDS: LACTOBACILLUS ACIDOPHILUS CAP (BACID) PO SCH (09:02)
[2019-02-19] MEDS: sulfaSALAzine 500 MG TABEC PO SCH ×2 (09:02→21:40)
[2019-02-19] MEDS: FEXOFENADINE 60 MG TAB PO SCH (09:02)
[2019-02-19] MEDS: predniSONE 5 MG TAB PO SCH (09:03)
[2019-02-19] MEDS: TOPIRAMATE (TopAMAX) 25 MG TAB PO SCH ×2 (09:03→21:41)
[2019-02-19] MEDS: PANTOPRAZOLE 40MG TAB (PROTONIX) PO SCH ×2 (09:03→21:41)
[2019-02-19] MEDS: ASCORBIC ACID 500 MG TAB PO SCH (09:03)
[2019-02-19] MEDS: GABAPENTIN 400 MG CAP PO SCH ×3 (09:03→21:40)
[2019-02-19] MEDS: MULTIVITAMINS/MINERALS THERAP 1 TAB PO SCH (09:03)
[2019-02-19] MEDS: FERROUS SULFATE 325MG TAB PO SCH (09:03)
[2019-02-19] MEDS: VENLAFAXINE **XR** 75MG CAPSULE PO SCH (09:03)
--- NOTE | 2019-02-19 10:05 | MHIPNPDOC ---
[facility] Progress Note Progress Note Date of Service: 02/19/2019 History of Present Illness The patient a 30-year-old female presents again shortly after being discharged from the unit. She reports that she had done quite well after leaving the unit with a positive outlook. However, she had notable problems on the day of her reported overdose. She reported waking up on that day feeling anxious and hopeless that was resistant to her falling asleep again. She reports that she was generally unable to attend to her sudden sense of impulsivity and reports that she took an overdose of Tylenol and several other medications and then subsequently sought care from her assertive outpatient team that had coincidentally an appointment that very same day. She was brought to the ER and evaluated and subsequently admitted. However, reviewing the integrated healthcare notes from [facility], it appears that the patient's Tylenol was very low, even subtherapeutic, suggesting that the events described by the patient were unlikely to be accurate. The patient reports that her depression appears to generally be controlled, but she still struggles with hopelessness and impulsivity. Interval History The patient is met with today and she describes that she is feeling much improved. She does report some initial sleepiness in the morning, but that she no longer has any suicidal or self-harm thoughts. She has been much more engaged in the unit, much more applicable and social per nursing. Review Of Systems Denies any side effects of medication such as constipation, tremors, or GI upset. Psychotherapy None on this visit. Vital Signs Reviewed. Mental Status Examination General: Well dressed with good hygiene Speech: Spontaneous and fluid Thought processes: Linear and logical MSK: Smooth and coordinated gait, no signs of tremors or involuntary orofacial movements Thought content: Future orientated Abstract reasoning, and computation: Intact Description of associations: Intact Description of abnormal or psychotic thoughts: Denies any suicidal or homicidal ideation. Denies any auditory or visual hallucinations. Does not appear to be responding to internal stimuli. Does not appear to be endorsing any bizarre or paranoid ideation. Judgment: fair Insight: fair Orientation: Alert and orientated 3 Cognition: Grossly normal Recent and remote memory: Intact Attention span and concentration: Intact Fund of knowledge: Adequate Mood: "okay" Affect: Euthymic with a full range Diagnoses Unspecified depressive disorder Borderline personality disorder Unspecified trauma/stressor related disorder Assessment and Plan The patient appears to making good improvement on Clozaril and thus will be increased to 75 mg daily. Continue Effexor 150 mg, Minipress 2 mg and as needed Ativan low-dose for sleep. Patient will likely be ready for discharge on Friday. No need for long-term treatment as her improvement is doing well with consistent improvement. Disposition Needs a further inpatient admission in order to continue to titrate the medication and plan for an ideally safe and effective discharge. Time Spent 15 minutes [id number]. Friday Vital Signs Vital Signs Date Time Temp Pulse Resp B/P (MAP) Pulse Ox O2 Delivery O2 Flow Rate FiO2 02/19/19 06:43 98.1 85 16 140/87 (104) 02/18/19 08:14 Room Air Laboratory Data 24H Labs Laboratory Tests 2 02/19/19 06:37: White Blood Count 11.7H, Red Blood Count 4.30, Hemoglobin 12.0, Hematocrit 37.8, Mean Corpuscular Volume 87.9, Mean Corpuscular Hemoglobin 27.9, Mean Corpuscular Hemoglobin Concent 31.7L, Red Cell Distribution Width 16.9H, Platelet Count 212, Lymphocytes # (Auto) , Nucleated Red Blood Cells % (auto) 0.0, Neutrophils 36, Lymphocytes (Manual) 49, Monocytes (Manual) 7, Eosinophils (Manual) 5, Atypical Lymphocytes 3, Platelet Estimate NORMAL, Polychromasia 1+, Anisocytosis 1+, Macrocytosis 1+ CBC/BMP Laboratory Tests 02/19/19 06:37 Red Blood Count 4.30, Mean Corpuscular Volume 87.9, Mean Corpuscular Hemoglobin 27.9, Mean Corpuscular Hemoglobin Concent 31.7 L, Red Cell Distribution Width 16.9 H, Lymphocytes # (Auto) Current Medications Current Medications Medications (Trade) Dose Ordered Sig/Castro Route PRN Reason Start Time Stop Time Status Last Admin Dose Admin Acetaminophen (Tylenol Tab) 650 mg Q6HP PRN PO HEADACHE or DISCOMFORT 02/10/19 03:00 02/14/19 13:59 Al Hydrox/Mg Hydrox/Simethicone (Mylanta) 30 ml Q4HP PRN PO HEARTBURN/INDIGESTION 02/10/19 03:00 02/12/19 12:33 Albuterol Sulfate (Proventil, Ventolin Hfa) 2 puff Q4H PRN INH SHORTNESS OF BREATH 02/10/19 08:45 Ascorbic Acid (Vitamin C) 500 mg DAILY PO 02/10/19 09:00 02/19/19 09:03 Brexpiprazole (Rexulti) 2 mg DAILY PO 02/10/19 09:00 02/10/19 13:24 DC 02/10/19 10:22 Buspirone HCl (Buspar) 15 mg BID PO 02/10/19 09:00 02/10/19 13:24 DC 02/10/19 10:17 Clozapine (Clozaril) 25 mg QHS PO 02/16/19 21:00 02/18/19 16:18 DC 02/17/19 20:05 Clozapine (Clozaril) 50 mg QHS PO 02/18/19 21:00 02/18/19 20:36 Doxepin HCl (SINEquan) 10 mg QHS PO 02/10/19 21:00 02/10/19 21:00 DC Ferrous Sulfate (Ferrous Sulfate) 325 mg DAILY PO 02/10/19 09:00 02/19/19 09:03 Fexofenadine HCl (Essie) 180 mg DAILY PO 02/10/19 09:00 02/19/19 09:02 Fluticasone Propionate (Flonase 0.05% Nasal [place]) 1 SPRAY IN EACH NOSTRIL DAILY PRN NA NASAL CONGESTION 02/10/19 09:00 Fluticasone Propionate (Flonase 0.05% Nasal [place]) 1 spray DAILY PRN NA NASAL CONGESTION 02/10/19 08:45 02/10/19 08:59 DC Gabapentin (Neurontin) 400 mg TID PO 02/10/19 16:00 02/19/19 09:03 Gabapentin (Neurontin) 600 mg TID PO 02/10/19 09:00 02/10/19 13:25 DC 02/10/19 10:18 Gemfibrozil (Lopid) 600 mg BID@0800,1800 PO 02/10/19 08:00 02/19/19 07:32 Home Med (Med Rec Complete!) ASDIRECTED XX 02/10/19 03:30 02/10/19 03:30 DC Ibuprofen (Advil) 800 mg Q6HP PRN PO PAIN SCALE 6-10 02/13/19 21:30 02/17/19 14:30 Lactobacillus Acidophilus (Bacid) 1 ea DAILY PO 02/10/19 09:00 02/19/19 09:02 Levothyroxine Sodium (Synthroid) 50 mcg DAILY@0600 PO 02/10/19 06:00 02/19/19 06:09 [place] Carbonate ([place] Carbonate) 300 mg QHS PO 02/10/19 21:00 02/10/19 21:00 DC Lorazepam (Ativan) 0.25 mg QHSP PRN PO ANXIETY 02/17/19 11:45 Lorazepam (Ativan) 0.5 mg QHSP PRN PO ANXIETY 02/15/19 15:45 02/17/19 11:43 DC 02/16/19 21:15 Magnesium Hydroxide (Milk Of Magnesia) 30 ml DAILYPRN PRN PO CONSTIPATION 02/10/19 03:00 Miscellaneous (Unresolved Patient Own Med Order) SEE LABEL COMMENTS DAILY XX 02/18/19 09:00 02/18/19 18:57 DC Montelukast Sodium (Singulair) 10 mg QHS PO 02/10/19 21:00 02/18/19 20:35 Multivitamins (Theragram-M) 1 tab DAILY PO 02/10/19 09:00 02/19/19 09:03 Olanzapine (ZyPREXA ZYDIS) 5 mg BIDP PRN PO anxiety/agitation 02/17/19 02:37 02/19/19 02:37 DC 02/17/19 02:47 Oxymetazoline HCl (Afrin) 2 spray BID PRN NA congestion 02/16/19 16:15 02/16/19 21:17 Pantoprazole Sodium (Protonix) 40 mg BID PO 02/10/19 09:00 02/19/19 09:03 Patient Own Medication (Patient'S Own Med) Nortrel 1-35 1 tab po daily DAILY PO 02/19/19 09:00 02/19/19 09:01 Polyethylene Glycol (Miralax) 1 pkt DAILY PRN PO CONSTIPATION 02/10/19 08:45 Pramipexole Dihydrochloride (Mirapex) 0.75 mg QHS PO 02/10/19 21:00 02/10/19 21:00 DC Prazosin HCl (Minipress) 1 mg QHS PO 02/10/19 21:00 02/11/19 16:31 DC 02/10/19 21:07 Prazosin HCl (Minipress) 2 mg QHS PO 02/11/19 21:00 02/15/19 15:35 DC 02/14/19 20:47 Prazosin HCl (Minipress) 2 mg QHS PO 02/17/19 21:00 02/18/19 20:35 Prazosin HCl (Minipress) 4 mg QHS PO 02/10/19 21:00 02/10/19 21:00 DC Prazosin HCl (Minipress) 4 mg QHS PO 02/15/19 21:00 02/17/19 11:43 DC 02/16/19 20:13 Prednisone (Deltasone) 5 mg DAILY PO 02/10/19 09:00 02/19/19 09:03 Propranolol HCl (Inderal) 10 mg Q6H PRN PO anxiety 02/17/19 13:15 Ramelteon (Rozerem) 8 mg QHS PO 02/12/19 21:00 02/17/19 11:43 DC 02/16/19 20:11 Ramelteon (Rozerem) 8 mg QHS PRN PO sleep 02/10/19 13:30 02/11/19 16:31 DC 02/10/19 21:04 Sulfasalazine (Azulfidine Entabs) 1,500 mg BID PO 02/10/19 09:00 02/19/19 09:02 Sumatriptan Succinate (Imitrex) 50 mg BID PRN PO HEADACHE 02/10/19 08:45 02/18/19 08:20 Temazepam (Restoril) 7.5 mg QHSP PRN PO sleep 02/11/19 16:45 02/12/19 21:59 DC 02/12/19 21:44 Temazepam (Restoril) 15 mg QHSP PRN PO sleep 02/12/19 22:00 02/15/19 15:35 DC 02/14/19 20:46 Topiramate (TopAMAX) 50 mg BID PO 02/10/19 09:00 02/19/19 09:03 Venlafaxine HCl (Effexor Xr) 37.5 mg DAILY PO 02/12/19 09:00 02/12/19 21:59 DC 02/12/19 08:07 Venlafaxine HCl (Effexor Xr) 75 mg DAILY PO 02/13/19 09:00 02/15/19 15:35 DC 02/15/19 08:36 Venlafaxine HCl (Effexor Xr) 112.5 mg DAILY PO 02/16/19 09:00 02/17/19 11:43 DC 02/17/19 09:07 Venlafaxine HCl (Effexor Xr) 150 mg DAILY PO 02/18/19 09:00 02/19/19 09:03 Allergies Coded Allergies: modafinil (Verified Allergy, Severe, throat swells, 02/10/19) zolpidem (Verified Allergy, Severe, rash/difficulty breathing, 02/10/19) bupivacaine (Verified Allergy, Intermediate, 02/10/19) naproxen (Verified Allergy, Intermediate, rash (takes ibuprofen and meloxicam at home), 02/10/19) tramadol (Verified Allergy, Unknown, rash, 02/10/19) trazodone (Verified Adverse Reaction, Intermediate, increased patient's depression, 02/10/19) JOSE HATCH DO Feb 19, 2019 10:05
[2019-02-19] MEDS: SUMAtriptan SUCCINATE 25 MG TAB PO PRN (11:37)
[2019-02-19 18:08] VITALS: BP 136/67
[2019-02-19] MEDS: IBUPROFEN 800 MG TAB PO PRN (20:06)
--- NOTE | 2019-02-19 20:53 | REPVR ---
EXAM: CT Head Without Contrast EXAM DATE/TIME: 02/19/2019 8:16 PM CLINICAL HISTORY: 38 years old, female; Injury or trauma; Fall; Initial encounter; Blunt trauma (contusions or hematomas); Consciousness not specified; Additional info: S/P fall TECHNIQUE: Imaging protocol: Computed tomography images of the head without contrast. Radiation optimization: All CT scans at this facility use at least one of these dose optimization techniques: automated exposure control; mA and/or kV adjustment per patient size (includes targeted exams where dose is matched to clinical indication); or iterative reconstruction. COMPARISON: CT Head without contrast 02/04/2019 10:46 PM FINDINGS: Brain: Normal. No hemorrhage. Unremarkable white matter. No mass effect. Ventricles: Normal. No ventriculomegaly. Bones/joints: There is hyperostosis frontalis interna. Sinuses: Visualized sinuses are unremarkable. No fluid levels. Mastoid air cells: Visualized mastoid air cells are well aerated. No mastoid effusion. Soft tissues: Unremarkable. IMPRESSION: No acute findings. No interval change. Electronically signed by: Lamine Cavanaugh On 02/19/2019 20:53:19 PM
[2019-02-19 21:29] VITALS: BP 142/98
[2019-02-19] MEDS: MONTELUKAST 10 MG TAB PO SCH (21:41)
[2019-02-19] MEDS: cloZAPine 25 MG TAB (S0136) PO SCH (21:41)
[2019-02-19] MEDS: PRAZOSIN 1 MG CAP PO SCH (21:42)
[2019-02-19] MEDS: LORazepam 0.5 MG TAB PO PRN (21:43)
--- NOTE | 2019-02-19 22:05 | REPVR ---
EXAM: XR Bilateral Ribs with PA Chest, 4 Views EXAM DATE/TIME: 02/19/19 (8:46pm) CLINICAL HISTORY: 38 year old female. Injury or trauma. Recent fall. Initial encounter. Bilateral rib area. Abrasion. TECHNIQUE: Imaging protocol: XR Bilateral ribs 4 views with PA chest COMPARISON: Chest films of 02/11/19 FINDINGS: Lungs: Unremarkable. No consolidation. Pleural space: Unremarkable. No pleural effusions. No pneumothorax. Heart/Mediastinum: Unremarkable. No cardiomegaly. Bones/joints: Unremarkable. The ribs are intact, bilaterally. IMPRESSION: No acute findings. Clear lung masterson. The ribs are intact, bilaterally. Electronically signed by: Elise Owens On 02/19/2019 22:05:04 PM
--- NOTE | 2019-02-19 22:08 | REPVR ---
EXAM: XR Thoracic Spine, 2 Views EXAM DATE/TIME: 02/19/19 (8:40pm) CLINICAL HISTORY: 38 year old female. Recent fall. Abrasion. Trauma. TECHNIQUE: Imaging protocol: XR of the thoracic spine, 2 views COMPARISON: Thoracic spine plain films of 09/17/17 FINDINGS: Vertebrae: Unremarkable. No acute fracture. Suggestion of very mild dextroscoliosis of the mid and lower thoracic spine (similar appearance in September 2017). Soft tissues: Unremarkable. IMPRESSION: No acute traumatic pathology. A similar appearance was noted in September 2017. Electronically signed by: Elise Owens On 02/19/2019 22:08:17 PM
--- NOTE | 2019-02-19 22:20 | REPVR ---
EXAM: XR Lumbosacral Spine, 2 or 3 Views EXAM DATE/TIME: 02/19/19 (8:43pm) CLINICAL HISTORY: 38 year old female. Recent fall. Abrasion. Initial encounter. TECHNIQUE: Imaging protocol: XR of the lumbosacral spine, 2 views COMPARISON: SPINE LUMBOSACRAL PARTIAL of 12/31/17 FINDINGS: Vertebrae: Unremarkable. No acute fracture. Normal alignment. Soft tissues: Unremarkable. Other findings: Previous cholecystectomy. IMPRESSION: Unremarkable radiographs of the lumbar spine.. Electronically signed by: Elise Owens On 02/19/2019 22:20:42 PM
--- NOTE | 2019-02-19 22:24 | REPVR ---
EXAM: XR Cervical Spine, 2 or 3 Views EXAM DATE/TIME: 02/19/19 (8:27pm) CLINICAL HISTORY: 38 year old female. Recent fall. Initial encounter. Abrasion. TECHNIQUE: Imaging protocol: XR of the cervical spine, 2 or 3 views COMPARISON: No relevant prior studies available. FINDINGS: Vertebrae: Unremarkable. No acute fracture. Normal alignment. Soft tissues: Unremarkable. IMPRESSION: Unremarkable radiographs of the cervical spine. Electronically signed by: Elise Owens On 02/19/2019 22:24:05 PM
[2019-02-20] MEDS: LEVOTHYROXINE 50MCG TABLET (0.05MG) PO SCH (06:06)
[2019-02-20 06:45] VITALS: BP 157/88
[2019-02-20] MEDS: FEXOFENADINE 60 MG TAB PO SCH (08:18)
[2019-02-20] MEDS: MULTIVITAMINS/MINERALS THERAP 1 TAB PO SCH (08:18)
[2019-02-20] MEDS: VENLAFAXINE **XR** 75MG CAPSULE PO SCH (08:18)
[2019-02-20] MEDS: FERROUS SULFATE 325MG TAB PO SCH (08:18)
[2019-02-20] MEDS: TOPIRAMATE (TopAMAX) 25 MG TAB PO SCH ×2 (08:18→21:13)
[2019-02-20] MEDS: sulfaSALAzine 500 MG TABEC PO SCH ×2 (08:18→21:12)
[2019-02-20] MEDS: GABAPENTIN 400 MG CAP PO SCH ×3 (08:18→21:13)
[2019-02-20] MEDS: LACTOBACILLUS ACIDOPHILUS CAP (BACID) PO SCH (08:18)
[2019-02-20] MEDS: IBUPROFEN 800 MG TAB PO PRN (08:19)
[2019-02-20] MEDS: PANTOPRAZOLE 40MG TAB (PROTONIX) PO SCH ×2 (08:19→21:13)
[2019-02-20] MEDS: predniSONE 5 MG TAB PO SCH (08:19)
[2019-02-20] MEDS: ASCORBIC ACID 500 MG TAB PO SCH (08:19)
[2019-02-20] MEDS: NORTREL PO SCH (08:20)
[2019-02-20] MEDS: GEMFIBROZIL 600 MG TAB PO SCH ×2 (08:22→17:10)
[2019-02-20] MEDS: MAALOX 30 ML SUSP *UDC PO PRN (13:18)
[2019-02-20] MEDS: SUMAtriptan SUCCINATE 25 MG TAB PO PRN (16:56)
[2019-02-20 18:00] VITALS: BP 140/88
[2019-02-20] MEDS: LORazepam 0.5 MG TAB PO PRN (21:08)
[2019-02-20] MEDS: MONTELUKAST 10 MG TAB PO SCH (21:13)
[2019-02-20] MEDS: cloZAPine 25 MG TAB (S0136) PO SCH (21:14)
[2019-02-20] MEDS: PRAZOSIN 1 MG CAP PO SCH (21:14)
[2019-02-21] MEDS: LEVOTHYROXINE 50MCG TABLET (0.05MG) PO SCH (05:45)
[2019-02-21 06:35] VITALS: BP 155/88
[2019-02-21] MEDS ORDERED: diphenhydrAMINE 50 MG CAP PO ONE (07:15)
[2019-02-21] MEDS: LACTOBACILLUS ACIDOPHILUS CAP (BACID) PO SCH (08:17)
[2019-02-21] MEDS: NORTREL PO SCH (08:17)
[2019-02-21] MEDS: sulfaSALAzine 500 MG TABEC PO SCH ×2 (08:18→20:16)
[2019-02-21] MEDS: FEXOFENADINE 60 MG TAB PO SCH (08:18)
[2019-02-21] MEDS: ASCORBIC ACID 500 MG TAB PO SCH (08:18)
[2019-02-21] MEDS: PANTOPRAZOLE 40MG TAB (PROTONIX) PO SCH ×2 (08:18→20:16)
[2019-02-21] MEDS: MULTIVITAMINS/MINERALS THERAP 1 TAB PO SCH (08:18)
[2019-02-21] MEDS: VENLAFAXINE **XR** 75MG CAPSULE PO SCH (08:18)
[2019-02-21] MEDS: GEMFIBROZIL 600 MG TAB PO SCH ×2 (08:18→17:17)
[2019-02-21] MEDS: FERROUS SULFATE 325MG TAB PO SCH (08:19)
[2019-02-21] MEDS: GABAPENTIN 400 MG CAP PO SCH ×3 (08:19→20:17)
[2019-02-21] MEDS: predniSONE 5 MG TAB PO SCH (08:19)
[2019-02-21] MEDS: TOPIRAMATE (TopAMAX) 25 MG TAB PO SCH ×2 (08:19→20:17)
[2019-02-21 18:00] VITALS: BP 146/96
[2019-02-21 20:15] VITALS: BP 162/106
[2019-02-21] MEDS: MONTELUKAST 10 MG TAB PO SCH (20:16)
[2019-02-21] MEDS: PRAZOSIN 1 MG CAP PO SCH (20:16)
[2019-02-21] MEDS: cloZAPine 25 MG TAB (S0136) PO SCH (20:16)
[2019-02-21] MEDS: IBUPROFEN 800 MG TAB PO PRN (20:17)
[2019-02-21] MEDS: MAALOX 30 ML SUSP *UDC PO PRN (21:42)
[2019-02-21] MEDS: ACETAMINOPHEN TAB 650MG DOSE (2X325MG) PO PRN (21:43)
[2019-02-21 23:09] VITALS: BP 126/86
[2019-02-22] MEDS: LEVOTHYROXINE 50MCG TABLET (0.05MG) PO SCH (05:27)
[2019-02-22 06:47] VITALS: BP 102/65
[2019-02-22] MEDS: PANTOPRAZOLE 40MG TAB (PROTONIX) PO SCH (08:37)
[2019-02-22] MEDS: MULTIVITAMINS/MINERALS THERAP 1 TAB PO SCH (08:37)
[2019-02-22] MEDS: VENLAFAXINE **XR** 75MG CAPSULE PO SCH (08:37)
[2019-02-22] MEDS: GABAPENTIN 400 MG CAP PO SCH (08:37)
[2019-02-22] MEDS: FERROUS SULFATE 325MG TAB PO SCH (08:37)
[2019-02-22] MEDS: LACTOBACILLUS ACIDOPHILUS CAP (BACID) PO SCH (08:37)
[2019-02-22] MEDS: TOPIRAMATE (TopAMAX) 25 MG TAB PO SCH (08:37)
[2019-02-22] MEDS: NORTREL PO SCH (08:38)
[2019-02-22] MEDS: ASCORBIC ACID 500 MG TAB PO SCH (08:38)
[2019-02-22] MEDS: predniSONE 5 MG TAB PO SCH (08:38)
[2019-02-22] MEDS: sulfaSALAzine 500 MG TABEC PO SCH (08:38)
[2019-02-22] MEDS: FEXOFENADINE 60 MG TAB PO SCH (08:38)
[2019-02-22] MEDS: GEMFIBROZIL 600 MG TAB PO SCH (08:38)
[2019-02-22] MEDS ORDERED: CLOZ25TA3 PO (09:30)
[2019-02-22] MEDS ORDERED: GABA-845 PO (09:30)
[2019-02-22] MEDS ORDERED: VENL150C43 PO (09:30)
[2019-02-22] MEDS ORDERED: MINI1CAP PO (09:30)
--- NOTE | 2019-02-22 11:08 | MHDSPDOC ---
[facility] Discharge Summary Discharge Summary DATE OF ADMISSION: Feb 10, 2019 at 02:56 DATE OF DISCHARGE: 02/22/19 Date of Service: 02/22/2019 Diagnoses Unspecified depressive disorder. Borderline personality disorder. Unspecified trauma/stressor-related disorder. History of Present Illness The patient a 30-year-old female presents again shortly after being discharged from the unit. She reports that she had done quite well after leaving the unit with a positive outlook. However, she had notable problems on the day of her reported overdose. She reported waking up on that day feeling anxious and h opeless that was resistant to her falling asleep again. She reports that she was generally unable to attend to her sudden sense of impulsivity and reports that she took an overdose of Tylenol and several other medications and then subsequently sought care from her assertive outpatient team that had coincidentally an appointment that very same day. She was brought to the ER and evaluated and subsequently admitted. However, reviewing the integrated healthcare notes from [facility], it appears that the patient's Tylenol was very low, even subtherapeutic, suggesting that the events described by the patient were unlikely to be accurate. The patient reports that her depression appears to generally be controlled, but she still struggles with hopelessness and impulsivity. Consultants Involved Hospitalist/PCP screening Patient was seen for various somatic complaints and was found to have no chest pain related to MS or dizziness that resulted in falls needing medical care. Treatment and Progress On The Unit The patient was admitted to the unit shortly after her reported overdose. The review of the Tylenol levels upon her admission indicated that the patient was unlikely to have engaged in the intense overdose that she had claimed as her Tylenol level was still fairly low, which was in direct contradiction to her reported overdose of at least 5 mg of Tylenol in addition to muscle relaxers and other medications. The patient was interviewed and assessed. She describes still having some very mild depression, but had acted fairly impulsively. She described that overall prior to her admission she had done well, but that she had a sudden change in her anxiety and subsequently engaged in overdose. The patient was engaged in a med washout where she was taken off all of her psychiatric medications and observed. She was subsequently titrated on Effexor up to 150 mg daily. Additionally, she was tried on multiple sleep medications including Rozerem, Ativan, temazepam, all of which were ineffective for her sleep. Subsequently, after discussing with the patient it was clear that her borderline personality disorder and depression were fairly treatment-resistant and she's failed a number different agents including lithium. After long discussion with the patient as well as a thorough discussion of risks, benefits and potential side effects the patient elected to start on clozapine 25 mg tapered up to 75 mg prior to discharge. She made fairly good improvement, although she would intermittently endorse depression or self-harm thoughts. These generally became much less problematic on the unit and the patient was noted to make strong improvements where she was engaging in groups and became much more affable, gregarious and talkative. She appeared to continue to endorse a dependence on staff and would claim depressed mood on the unit, however, it was noted that she was, among her peers, fairly social and generally made strong improvements taking care of herself and doing generally well. It was discussed with patient that the combination of sulfasalazine and clozapine could be an issue. However, her ANC on the unit were all within normal range. The patient reported the she had felt better and tolerated the medications well. She subsequently stabilized with several days of no self-harm thoughts and roughly a week of no suicidal thoughts and subsequently was triaged for discharge as she had originally been thought to need long-term clozapine appeared to advert that with strong improvements in her mood and ability to socialize as well as her ability attend to her needs on the unit. She additionally was noted to need much less medications in order to sleep due to the clozapine sedating effect. Discharge Assessment 30-year-old woman with a history of borderline personality disorder, depression and a trauma disorder presents with a reported overdose. Quickly after being admitted after a medication washout, she's tried on clozapine as an off-label treatment that has performed in small studies with borderline patients and self- harm. She made surprisingly strong improvement in her socialization, mood, fatigue and levels of interest so much so that she averted a long-term admission to [place]. Her borderline personality disorder likely makes it difficult for her to socialize well and that focus on her ability to socialize and develop independence will be dodson to a effective discharge. Mental Status Examination General: Well dressed with good hygiene Speech: Spontaneous and fluid Thought processes: Linear and logical MSK: Smooth and coordinated gait, no signs of tremors or involuntary orofacial movements Thought content: Future orientated Abstract reasoning, and computation: Intact Description of associations: Intact Description of abnormal or psychotic thoughts: Denies any suicidal or homicidal ideation. Denies any auditory or visual hallucinations. Does not appear to be responding to internal stimuli. Does not appear to be endorsing any bizarre or paranoid ideation. Judgment: fair Insight: fair Orientation: Alert and orientated 3 Cognition: Grossly normal Recent and remote memory: Intact Attention span and concentration: Intact Fund of knowledge: Adequate Mood: "okay" Affect: Euthymic with a full range Follow Up The social work team worked during the predischarge meeting in order to evaluate for further issues of lethality address them fully before discharge. They worked on safety planning with the patient's family members in order to ensure that the patient will have a safe and effective discharge. I additionally called the patient's pharmacy and cancelled out the majority of her dangerous medications and sent refills of her medications with 7 days supplies in order to remove the threat of overdose. Additionally, social work spoke to the patient's mother who will remove the excess medications from the patient's room in order to remove the potentiality of overdose in the future. Time Spent The amount of time spent in the coordination of care for this patient was approximately 30 minutes. Friday Vital Signs/I&Os Vital Signs Date Time Temp Pulse Resp B/P (MAP) Pulse Ox O2 Delivery O2 Flow Rate FiO2 02/22/19 06:47 98.5 75 16 102/65 (77) 02/18/19 08:14 Room Air Medications Scheduled Ascorbic Acid (Ascorbic Acid) 500 Mg Tablet, 500 MG PO DAILY, (Reported) Calcium/Magnesium/Vitamin D3 (Bacilio-Mag Complex 300-150 mg Tab) 1 Each Tablet, 1 TAB PO DAILY, (Reported) Cholecalciferol (Vitamin D3) (Vitamin D3) 50,000 Unit Capsule, 50,000 UNIT PO 1XWK, (Reported) FRIDAY MORNINGS Clozapine (Clozapine) 25 Mg Tablet, 75 MG PO QHS for mood for 7 Days, #21 Etanercept (Enbrel Sureclick) 50 Mg/1 Ml Pen.injctr, 50 MG SC 1XWK, (Reported) FRIDAY MORNINGS Ferrous Sulfate (Ferrous Sulfate) 325 Mg Tab, 325 MG PO DAILY, (Reported) Fexofenadine HCl (Essie Allergy) 180 Mg Tablet, 180 MG PO DAILY, (Reported) Gabapentin (Gabapentin) 400 Mg Capsule, 400 MG PO TID for pain/anxiety for 7 Days, #21 Gemfibrozil (Gemfibrozil) 600 Mg Tab, 600 MG PO BID, (Reported) Gluc Dyer/Chondro Dyer A/Vit C/Mn (Glucosamine Chondroitin Tab) 1 Each Tablet, 1 TAB PO DAILY, (Reported) L.acidoph/L.bulg/B.bif/S.therm (Bacid Caplet) 1 Each Tablet, 1 TAB PO DAILY, (Reported) Levothyroxine Sodium (Levothyroxine Sodium) 50 Mcg Tab, 50 MCG PO DAILY, (Reported) Magnesium Oxide (Magnesium) 400 Mg Cap, 400 MG PO BID, (Reported) Menthol (Bengay) 5 % Gel, 1 DOSE TOP QHS, (Reported) APPLIES TO KNEES AND LOWER BACK Montelukast Sodium (Montelukast Sodium) 10 Mg Tab, 10 MG PO QHS, (Reported) Multivitamins (Thera M Plus Tablet) 1 Tab Tab, 1 TAB PO DAILY, (Reported) Norethindrone-Ethinyl Estrad (Nortrel 1-35 28 Tablet) 1 Each Tablet, 1 EACH PO DAILY, (Reported) Pantoprazole Sodium (Pantoprazole Sodium) 40 Mg Tab, 40 MG PO BID, (Reported) Prazosin HCl (Minipress) 1 Mg Capsule, 2 MG PO QHS for nightmares for 7 Days, #14 Sulfasalazine (Sulfasalazine Dr) 500 Mg Tabec, 1,500 MG PO BID, (Reported) Topiramate (Topiramate) 50 Mg Tablet, 50 MG PO BID, (Reported) Trospium Chloride (Trospium Chloride ER) 60 Mg Cap.er.24h, 60 MG PO DAILY, (Reported) Venlafaxine HCl (Venlafaxine HCl ER) 150 Mg Cap.er.24h, 1 CAP PO DAILY for mood for 7 Days, #7 Vitamin B Complex (Vitamin B Complex) 1 Tab Tab, 1 TAB PO DAILY, (Reported) [Lab] 1 UNITS, 1 UNIT ONCE for clozapine monitoring for 1 Days, #1 CBC with differential Scheduled PRN Albuterol Sulfate (Proventil Hfa) 108 Mcg/Act Aer, 2 PUFF INH Q4H PRN for SHORTNESS OF BREATH, (Reported) Fluticasone Propionate (Flonase Allergy Relief) 50 Mcg/Act Spr, 1 SPRAY NA DAILY PRN for NASAL CONGESTION, (Reported) Meloxicam (Mobic) 7.5 Mg Tablet, 7.5 MG PO DAILY PRN for PAIN, (Reported) WITH FOOD Ondansetron (Ondansetron Odt) 4 Mg Tab.rapdis, 4 MG PO TID PRN for NAUSEA, (Reported) Polyethylene Glycol 3350 (Miralax) 1 Pow Pow, 17 GM PO DAILY PRN for CONSTIPATION, (Reported) Sumatriptan Succinate (Sumatriptan Succinate) 50 Mg Tab, 50 MG PO BID PRN for HEADACHE, (Reported) Allergies Coded Allergies: modafinil (Verified Allergy, Severe, throat swells, 02/10/19) zolpidem (Verified Allergy, Severe, rash/difficulty breathing, 02/10/19) bupivacaine (Verified Allergy, Intermediate, 02/10/19) naproxen (Verified Allergy, Intermediate, rash (takes ibuprofen and meloxicam at home), 02/10/19) tramadol (Verified Allergy, Unknown, rash, 02/10/19) trazodone (Verified Adverse Reaction, Intermediate, increased patient's depression, 02/10/19) JOSE HATCH DO Feb 22, 2019 11:08
[2019-02-22] MEDS ORDERED: LAB (11:24)
== END 2019-02-22 11:28 | disposition home or self-care (01) | DRG 754 ==
LOC: M ED 01:43 → M ED INP 02:56 → M PSY 04:09
PROVIDERS: ADMIT Psychiatry & Neurology Psychiatry; ATTEND Psychiatry & Neurology Addiction Medicine
DX: F32.9 Major depressive disorder, single episode, unspecified (principal); F60.3 Borderline personality disorder; F43.10 Post-traumatic stress disorder, unspecified; Z79.899 Other long term (current) drug therapy; Z88.8 Allergy status to other drugs, medicaments and biological substances; D72.829 Elevated white blood cell count, unspecified; G40.909 Epilepsy, unspecified, not intractable, without status epilepticus; E11.9 Type 2 diabetes mellitus without complications; M54.5 Low back pain; E03.9 Hypothyroidism, unspecified; K21.9 Gastro-esophageal reflux disease without esophagitis; E78.5 Hyperlipidemia, unspecified; E66.01 Morbid (severe) obesity due to excess calories; I10 Essential (primary) hypertension; J45.909 Unspecified asthma, uncomplicated; M06.9 Rheumatoid arthritis, unspecified; G43.909 Migraine, unspecified, not intractable, without status migrainosus; K59.00 Constipation, unspecified; Z90.81 Acquired absence of spleen

== ENCOUNTER 2019-03-17 12:20 | Emergency (ER) | payer OTHER ==
[~2019-03-17] VITALS: Ht 170.2 cm; Wt 142.3 kg
[~2019-03-17 12:20] MED LIST changes: +CLOZ25TA3 PO; +DIPH25CA32 PO; +GABA-845 PO; +LAB; +METF-791 PO; -METF500T4 PO; +MINI1CAP PO; +PROV108A INH
[2019-03-17] MEDS ORDERED: MAGN400C2 PO (13:00)
[2019-03-17] MEDS ORDERED: PRAZ2CAP PO (13:00)
[2019-03-17] MEDS ORDERED: LITH300C PO (13:00)
[2019-03-17] MEDS ORDERED: NS 1,000 ML IV ONE (13:15)
[2019-03-17] MEDS ORDERED: ACETAMINOPHEN 325 MG TAB PO ONE (13:15)
[2019-03-17 13:41] LABS: BASO # 0.1 10^3/uL (0.0-0.2); BASO % 0.9 % (0.0-1.0); EOS # 1.1 10^3/uL (0.0-0.5); EOS % 9.4 % (0.0-3.0); HEMATOCRIT 35.3 % (36.0-47.0); HEMOGLOBIN 11.2 g/dl (12.0-15.5); LYMPH # 3.3 10^3/uL (1.5-5.0); MEAN CORPUSCULAR HEMOGLOBIN 28.1 pg (27.0-33.0); MEAN CORPUSCULAR HGB CONC 31.7 g/dl (32.0-36.5); MEAN CORPUSCULAR VOLUME 88.5 fl (80.0-96.0); MONO # 1.2 10^3/uL (0.0-0.8); MONO % 10.4 % (0.0-5.0); NEUTROPHILS # 5.7 10^3/uL (1.5-8.5); NEUTROPHILS % 49.9 % (36.0-66.0); PLATELET COUNT, AUTOMATED 240 10^3/uL (150-450); RED BLOOD COUNT 3.99 10^6/uL (4.00-5.40); WHITE BLOOD COUNT 11.4 10^3/uL (4.0-10.0)
[2019-03-17] MEDS ORDERED: METOCLOPRAMIDE INJ 10MG/2ML VIAL (J2765) IV ONE (14:00)
[2019-03-17 14:11] LABS: BLOOD UREA NITROGEN 14 MG/DL (7-18); CALCIUM LEVEL 9.1 MG/DL (8.5-10.1); CARBON DIOXIDE LEVEL 21 MEQ/L (21-32); CHLORIDE LEVEL 112 MEQ/L (98-107); CK-MB VALUE MASS < 1.0 NG/ML (<3.6); CPK CREATINE PHOSPHOKINASE 66 U/L (26-192); CREATININE FOR GFR 0.67 MG/DL (0.55-1.30); GLOMERULAR FILTRATION RATE > 60.0 (>60); GLUCOSE, FASTING 108 MG/DL (70-100); MB/CK RELATIVE INDEX 1.52 (< OR =4); SODIUM LEVEL 140 MEQ/L (136-145); TROPONIN I < 0.02 NG/ML (< 0.10)
[2019-03-17 14:18] LABS: ALBUMIN 3.1 GM/DL (3.2-5.2); ALT/SGPT 22 U/L (12-78); AMYLASE 37 U/L (25-115); BILIRUBIN,DIRECT < 0.1 MG/DL (0.0-0.2); BILIRUBIN,TOTAL 0.3 MG/DL (0.2-1.0); CK-MB VALUE MASS < 1.0 NG/ML (<3.6); CPK CREATINE PHOSPHOKINASE 87 U/L (26-192); LIPASE 183 U/L (73-393); MB/CK RELATIVE INDEX 1.15 (< OR =4); TOTAL PROTEIN 6.6 GM/DL (6.4-8.2); TROPONIN I < 0.02 NG/ML (< 0.10)
[2019-03-17 15:30] VITALS: BP 112/54
[2019-03-17] MEDS ORDERED: ZOFR4TAB16 PO (15:30)
--- NOTE | 2019-03-17 20:23 | ECGEPIP ---
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
== END 2019-03-17 15:45 | disposition home or self-care (01) ==
LOC: M ED 12:20
DX: B34.9 Viral infection, unspecified (principal); R19.7 Diarrhea, unspecified; R51 Headache; I10 Essential (primary) hypertension; Z79.899 Other long term (current) drug therapy; Z88.5 Allergy status to narcotic agent; Z88.8 Allergy status to other drugs, medicaments and biological substances
CPT/HCPCS: 36415; 80048; 80076; 81001; 82150; 82550; 82553; 83690; 85025; 93005; 93041; 94760; 96361; 96374; 99285; J2765

== ENCOUNTER 2019-04-01 15:11 | Emergency (ER) | payer OTHER ==
[~2019-04-01] VITALS: Ht 167.6 cm; Wt 134.1 kg
[~2019-04-01 15:11] MED LIST changes: +ZOFR4TAB16 PO
[2019-04-01 15:56] LABS: BASO # 0.1 10^3/uL (0.0-0.2); BASO % 0.8 % (0.0-1.0); EOS # 1.3 10^3/uL (0.0-0.5); EOS % 10.3 % (0.0-3.0); HEMATOCRIT 39.7 % (36.0-47.0); HEMOGLOBIN 12.7 g/dl (12.0-15.5); LYMPH # 4.1 10^3/uL (1.5-5.0); LYMPH % 31.4 % (24.0-44.0); MEAN CORPUSCULAR HEMOGLOBIN 28.5 pg (27.0-33.0); MEAN CORPUSCULAR VOLUME 89.2 fl (80.0-96.0); MONO # 1.2 10^3/uL (0.0-0.8); MONO % 9.5 % (0.0-5.0); NEUTROPHILS # 6.2 10^3/uL (1.5-8.5); NEUTROPHILS % 47.8 % (36.0-66.0); PLATELET COUNT, AUTOMATED 289 10^3/uL (150-450); RED BLOOD COUNT 4.45 10^6/uL (4.00-5.40); WHITE BLOOD COUNT 13.1 10^3/uL (4.0-10.0)
[2019-04-01 16:29] LABS: ALBUMIN 3.8 GM/DL (3.2-5.2); ALT/SGPT 39 U/L (12-78); BILIRUBIN,DIRECT < 0.1 MG/DL (0.0-0.2); BILIRUBIN,TOTAL 0.2 MG/DL (0.2-1.0); BLOOD UREA NITROGEN 12 MG/DL (7-18); CALCIUM LEVEL 9.7 MG/DL (8.5-10.1); CARBON DIOXIDE LEVEL 21 MEQ/L (21-32); CHLORIDE LEVEL 113 MEQ/L (98-107); CREATININE FOR GFR 0.82 MG/DL (0.55-1.30); GLOMERULAR FILTRATION RATE > 60.0 (>60); GLUCOSE, FASTING 100 MG/DL (70-100); LIPASE 227 U/L (73-393); POTASSIUM SERUM 3.7 MEQ/L (3.5-5.1); SODIUM LEVEL 144 MEQ/L (136-145); TOTAL PROTEIN 7.5 GM/DL (6.4-8.2)
[2019-04-01] MEDS ORDERED: ISOVUE-370 76% 100ML VIAL (Q9967) As Ordered ONE (17:09)
[2019-04-01] MEDS ORDERED: ONDANSETRON 4MG/2ML VIAL (J2405) IV ONE (17:15)
[2019-04-01] MEDS ORDERED: NS 1,000 ML IV ONE (17:15)
[2019-04-01] MEDS ORDERED: KETOROLAC 30 MG/ML VIAL (J1885) IV ONE (17:15)
[2019-04-01 18:41] VITALS: BP 134/80
--- NOTE | 2019-04-01 20:26 | REPVR ---
PROCEDURE INFORMATION: Exam: CT Abdomen and Pelvis With Contrast Exam date and time: 04/01/2019 7:29 PM Clinical history: 38 years old, female; Abdominal pain; Localized; Left lower quadrant (llq); Additional info: Llq pain TECHNIQUE: Imaging protocol: Computed tomography of the abdomen and pelvis with intravenous contrast. Radiation optimization: All CT scans at this facility use at least one of these dose optimization techniques: automated exposure control; mA and/or kV adjustment per patient size (includes targeted exams where dose is matched to clinical indication); or iterative reconstruction. Contrast material: ISOVUE 370; Contrast volume: 100 ml; Contrast route: IV; COMPARISON: CT ABD/PEL W/IV CONTRAST ONLY 01/04/2019 2:17 PM FINDINGS: Liver: Normal. No mass. Gallbladder and bile ducts: There has been a cholecystectomy. Pancreas: Normal. No ductal dilation. Spleen: This patient is status post splenectomy. No significant splenic regrowth demonstrated. Adrenals: Normal. No mass. Kidneys and ureters: Subcentimeter angiomyolipoma upper pole right kidney. 1 cm cyst lower pole right kidney. Stomach and bowel: Unremarkable. No obstruction. No mucosal thickening. Appendix: No evidence of appendicitis. Intraperitoneal space: Unremarkable. No free air. No significant fluid collection. Vasculature: Unremarkable. No abdominal aortic aneurysm. Lymph nodes: Unremarkable. No enlarged lymph nodes. Bladder: Unremarkable as visualized. Reproductive: There has been a hysterectomy. Bones/joints: Mild central spinal stenosis at L4-5. Soft tissues: Unremarkable. IMPRESSION: 1. There has been a cholecystectomy. 2. There has been a hysterectomy. 3. This patient is status post splenectomy. No significant splenic regrowth demonstrated. 4. No acute findings. COMMENT: Consistent with the [employer]'s Incidental Findings Committee Report (J Am Alis Radiol 2010): Unless the patient's specific circumstances suggest otherwise, any liver lesion 0.5 cm or less, any cystic kidney lesion less than 1.0 cm, and/or any adrenal lesion 1.0 cm or less not otherwise characterized in this report as possessing suspicious or indeterminate imaging features is/are highly likely to be benign and do not require follow-up imaging or biopsy. Electronically signed by: Lamine Cavanaugh On 04/01/2019 20:26:15 PM
== END 2019-04-01 21:02 | disposition home or self-care (01) ==
LOC: M ED 15:11
DX: R10.32 Left lower quadrant pain (principal); R19.7 Diarrhea, unspecified; J45.909 Unspecified asthma, uncomplicated; E03.9 Hypothyroidism, unspecified; D69.3 Immune thrombocytopenic purpura; F31.9 Bipolar disorder, unspecified; F43.10 Post-traumatic stress disorder, unspecified; G47.33 Obstructive sleep apnea (adult) (pediatric); G62.9 Polyneuropathy, unspecified; E66.8 Other obesity; Z79.899 Other long term (current) drug therapy; Z79.890 Hormone replacement therapy; Z88.5 Allergy status to narcotic agent; Z88.6 Allergy status to analgesic agent; Z88.8 Allergy status to other drugs, medicaments and biological substances
CPT/HCPCS: 74177; 80048; 80076; 81001; 83690; 85025; 96361; 96374; 96375; 99284; J1885; J2405; Q9967

== ENCOUNTER 2019-04-03 08:06 | Emergency (ER) | payer OTHER ==
[~2019-04-03] VITALS: Ht 167.6 cm; Wt 131.7 kg
[~2019-04-03 08:06] MED LIST changes: -GABA600T4
[2019-04-03] MEDS ORDERED: NS 1,000 ML IV ONE (08:45)
[2019-04-03] MEDS ORDERED: KETOROLAC 30 MG/ML VIAL (J1885) IV ONE (08:45)
[2019-04-03] MEDS ORDERED: ONDANSETRON 4MG/2ML VIAL (J2405) IV ONE (08:45)
[2019-04-03] MEDS ORDERED: ONDANSETRON 4 MG ORAL DISINTEGRATING TAB (Q0162 PER 1MG) PO ONE (09:45)
[2019-04-03] MEDS ORDERED: ACETAMINOPHEN 500 MG TAB PO ONE (09:45)
[2019-04-03 10:07] LABS: BASO # 0.1 10^3/uL (0.0-0.2); EOS # 1.8 10^3/uL (0.0-0.5); EOS % 18.3 % (0.0-3.0); HEMATOCRIT 40.5 % (36.0-47.0); HEMOGLOBIN 12.9 g/dl (12.0-15.5); LYMPH # 2.8 10^3/uL (1.5-5.0); LYMPH % 27.9 % (24.0-44.0); MEAN CORPUSCULAR HEMOGLOBIN 28.2 pg (27.0-33.0); MEAN CORPUSCULAR HGB CONC 31.9 g/dl (32.0-36.5); MEAN CORPUSCULAR VOLUME 88.4 fl (80.0-96.0); MONO % 10.1 % (0.0-5.0); NEUTROPHILS # 4.3 10^3/uL (1.5-8.5); NEUTROPHILS % 42.5 % (36.0-66.0); PLATELET COUNT, AUTOMATED 297 10^3/uL (150-450); RED BLOOD COUNT 4.58 10^6/uL (4.00-5.40)
[2019-04-03] MEDS ORDERED: GABA600T4 (10:14)
[2019-04-03 10:16] LABS: ALBUMIN 3.7 GM/DL (3.2-5.2); ALT/SGPT 37 U/L (12-78); AMYLASE 27 U/L (25-115); BILIRUBIN,DIRECT 0.1 MG/DL (0.0-0.2); BILIRUBIN,TOTAL 0.2 MG/DL (0.2-1.0); BLOOD UREA NITROGEN 8 MG/DL (7-18); CARBON DIOXIDE LEVEL 19 MEQ/L (21-32); CHLORIDE LEVEL 114 MEQ/L (98-107); CREATININE FOR GFR 0.75 MG/DL (0.55-1.30); GLOMERULAR FILTRATION RATE > 60.0 (>60); GLUCOSE, FASTING 96 MG/DL (70-100); LIPASE 128 U/L (73-393); SODIUM LEVEL 143 MEQ/L (136-145); TOTAL PROTEIN 7.2 GM/DL (6.4-8.2)
[2019-04-03 11:10] VITALS: BP 152/95
== END 2019-04-03 11:16 | disposition home or self-care (01) ==
LOC: M ED 08:06
DX: K58.2 Mixed irritable bowel syndrome (principal); I10 Essential (primary) hypertension; J45.909 Unspecified asthma, uncomplicated; E07.9 Disorder of thyroid, unspecified; F31.9 Bipolar disorder, unspecified; M06.9 Rheumatoid arthritis, unspecified; E78.9 Disorder of lipoprotein metabolism, unspecified; G43.909 Migraine, unspecified, not intractable, without status migrainosus; Z79.899 Other long term (current) drug therapy; Z79.890 Hormone replacement therapy; Z88.5 Allergy status to narcotic agent; Z88.6 Allergy status to analgesic agent; Z88.8 Allergy status to other drugs, medicaments and biological substances
CPT/HCPCS: 36415; 80048; 80076; 80178; 81001; 82150; 83690; 85025; 99284; Q0162

== ENCOUNTER → 2019-04-03 | Outpatient (REF) | payer OTHER ==
[~2019-04-03] MED LIST changes: +GABA600T4
== END ==
LOC: M LAB REF 07:00
PROVIDERS: ATTEND Physician Assistant
DX: R19.7 Diarrhea, unspecified (principal)

== ENCOUNTER 2019-05-13 12:57 | Emergency (ER) | payer OTHER ==
[~2019-05-13] VITALS: Ht 167.6 cm; Wt 132.1 kg
[~2019-05-13 12:57] MED LIST changes: +BOTO10VL IM; +ESTR2TAB2 PO; +GABA600T4; +HUMI40KI2 SC; +SYMB80INH INH; +TIZA4CAP PO
[2019-05-13] MEDS ORDERED: methylPREDNISolone INJ 125 MG/2 ML VIAL (J2930) IV ONE (13:30)
[2019-05-13] MEDS ORDERED: NS 1,000 ML IV ONE (13:30)
[2019-05-13] MEDS ORDERED: diphenhydrAMINE INJ 50MG/ML VIAL (J1200) IV ONE (13:30)
[2019-05-13] MEDS ORDERED: METOCLOPRAMIDE INJ 10MG/2ML VIAL (J2765) IV ONE (14:00)
[2019-05-13] MEDS ORDERED: KETOROLAC 30 MG/ML VIAL (J1885) IV ONE (14:00)
[2019-05-13 14:16] LABS: HEMATOCRIT 38.7 % (36.0-47.0); HEMOGLOBIN 11.8 g/dl (12.0-15.5); MEAN CORPUSCULAR HEMOGLOBIN 27.8 pg (27.0-33.0); MEAN CORPUSCULAR HGB CONC 30.5 g/dl (32.0-36.5); MEAN CORPUSCULAR VOLUME 91.1 fl (80.0-96.0); PLATELET COUNT, AUTOMATED 463 10^3/uL (150-450); RED BLOOD COUNT 4.25 10^6/uL (4.00-5.40); WHITE BLOOD COUNT 7.3 10^3/uL (4.0-10.0)
[2019-05-13 14:41] LABS: BLOOD UREA NITROGEN 10 MG/DL (7-18); CALCIUM LEVEL 9.4 MG/DL (8.5-10.1); CARBON DIOXIDE LEVEL 24 MEQ/L (21-32); CHLORIDE LEVEL 112 MEQ/L (98-107); CREATININE FOR GFR 0.75 MG/DL (0.55-1.30); GLOMERULAR FILTRATION RATE > 60.0 (>60); GLUCOSE, FASTING 91 MG/DL (70-100); LITHIUM LEVEL < 0.20 MEQ/L (0.60-1.20); POTASSIUM SERUM 3.9 MEQ/L (3.5-5.1); SODIUM LEVEL 143 MEQ/L (136-145)
[2019-05-13] MEDS ORDERED: ACETAMINOPHEN 500 MG TAB PO ONE (14:45)
[2019-05-13] MEDS ORDERED: MORPHINE 4 MG/ML 1ML VIAL/SYRINGE (J2270) IV ONE (15:00)
[2019-05-13] MEDS ORDERED: ONDANSETRON 4MG/2ML VIAL (J2405) IV ONE (15:00)
[2019-05-13 16:04] VITALS: BP 142/78
== END 2019-05-13 16:08 | disposition home or self-care (01) ==
LOC: M ED 12:57
DX: R51 Headache (principal); R11.0 Nausea; I10 Essential (primary) hypertension; J45.909 Unspecified asthma, uncomplicated; F32.9 Major depressive disorder, single episode, unspecified; M19.90 Unspecified osteoarthritis, unspecified site; E03.9 Hypothyroidism, unspecified; E78.5 Hyperlipidemia, unspecified; G47.30 Sleep apnea, unspecified; Z79.899 Other long term (current) drug therapy; Z88.8 Allergy status to other drugs, medicaments and biological substances; Z88.5 Allergy status to narcotic agent
CPT/HCPCS: 80048; 80178; 85027; 96361; 96374; 96375; 99284; J1200; J1885; J2270; J2405; J2765; J2930

== ENCOUNTER 2020-03-08 12:45 | Emergency (ER) | payer OTHER ==
[~2020-03-08] VITALS: Ht 170.2 cm; Wt 127.2 kg
[~2020-03-08 12:45] MED LIST changes: +CYCL-707 PO; -CYCL10TA PO; -GABA600T4; -METF-791 PO; +METF-838 PO; -MONT10TA2 PO; +MONT10TA4 PO; -OXYB10TA2 PO; +OXYB10TA23 PO; +PANT40TA29 PO; -PANT40TA3 PO; +SULF500T41 PO; -SULF50TA PO; +ZONI50CA11 PO; -ZONI50CA3 PO
--- NOTE | 2020-03-08 13:28 | REPVR ---
PROCEDURE INFORMATION: Exam: XR Chest, 1 View Exam date and time: 03/08/2020 1:01 PM Age: 39 years old Clinical indication: Pain; Chest pressure; Additional info: Chest pain TECHNIQUE: Imaging protocol: XR of the chest Views: 1 view. COMPARISON: CR Ribs Bilat w-PA CHEST 02/19/2019 8:24 PM FINDINGS: Lungs: Unremarkable. No consolidation. Pleural space: Unremarkable. No pleural effusion. No pneumothorax. Heart/Mediastinum: Unremarkable. No cardiomegaly. Bones/joints: Unremarkable. IMPRESSION: No acute findings. Electronically signed by: Rosina Tello On 03/08/2020 13:29:08 PM
[2020-03-08] MEDS ORDERED: diphenhydrAMINE 50MG/ML VIAL (J1200) IV STA (13:36)
[2020-03-08 13:40] LABS: BASO # 0.1 10^3/uL (0.0-0.2); BASO % 0.5 % (0.0-1.0); EOS # 0.6 10^3/uL (0.0-0.5); EOS % 4.7 % (0.0-3.0); HEMATOCRIT 39.8 % (36.0-47.0); HEMOGLOBIN 12.2 g/dl (12.0-15.5); LYMPH # 4.2 10^3/uL (1.5-5.0); LYMPH % 30.9 % (24.0-44.0); MEAN CORPUSCULAR HGB CONC 30.7 g/dl (32.0-36.5); MEAN CORPUSCULAR VOLUME 91.5 fl (80.0-96.0); MONO % 7.3 % (0.0-5.0); NEUTROPHILS # 7.6 10^3/uL (1.5-8.5); NEUTROPHILS % 55.9 % (36.0-66.0); PLATELET COUNT, AUTOMATED 421 10^3/uL (150-450); RED BLOOD COUNT 4.35 10^6/uL (4.00-5.40); WHITE BLOOD COUNT 13.6 10^3/uL (4.0-10.0)
[2020-03-08] MEDS ORDERED: METOCLOPRAMIDE INJ 10MG/2ML VIAL (J2765 PER 1) IV ONE (13:45)
[2020-03-08] MEDS ORDERED: NS 1,000 ML IV ONE (13:45)
[2020-03-08] MEDS ORDERED: KETOROLAC 30 MG/ML 1ML VIAL IV ONE (13:45)
[2020-03-08] MEDS ORDERED: GABA-843 PO (13:53)
[2020-03-08] MEDS ORDERED: IRON18TA PO (13:53)
[2020-03-08] MEDS ORDERED: LACT20EL PO (13:53)
[2020-03-08] MEDS ORDERED: META28.32 PO (13:53)
[2020-03-08] MEDS ORDERED: AJOV225I SC (13:53)
[2020-03-08] MEDS ORDERED: DOXE10CA PO (13:53)
[2020-03-08] MEDS ORDERED: MINI2CAP PO (13:53)
[2020-03-08] MEDS ORDERED: VITA50005 PO (13:53)
[2020-03-08] MEDS ORDERED: MECL1TAB31 PO (13:53)
[2020-03-08] MEDS ORDERED: DICL1GEL3 TOP (13:53)
[2020-03-08] MEDS ORDERED: ACET-683 PO (13:53)
[2020-03-08] MEDS ORDERED: AZEL1SPR3 NARES (13:53)
[2020-03-08] MEDS ORDERED: BUSP15TA47 PO (13:53)
[2020-03-08] MEDS ORDERED: SYMB16INH INH (13:53)
[2020-03-08] MEDS ORDERED: CETI-24 PO (13:53)
[2020-03-08] MEDS ORDERED: OREN1INJ SC (13:53)
[2020-03-08] MEDS ORDERED: DICY10AM IM (13:53)
[2020-03-08] MEDS ORDERED: IMIT50TA PO (13:53)
[2020-03-08] MEDS ORDERED: VENL150C43 PO (13:53)
[2020-03-08] MEDS ORDERED: FAMO20TA PO (13:53)
[2020-03-08 14:19] LABS: BLOOD UREA NITROGEN 12 MG/DL (7-18); CARBON DIOXIDE LEVEL 27 MEQ/L (21-32); CHLORIDE LEVEL 108 MEQ/L (98-107); CREATININE FOR GFR 0.86 MG/DL (0.55-1.30); GLOMERULAR FILTRATION RATE > 60.0 (>60); GLUCOSE, FASTING 86 MG/DL (70-100); LITHIUM LEVEL < 0.20 MEQ/L (0.60-1.20); POTASSIUM SERUM 3.9 MEQ/L (3.5-5.1); SODIUM LEVEL 141 MEQ/L (136-145)
[2020-03-08 15:16] VITALS: BP 123/71
--- NOTE | 2020-03-24 16:28 | ECGEPIP ---
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
== END 2020-03-08 15:18 | disposition home or self-care (01) ==
LOC: M ED 12:45
DX: G43.901 Migraine, unspecified, not intractable, with status migrainosus (principal); I10 Essential (primary) hypertension; J45.909 Unspecified asthma, uncomplicated; F44.5 Conversion disorder with seizures or convulsions; Z79.899 Other long term (current) drug therapy; Z88.6 Allergy status to analgesic agent; Z88.8 Allergy status to other drugs, medicaments and biological substances
CPT/HCPCS: 71045; 80048; 80178; 85025; 93005; 93041; 94760; 96361; 96374; 96375; 99284; J1200; J1885; J2765

== ENCOUNTER 2020-07-20 10:45 | Emergency (ER) | payer OTHER ==
[~2020-07-20] VITALS: Ht 170.2 cm; Wt 129.5 kg
[~2020-07-20 10:45] MED LIST changes: +AJOV225I SC; +AZEL1SPR3 NARES; +CETI-24 PO; +DICL1GEL3 TOP; +DICY10AM IM; +FAMO20TA PO; +IMIT50TA PO; +IRON18TA PO; +LACT20EL PO; +MECL1TAB31 PO; +META28.32 PO; +MINI2CAP PO; -MONT10TA4 PO; +MONT5TAB2 PO; +OREN1INJ SC; +SYMB16INH INH; +VITA50005 PO
[2020-07-20 12:33] LABS: BASO # 0.2 10^3/uL (0.0-0.2); BASO % 0.7 % (0.0-1.0); EOS # 1.4 10^3/uL (0.0-0.5); EOS % 6.2 % (0.0-3.0); HEMATOCRIT 39.7 % (36.0-47.0); HEMOGLOBIN 11.8 g/dl (12.0-15.5); LYMPH # 3.1 10^3/uL (1.5-5.0); LYMPH % 13.9 % (24.0-44.0); MEAN CORPUSCULAR HEMOGLOBIN 27.2 pg (27.0-33.0); MEAN CORPUSCULAR HGB CONC 29.7 g/dl (32.0-36.5); MEAN CORPUSCULAR VOLUME 91.5 fl (80.0-96.0); MONO # 1.4 10^3/uL (0.0-0.8); MONO % 6.2 % (0.0-5.0); NEUTROPHILS # 16.3 10^3/uL (1.5-8.5); NEUTROPHILS % 72.3 % (36.0-66.0); PLATELET COUNT, AUTOMATED 487 10^3/uL (150-450); RED BLOOD COUNT 4.34 10^6/uL (4.00-5.40); WHITE BLOOD COUNT 22.6 10^3/uL (4.0-10.0)
[2020-07-20] MEDS ORDERED: NS 1,000 ML IV ONE (12:45)
[2020-07-20 13:03] LABS: ALBUMIN 3.8 GM/DL (3.2-5.2); ALT/SGPT 23 U/L (12-78); BILIRUBIN,DIRECT 0.1 MG/DL (0.0-0.2); BILIRUBIN,TOTAL 0.3 MG/DL (0.2-1.0); BLOOD UREA NITROGEN 11 MG/DL (7-18); CALCIUM LEVEL 9.7 MG/DL (8.5-10.1); CARBON DIOXIDE LEVEL 24 MEQ/L (21-32); CHLORIDE LEVEL 111 MEQ/L (98-107); CREATININE FOR GFR 0.71 MG/DL (0.55-1.30); GLOMERULAR FILTRATION RATE > 60.0 (>60); GLUCOSE, FASTING 120 MG/DL (70-100); LIPASE 155 U/L (73-393); POTASSIUM SERUM 4.3 MEQ/L (3.5-5.1); SODIUM LEVEL 142 MEQ/L (136-145); TOTAL PROTEIN 7.5 GM/DL (6.4-8.2)
[2020-07-20] MEDS ORDERED: ISOVUE-370 76% 100ML VIAL As Ordered ONE (14:18)
[2020-07-20 14:51] VITALS: BP 130/65
--- NOTE | 2020-07-20 14:53 | REP ---
INDICATION: pelvic pressure, diffuse abd pain. COMPARISON: 04/01/2019 TECHNIQUE: Axial contrast-enhanced images from the lung bases to the pubic symphysis using 100 cc Isovue 370 intravenous contrast material. Coronal and sagittal reformations obtained.. This CT examination was performed using the following dose reduction techniques: Automated exposure control, adjustment of mA and/or kv according to the patient's size, and the use of iterative reconstruction technique. FINDINGS: Lung bases are clear. Visualized heart and pericardium normal. Hepatosteatosis noted without focal hepatic lesion. Pancreas, gallbladder, bilateral adrenal glands and kidneys are normal. Evidence for prior splenectomy. The enteric system including stomach, small, and large bowel appears normal. No evidence for obstruction or acute inflammatory process. Normal terminal ileum and appendix are identified in the right lower quadrant. Pelvis demonstrates normal bladder and prior hysterectomy. No ascites. No free air. No intraperitoneal or retroperitoneal adenopathy. Abdominal aorta and vasculature appear normal. Musculoskeletal structures are intact and without acute osseous abnormality. IMPRESSION: No acute abdominopelvic pathology appreciated. <Electronically signed by Kurt Alvarado > 07/20/20 [id number]
[2020-07-20] MEDS ORDERED: PYRI1TAB5 PO (15:03)
== END 2020-07-20 15:21 | disposition home or self-care (01) ==
LOC: M ED 10:45
DX: D72.829 Elevated white blood cell count, unspecified (principal); R10.84 Generalized abdominal pain; R30.0 Dysuria; R10.2 Pelvic and perineal pain; E66.9 Obesity, unspecified; E11.9 Type 2 diabetes mellitus without complications; E51.9 Thiamine deficiency, unspecified; I10 Essential (primary) hypertension; K21.9 Gastro-esophageal reflux disease without esophagitis; K58.9 Irritable bowel syndrome, unspecified; D69.3 Immune thrombocytopenic purpura; E78.5 Hyperlipidemia, unspecified; E03.9 Hypothyroidism, unspecified; M54.30 Sciatica, unspecified side; E11.40 Type 2 diabetes mellitus with diabetic neuropathy, unspecified; F31.9 Bipolar disorder, unspecified; F43.10 Post-traumatic stress disorder, unspecified; G43.909 Migraine, unspecified, not intractable, without status migrainosus; M06.9 Rheumatoid arthritis, unspecified; Z87.448 Personal history of other diseases of urinary system; Z87.59 Personal history of other complications of pregnancy, childbirth and the puerperium; Z79.84 Long term (current) use of oral hypoglycemic drugs; Z79.899 Other long term (current) drug therapy; Z88.8 Allergy status to other drugs, medicaments and biological substances; Z88.6 Allergy status to analgesic agent; Z88.5 Allergy status to narcotic agent
CPT/HCPCS: 36415; 74177; 80048; 80076; 81001; 83605; 83690; 85025; 87040; 99284; Q9967

== ENCOUNTER → 2020-07-25 | Outpatient (CLI) | payer OTHER ==
[~2020-07-25] MED LIST changes: -BUPR150T3 PO; +BUPR150T4 PO; -DICY20TA PO; +DICY20TA3 PO; +GABA-282 PO; -GABA-843 PO; +PYRI1TAB5 PO
[2020-07-25 15:42] LABS: FREE T4 0.9 NG/DL (0.76-1.46); IMMUNOGLOBULIN A 26.6 MG/DL (70-400); THYROID STIMULATING HORMONE 1.28 uIU/ML (0.358-3.740)
== END ==
LOC: M LAB 11:43
PROVIDERS: ATTEND Internal Medicine Gastroenterology
DX: K58.1 Irritable bowel syndrome with constipation (principal)

== ENCOUNTER → 2020-07-26 | Outpatient (REF) | payer OTHER | LOC: M LAB REF 12:49 | PROVIDERS: ATTEND Internal Medicine Gastroenterology | DX: R19.7 Diarrhea, unspecified (principal) ==

== ENCOUNTER → 2020-08-07 | Outpatient (CLI) | payer OTHER ==
[~2020-08-07] MED LIST changes: +E-Z-PAQUE 96% w/w SUSP 176GM BTL As Ordered ONE; +MONT10TA10 PO; -MONT5TAB2 PO
--- NOTE | 2020-08-07 15:44 | REP ---
INDICATION: IBS W/ CONSTIPATION. COMPARISON: None TECHNIQUE: This procedure was performed by Melissa Parrish [facility], under the direct supervision of Dr. Marina. Images were reviewed with Dr. Marina prior to dictation. Liquid barium was administered and the barium column was followed through the small bowel to the level of the terminal ileum. FINDINGS: The glass ribbon machine operator assistant film shows no organomegaly or pathological masses. The intestinal gas pattern is unremarkable. Small bowel transit time is approximately 60 minutes. During fluoroscopy gentle palpation shows all loops are freely movable and pliable. There is no fixed angulated loops. The small bowel mucosal pattern is normal in course and caliber. There is no transition to suggest a partial small bowel obstruction. Spot filming of the terminal ileum shows it to be unremarkable. IMPRESSION: Unremarkable small bowel follow-through. 0.5 minutes of fluoroscopy time was utilized for this procedure. Some fluoroscopic images are performed with last image hold technology. These images require no additional radiation. <Electronically signed by Melissa Parrish > 08/07/20 1441 <Electronically signed by Jose F Marina > 08/07/20 1542
== END ==
LOC: M RAD 07:48
PROVIDERS: ATTEND Internal Medicine Gastroenterology
DX: K58.1 Irritable bowel syndrome with constipation (principal)

== ENCOUNTER 2020-08-21 10:11 | Emergency (ER) | payer OTHER ==
[~2020-08-21] VITALS: Ht 170.2 cm; Wt 130.7 kg
[~2020-08-21 10:11] MED LIST changes: -E-Z-PAQUE 96% w/w SUSP 176GM BTL As Ordered ONE
[2020-08-21] MEDS ORDERED: diphenhydrAMINE 50MG/ML VIAL (J1200) IV STA (11:07)
[2020-08-21] MEDS ORDERED: NS 1,000 ML IV ONE (11:15)
[2020-08-21] MEDS ORDERED: ACETAMINOPHEN 500 MG TAB PO ONE (11:15)
[2020-08-21 11:28] LABS: BASO # 0.1 10^3/uL (0.0-0.2); BASO % 0.8 % (0.0-1.0); EOS # 2.1 10^3/uL (0.0-0.5); EOS % 14.5 % (0.0-3.0); HEMATOCRIT 35.9 % (36.0-47.0); HEMOGLOBIN 10.9 g/dl (12.0-15.5); LYMPH # 4.4 10^3/uL (1.5-5.0); LYMPH % 30.9 % (24.0-44.0); MEAN CORPUSCULAR HEMOGLOBIN 27.8 pg (27.0-33.0); MEAN CORPUSCULAR HGB CONC 30.4 g/dl (32.0-36.5); MEAN CORPUSCULAR VOLUME 91.6 fl (80.0-96.0); MONO # 1.2 10^3/uL (0.0-0.8); MONO % 8.1 % (0.0-5.0); NEUTROPHILS # 6.4 10^3/uL (1.5-8.5); PLATELET COUNT, AUTOMATED 403 10^3/uL (150-450); RED BLOOD COUNT 3.92 10^6/uL (4.00-5.40)
[2020-08-21 11:30] LABS: WHITE BLOOD COUNT 14.2 10^3/uL (4.0-10.0)
[2020-08-21 11:38] LABS: INR 0.94; PROTHROMBIN TIME 12.8 SECONDS (12.5-14.3)
[2020-08-21 12:00] LABS: ALBUMIN 3.4 GM/DL (3.2-5.2); ALT/SGPT 19 U/L (12-78); BILIRUBIN,DIRECT 0.1 MG/DL (0.0-0.2); BILIRUBIN,TOTAL 0.2 MG/DL (0.2-1.0); BLOOD UREA NITROGEN 9 MG/DL (7-18); CALCIUM LEVEL 9.3 MG/DL (8.5-10.1); CARBON DIOXIDE LEVEL 28 MEQ/L (21-32); CHLORIDE LEVEL 111 MEQ/L (98-107); CK-MB VALUE MASS 1.1 NG/ML (<3.6); CPK CREATINE PHOSPHOKINASE 125 U/L (26-192); CREATININE FOR GFR 0.72 MG/DL (0.55-1.30); D-DIMER QUANT 870.25 ng/ml (<500); FREE T4 0.81 NG/DL (0.76-1.46); GLOMERULAR FILTRATION RATE > 60.0 (>60); GLUCOSE, FASTING 115 MG/DL (70-100); LIPASE 250 U/L (73-393); MB/CK RELATIVE INDEX 0.88 (< OR =4); POTASSIUM SERUM 3.9 MEQ/L (3.5-5.1); SODIUM LEVEL 144 MEQ/L (136-145); TOTAL PROTEIN 7.3 GM/DL (6.4-8.2); TROPONIN I < 0.02 NG/ML (< 0.10)
[2020-08-21 12:02] LABS: HCG, SERUM QUALITATIVE NEGATIVE (NEGATIVE)
[2020-08-21] MEDS ORDERED: ISOVUE-370 76% 100ML VIAL As Ordered ONE (12:13)
--- NOTE | 2020-08-21 12:45 | REP ---
INDICATION: CHEST PAIN. COMPARISON: 03/08/2020. TECHNIQUE: SINGLE PORTABLE AP VIEW OF THE CHEST WAS PERFORMED. FINDINGS: There is no acute infiltrate or pulmonary edema. There is mild cardiomegaly. The mediastinal silhouette is unchanged. The visualized osseous structures are unremarkable. IMPRESSION: NO ACUTE PULMONARY DISEASE.Mild cardiomegaly. <Electronically signed by Linden Betancur > 08/21/20 1339
--- NOTE | 2020-08-21 12:59 | REP ---
INDICATION: sob, ro PE. COMPARISON: 11/01/2018. TECHNIQUE: CT angiogram chest performed following the intravenous administration of 100 cc of Isovue 370. Sagittal and coronal reconstruction images are performed. FINDINGS: Lungs: There are diffuse bilateral fibro atelectatic changes with low lung volumes, as seen on prior study. Mediastinum: No adenopathy. Pulmonary arteries: No evidence of pulmonary embolism. Michelle: No adenopathy. Axilla: No adenopathy. Pleura: No effusion. Heart: There is mild cardiomegaly. Thoracic aorta: No aneurysm or dissection. Upper abdominal structures: There has been a prior splenectomy and cholecystectomy. Visualized osseous structures: Unremarkable. IMPRESSION: No CT evidence of pulmonary embolism.No infiltrate seen. Low lung volumes and diffuse fibro atelectatic changes. <Electronically signed by Linden Betancur > 08/21/20 [id number]
[2020-08-21 14:16] VITALS: BP 129/63
--- NOTE | 2020-08-22 08:48 | ECGEPIP ---
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
== END 2020-08-21 14:39 | disposition home or self-care (01) ==
LOC: M ED 10:11
DX: D72.829 Elevated white blood cell count, unspecified (principal); R51.9 Headache, unspecified; R06.00 Dyspnea, unspecified; I10 Essential (primary) hypertension; E78.5 Hyperlipidemia, unspecified; K21.9 Gastro-esophageal reflux disease without esophagitis; K58.9 Irritable bowel syndrome, unspecified; R07.9 Chest pain, unspecified; G43.909 Migraine, unspecified, not intractable, without status migrainosus; D69.3 Immune thrombocytopenic purpura; Z74.01 Bed confinement status; Z79.899 Other long term (current) drug therapy; Z88.6 Allergy status to analgesic agent; Z88.5 Allergy status to narcotic agent; Z88.8 Allergy status to other drugs, medicaments and biological substances
CPT/HCPCS: 71045; 71275; 80048; 80076; 82550; 82553; 83690; 84439; 84443; 84703; 85025; 85379; 85610; 85730; 93005; 93041; 94760; 96361; 96374; 99285; J1200; Q9967

== ENCOUNTER → 2020-08-30 | Outpatient (REF) | payer OTHER | LOC: M SMT 16:53 | PROVIDERS: ATTEND Urology | DX: R35.0 Frequency of micturition (principal) ==

== ENCOUNTER → 2020-09-09 | Outpatient (CLI) | payer OTHER | LOC: M LABSMTC 08:52 | PROVIDERS: ATTEND Anesthesiology | DX: Z01.812 Encounter for preprocedural laboratory examination (principal); Z20.822 Contact with and (suspected) exposure to COVID-19 ==

== ENCOUNTER 2020-09-15 08:42 | Emergency (ER) | payer OTHER ==
[~2020-09-15] VITALS: Ht 170.2 cm; Wt 129.8 kg
[~2020-09-15 08:42] MED LIST changes: +BUPR150T12 PO; -BUPR150T4 PO
--- NOTE | 2020-09-15 10:12 | REP ---
INDICATION: cough COMPARISON: 08/21/2020 TECHNIQUE: Portable AP view of the chest FINDINGS: The mediastinum and cardiac silhouette are stable and within normal limits for portable technique. The lung masterson are clear without acute consolidation, effusion, or pneumothorax. Skeletal structures are intact. IMPRESSION: No acute cardiopulmonary process appreciated. <Electronically signed by Kurt Alvarado > 09/15/20 [id number]
[2020-09-15 10:16] LABS: BASO # 0.1 10^3/uL (0.0-0.2); BASO % 0.8 % (0.0-1.0); EOS # 1.1 10^3/uL (0.0-0.5); EOS % 10.3 % (0.0-3.0); LYMPH # 3.5 10^3/uL (1.5-5.0); LYMPH % 31.7 % (24.0-44.0); MEAN CORPUSCULAR HEMOGLOBIN 26.8 pg (27.0-33.0); MEAN CORPUSCULAR HGB CONC 29.7 g/dl (32.0-36.5); MONO # 0.8 10^3/uL (0.0-0.8); MONO % 7.2 % (2.0-8.0); NEUTROPHILS # 5.4 10^3/uL (1.5-8.5); NEUTROPHILS % 49.5 % (36.0-66.0); PLATELET COUNT, AUTOMATED 418 10^3/uL (150-450); RED BLOOD COUNT 4.11 10^6/uL (4.00-5.40); WHITE BLOOD COUNT 10.9 10^3/uL (4.0-10.0)
[2020-09-15 10:51] LABS: ALBUMIN 3.4 GM/DL (3.2-5.2); ALT/SGPT 25 U/L (12-78); BILIRUBIN,TOTAL 0.3 MG/DL (0.2-1.0); BLOOD UREA NITROGEN 8 MG/DL (7-18); CALCIUM LEVEL 9.9 MG/DL (8.5-10.1); CARBON DIOXIDE LEVEL 22 MEQ/L (21-32); CHLORIDE LEVEL 112 MEQ/L (98-107); CREATININE FOR GFR 0.68 MG/DL (0.55-1.30); GLOMERULAR FILTRATION RATE > 60.0 (>58); GLUCOSE, FASTING 103 MG/DL (70-100); POTASSIUM SERUM 4.3 MEQ/L (3.5-5.1); SODIUM LEVEL 141 MEQ/L (136-145); TOTAL PROTEIN 7.2 GM/DL (6.4-8.2)
[2020-09-15 11:18] LABS: MONO SCRN NEGATIVE (NEGATIVE)
--- NOTE | 2020-09-15 11:59 | REP ---
INDICATION: ST. COMPARISON: 02/19/2019 cervical spine series. TECHNIQUE: AP and lateral views soft tissues neck performed. FINDINGS: There is no prevertebral soft tissue swelling. Adenoids are not significantly enlarged. The airway is widely patent. [place] tonsils and epiglottis do not appear to be an enlarged. IMPRESSION: No radiographic abnormalities of the soft tissues of the neck. <Electronically signed by Linden Betancur > 09/15/20 [id number]
[2020-09-15 12:31] VITALS: BP 127/78
--- NOTE | 2020-09-15 20:10 | ECGEPIP ---
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
== END 2020-09-15 12:37 | disposition home or self-care (01) ==
LOC: M ED 08:42
DX: J06.9 Acute upper respiratory infection, unspecified (principal); E11.9 Type 2 diabetes mellitus without complications; I10 Essential (primary) hypertension; J45.909 Unspecified asthma, uncomplicated; F43.10 Post-traumatic stress disorder, unspecified; F31.89 Other bipolar disorder; K58.9 Irritable bowel syndrome, unspecified; G43.909 Migraine, unspecified, not intractable, without status migrainosus; M06.9 Rheumatoid arthritis, unspecified; Z79.899 Other long term (current) drug therapy; Z88.8 Allergy status to other drugs, medicaments and biological substances; Z88.6 Allergy status to analgesic agent; Z88.5 Allergy status to narcotic agent

== ENCOUNTER → 2020-09-21 | Outpatient (REF) | payer OTHER ==
[2020-09-21 16:31] LABS: BLOOD UREA NITROGEN 6 MG/DL (7-18); CALCIUM LEVEL 9.7 MG/DL (8.5-10.1); CARBON DIOXIDE LEVEL 28 MEQ/L (21-32); CHLORIDE LEVEL 109 MEQ/L (98-107); CREATININE FOR GFR 0.77 MG/DL (0.55-1.30); FREE T4 0.94 NG/DL (0.76-1.46); GLOMERULAR FILTRATION RATE > 60.0 (>58); GLUCOSE, FASTING 111 MG/DL (70-100); MAGNESIUM LEVEL 2.1 MG/DL (1.8-2.4); POTASSIUM SERUM 3.6 MEQ/L (3.5-5.1); SODIUM LEVEL 143 MEQ/L (136-145)
[2020-09-21 17:52] LABS: HEMOGLOBIN A1c 5.5 %
== END ==
LOC: M SFHCCLAY 09:57
PROVIDERS: ATTEND Family Medicine
DX: E03.9 Hypothyroidism, unspecified (principal); R73.03 Prediabetes; M79.10 Myalgia, unspecified site

== ENCOUNTER → 2020-09-28 | Outpatient (REF) | payer OTHER ==
[2020-09-28 13:06] LABS: ALBUMIN 3.6 GM/DL (3.2-5.2); ALT/SGPT 23 U/L (12-78); BILIRUBIN,TOTAL 0.3 MG/DL (0.2-1.0); BLOOD UREA NITROGEN 9 MG/DL (7-18); CARBON DIOXIDE LEVEL 27 MEQ/L (21-32); CHLORIDE LEVEL 108 MEQ/L (98-107); CHOLESTEROL LEVEL 174 MG/DL (<200); CREATININE FOR GFR 0.71 MG/DL (0.55-1.30); GLOMERULAR FILTRATION RATE > 60.0 (>58); GLUCOSE, FASTING 107 MG/DL (70-100); HDL CHOLESTEROL 40 MG/DL (>40); LDL CHOLESTEROL 83 MG/DL (<100); NON-HDL-C 134 MG/DL; POTASSIUM SERUM 4.5 MEQ/L (3.5-5.1); SODIUM LEVEL 141 MEQ/L (136-145); TOTAL PROTEIN 7.1 GM/DL (6.4-8.2); TRIGLYCERIDES LEVEL 257 MG/DL (<150)
== END ==
LOC: M LABDRAWC 11:50
PROVIDERS: ATTEND Nurse Practitioner Family
DX: E78.5 Hyperlipidemia, unspecified (principal); I10 Essential (primary) hypertension; R07.2 Precordial pain; R06.02 Shortness of breath

== ENCOUNTER → 2020-10-07 | Outpatient (CLI) | payer OTHER ==
[~2020-10-07] MED LIST changes: +EQL50TAB2 PO; +LOPI600T PO; +[UNRECOGNIZED DRUG - OTHER] SC
== END ==
LOC: M LABSMTC 09:53
PROVIDERS: ATTEND Anesthesiology
DX: Z01.812 Encounter for preprocedural laboratory examination (principal); Z20.822 Contact with and (suspected) exposure to COVID-19

== ENCOUNTER 2020-10-12 11:18 | Day surgery (SDC) | payer OTHER ==
[~2020-10-12] VITALS: Ht 170.2 cm; Wt 124.7 kg
[~2020-10-12 11:18] MED LIST changes: +LIDOCAINE 2% 100MG/5ML SDV (FOR ANES.) As Ordered ONE; +NS 1,000 ML IV SCH; +propofoL 200 MG/20 ML VIAL As Ordered ONE
--- NOTE | 2020-10-12 13:08 | ROOR ---
Patient Name: Jessica Birch Procedure Date: 10/12/2020 12:52 PM Date of : 1980 Age: 40 Room: [facility] Gender: Female Note Status: Finalized Procedure: Upper GI endoscopy Indications: Nausea Providers: Joe HARGROVE MD Referring MD: Celi Acosta NP Requesting Provider: Medicines: Monitored Anesthesia Care Complications: No immediate complications. Procedure: Pre-Anesthesia Assessment: - The heart rate, respiratory rate, oxygen saturations, blood pressure, adequacy of pulmonary ventilation, and response to care were monitored throughout the procedure. The Endoscope was introduced through the mouth, and advanced to the second part of duodenum. The upper GI endoscopy was accomplished without difficulty. The patient tolerated the procedure well. Findings: The examined esophagus was normal. A few small sessile fundic gland polyps were found in the gastric fundus and in the gastric body. This was biopsied with a cold forceps for histology. The exam of the stomach was otherwise normal. The examined duodenum was normal. Biopsies for histology were taken with a cold forceps for evaluation of celiac disease. Impression: - Normal esophagus. - Normal stomach with a few fundic gland polyps. Biopsied. - Normal examined duodenum. Biopsied. Recommendation: - Observe patient's clinical course. - Telephone endoscopist for pathology results in 2 weeks. Procedure Code(s): --- Professional --- 72451, Esophagogastroduodenoscopy, flexible, transoral; with biopsy, single or multiple Diagnosis Code(s): --- Professional --- R11.0, Nausea K31.7, Polyp of stomach and duodenum CPT copyright 2019 [employer]. All rights reserved. The codes documented in this report are preliminary and upon army officer review may be revised to meet current compliance requirements. Joe Hargrove MD Joe HARGROVE MD 10/12/2020 1:07:22 PM Electronically signed by Joe HARGROVE MD Number of Addenda: 0 Note Initiated On: 10/12/2020 12:52 PM Estimated Blood Loss: Estimated blood loss: none.
--- NOTE | 2020-10-12 13:26 | ROOR ---
Patient Name: Jessica Birch Procedure Date: 10/12/2020 12:53 PM Date of : 1980 Age: 40 Room: [facility] Gender: Female Note Status: Finalized Procedure: Colonoscopy Indications: Irritable bowel syndrome with constipation, Change in bowel habits, Constipation Providers: Joe HARGROVE MD Referring MD: Celi Acosta NP Requesting Provider: Medicines: Monitored Anesthesia Care Complications: No immediate complications. Procedure: Pre-Anesthesia Assessment: - The heart rate, respiratory rate, oxygen saturations, blood pressure, adequacy of pulmonary ventilation, and response to care were monitored throughout the procedure. The Colonoscope was introduced through the anus and advanced to the terminal ileum, with identification of the appendiceal orifice and IC valve. The colonoscopy was performed without difficulty. The patient tolerated the procedure well. The quality of the bowel preparation was adequate. Findings: The perianal and digital rectal examinations were normal. Two sessile polyps were found in the sigmoid colon and hepatic flexure. The polyps were small in size. These polyps were removed with a cold snare. Resection and retrieval were complete. Small Internal Hemorrhoids. The exam was otherwise without abnormality on direct and retroflexion views. Impression: - Two small polyps in the sigmoid colon and at the hepatic flexure, removed with a cold snare. Resected and retrieved. - Small Internal Hemorrhoids. - The Colon examination was otherwise normal on direct and retroflexion views. - The examined portion of the terminal Ileum was normal. Recommendation: - Continue present medications. - Telephone endoscopist for pathology results in 2 weeks. - Repeat colonoscopy in 5 years for surveillance. Procedure Code(s): --- Professional --- 40487, Colonoscopy, flexible; with removal of tumor(s), polyp(s), or other lesion(s) by snare technique Diagnosis Code(s): --- Professional --- K59.00, Constipation, unspecified R19.4, Change in bowel habit K58.1, Irritable bowel syndrome with constipation K63.5, Polyp of colon CPT copyright 2019 [employer]. All rights reserved. The codes documented in this report are preliminary and upon milling machine operator review may be revised to meet current compliance requirements. Joe Hargrove MD Joe HARGROVE MD 10/12/2020 1:26:17 PM Electronically signed by Joe HARGROVE MD Number of Addenda: 0 Note Initiated On: 10/12/2020 12:53 PM Estimated Blood Loss: Estimated blood loss: none.
[2020-10-12 13:50] VITALS: BP 175/98
== END 2020-10-12 13:57 | disposition home or self-care (01) ==
LOC: M OPP 11:18
PROVIDERS: ATTEND Internal Medicine Gastroenterology
DX: D12.3 Benign neoplasm of transverse colon (principal); K58.1 Irritable bowel syndrome with constipation; K59.00 Constipation, unspecified; K31.7 Polyp of stomach and duodenum; R11.0 Nausea; D12.5 Benign neoplasm of sigmoid colon; Z79.899 Other long term (current) drug therapy; Z88.5 Allergy status to narcotic agent; Z88.8 Allergy status to other drugs, medicaments and biological substances

== ENCOUNTER 2020-10-26 12:39 | Emergency (ER) | payer OTHER ==
[~2020-10-26] VITALS: Ht 170.2 cm; Wt 127.3 kg
--- NOTE | 2020-10-26 13:16 | REP ---
INDICATION: severe headache. COMPARISON: None. TECHNIQUE: Axial CT images with multiplanar reformations. FINDINGS: No acute bleed or acute large vessel territorial infarct. Ventricles, cisterns and sulci are within normal limits. No mass effect or midline shift. No abnormal fluid collections. Paranasal sinuses and mastoid air cells are clear IMPRESSION: No acute findings. <Electronically signed by Ben Lawson > 10/26/20 5714
[2020-10-26 14:16] LABS: BASO # 0.2 10^3/uL (0.0-0.2); EOS # 2.6 10^3/uL (0.0-0.5); EOS % 18.2 % (0.0-3.0); HEMOGLOBIN 11.5 g/dl (12.0-15.5); LYMPH % 34.3 % (24.0-44.0); MEAN CORPUSCULAR HEMOGLOBIN 27.7 pg (27.0-33.0); MEAN CORPUSCULAR HGB CONC 30.3 g/dl (32.0-36.5); MEAN CORPUSCULAR VOLUME 91.6 fl (80.0-96.0); MONO # 1.1 10^3/uL (0.0-0.8); MONO % 7.8 % (2.0-8.0); NEUTROPHILS # 5.5 10^3/uL (1.5-8.5); NEUTROPHILS % 38.4 % (36.0-66.0); PLATELET COUNT, AUTOMATED 428 10^3/uL (150-450); RED BLOOD COUNT 4.15 10^6/uL (4.00-5.40)
[2020-10-26 14:19] LABS: WHITE BLOOD COUNT 14.5 10^3/uL (4.0-10.0)
[2020-10-26 14:28] LABS: BLOOD UREA NITROGEN 13 MG/DL (7-18); CALCIUM LEVEL 10.2 MG/DL (8.5-10.1); CARBON DIOXIDE LEVEL 26 MEQ/L (21-32); CHLORIDE LEVEL 109 MEQ/L (98-107); CK-MB VALUE MASS < 1.0 NG/ML (<3.6); CPK CREATINE PHOSPHOKINASE 86 U/L (26-192); CREATININE FOR GFR 0.72 MG/DL (0.55-1.30); GLOMERULAR FILTRATION RATE > 60.0 (>58); GLUCOSE, FASTING 94 MG/DL (70-100); MB/CK RELATIVE INDEX 1.16 (< OR =4); SODIUM LEVEL 143 MEQ/L (136-145); TROPONIN I < 0.02 NG/ML (< 0.10)
[2020-10-26] MEDS ORDERED: METOCLOPRAMIDE INJ 10MG/2ML VIAL (J2765 PER 1) IV ONE (14:30)
[2020-10-26] MEDS ORDERED: NS 1,000 ML IV ONE (14:30)
[2020-10-26] MEDS ORDERED: KETOROLAC 30 MG/ML 1ML VIAL IV ONE (14:30)
[2020-10-26] MEDS ORDERED: diphenhydrAMINE 50MG/ML VIAL (J1200) IV STA (14:30)
[2020-10-26 16:24] VITALS: BP 135/68
--- NOTE | 2020-10-27 19:42 | ECGEPIP ---
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
== END 2020-10-26 16:26 | disposition home or self-care (01) ==
LOC: M ED 12:39
DX: G43.909 Migraine, unspecified, not intractable, without status migrainosus (principal); F31.89 Other bipolar disorder; F41.9 Anxiety disorder, unspecified; F43.12 Post-traumatic stress disorder, chronic; Z79.899 Other long term (current) drug therapy; Z88.6 Allergy status to analgesic agent; Z88.5 Allergy status to narcotic agent; Z88.8 Allergy status to other drugs, medicaments and biological substances
CPT/HCPCS: 70450; 80048; 82550; 82553; 85025; 93005; 93041; 94760; 96361; 96374; 96375; 99285; J1200; J1885; J2765

== ENCOUNTER → 2020-10-26 | Outpatient (CLI) | payer OTHER ==
[~2020-10-26] MED LIST changes: -LIDOCAINE 2% 100MG/5ML SDV (FOR ANES.) As Ordered ONE; -NS 1,000 ML IV SCH; -propofoL 200 MG/20 ML VIAL As Ordered ONE
--- NOTE | 2020-10-26 09:06 | REP ---
INDICATION: DDD LUMBAR REGION. COMPARISON: None. TECHNIQUE: Sagittal T1, T2, STIR, axial T1 and T2 weighted images obtained. FINDINGS: There is minimal multilevel degenerative disc disease with loss of disc height and disc desiccation. Vertebral heights are overall preserved. No malalignments. On the sagittal T2 weighted images, conus ends normally at L1 level. No significant canal stenosis. On the review of axial images, At L1-2 through L4-5 no significant canal or foraminal narrowing. At L5-S1 there is mild right foraminal narrowing, no significant canal stenosis and moderate left foraminal narrowing. On the left there is early endplate change. IMPRESSION: Minimal degenerative disc disease. At L5-S1 there is moderate left foraminal narrowing with early endplate change on the left. <Electronically signed by Ben Lawson > 10/26/20 0902
== END ==
LOC: M RAD 07:27
PROVIDERS: ATTEND Physician Assistant
DX: M51.36 Other intervertebral disc degeneration, lumbar region (principal)

== ENCOUNTER → 2020-10-30 | Outpatient (REF) | payer OTHER ==
[2020-10-30 13:01] LABS: BASO # 0.1 10^3/uL (0.0-0.2); BASO % 0.3 % (0.0-1.0); EOS # 3.6 10^3/uL (0.0-0.5); HEMATOCRIT 38.3 % (36.0-47.0); HEMOGLOBIN 11.5 g/dl (12.0-15.5); LYMPH # 3.8 10^3/uL (1.5-5.0); LYMPH % 26.1 % (24.0-44.0); MEAN CORPUSCULAR HEMOGLOBIN 27.6 pg (27.0-33.0); MEAN CORPUSCULAR VOLUME 92.1 fl (80.0-96.0); MONO # 1.6 10^3/uL (0.0-0.8); MONO % 10.8 % (2.0-8.0); NEUTROPHILS # 5.4 10^3/uL (1.5-8.5); NEUTROPHILS % 37.4 % (36.0-66.0); PLATELET COUNT, AUTOMATED 480 10^3/uL (150-450); RED BLOOD COUNT 4.16 10^6/uL (4.00-5.40)
[2020-10-30 13:04] LABS: EOS % 25.1 % (0.0-3.0); WHITE BLOOD COUNT 14.5 10^3/uL (4.0-10.0)
[2020-10-30 13:32] LABS: ERYTHROCYTE SEDIMENTATION RATE 26 mm/hr (0-20)
[2020-10-30 14:39] LABS: ALT/SGPT 36 U/L (12-78); BLOOD UREA NITROGEN 10 MG/DL (7-18); C REACTIVE PROTEIN QUANTITATIV 0.79 MG/DL (0.00-0.30); CREATININE FOR GFR 0.74 MG/DL (0.55-1.30); GLOMERULAR FILTRATION RATE > 60.0 (>58)
== END ==
LOC: M LABDRAWC 12:03
PROVIDERS: ATTEND Nurse Practitioner
DX: M06.09 Rheumatoid arthritis without rheumatoid factor, multiple sites (principal); Z79.899 Other long term (current) drug therapy

== ENCOUNTER 2020-11-10 16:46 | Emergency (ER) | payer OTHER ==
[~2020-11-10] VITALS: Ht 170.2 cm; Wt 126.6 kg
[2020-11-10] MEDS ORDERED: DICYCLOMINE INJ 20MG/2ML (J0500) IM ONE (18:05)
[2020-11-10] MEDS ORDERED: METOCLOPRAMIDE INJ 10MG/2ML VIAL (J2765 PER 1) IV ONE (18:05)
[2020-11-10 18:55] LABS: BASO # 0.2 10^3/uL (0.0-0.2); BASO % 1.3 % (0.0-1.0); EOS # 3.8 10^3/uL (0.0-0.5); HEMATOCRIT 38.1 % (36.0-47.0); HEMOGLOBIN 11.6 g/dl (12.0-15.5); LYMPH # 5.3 10^3/uL (1.5-5.0); MEAN CORPUSCULAR HEMOGLOBIN 27.5 pg (27.0-33.0); MEAN CORPUSCULAR HGB CONC 30.4 g/dl (32.0-36.5); MEAN CORPUSCULAR VOLUME 90.3 fl (80.0-96.0); MONO # 1.6 10^3/uL (0.0-0.8); NEUTROPHILS # 4.7 10^3/uL (1.5-8.5); NEUTROPHILS % 30.1 % (36.0-66.0); PLATELET COUNT, AUTOMATED 414 10^3/uL (150-450); RED BLOOD COUNT 4.22 10^6/uL (4.00-5.40)
[2020-11-10 19:04] LABS: ALBUMIN 3.8 GM/DL (3.2-5.2); BILIRUBIN,DIRECT 0.1 MG/DL (0.0-0.2); BILIRUBIN,TOTAL 0.3 MG/DL (0.2-1.0); LITHIUM LEVEL 0.22 MEQ/L (0.60-1.20); TOTAL PROTEIN 7.6 GM/DL (6.4-8.2)
[2020-11-10] MEDS ORDERED: ISOVUE-370 76% 100ML VIAL As Ordered ONE (19:25)
[2020-11-10 19:46] LABS: INR 1.11; PROTHROMBIN TIME 14.5 SECONDS (12.5-14.3)
[2020-11-10 19:47] LABS: PARTIAL THROMBOPLASTIN TIME 36.1 SECONDS (24.2-38.5)
[2020-11-10 19:50] LABS: WHITE BLOOD COUNT 15.5 10^3/uL (4.0-10.0)
[2020-11-10 19:51] LABS: EOS % 24.3 % (0.0-3.0)
--- NOTE | 2020-11-10 20:15 | REPVR ---
PROCEDURE INFORMATION: Exam: CT Abdomen And Pelvis With Contrast Exam date and time: 11/10/2020 7:29 PM Age: 40 years old Clinical indication: Abdominal pain; Localized; Upper; Additional info: Upper abdominal pain; R/O colitis TECHNIQUE: Imaging protocol: Computed tomography of the abdomen and pelvis with contrast. Radiation optimization: All CT scans at this facility use at least one of these dose optimization techniques: automated exposure control; mA and/or kV adjustment per patient size (includes targeted exams where dose is matched to clinical indication); or iterative reconstruction. Contrast material: [id number]; Contrast volume: 100 ml; Contrast route: INTRAVENOUS (IV); COMPARISON: CT ABD/PEL W/IV CONTRAST ONLY 07/20/2020 2:24 PM FINDINGS: Liver: The liver is low in density. Liver measures 23 cm in craniocaudal span. Gallbladder and bile ducts: Surgical clips noted in the gallbladder fossa. The gallbladder is absent. Pancreas: Calcification or surgical clip noted along superior margin of the pancreatic tail. Spleen: The spleen is absent. Adrenal glands: Normal. No mass. Kidneys and ureters: 8 mm fat containing lesion upper pole right kidney. No hydronephrosis in either kidney. Stomach and bowel: Moderate to large Large amount of stool in the colon.. No mucosal thickening. Appendix: Appendix not seen as a separate structure. Intraperitoneal space: Unremarkable. No free air. No significant fluid collection. Vasculature: Unremarkable. No abdominal aortic aneurysm. Lymph nodes: Several lymph nodes noted in the mesentery at the base the cecum. Several lymph nodes noted in the periportal region measuring less than 1 cm in short axis diameter. These are stable. Urinary bladder: Unremarkable as visualized. Reproductive: The uterus is absent. Bones/joints: Unremarkable. No acute fracture. Soft tissues: Unremarkable. IMPRESSION: 1. Hepatic steatosis. 2. 8 mm fat containing lesion upper pole right kidney representing a small lipoma or angiomyolipoma. 3. Constipation COMMENTS: 1. Consistent with the [employer]'s Incidental Findings Committee white paper (J Am Alis Radiol 2018): Any incidental renal lesion less than 1 cm or classified as too small to characterize, or any incidental cystic renal lesion characterized as simple-appearing, is likely benign. No follow-up imaging is recommended for these lesions per consensus recommendations based on imaging criteria. 2. Hepatic steatosis. Electronically signed by: Ritu Marcos On 11/10/2020 20:15:15 PM
[2020-11-10 21:15] VITALS: BP 142/76
== END 2020-11-10 21:43 | disposition home or self-care (01) ==
LOC: M ED 16:46
DX: K52.9 Noninfective gastroenteritis and colitis, unspecified (principal); E11.9 Type 2 diabetes mellitus without complications; I10 Essential (primary) hypertension; E78.5 Hyperlipidemia, unspecified; F31.9 Bipolar disorder, unspecified; K21.9 Gastro-esophageal reflux disease without esophagitis; Z87.448 Personal history of other diseases of urinary system; K76.0 Fatty (change of) liver, not elsewhere classified; K59.00 Constipation, unspecified; R93.421 Abnormal radiologic findings on diagnostic imaging of right kidney; Z79.899 Other long term (current) drug therapy; Z88.8 Allergy status to other drugs, medicaments and biological substances; Z88.6 Allergy status to analgesic agent; Z88.5 Allergy status to narcotic agent
CPT/HCPCS: 74177; 80047; 80076; 80178; 83690; 85025; 85610; 85730; 86850; 86900; 86901; 93041; 96372; 96374; 99285; J0500; J2765; Q9967

== ENCOUNTER → 2020-11-22 | Outpatient (REF) ==
[~2020-11-22] MED LIST changes: +AMOX875T2 PO; +BACL10TA2 PO; +CIMZ200K SC; +CLON-412 PO; +GABA-283 PO; -GABA-845 PO
--- NOTE | 2020-11-23 03:52 | REPPI ---
INDICATION: DISABILITY DETERMINATION COMPARISON: None. TECHNIQUE: AP, lateral, coned-down views of the lumbar spine. FINDINGS: Three views of the lumbosacral spine demonstrate satisfactory alignment and lordosis without acute fracture / compression injury or subluxation. Minimal relatively age-related changes are appreciated through the visualized lower thoracic to L4-5 level. Mild sclerosis and minimal disc space narrowing at L5-S1. IMPRESSION: Generalized age-related changes with mild degenerative changes at L5-S1. <Electronically signed by Kurt Alvarado > 11/23/20 0340
--- NOTE | 2020-11-23 04:06 | REPPI ---
INDICATION: DISABILITY DETERMINATION. COMPARISON: 02/19/2019 TECHNIQUE: AP, lateral, swimmer's and open-mouth views FINDINGS: Moderate degenerative change at C5-6 C6-7 C7-T1 includes early osteophytosis with minimal endplate sclerosis and disc space narrowing. No acute fracture/compression injury or subluxation. Alignment is maintained. IMPRESSION: Moderate degenerative changes at C5-T1. <Electronically signed by Kurt Alvarado > 11/23/20 0402
== END ==
LOC: M PLAIMG 12:55
PROVIDERS: ATTEND Internal Medicine
DX: M51.37 Other intervertebral disc degeneration, lumbosacral region (principal); M50.322 Other cervical disc degeneration at C5-C6 level; M50.323 Other cervical disc degeneration at C6-C7 level; M50.33 Other cervical disc degeneration, cervicothoracic region

== ENCOUNTER 2020-11-23 10:57 | Emergency (ER) | payer OTHER ==
[~2020-11-23] VITALS: Ht 170.2 cm; Wt 126.1 kg
[~2020-11-23 10:57] MED LIST changes: -AMOX875T2 PO; -BACL10TA2 PO; -CIMZ200K SC; -CLON-412 PO
[2020-11-23] MEDS ORDERED: PANT40TA29 PO (11:19)
[2020-11-23] MEDS ORDERED: AMOX875T2 PO (11:19)
[2020-11-23] MEDS ORDERED: GABA600T4 PO (11:19)
[2020-11-23] MEDS ORDERED: TIZA4CAP PO (11:19)
[2020-11-23] MEDS ORDERED: BACL10TA2 PO (11:19)
[2020-11-23] MEDS ORDERED: CIMZ200K SC (11:19)
[2020-11-23] MEDS ORDERED: CLON-412 PO (11:19)
[2020-11-23 11:57] LABS: HEMATOCRIT 40.1 % (36.0-47.0); HEMOGLOBIN 12.6 g/dl (12.0-15.5); MEAN CORPUSCULAR HEMOGLOBIN 28.1 pg (27.0-33.0); MEAN CORPUSCULAR HGB CONC 31.4 g/dl (32.0-36.5); MEAN CORPUSCULAR VOLUME 89.5 fl (80.0-96.0); PLATELET COUNT, AUTOMATED 488 10^3/uL (150-450); RED BLOOD COUNT 4.48 10^6/uL (4.00-5.40)
[2020-11-23 12:06] LABS: WHITE BLOOD COUNT 15.4 10^3/uL (4.0-10.0)
[2020-11-23 12:11] LABS: INR 0.98; PROTHROMBIN TIME 13.2 SECONDS (12.5-14.3)
[2020-11-23 12:12] LABS: PARTIAL THROMBOPLASTIN TIME 34.3 SECONDS (24.2-38.5)
[2020-11-23 12:24] LABS: ATYPICAL LYMPH 3 % (0-5); BASOPHILS 2 % (0-1); EOSINOPHILS 6 % (0-3); LYMPHOCYTES 34 % (16-44); MONOCYTES 5 % (0-5); NEUTROPHILS 50 % (28-66); PLATELET ESTIMATE NORMAL (NORMAL)
[2020-11-23 12:30] LABS: HCG, SERUM QUALITATIVE NEGATIVE (NEGATIVE)
[2020-11-23 12:31] LABS: ERYTHROCYTE SEDIMENTATION RATE 39 mm/hr (0-20)
[2020-11-23 12:36] LABS: ALBUMIN 3.8 GM/DL (3.2-5.2); ALT/SGPT 22 U/L (12-78); BILIRUBIN,DIRECT 0.1 MG/DL (0.0-0.2); BILIRUBIN,TOTAL 0.4 MG/DL (0.2-1.0); BLOOD UREA NITROGEN 13 MG/DL (7-18); C REACTIVE PROTEIN QUANTITATIV 0.99 MG/DL (0.00-0.30); CALCIUM LEVEL 10.6 MG/DL (8.5-10.1); CARBON DIOXIDE LEVEL 27 MEQ/L (21-32); CHLORIDE LEVEL 108 MEQ/L (98-107); CK-MB VALUE MASS < 1.0 NG/ML (<3.6); CPK CREATINE PHOSPHOKINASE 72 U/L (26-192); CREATININE FOR GFR 0.64 MG/DL (0.55-1.30); FREE T4 0.91 NG/DL (0.76-1.46); GLOMERULAR FILTRATION RATE > 60.0 (>58); GLUCOSE, FASTING 106 MG/DL (70-100); LIPASE 229 U/L (73-393); MB/CK RELATIVE INDEX 1.39 (< OR =4); NT-PRO BNP 19 PG/ML (<125); SODIUM LEVEL 141 MEQ/L (136-145); TOTAL PROTEIN 7.6 GM/DL (6.4-8.2); TROPONIN I < 0.02 NG/ML (< 0.10)
--- NOTE | 2020-11-23 13:16 | REP ---
INDICATION: CHEST PAIN COMPARISON: 09/15/2020 TECHNIQUE: Portable AP view of the chest FINDINGS: The mediastinum and cardiac silhouette are stable and within normal limits for portable technique. The lung masterson are clear without acute consolidation, effusion, or pneumothorax. Skeletal structures are intact. IMPRESSION: No acute cardiopulmonary process appreciated. <Electronically signed by Kurt Alvarado > 11/23/20 8259
[2020-11-23] MEDS ORDERED: ISOVUE-370 76% 100ML VIAL As Ordered ONE ×2 (13:46→14:01)
--- NOTE | 2020-11-23 14:40 | REP ---
INDICATION: chest pain/abdominal pain. COMPARISON: 08/10/2020. TECHNIQUE: CT angiogram chest performed following the intravenous administration of 100 cc of Isovue 370. Sagittal and coronal reconstruction images are performed. FINDINGS: Lungs: Clear, no infiltrate or nodule. Mediastinum: No adenopathy. Pulmonary arteries: No evidence of pulmonary embolism. Michelle: No adenopathy. Axilla: No adenopathy. Pleura: No effusion. Heart: Mildly enlarged. Thoracic aorta: No aneurysm or dissection. Upper abdominal structures: There is a small hiatal hernia. Visualized osseous structures: Unremarkable. IMPRESSION: No CT evidence of pulmonary embolism. No infiltrate seen. <Electronically signed by Linden Betancur > 11/23/20 [id number]
--- NOTE | 2020-11-23 15:06 | REP ---
INDICATION: chest pain/abdominal pain COMPARISON: 11/10/2020. TECHNIQUE: CT Scan of the abdomen and pelvis was performed with intravenous administration of 100 cc of Isovue 370, without oral contrast. Sagittal and coronal reconstruction images are performed. FINDINGS: Liver: There is diffuse fatty infiltration of the liver Gallbladder: Status post cholecystectomy. Spleen: Prior splenectomy. Adrenals: Normal. Pancreas: Normal. Kidneys: A subcentimeter fat containing nodule in the upper pole the right kidney is most consistent with an angiomyolipoma. There is a hypodense nodule in the mid right kidney laterally 1.6 cm in diameter. This is nonspecific. Probable subcentimeter cyst is seen in the lower pole the right kidney. Small and large bowel: Unremarkable. Free fluid: None. Abdominal aorta: No aneurysm or dissection. Adenopathy: None. Appendix: Prior appendectomy. Osseous structures: Unremarkable. Pelvis: No mass. Prior hysterectomy. IMPRESSION: No acute pathology in the abdomen or pelvis. In the mid right kidney there is an indeterminate 1.6 cm nodule. Recommend follow-up dedicated CT or MRI with and without contrast to further evaluate. <Electronically signed by Linden Betancur > 11/23/20 8951
[2020-11-23 15:57] VITALS: BP 168/96
--- NOTE | 2020-11-24 04:51 | ECGEPIP ---
[facility] - ED Test Date: 2020-11-23 Pat Name: BROOKLYNN TINEO Department: Room: - Gender: Female Medical Education Specialist: MARGARET : 1980 Requested By: ANSELMO Pa Order Number: [id number] Reading MD: Vega Bass Measurements Intervals [place] Rate: 69 P: 22 ID: [id number] QRS: 37 QRSD: 100 T: 37 QT: 400 QTc: 428 Interpretive Statements Normal sinus rhythm SIMILAR TO 10/26/20 Electronically Signed on 11-24-2020 4:51:09 EDT by Vega Bass
--- NOTE | 2020-11-24 07:19 | ED PDOC ---
Post-Departure Follow-Up radiology report faxed to jose Wong Sarah MD November 24, 2020 07:19
== END 2020-11-23 16:48 | disposition home or self-care (01) ==
LOC: M ED 10:57
DX: R07.89 Other chest pain (principal); R93.421 Abnormal radiologic findings on diagnostic imaging of right kidney; E11.9 Type 2 diabetes mellitus without complications; I10 Essential (primary) hypertension; E78.5 Hyperlipidemia, unspecified; K21.9 Gastro-esophageal reflux disease without esophagitis; F31.9 Bipolar disorder, unspecified; Z79.899 Other long term (current) drug therapy; Z88.8 Allergy status to other drugs, medicaments and biological substances; Z88.6 Allergy status to analgesic agent; Z88.5 Allergy status to narcotic agent
CPT/HCPCS: 71045; 71275; 74177; 80048; 80076; 82550; 82553; 83690; 83880; 84439; 84443; 84703; 85025; 85610; 85652; 85730; 86140; 93005; 93041; 94760; 99285; Q9967

== ENCOUNTER → 2020-12-06 | Outpatient (CLI) | payer OTHER ==
[~2020-12-06] MED LIST changes: +AMOX875T2 PO; +BACL10TA2 PO; +CIMZ200K SC; +CLON-412 PO
--- NOTE | 2020-12-06 12:35 | REP ---
INDICATION: FINGER PAIN LEFT COMPARISON: None. TECHNIQUE: AP, lateral, bilateral oblique views left hand. FINDINGS: The osseous structures and joint spaces are intact and age-appropriate. There is no evidence for acute fracture or dislocation. Surrounding soft tissues are unremarkable. No subcutaneous emphysema or radiodense foreign body. IMPRESSION: Age-appropriate left hand radiographs. <Electronically signed by Kurt Alvarado > 12/06/20 0997
--- NOTE | 2020-12-06 12:36 | REP ---
INDICATION: FINGER PAIN LEFT COMPARISON: None. TECHNIQUE: AP, lateral, bilateral oblique views left wrist. FINDINGS: The carpal bones, surrounding osseous structures, soft tissues, and joint spaces are normal. There is no evidence for acute fracture or dislocation. No subcutaneous emphysema or radiodense foreign body. IMPRESSION: Normal age-appropriate left wrist series. <Electronically signed by Kurt Alvarado > 12/06/20 3952
== END ==
LOC: M CLY 11:09
PROVIDERS: ATTEND Family Medicine
DX: M79.645 Pain in left finger(s) (principal); M25.532 Pain in left wrist

== ENCOUNTER → 2020-12-12 | Outpatient (CLI) | payer OTHER ==
--- NOTE | 2020-12-12 11:41 | REP ---
INDICATION: RIGHT KNEE PAIN. COMPARISON: None TECHNIQUE: Sagittal spin-echo proton density, T2 STIR and T2 FLASH. Coronal spin-echo proton density and fat suppressed proton density. Axial fat suppressed proton density. FINDINGS: The anterior and posterior horns of the lateral meniscus are within normal limits. There is grade 3 signal change seen in the posterior horn of the medial meniscus. The anterior horn of the medial meniscus is within normal limits. The anterior and posterior cruciate ligaments are intact. The quadriceps and patellar tendons are intact. The medial and lateral collateral ligaments are intact. The medial and lateral patellar retinacula are intact. There is no joint effusion. There is a tiny Helm's cyst. There is patchy T2 hyper signal seen in the proximal medial tibial metaphysis in a subchondral/sub meniscal orientation. There is tricompartmental marginal osteophytosis. There is tricompartmental cartilaginous thinning and irregularity particularly affecting the medial compartment. There is medial compartmental narrowing. IMPRESSION: 1. The posterior horn of the medial meniscus is torn. 2. Tricompartmental degenerative changes with marginal osteophytosis, chondromalacia, and compartmental narrowing as described above. 3. There is proximal medial tibial metaphyseal marrow edema as described above likely secondary to repeated micro trauma or possibly due to recent injury. This be correlated clinically. 4. There is a tiny Helm's cyst. <Electronically signed by Reji Castro > 12/12/20 [id number]
== END ==
LOC: M RAD 08:29
PROVIDERS: ATTEND Orthopaedic Surgery
DX: M25.561 Pain in right knee (principal); S83.241A Other tear of medial meniscus, current injury, right knee, initial encounter; X58.XXXA Exposure to other specified factors, initial encounter; Y92.9 Unspecified place or not applicable; M94.261 Chondromalacia, right knee; M17.11 Unilateral primary osteoarthritis, right knee

== ENCOUNTER 2020-12-14 10:44 | Emergency (ER) | payer OTHER ==
[~2020-12-14] VITALS: Ht 170.2 cm; Wt 129.1 kg
--- NOTE | 2020-12-14 11:14 | REP ---
INDICATION: CHEST PAIN COMPARISON: 11/23/2020 TECHNIQUE: Portable AP view of the chest FINDINGS: The mediastinum and cardiac silhouette are stable and within normal limits for portable technique. The lung masterson are clear without acute consolidation, effusion, or pneumothorax. Skeletal structures are intact. IMPRESSION: No acute cardiopulmonary process appreciated. <Electronically signed by Kurt Alvarado > 12/14/20 1111
[2020-12-14 11:28] LABS: BASO # 0.2 10^3/uL (0.0-0.2); BASO % 1.2 % (0.0-1.0); EOS # 2.8 10^3/uL (0.0-0.5); HEMATOCRIT 38.6 % (36.0-47.0); LYMPH # 5.1 10^3/uL (1.5-5.0); MEAN CORPUSCULAR HGB CONC 31.1 g/dl (32.0-36.5); MONO # 1.1 10^3/uL (0.0-0.8); MONO % 7.9 % (2.0-8.0); NEUTROPHILS # 4.7 10^3/uL (1.5-8.5); NEUTROPHILS % 33.6 % (36.0-66.0); PLATELET COUNT, AUTOMATED 471 10^3/uL (150-450); RED BLOOD COUNT 4.29 10^6/uL (4.00-5.40)
[2020-12-14 11:44] LABS: EOS % 20.1 % (0.0-3.0); WHITE BLOOD COUNT 14.1 10^3/uL (4.0-10.0)
[2020-12-14] MEDS: NITROGLYCERIN 0.4 MG SUBL TABLET SL PRN ×3 (11:45→14:08)
[2020-12-14 11:57] LABS: BLOOD UREA NITROGEN 16 MG/DL (7-18); CALCIUM LEVEL 9.9 MG/DL (8.5-10.1); CARBON DIOXIDE LEVEL 25 MEQ/L (21-32); CHLORIDE LEVEL 110 MEQ/L (98-107); CREATININE FOR GFR 0.86 MG/DL (0.55-1.30); GLOMERULAR FILTRATION RATE > 60.0 (>58); GLUCOSE, FASTING 170 MG/DL (70-100); NT-PRO BNP 15 PG/ML (<125); POTASSIUM SERUM 3.5 MEQ/L (3.5-5.1); SODIUM LEVEL 142 MEQ/L (136-145)
[2020-12-14 14:08] VITALS: BP 149/78
[2020-12-14 17:23] LABS: CK-MB VALUE MASS < 1.0 NG/ML (<3.6); CPK CREATINE PHOSPHOKINASE 94 U/L (26-192); MB/CK RELATIVE INDEX 1.06 (< OR =4); TROPONIN I < 0.02 NG/ML (< 0.10)
[2020-12-14 17:35] VITALS: BP 125/68
--- NOTE | 2020-12-14 20:01 | ECGEPIP ---
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
--- NOTE | 2020-12-14 20:15 | ECGEPIP ---
[facility] - ED Test Date: 2020-12-14 Pat Name: BROOKLYNN TINEO Department: Room: - Gender: Female Returns Clerk: ED : 1980 Requested By: Tiffanie Florence Order Number: [id number] Reading MD: Vega Bass Measurements Intervals [place] Rate: 68 P: 47 MO: 180 QRS: 39 QRSD: 108 T: 54 QT: 438 QTc: 465 Interpretive Statements Normal sinus rhythm POOR R WAVE PROGRESSION SIMILAR TO PRIOR ON SAME DATE Electronically Signed on 12-14-2020 20:15:40 EDT by Vega Bass
== END 2020-12-14 17:37 | disposition home or self-care (01) ==
LOC: M ED 10:44
DX: R07.9 Chest pain, unspecified (principal); E11.9 Type 2 diabetes mellitus without complications; I10 Essential (primary) hypertension; J45.909 Unspecified asthma, uncomplicated; E78.5 Hyperlipidemia, unspecified; E03.9 Hypothyroidism, unspecified; M06.9 Rheumatoid arthritis, unspecified; F43.10 Post-traumatic stress disorder, unspecified; F31.9 Bipolar disorder, unspecified; Z79.890 Hormone replacement therapy; Z79.899 Other long term (current) drug therapy; Z88.4 Allergy status to anesthetic agent; Z88.8 Allergy status to other drugs, medicaments and biological substances; Z88.5 Allergy status to narcotic agent; Z90.49 Acquired absence of other specified parts of digestive tract; Z83.3 Family history of diabetes mellitus

== ENCOUNTER 2020-12-17 19:30 | Emergency (ER) | payer OTHER ==
[~2020-12-17] VITALS: Ht 167.6 cm; Wt 126.9 kg
[2020-12-17] MEDS ORDERED: ONDANSETRON 4MG/2ML VIAL IV ONE (20:45)
[2020-12-17] MEDS ORDERED: NS 1,000 ML IV ONE (20:45)
[2020-12-17 22:00] LABS: HEMATOCRIT 38.9 % (36.0-47.0); HEMOGLOBIN 12.1 g/dl (12.0-15.5); MEAN CORPUSCULAR HEMOGLOBIN 27.8 pg (27.0-33.0); MEAN CORPUSCULAR HGB CONC 31.1 g/dl (32.0-36.5); MEAN CORPUSCULAR VOLUME 89.4 fl (80.0-96.0); PLATELET COUNT, AUTOMATED 473 10^3/uL (150-450); RED BLOOD COUNT 4.35 10^6/uL (4.00-5.40)
[2020-12-17 22:05] LABS: WHITE BLOOD COUNT 16.6 10^3/uL (4.0-10.0)
--- NOTE | 2020-12-17 22:08 | REPVR ---
PROCEDURE INFORMATION: Exam: CT Abdomen And Pelvis Without Contrast Exam date and time: 12/17/2020 8:55 PM Age: 40 years old Clinical indication: Abdominal pain; Flank; Left; Additional info: Left flank pain, renal colic TECHNIQUE: Imaging protocol: Computed tomography of the abdomen and pelvis without contrast. Radiation optimization: All CT scans at this facility use at least one of these dose optimization techniques: automated exposure control; mA and/or kV adjustment per patient size (includes targeted exams where dose is matched to clinical indication); or iterative reconstruction. COMPARISON: CT ABD/PEL W/IV CONTRAST ONLY 11/23/2020 1:52 PM FINDINGS: Liver: There is hepatomegaly and hepatic steatosis. Gallbladder and bile ducts: There has been prior cholecystectomy. No biliary duct dilation. Pancreas: Normal. No ductal dilation. Spleen: Prior splenectomy. Adrenal glands: Normal. No mass. Kidneys and ureters: No urinary tract calculi or masses. No hydronephrosis. Stomach and bowel: Unremarkable. No obstruction. No mucosal thickening. Appendix: No evidence of appendicitis. Intraperitoneal space: Unremarkable. No free air. No significant fluid collection. Vasculature: Unremarkable. No abdominal aortic aneurysm. Lymph nodes: Unremarkable. No enlarged lymph nodes. Urinary bladder: Unremarkable as visualized. Reproductive: There has been prior hysterectomy. Bones/joints: Unremarkable. No acute fracture. Soft tissues: Unremarkable. IMPRESSION: 1. Hepatic steatosis and hepatomegaly. 2. No acute findings. Electronically signed by: Danny Rodriguez On 12/17/2020 22:07:38 PM
[2020-12-17] MEDS ORDERED: cefTRIAXone SOD 1 GM in D5W MINI-BAG PLUS 50 ML IV ONE (22:15)
[2020-12-17] MEDS ORDERED: ACETAMINOPHEN 500 MG TAB PO ONE (22:20)
[2020-12-17] MEDS ORDERED: CEFD1CAP8 PO (22:22)
[2020-12-17 22:23] LABS: ATYPICAL LYMPH 7 % (0-5); BASOPHILS 1 % (0-1); EOSINOPHILS 12 % (0-3); LYMPHOCYTES 41 % (16-44); MONOCYTES 8 % (0-5); NEUTROPHILS 31 % (28-66)
[2020-12-17 22:24] LABS: ANISOCYTOSIS 1+; HYPOCHROMASIA 1+; PLATELET ESTIMATE INCREASED (NORMAL)
[2020-12-17 22:27] LABS: BLOOD UREA NITROGEN 9 MG/DL (7-18); CALCIUM LEVEL 9.7 MG/DL (8.5-10.1); CARBON DIOXIDE LEVEL 25 MEQ/L (21-32); CHLORIDE LEVEL 110 MEQ/L (98-107); CREATININE FOR GFR 0.65 MG/DL (0.55-1.30); GLOMERULAR FILTRATION RATE > 60.0 (>58); GLUCOSE, FASTING 91 MG/DL (70-100); SODIUM LEVEL 143 MEQ/L (136-145)
[2020-12-17 22:56] VITALS: BP 141/68
--- NOTE | 2020-12-19 14:26 | ED PDOC ---
Post-Departure Follow-Up ct abd/p faxed to dr mcpherson for fu Sha Barrera MD Dec 19, 2020 14:26
== END 2020-12-17 22:58 | disposition home or self-care (01) ==
LOC: M ED 19:30
DX: N15.9 Renal tubulo-interstitial disease, unspecified (principal); K76.0 Fatty (change of) liver, not elsewhere classified; R11.0 Nausea; G43.909 Migraine, unspecified, not intractable, without status migrainosus; G62.9 Polyneuropathy, unspecified; I10 Essential (primary) hypertension; J45.909 Unspecified asthma, uncomplicated; G47.30 Sleep apnea, unspecified; K21.9 Gastro-esophageal reflux disease without esophagitis; E11.9 Type 2 diabetes mellitus without complications; E03.9 Hypothyroidism, unspecified; D69.3 Immune thrombocytopenic purpura; F41.9 Anxiety disorder, unspecified; F32.9 Major depressive disorder, single episode, unspecified; F43.10 Post-traumatic stress disorder, unspecified; Z88.8 Allergy status to other drugs, medicaments and biological substances; Z88.5 Allergy status to narcotic agent; Z88.4 Allergy status to anesthetic agent; Z79.899 Other long term (current) drug therapy; Z79.51 Long term (current) use of inhaled steroids
CPT/HCPCS: 74176; 80048; 81001; 85025; 96365; 96375; 99284; J0696; J2405

== ENCOUNTER 2020-12-24 16:09 | Emergency (ER) | payer OTHER ==
[~2020-12-24] VITALS: Ht 167.6 cm; Wt 126.3 kg
[~2020-12-24 16:09] MED LIST changes: +CEFD1CAP8 PO
[2020-12-24 17:03] LABS: BASO # 0.2 10^3/uL (0.0-0.2); BASO % 1.2 % (0.0-1.0); EOS # 0.5 10^3/uL (0.0-0.5); HEMATOCRIT 36.5 % (36.0-47.0); HEMOGLOBIN 11.2 g/dl (12.0-15.5); LYMPH # 4.2 10^3/uL (1.5-5.0); LYMPH % 27.4 % (24.0-44.0); MEAN CORPUSCULAR HEMOGLOBIN 27.7 pg (27.0-33.0); MEAN CORPUSCULAR HGB CONC 30.7 g/dl (32.0-36.5); MEAN CORPUSCULAR VOLUME 90.3 fl (80.0-96.0); MONO # 1.2 10^3/uL (0.0-0.8); MONO % 7.7 % (2.0-8.0); NEUTROPHILS # 9.2 10^3/uL (1.5-8.5); NEUTROPHILS % 59.7 % (36.0-66.0); PLATELET COUNT, AUTOMATED 452 10^3/uL (150-450); RED BLOOD COUNT 4.04 10^6/uL (4.00-5.40); WHITE BLOOD COUNT 15.4 10^3/uL (4.0-10.0)
[2020-12-24] MEDS ORDERED: diphenhydrAMINE 50MG/ML VIAL (J1200) IV STA (17:11)
--- NOTE | 2020-12-24 17:13 | REP ---
INDICATION: CHEST PAIN. COMPARISON: Comparison portable chest x-ray December 14, 2020. TECHNIQUE: Portable upright AP chest radiograph. FINDINGS: The lungs are well inflated and free of infiltrate. Pleural angles are sharp. Heart size is normal. Pulmonary vasculature is not increased. EKG monitoring electrodes are visible. IMPRESSION: No active disease. <Electronically signed by Jose F Marina > 12/24/20 [id number]
[2020-12-24] MEDS ORDERED: KETOROLAC 30 MG/ML 1ML VIAL IV ONE (17:15)
[2020-12-24] MEDS ORDERED: METOCLOPRAMIDE INJ 10MG/2ML VIAL (J2765 PER 1) IV ONE (17:15)
[2020-12-24 18:05] LABS: ALBUMIN 3.8 GM/DL (3.2-5.2); ALT/SGPT 27 U/L (12-78); BILIRUBIN,DIRECT < 0.1 MG/DL (0.0-0.2); BILIRUBIN,TOTAL 0.2 MG/DL (0.2-1.0); BLOOD UREA NITROGEN 12 MG/DL (7-18); CALCIUM LEVEL 9.3 MG/DL (8.5-10.1); CARBON DIOXIDE LEVEL 23 MEQ/L (21-32); CHLORIDE LEVEL 112 MEQ/L (98-107); CREATININE FOR GFR 0.62 MG/DL (0.55-1.30); GLOMERULAR FILTRATION RATE > 60.0 (>58); GLUCOSE, FASTING 118 MG/DL (70-100); LIPASE 329 U/L (73-393); NT-PRO BNP 19 PG/ML (<125); POTASSIUM SERUM 4.3 MEQ/L (3.5-5.1); SODIUM LEVEL 144 MEQ/L (136-145); THYROID STIMULATING HORMONE 0.675 uIU/ML (0.358-3.740); TOTAL PROTEIN 7.5 GM/DL (6.4-8.2)
[2020-12-24 22:31] VITALS: BP 143/84
--- NOTE | 2020-12-25 16:56 | ECGEPIP ---
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
--- NOTE | 2020-12-25 16:57 | ECGEPIP ---
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
== END 2020-12-24 22:33 | disposition home or self-care (01) ==
LOC: M ED 16:09
DX: G43.909 Migraine, unspecified, not intractable, without status migrainosus (principal); R07.9 Chest pain, unspecified; K21.9 Gastro-esophageal reflux disease without esophagitis; I10 Essential (primary) hypertension; E78.5 Hyperlipidemia, unspecified; F31.9 Bipolar disorder, unspecified; F43.10 Post-traumatic stress disorder, unspecified; F60.3 Borderline personality disorder; E03.9 Hypothyroidism, unspecified; Z79.899 Other long term (current) drug therapy; Z88.6 Allergy status to analgesic agent; Z88.5 Allergy status to narcotic agent; Z88.8 Allergy status to other drugs, medicaments and biological substances
CPT/HCPCS: 71045; 80048; 80076; 83690; 83880; 84443; 85025; 93005; 93041; 94760; 96374; 96375; 99285; J1200; J1885; J2765

== ENCOUNTER 2021-01-23 08:18 | Emergency (ER) | payer OTHER ==
[~2021-01-23] VITALS: Ht 170.2 cm; Wt 127.6 kg
[~2021-01-23 08:18] MED LIST changes: -ARIP1TAB2 PO; +ARIP1TAB43 PO; +ERGO500029 PO; -VITA50005 PO
[2021-01-23] MEDS ORDERED: COMBIVENT RESPIMAT 100-20MCG INHALER 4GM INH ONE (09:00)
[2021-01-23] MEDS ORDERED: methylPREDNISolone 125MG 2ML VIAL IV ONE (09:10)
[2021-01-23 09:30] LABS: BASO # 0.2 10^3/uL (0.0-0.2); BASO % 1.2 % (0.0-1.0); EOS # 1.8 10^3/uL (0.0-0.5); EOS % 14.4 % (0.0-3.0); HEMATOCRIT 40.2 % (36.0-47.0); HEMOGLOBIN 12.2 g/dl (12.0-15.5); LYMPH # 4.8 10^3/uL (1.5-5.0); LYMPH % 38.9 % (24.0-44.0); MEAN CORPUSCULAR HEMOGLOBIN 28.2 pg (27.0-33.0); MEAN CORPUSCULAR HGB CONC 30.3 g/dl (32.0-36.5); MEAN CORPUSCULAR VOLUME 93.1 fl (80.0-96.0); MONO # 1.1 10^3/uL (0.0-0.8); MONO % 8.8 % (2.0-8.0); NEUTROPHILS # 4.5 10^3/uL (1.5-8.5); NEUTROPHILS % 36.5 % (36.0-66.0); PLATELET COUNT, AUTOMATED 418 10^3/uL (150-450); RED BLOOD COUNT 4.32 10^6/uL (4.00-5.40); WHITE BLOOD COUNT 12.3 10^3/uL (4.0-10.0)
[2021-01-23 10:04] LABS: ALT/SGPT 26 U/L (12-78); BILIRUBIN,DIRECT < 0.1 MG/DL (0.0-0.2); BILIRUBIN,TOTAL 0.2 MG/DL (0.2-1.0); BLOOD UREA NITROGEN 10 MG/DL (7-18); CALCIUM LEVEL 9.6 MG/DL (8.5-10.1); CARBON DIOXIDE LEVEL 25 MEQ/L (21-32); CHLORIDE LEVEL 112 MEQ/L (98-107); CK-MB VALUE MASS < 1.0 NG/ML (<3.6); CPK CREATINE PHOSPHOKINASE 73 U/L (26-192); GLOMERULAR FILTRATION RATE > 60.0 (>58); GLUCOSE, FASTING 95 MG/DL (70-100); MB/CK RELATIVE INDEX 1.37 (< OR =4); NT-PRO BNP 26 PG/ML (<125); POTASSIUM SERUM 3.6 MEQ/L (3.5-5.1); SODIUM LEVEL 144 MEQ/L (136-145); TROPONIN I < 0.02 NG/ML (< 0.10)
--- NOTE | 2021-01-23 10:21 | REP ---
INDICATION: DYSPNEA/COUGH COMPARISON: 12/24/2020 TECHNIQUE: PA and lateral. FINDINGS: The mediastinum and cardiac silhouette are normal. The lung masterson are clear and without acute consolidation, effusion, or pneumothorax. The skeletal structures are intact and normal. IMPRESSION: No acute cardiopulmonary process. <Electronically signed by Kurt Alvarado > 01/23/21 1014
[2021-01-23 11:30] VITALS: O2SAT 91
[2021-01-23 11:32] VITALS: BP 143/80
[2021-01-23] MEDS ORDERED: IPRATROPIUM 0.5MG/ALBUTEROL 2.5MG INH SOL UD 3ML (DUONEB) NEB ONE (11:45)
[2021-01-23] MEDS ORDERED: PRED20TA PO (13:20)
--- NOTE | 2021-01-23 15:09 | ECGEPIP ---
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
== END 2021-01-23 13:41 | disposition home or self-care (01) ==
LOC: M ED 08:18
DX: J45.901 Unspecified asthma with (acute) exacerbation (principal); I10 Essential (primary) hypertension; E78.5 Hyperlipidemia, unspecified; R73.03 Prediabetes; F43.10 Post-traumatic stress disorder, unspecified; F31.9 Bipolar disorder, unspecified; K21.9 Gastro-esophageal reflux disease without esophagitis; K58.9 Irritable bowel syndrome, unspecified; G43.909 Migraine, unspecified, not intractable, without status migrainosus; M06.9 Rheumatoid arthritis, unspecified; Z79.899 Other long term (current) drug therapy; Z88.8 Allergy status to other drugs, medicaments and biological substances; Z88.6 Allergy status to analgesic agent; Z88.5 Allergy status to narcotic agent
CPT/HCPCS: 71046; 80048; 80076; 81001; 82550; 82553; 83880; 84443; 85025; 87798; 93005; 93041; 94640; 94664; 94760; 96374; 99284; J2930

== ENCOUNTER → 2021-02-07 | Outpatient (REF) | payer OTHER ==
[~2021-02-07] MED LIST changes: +PRED20TA PO
[2021-02-07 16:30] LABS: FREE T4 0.83 NG/DL (0.76-1.46); THYROID STIMULATING HORMONE 1.87 uIU/ML (0.358-3.740)
== END ==
LOC: M SFHCCLAY 10:30
PROVIDERS: ATTEND Family Medicine
DX: R23.2 Flushing (principal); E03.9 Hypothyroidism, unspecified

== ENCOUNTER 2021-02-13 16:17 | Emergency (ER) | payer OTHER ==
[~2021-02-13] VITALS: Ht 170.2 cm; Wt 127.3 kg
[~2021-02-13 16:17] MED LIST changes: -CEFD1CAP8 PO; +CEFD300C41 PO; -DICY20TA11 PO; +DICY20TA20 PO; -ESTR2TAB2 PO; +ESTR2TAB3 PO; -MONT10TA10 PO; +MONT10TA97 PO; +TIZA10TA PO; -TIZA4TAB4 PO
[2021-02-13] MEDS ORDERED: DICY20TA20 PO (16:58)
[2021-02-13] MEDS ORDERED: BUTACAP78 PO (16:58)
[2021-02-13] MEDS ORDERED: TOPI100T9 PO (16:58)
[2021-02-13] MEDS ORDERED: BLAC540C3 PO (16:58)
[2021-02-13] MEDS ORDERED: FISH1000 PO (16:58)
[2021-02-13] MEDS ORDERED: D31000TA2 PO (16:58)
[2021-02-13] MEDS ORDERED: METO1TAB87 PO (16:58)
[2021-02-13] MEDS ORDERED: ROZE8TAB16 PO (16:58)
[2021-02-13] MEDS ORDERED: GARL600T PO (16:58)
[2021-02-13] MEDS ORDERED: FOLI1TAB11 PO (16:58)
[2021-02-13 17:21] LABS: BASO # 0.2 10^3/uL (0.0-0.2); BASO % 1.2 % (0.0-1.0); EOS # 3.9 10^3/uL (0.0-0.5); HEMOGLOBIN 11.4 g/dl (12.0-15.5); LYMPH # 4.7 10^3/uL (1.5-5.0); LYMPH % 33.7 % (24.0-44.0); MEAN CORPUSCULAR HEMOGLOBIN 28.4 pg (27.0-33.0); MEAN CORPUSCULAR HGB CONC 30.8 g/dl (32.0-36.5); MONO # 1.1 10^3/uL (0.0-0.8); MONO % 7.6 % (2.0-8.0); NEUTROPHILS # 4.1 10^3/uL (1.5-8.5); NEUTROPHILS % 29.2 % (36.0-66.0); PLATELET COUNT, AUTOMATED 314 10^3/uL (150-450); RED BLOOD COUNT 4.02 10^6/uL (4.00-5.40); WHITE BLOOD COUNT 14.1 10^3/uL (4.0-10.0)
[2021-02-13 17:51] LABS: ALBUMIN 3.4 GM/DL (3.2-5.2); ALT/SGPT 24 U/L (12-78); BILIRUBIN,DIRECT < 0.1 MG/DL (0.0-0.2); BILIRUBIN,TOTAL 0.2 MG/DL (0.2-1.0); BLOOD UREA NITROGEN 7 MG/DL (7-18); CALCIUM LEVEL 9.1 MG/DL (8.5-10.1); CARBON DIOXIDE LEVEL 21 MEQ/L (21-32); CHLORIDE LEVEL 112 MEQ/L (98-107); CK-MB VALUE MASS < 1.0 NG/ML (<3.6); CPK CREATINE PHOSPHOKINASE 91 U/L (26-192); CREATININE FOR GFR 0.68 MG/DL (0.55-1.30); GLOMERULAR FILTRATION RATE > 60.0 (>58); GLUCOSE, FASTING 126 MG/DL (70-100); LIPASE 234 U/L (73-393); POTASSIUM SERUM 3.8 MEQ/L (3.5-5.1); SODIUM LEVEL 144 MEQ/L (136-145); TOTAL PROTEIN 7.6 GM/DL (6.4-8.2); TROPONIN I < 0.02 NG/ML (< 0.10)
[2021-02-13 18:03] LABS: EOS % 27.8 % (0.0-3.0)
[2021-02-13 18:47] VITALS: BP 132/66
== END 2021-02-13 18:49 | disposition home or self-care (01) ==
LOC: M ED 16:17
DX: R00.2 Palpitations (principal); I10 Essential (primary) hypertension; E78.5 Hyperlipidemia, unspecified; J45.909 Unspecified asthma, uncomplicated; F31.9 Bipolar disorder, unspecified; Z88.8 Allergy status to other drugs, medicaments and biological substances; Z88.6 Allergy status to analgesic agent

== ENCOUNTER 2021-03-05 17:48 | Emergency (ER) | payer OTHER ==
[~2021-03-05] VITALS: Ht 170.2 cm; Wt 127.4 kg
[~2021-03-05 17:48] MED LIST changes: +BLAC540C3 PO; +BUTACAP78 PO; +CEFD1CAP8 PO; -CEFD300C41 PO; +D31000TA2 PO; +DICY20TA11 PO; -DICY20TA20 PO; +ESTR2TAB2 PO; -ESTR2TAB3 PO; +FISH1000 PO; +FOLI1TAB11 PO; +GARL600T PO; +MONT10TA10 PO; -MONT10TA97 PO; +ROZE8TAB16 PO; -TIZA10TA PO; +TIZA4TAB4 PO; +TOPI100T9 PO
[2021-03-05 17:49] VITALS: BP 168/92
[2021-03-05] MEDS ORDERED: ONDANSETRON 4MG/2ML VIAL IV ONE (20:15)
[2021-03-05] MEDS ORDERED: KETOROLAC 30 MG/ML 1ML VIAL IV ONE (20:15)
[2021-03-05 20:23] LABS: HEMOGLOBIN 12.3 g/dl (12.0-15.5); MEAN CORPUSCULAR HEMOGLOBIN 28.4 pg (27.0-33.0); MEAN CORPUSCULAR HGB CONC 31.5 g/dl (32.0-36.5); MEAN CORPUSCULAR VOLUME 90.1 fl (80.0-96.0); PLATELET COUNT, AUTOMATED 421 10^3/uL (150-450); RED BLOOD COUNT 4.33 10^6/uL (4.00-5.40)
[2021-03-05 20:24] LABS: WHITE BLOOD COUNT 16.9 10^3/uL (4.0-10.0)
[2021-03-05 20:41] LABS: ALBUMIN 3.8 GM/DL (3.2-5.2); ALT/SGPT 30 U/L (12-78); BILIRUBIN,DIRECT < 0.1 MG/DL (0.0-0.2); BILIRUBIN,TOTAL 0.2 MG/DL (0.2-1.0); BLOOD UREA NITROGEN 14 MG/DL (7-18); CALCIUM LEVEL 9.3 MG/DL (8.5-10.1); CARBON DIOXIDE LEVEL 26 MEQ/L (21-32); CHLORIDE LEVEL 111 MEQ/L (98-107); CREATININE FOR GFR 0.76 MG/DL (0.55-1.30); GLOMERULAR FILTRATION RATE > 60.0 (>58); GLUCOSE, FASTING 116 MG/DL (70-100); LIPASE 258 U/L (73-393); POTASSIUM SERUM 3.6 MEQ/L (3.5-5.1); SODIUM LEVEL 144 MEQ/L (136-145); TOTAL PROTEIN 8.3 GM/DL (6.4-8.2)
[2021-03-05 20:59] LABS: ATYPICAL LYMPH 2 % (0-5); EOSINOPHILS 16 % (0-3); LYMPHOCYTES 32 % (16-44); MONOCYTES 6 % (0-5); NEUTROPHILS 44 % (28-66); PLATELET ESTIMATE NORMAL (NORMAL)
--- NOTE | 2021-03-05 23:58 | REPVR ---
PROCEDURE INFORMATION: Exam: CT Abdomen And Pelvis Without Contrast Exam date and time: 03/05/2021 9:14 PM Age: 40 years old Clinical indication: Abdominal pain; Flank; Right; Additional info: Right flank pain TECHNIQUE: Imaging protocol: Computed tomography of the abdomen and pelvis without contrast. Axial, coronal and sagittal reformatted images were created and reviewed. Radiation optimization: All CT scans at this facility use at least one of these dose optimization techniques: automated exposure control; mA and/or kV adjustment per patient size (includes targeted exams where dose is matched to clinical indication); or iterative reconstruction. COMPARISON: CT ABD PELVIS W/O CONTRAST 12/17/2020 8:54 PM FINDINGS: Liver: Mild hepatomegaly. Mild, diffuse hepatic steatosis. Gallbladder and bile ducts: Status post cholecystectomy. No biliary ductal dilatation. Pancreas: Unremarkable. Spleen: Status post splenectomy. Adrenal glands: Normal. No mass. Kidneys and ureters: No mass. No radiodense calculi. No hydronephrosis. Stomach and bowel: Moderate amount of retained stool in the colon. No obstruction. No bowel wall thickening. No pneumatosis. Appendix: Appendix not identified with certainty but no right lower quadrant inflammatory change to suggest acute appendicitis. Intraperitoneal space: No free fluid. No organized fluid collection. No free air. Vasculature: Unremarkable. No aneurysm. Lymph nodes: Small mesenteric lymph nodes, nonspecific in appearance. No pathologically enlarged lymph nodes. Urinary bladder: Unremarkable as visualized. Reproductive: Status post hysterectomy. Bones/joints: No acute osseous abnormality. Mild degenerative changes. Soft tissues: Unremarkable. IMPRESSION: 1. Limited noncontrast examination without CT evidence of acute intra-abdominal or pelvic pathology. 2. Additional findings, as above. Electronically signed by: Mika Avila On 03/05/2021 23:57:06 PM
[2021-03-06] MEDS ORDERED: BACT800T5 PO (00:05)
[2021-03-06] MEDS ORDERED: BACTRIM 160MG/800MG DS TAB PO ONE (00:05)
== END 2021-03-06 01:23 | disposition home or self-care (01) ==
LOC: M ED 17:48
DX: N39.0 Urinary tract infection, site not specified (principal); E66.9 Obesity, unspecified; I10 Essential (primary) hypertension; E78.5 Hyperlipidemia, unspecified; D25.9 Leiomyoma of uterus, unspecified; N83.299 Other ovarian cyst, unspecified side; G43.909 Migraine, unspecified, not intractable, without status migrainosus; G62.9 Polyneuropathy, unspecified; F44.5 Conversion disorder with seizures or convulsions; J45.909 Unspecified asthma, uncomplicated; G47.33 Obstructive sleep apnea (adult) (pediatric); E03.9 Hypothyroidism, unspecified; F41.9 Anxiety disorder, unspecified; F31.89 Other bipolar disorder; F43.10 Post-traumatic stress disorder, unspecified; K58.9 Irritable bowel syndrome, unspecified; M54.30 Sciatica, unspecified side; Z79.899 Other long term (current) drug therapy; Z88.5 Allergy status to narcotic agent; Z88.8 Allergy status to other drugs, medicaments and biological substances
CPT/HCPCS: 36415; 74176; 80047; 80048; 80076; 81001; 83690; 85025; 87086; 96374; 96375; 99284; J1885; J2405

== ENCOUNTER → 2021-03-08 | Outpatient (CLI) | payer OTHER ==
[~2021-03-08] MED LIST changes: +BACT800T5 PO
--- NOTE | 2021-03-08 11:19 | REP ---
INDICATION: COUGH SHORTNESS OF BREATH COMPARISON: 02/13/2021 TECHNIQUE: PA and lateral. FINDINGS: The mediastinum and cardiac silhouette are normal. The lung masterson are clear and without acute consolidation, effusion, or pneumothorax. The skeletal structures are intact and normal. IMPRESSION: No acute cardiopulmonary process. <Electronically signed by Kurt Alvarado > 03/08/21 1116
== END ==
LOC: M CLY 10:33
PROVIDERS: ATTEND Family Medicine
DX: R05 Cough (principal); R06.02 Shortness of breath

== ENCOUNTER → 2021-03-15 | Outpatient (REF) | payer OTHER ==
[2021-03-15 16:17] LABS: BASO # 0.1 10^3/uL (0.0-0.2); EOS # 3.1 10^3/uL (0.0-0.5); HEMATOCRIT 37.8 % (36.0-47.0); HEMOGLOBIN 11.5 g/dl (12.0-15.5); LYMPH # 4.5 10^3/uL (1.5-5.0); MEAN CORPUSCULAR HEMOGLOBIN 27.8 pg (27.0-33.0); MEAN CORPUSCULAR HGB CONC 30.4 g/dl (32.0-36.5); MEAN CORPUSCULAR VOLUME 91.5 fl (80.0-96.0); MONO # 1.2 10^3/uL (0.0-0.8); MONO % 8.8 % (2.0-8.0); NEUTROPHILS % 35.7 % (36.0-66.0); PLATELET COUNT, AUTOMATED 421 10^3/uL (150-450); RED BLOOD COUNT 4.13 10^6/uL (4.00-5.40); WHITE BLOOD COUNT 13.9 10^3/uL (4.0-10.0)
[2021-03-15 17:17] LABS: EOS % 22.1 % (0.0-3.0)
[2021-03-17 17:10] LABS: Lyme Disease IgG/IgM Antibodie <0.91 ISR (0.00-0.90); Lyme Disease IgM Ab Quantitati <0.80 index (0.00-0.79)
== END ==
LOC: M SFHCCLAY 09:19
PROVIDERS: ATTEND Physician Assistant
DX: S40.862A Insect bite (nonvenomous) of left upper arm, initial encounter (principal); W57.XXXA Bitten or stung by nonvenomous insect and other nonvenomous arthropods, initial encounter; Y92.9 Unspecified place or not applicable; Y93.9 Activity, unspecified; Y99.9 Unspecified external cause status

== ENCOUNTER → 2021-03-23 | Outpatient (REF) | payer OTHER | LOC: M SFHCCLAY 11:15 | PROVIDERS: ATTEND Family Medicine | DX: Z11.1 Encounter for screening for respiratory tuberculosis (principal); R05 Cough ==

== ENCOUNTER → 2021-03-26 | Outpatient (REF) | payer OTHER | LOC: M SFHCCLAY 15:22 | PROVIDERS: ATTEND Family Medicine | DX: Z11.1 Encounter for screening for respiratory tuberculosis (principal); R05 Cough ==

== ENCOUNTER → 2021-03-26 | Outpatient (REF) | payer OTHER | LOC: M LABDRAWC 15:39 | PROVIDERS: ATTEND Nurse Practitioner | DX: Z11.1 Encounter for screening for respiratory tuberculosis (principal) ==

== ENCOUNTER → 2021-03-27 | Outpatient (REF) | payer OTHER | LOC: M SFHCCLAY 11:21 | PROVIDERS: ATTEND Family Medicine | DX: Z11.1 Encounter for screening for respiratory tuberculosis (principal); R05 Cough ==

== ENCOUNTER → 2021-03-28 | Outpatient (CLI) | payer OTHER ==
--- NOTE | 2021-03-28 09:36 | REP ---
INDICATION: COUGH, EVAL FOR TUBERCULOSIS COMPARISON: 11/23/2020 TECHNIQUE: Axial noncontrast images from the thoracic inlet to the upper abdomen with coronal and sagittal reformations. This CT examination was performed using the following dose reduction techniques: Automated exposure control, adjustment of mA and/or kv according to the patient's size, and use of iterative reconstruction technique. FINDINGS: The bilateral lung masterson are relatively well aerated and clear. There is a small subpleural density along the posterior aspect of the right lower lobe (series 201; image 71) which likely represents a small chronic scar versus dependent atelectasis. No acute consolidation, suspicious nodule or mass. No effusion. No pneumothorax. Tracheobronchial tree is patent. No significant adenopathy. The mediastinum demonstrates normal thoracic aorta, pulmonary vasculature, and heart/pericardium. Musculoskeletal structures are intact. IMPRESSION: Small 7 mm subpleural opacity along the posterior right lower lobe likely chronic versus small dependent atelectasis and less likely significant acute pathology. This was not identified on prior examination likely due to changes in technique and inspiration. Low risk patients require no further investigation while high risk patients may warrant 6 month follow-up. <Electronically signed by Kurt Alvarado > 03/28/21 0932
== END ==
LOC: M RAD 09:11
PROVIDERS: ATTEND Family Medicine
DX: R05 Cough (principal); Z11.1 Encounter for screening for respiratory tuberculosis; R91.8 Other nonspecific abnormal finding of lung field

== ENCOUNTER → 2021-04-16 | Outpatient (CLI) | payer OTHER ==
--- NOTE | 2021-04-17 08:48 | REP ---
INDICATION: ENCOUNTER FOR OTHER ORTHOPEDIC AFTERCARE COMPARISON: None. TECHNIQUE: Betancur scale and color Doppler evaluation using linear high frequency transducer. FINDINGS: Ultrasound examination of the right lower extremity deep venous structures from the common femoral vein through the popliteal vein demonstrates normal compressibility flow and wave patterns in response to respiration and augmentation. There is no evidence for deep venous thrombosis. Contralateral CFV is patent and normal. Evaluation of the calf veins is incomplete due to technical factors related to body habitus. IMPRESSION: No evidence for deep venous thrombosis. <Electronically signed by Kurt Alvarado > 04/17/21 2004
== END ==
LOC: M RAD 15:31
PROVIDERS: ATTEND Physician Assistant Surgical
DX: Z47.89 Encounter for other orthopedic aftercare (principal); M79.662 Pain in left lower leg

== ENCOUNTER → 2021-05-21 | Outpatient (REF) | payer OTHER ==
[~2021-05-21] MED LIST changes: -ESTR2TAB2 PO; +ESTR2TAB3 PO
[2021-05-22 11:41] LABS: APPEARANCE, URINE HAZY (CLEAR); BACTERIA, URINE AUTO 1+ (NEGATIVE); BILIRUBIN, URINE AUTO NEGATIVE (NEGATIVE); BLOOD, URINE BLOOD NEGATIVE (NEGATIVE); CALCIUM OXALATE CRYSTALS LARGE; COLOR, URINE YELLOW (YELLOW); GLUCOSE, URINE (UA) AUTO NEGATIVE (NEGATIVE); KETONE, URINE AUTO NEGATIVE (NEGATIVE); LEUKOCYTE ESTERASE, URINE AUTO NEGATIVE (NEGATIVE); MUCUS, URINE SMALL (NEGATIVE); NITRITE, URINE AUTO NEGATIVE (NEGATIVE); PROTEIN, URINE AUTO NEGATIVE (NEGATIVE); RBC, URINE AUTO 5 /HPF (0-3); SPECIFIC GRAVITY URINE AUTO 1.014 (1.002-1.035); SQUAMOUS EPITHELIAL CELL UR AU 3 /HPF (0-6); UROBILINOGEN, URINE AUTO 0.2 mg/dL (0.0-2.0); WBC, URINE AUTO 1 /HPF (0-3)
== END ==
LOC: M SFHCCLAY 11:18
PROVIDERS: ATTEND Family Medicine
DX: R30.0 Dysuria (principal)

== ENCOUNTER → 2021-06-29 | Outpatient (REF) | payer OTHER ==
[~2021-06-29] MED LIST changes: +AMLO1TAB25 PO; +BUTA-198; -CEFD1CAP8 PO; +CEFD300C41 PO; -DICY20TA11 PO; +DICY20TA20 PO; +FLUT1BLS8 PO; +FOLI400T13 PO; +ISOS10TA3 PO; -MONT10TA10 PO; +MONT10TA97 PO; +ONDA-84 PO; +POLY510P14 PO; +PREG50CA2 PO; +SELF1KIT MC; +TAMS1CAP17 PO; +TIZA10TA PO; -TIZA4TAB4 PO
[2021-06-29 16:23] LABS: BASO # 0.2 10^3/uL (0.0-0.2); EOS # 2.3 10^3/uL (0.0-0.5); EOS % 16.1 % (0.0-3.0); HEMATOCRIT 38.8 % (36.0-47.0); HEMOGLOBIN 11.8 g/dl (12.0-15.5); LYMPH # 4.7 10^3/uL (1.5-5.0); LYMPH % 33.1 % (24.0-44.0); MEAN CORPUSCULAR HGB CONC 30.4 g/dl (32.0-36.5); MEAN CORPUSCULAR VOLUME 91.9 fl (80.0-96.0); MONO # 1.2 10^3/uL (0.0-0.8); NEUTROPHILS # 5.9 10^3/uL (1.5-8.5); PLATELET COUNT, AUTOMATED 404 10^3/uL (150-450); RED BLOOD COUNT 4.22 10^6/uL (4.00-5.40); WHITE BLOOD COUNT 14.3 10^3/uL (4.0-10.0)
== END ==
LOC: M LABDRAWC 15:36
PROVIDERS: ATTEND Physician Assistant
DX: M25.50 Pain in unspecified joint (principal)

== ENCOUNTER → 2021-07-12 | Outpatient (REF) | payer OTHER ==
[~2021-07-12] MED LIST changes: -AMLO1TAB25 PO; -BUTA-198; +CEFD1CAP8 PO; -CEFD300C41 PO; +DICY20TA11 PO; -DICY20TA20 PO; -FLUT1BLS8 PO; -FOLI400T13 PO; -ISOS10TA3 PO; +MONT10TA10 PO; -MONT10TA97 PO; -ONDA-84 PO; -POLY510P14 PO; -PREG50CA2 PO; -SELF1KIT MC; -TAMS1CAP17 PO; -TIZA10TA PO; +TIZA4TAB4 PO
== END ==
LOC: M LABDRAWC 15:24
PROVIDERS: ATTEND Internal Medicine
DX: M46.90 Unspecified inflammatory spondylopathy, site unspecified (principal); M25.50 Pain in unspecified joint

== ENCOUNTER 2021-07-16 14:31 | Emergency (ER) | payer OTHER ==
[~2021-07-16] VITALS: Ht 170.2 cm; Wt 132.0 kg
[2021-07-16] MEDS ORDERED: diphenhydrAMINE 50MG/ML VIAL (J1200) IV STA (16:06)
[2021-07-16] MEDS ORDERED: KETOROLAC 30 MG/ML 1ML VIAL IV ONE (16:10)
[2021-07-16] MEDS ORDERED: NS 1,000 ML IV ONE (16:10)
[2021-07-16] MEDS ORDERED: METOCLOPRAMIDE INJ 10MG/2ML VIAL (J2765 PER 1) IV ONE (16:10)
--- NOTE | 2021-07-16 16:13 | REP ---
INDICATION: oakes. COMPARISON: 10/26/2020 TECHNIQUE: 5 mm contiguous transaxial sections were obtained from the skull base to the cerebral convexities. FINDINGS: The ventricles and sulci are consistent with the patient's age. There are no extra-axial fluid collections. There is no mass effect. The deep cerebral white matter is consistent with the patient's age. The orbital and petrous structures, cerebellopontine angles, and posterior fossa are unremarkable. The sella turcica, cavernous, and paracavernous structures are essentially unremarkable. The visualized portions of the paranasal sinuses and mastoid air cells are clear. Images of the skull base show no gross abnormality. IMPRESSION: Unremarkable CT examination of the brain. No change from the prior exam. <Electronically signed by Reji Castro > 07/16/21 [id number]
[2021-07-16 18:24] VITALS: BP 138/78
== END 2021-07-16 18:25 | disposition home or self-care (01) ==
LOC: M ED 14:31
DX: G43.909 Migraine, unspecified, not intractable, without status migrainosus (principal); R20.2 Paresthesia of skin; I10 Essential (primary) hypertension; J45.909 Unspecified asthma, uncomplicated; K58.8 Other irritable bowel syndrome; F31.9 Bipolar disorder, unspecified; F43.10 Post-traumatic stress disorder, unspecified; Z88.8 Allergy status to other drugs, medicaments and biological substances; Z79.890 Hormone replacement therapy; Z79.899 Other long term (current) drug therapy
CPT/HCPCS: 70450; 96361; 96374; 96375; 99283; J1200; J1885; J2765

== ENCOUNTER → 2021-08-02 | Outpatient (REF) | payer OTHER ==
[~2021-08-02] MED LIST changes: -CEFD1CAP8 PO; +CEFD300C41 PO; -DICY20TA11 PO; +DICY20TA20 PO; -MONT10TA10 PO; +MONT10TA97 PO; +TIZA10TA PO; -TIZA4TAB4 PO
== END ==
LOC: M SFHCCLAY 16:33
PROVIDERS: ATTEND Physician Assistant
DX: R05.9 Cough, unspecified (principal)

== ENCOUNTER → 2021-08-15 | Outpatient (REF) | payer OTHER ==
[2021-08-15 16:33] LABS: BASO # 0.1 10^3/uL (0.0-0.2); BASO % 0.4 % (0.0-1.0); EOS # 0.6 10^3/uL (0.0-0.5); EOS % 3.2 % (0.0-3.0); HEMATOCRIT 41.4 % (36.0-47.0); HEMOGLOBIN 12.8 g/dl (12.0-15.5); LYMPH # 4.5 10^3/uL (1.5-5.0); LYMPH % 23.3 % (24.0-44.0); MEAN CORPUSCULAR HEMOGLOBIN 27.8 pg (27.0-33.0); MEAN CORPUSCULAR HGB CONC 30.9 g/dl (32.0-36.5); MONO # 1.4 10^3/uL (0.0-0.8); MONO % 7.1 % (2.0-8.0); NEUTROPHILS # 12.6 10^3/uL (1.5-8.5); NEUTROPHILS % 65.1 % (36.0-66.0); PLATELET COUNT, AUTOMATED 389 10^3/uL (150-450); WHITE BLOOD COUNT 19.3 10^3/uL (4.0-10.0)
== END ==
LOC: M SFHCCLAY 13:09
PROVIDERS: ATTEND Family Medicine
DX: D72.10 Eosinophilia, unspecified (principal); E55.9 Vitamin D deficiency, unspecified

== ENCOUNTER → 2021-08-21 | Outpatient (REF) | payer OTHER ==
[2021-08-21 17:59] LABS: APPEARANCE, URINE HAZY (CLEAR); BACTERIA, URINE AUTO 1+ (NEGATIVE); BILIRUBIN, URINE AUTO NEGATIVE (NEGATIVE); BLOOD, URINE BLOOD NEGATIVE (NEGATIVE); COLOR, URINE YELLOW (YELLOW); GLUCOSE, URINE (UA) AUTO NEGATIVE (NEGATIVE); KETONE, URINE AUTO NEGATIVE (NEGATIVE); LEUKOCYTE ESTERASE, URINE AUTO NEGATIVE (NEGATIVE); MUCUS, URINE SMALL (NEGATIVE); NITRITE, URINE AUTO NEGATIVE (NEGATIVE); PROTEIN, URINE AUTO NEGATIVE (NEGATIVE); RBC, URINE AUTO 0 /HPF (0-3); SPECIFIC GRAVITY URINE AUTO 1.006 (1.002-1.035); SQUAMOUS EPITHELIAL CELL UR AU 0 /HPF (0-6); UROBILINOGEN, URINE AUTO 0.2 mg/dL (0.0-2.0); WBC, URINE AUTO 0 /HPF (0-3)
== END ==
LOC: M SMT 17:30
PROVIDERS: ATTEND Urology
DX: R33.9 Retention of urine, unspecified (principal)

== ENCOUNTER → 2021-08-28 | Outpatient (REF) | payer OTHER ==
[2021-08-28 11:46] LABS: BASO # 0.1 10^3/uL (0.0-0.2); BASO % 0.8 % (0.0-1.0); EOS # 0.7 10^3/uL (0.0-0.5); EOS % 5.2 % (0.0-3.0); HEMATOCRIT 38.7 % (36.0-47.0); HEMOGLOBIN 12.2 g/dl (12.0-15.5); LYMPH # 4.6 10^3/uL (1.5-5.0); LYMPH % 35.1 % (24.0-44.0); MEAN CORPUSCULAR HEMOGLOBIN 28.2 pg (27.0-33.0); MEAN CORPUSCULAR HGB CONC 31.5 g/dl (32.0-36.5); MEAN CORPUSCULAR VOLUME 89.6 fl (80.0-96.0); MONO % 7.8 % (2.0-8.0); NEUTROPHILS # 6.7 10^3/uL (1.5-8.5); NEUTROPHILS % 50.5 % (36.0-66.0); PLATELET COUNT, AUTOMATED 408 10^3/uL (150-450); RED BLOOD COUNT 4.32 10^6/uL (4.00-5.40); WHITE BLOOD COUNT 13.2 10^3/uL (4.0-10.0)
== END ==
LOC: M LABDRAWC 11:09
PROVIDERS: ATTEND Internal Medicine
DX: D72.110 Idiopathic hypereosinophilic syndrome [IHES] (principal)

== ENCOUNTER 2021-08-31 17:04 | Observation (INO) | payer OTHER ==
[~2021-08-31] VITALS: Ht 170.2 cm; Wt 129.6 kg
[2021-08-31 18:09] LABS: HEMATOCRIT 41.3 % (36.0-47.0); HEMOGLOBIN 12.9 g/dl (12.0-15.5); MEAN CORPUSCULAR HEMOGLOBIN 27.7 pg (27.0-33.0); MEAN CORPUSCULAR HGB CONC 31.2 g/dl (32.0-36.5); MEAN CORPUSCULAR VOLUME 88.6 fl (80.0-96.0); PLATELET COUNT, AUTOMATED 498 10^3/uL (150-450); RED BLOOD COUNT 4.66 10^6/uL (4.00-5.40); WHITE BLOOD COUNT 13.4 10^3/uL (4.0-10.0)
[2021-08-31 18:38] LABS: ALBUMIN 3.6 GM/DL (3.2-5.2); ALT/SGPT 31 U/L (12-78); BILIRUBIN,DIRECT < 0.1 MG/DL (0.0-0.2); BILIRUBIN,TOTAL 0.3 MG/DL (0.2-1.0); BLOOD UREA NITROGEN 8 MG/DL (7-18); CALCIUM LEVEL 9.3 MG/DL (8.5-10.1); CARBON DIOXIDE LEVEL 24 MEQ/L (21-32); CHLORIDE LEVEL 109 MEQ/L (98-107); FREE T4 1.06 NG/DL (0.76-1.46); GLOMERULAR FILTRATION RATE > 60.0 (>58); GLUCOSE, FASTING 97 MG/DL (70-100); SODIUM LEVEL 141 MEQ/L (136-145)
[2021-08-31 18:51] LABS: CK-MB VALUE MASS < 1.0 NG/ML (<3.6); CPK CREATINE PHOSPHOKINASE 99 U/L (26-192); MB/CK RELATIVE INDEX 1.01 (< OR =4)
[2021-08-31] MEDS ORDERED: ACETAMINOPHEN TAB 650MG DOSE (2X325MG) PO ONE (18:55)
[2021-08-31] MEDS ORDERED: PREG50CA2 PO (19:00)
[2021-08-31] MEDS ORDERED: FLUT1BLS8 PO (19:00)
[2021-08-31] MEDS ORDERED: DOXE10CA PO (19:00)
[2021-08-31] MEDS ORDERED: TIZA10TA PO (19:00)
[2021-08-31] MEDS ORDERED: BUTA-198 (19:00)
[2021-08-31] MEDS ORDERED: TAMS1CAP17 PO (19:00)
[2021-08-31 19:09] LABS: ATYPICAL LYMPH 21 % (0-5); EOSINOPHILS 7 % (0-3); LYMPHOCYTES 13 % (16-44); MONOCYTES 3 % (0-5); NEUTROPHILS 56 % (28-66)
[2021-08-31 19:10] LABS: PLATELET ESTIMATE INCREASED (NORMAL)
[2021-08-31] MEDS ORDERED: LITHIUM CARBONATE 300 MG CAP PO SCH (21:00)
[2021-08-31] MEDS ORDERED: ASCORBIC ACID 500 MG TAB PO SCH (21:00)
[2021-08-31] MEDS ORDERED: TOPIRAMATE (TopAMAX) 25 MG TAB PO SCH (21:00)
[2021-08-31] MEDS ORDERED: METOPROLOL TART 25 MG TABLET PO SCH (21:00)
[2021-08-31 21:09] LABS: RSV AMPLIFICATION NEGATIVE (NEGATIVE)
[2021-08-31] MEDS ORDERED: BACLOFEN 10 MG TAB PO ONE (21:25)
[2021-08-31 21:43] LABS: LITHIUM LEVEL < 0.20 MEQ/L (0.60-1.20)
[2021-08-31 22:50] LABS: ETHYL ALCOHOL (ETHANOL) < 0.003 % (0.000-0.010)
[2021-08-31] MEDS ORDERED: CALC600T60 PO (23:26)
[2021-08-31] MEDS ORDERED: POLY510P14 PO (23:26)
[2021-08-31] MEDS ORDERED: ONDA-84 PO (23:26)
[2021-08-31] MEDS ORDERED: ERGO500029 PO (23:26)
[2021-08-31] MEDS ORDERED: FOLI400T13 PO (23:26)
[2021-08-31] MEDS ORDERED: HOME MED LIST COMPLETE! XX SCH (23:30)
[2021-09-01] MEDS ORDERED: ALBUTEROL 90 MCG/ACT 8GM HFA INHALER INH PRN
[2021-09-01] MEDS ORDERED: tiZANidine 4 MG TAB PO PRN
[2021-09-01] MEDS ORDERED: FLUTICASONE PROP 0.05% NASAL SPRAY 16 GM (FLONASE) PRN
[2021-09-01] MEDS ORDERED: ACETAMINOPHEN 500 MG TAB PO PRN
[2021-09-01] MEDS ORDERED: METAMUCIL (PSYLLIUM) PACKET PO PRN
[2021-09-01] MEDS ORDERED: MIRALAX *UNIT DOSE* 17GM PACKET PO PRN
[2021-09-01] MEDS: PREGABALIN 50 MG CAP (LYRICA) PO SCH ×2 (02:38→09:03)
[2021-09-01] MEDS: MAGNESIUM OXIDE 400MG TAB (MAG-OX) PO SCH ×2 (02:38→09:01)
[2021-09-01] MEDS: busPIRone 5 MG TAB PO SCH ×2 (02:39→09:02)
[2021-09-01] MEDS: TOPIRAMATE (TopAMAX) 100 MG TAB PO SCH ×2 (02:40→09:02)
[2021-09-01] MEDS ORDERED: LEVOTHYROXINE 50MCG TABLET (0.05MG) PO SCH (06:00)
[2021-09-01] MEDS ORDERED: SELF1KIT MC (07:40)
[2021-09-01] MEDS ORDERED: ISOSORBIDE DIN (ISORDIL) 10MG TAB PO PRN (07:40)
[2021-09-01] MEDS ORDERED: ISOS10TA3 PO (07:40)
[2021-09-01] MEDS ORDERED: AMLO1TAB25 PO (07:40)
[2021-09-01] MEDS ORDERED: BACLOFEN 10 MG TAB PO SCH (09:00)
[2021-09-01] MEDS ORDERED: TAMSULOSIN 0.4 MG CAP PO SCH (09:00)
[2021-09-01] MEDS ORDERED: VENLAFAXINE **XR** 75MG CAPSULE PO SCH (09:00)
[2021-09-01] MEDS ORDERED: LACTOBACILLUS ACIDOPHILUS CAP (BACID) PO SCH (09:00)
[2021-09-01] MEDS ORDERED: PANTOPRAZOLE 40MG TAB (PROTONIX) PO SCH (09:00)
[2021-09-01] MEDS ORDERED: AZELASTINE 137MCG NASAL SPY 30 ML (ASTELIN) SCH (09:00)
[2021-09-01] MEDS ORDERED: FERROUS SULFATE 325MG TAB PO SCH (09:00)
[2021-09-01] MEDS ORDERED: ENOXAPARIN 40MG/0.4ML SYRINGE (J1650 PER 10MG) SC SCH (09:00)
[2021-09-01] MEDS ORDERED: LACTULOSE 20 GM/30 ML SYRUP UD PO SCH (09:00)
[2021-09-01] MEDS ORDERED: MULTIVITAMINS/MINERALS THERAP 1 TAB PO SCH (09:00)
[2021-09-01 09:02] VITALS: BP 161/81
[2021-09-01 09:33] LABS: HEMATOCRIT 39.8 % (36.0-47.0); HEMOGLOBIN 12.2 g/dl (12.0-15.5); MEAN CORPUSCULAR HEMOGLOBIN 27.4 pg (27.0-33.0); MEAN CORPUSCULAR HGB CONC 30.7 g/dl (32.0-36.5); MEAN CORPUSCULAR VOLUME 89.2 fl (80.0-96.0); PLATELET COUNT, AUTOMATED 470 10^3/uL (150-450); RED BLOOD COUNT 4.46 10^6/uL (4.00-5.40); WHITE BLOOD COUNT 11.4 10^3/uL (4.0-10.0)
[2021-09-01 09:51] LABS: ERYTHROCYTE SEDIMENTATION RATE 45 mm/hr (0-20)
[2021-09-01 10:03] LABS: CK-MB VALUE MASS < 1.0 NG/ML (<3.6); CPK CREATINE PHOSPHOKINASE 76 U/L (26-192); MB/CK RELATIVE INDEX 1.32 (< OR =4)
[2021-09-01 10:08] LABS: ATYPICAL LYMPH 9 % (0-5); BASOPHILS 1 % (0-1); EOSINOPHILS 4 % (0-3); LYMPHOCYTES 33 % (16-44); MONOCYTES 3 % (0-5); NEUTROPHILS 50 % (28-66)
[2021-09-01 10:09] LABS: ALBUMIN 3.2 GM/DL (3.2-5.2); ALT/SGPT 26 U/L (12-78); BILIRUBIN,TOTAL 0.4 MG/DL (0.2-1.0); BLOOD UREA NITROGEN 10 MG/DL (7-18); C REACTIVE PROTEIN QUANTITATIV 1.79 MG/DL (0.00-0.30); CALCIUM LEVEL 9.4 MG/DL (8.5-10.1); CARBON DIOXIDE LEVEL 26 MEQ/L (21-32); CHLORIDE LEVEL 111 MEQ/L (98-107); CHOLESTEROL LEVEL 163 MG/DL (<200); CREATININE FOR GFR 0.76 MG/DL (0.55-1.30); FREE THYROXINE INDEX 2.9 % (1.3-4.8); GLOMERULAR FILTRATION RATE > 60.0 (>58); GLUCOSE, FASTING 115 MG/DL (70-100); HDL CHOLESTEROL 42 MG/DL (>40); LDL CHOLESTEROL 78 MG/DL (<100); NON-HDL-C 121 MG/DL; POTASSIUM SERUM 4.3 MEQ/L (3.5-5.1); SODIUM LEVEL 143 MEQ/L (136-145); T UPTAKE 28 % (30-39); THYROID STIMULATING HORMONE 0.654 uIU/ML (0.358-3.740); THYROXINE (T4) 10.4 UG/DL (4.5-12.0); TRIGLYCERIDES LEVEL 215 MG/DL (<150)
[2021-09-01 10:10] LABS: ANISOCYTOSIS 1+; PLATELET ESTIMATE INCREASED (NORMAL)
[2021-09-01 13:17] VITALS: BP 166/99
== END 2021-09-01 13:15 | disposition home or self-care (01) ==
LOC: M ED 17:04 → EDBD 17:04 → M ED INP 17:05
PROVIDERS: ADMIT Internal Medicine; ATTEND Internal Medicine
DX: R55 Syncope and collapse (principal); I10 Essential (primary) hypertension; J45.909 Unspecified asthma, uncomplicated; F43.10 Post-traumatic stress disorder, unspecified; F31.9 Bipolar disorder, unspecified; R73.03 Prediabetes; E66.9 Obesity, unspecified; E78.5 Hyperlipidemia, unspecified; E03.9 Hypothyroidism, unspecified; K21.9 Gastro-esophageal reflux disease without esophagitis; K58.8 Other irritable bowel syndrome; M06.9 Rheumatoid arthritis, unspecified; E61.1 Iron deficiency; N39.3 Stress incontinence (female) (male); D69.3 Immune thrombocytopenic purpura; G47.33 Obstructive sleep apnea (adult) (pediatric); R00.0 Tachycardia, unspecified; Z79.51 Long term (current) use of inhaled steroids; Z79.899 Other long term (current) drug therapy; M25.561 Pain in right knee; M25.571 Pain in right ankle and joints of right foot; Z91.81 History of falling

== ENCOUNTER → 2021-09-03 | Outpatient (REF) | payer OTHER ==
[~2021-09-03] MED LIST changes: +AMLO1TAB25 PO; +BUTA-198; +FLUT1BLS8 PO; +FOLI400T13 PO; +ISOS10TA3 PO; +ONDA-84 PO; +POLY510P14 PO; +PREG50CA2 PO; +SELF1KIT MC; +TAMS1CAP17 PO
[2021-09-03 16:09] LABS: HEMATOCRIT 40.1 % (36.0-47.0); HEMOGLOBIN 12.5 g/dl (12.0-15.5); MEAN CORPUSCULAR HEMOGLOBIN 27.6 pg (27.0-33.0); MEAN CORPUSCULAR HGB CONC 31.2 g/dl (32.0-36.5); MEAN CORPUSCULAR VOLUME 88.5 fl (80.0-96.0); PLATELET COUNT, AUTOMATED 490 10^3/uL (150-450); RED BLOOD COUNT 4.53 10^6/uL (4.00-5.40); WHITE BLOOD COUNT 14.8 10^3/uL (4.0-10.0)
[2021-09-03 19:24] LABS: ATYPICAL LYMPH 3 % (0-5); EOSINOPHILS 4 % (0-3); LYMPHOCYTES 31 % (16-44); MONOCYTES 6 % (0-5); NEUTROPHILS 56 % (28-66)
[2021-09-03 19:25] LABS: PLATELET ESTIMATE INCREASED (NORMAL)
== END ==
LOC: M SFHCCLAY 12:22
PROVIDERS: ATTEND Family Medicine
DX: D72.829 Elevated white blood cell count, unspecified (principal)

== ENCOUNTER → 2021-09-04 | Outpatient (REF) | payer OTHER | LOC: M SFHCCLAY 15:26 | PROVIDERS: ATTEND Physician Assistant | DX: R30.0 Dysuria (principal) ==

== ENCOUNTER → 2021-09-14 | Outpatient (CLI) | payer OTHER ==
[~2021-09-14] MED LIST changes: -D31000TA2 PO; +VITA100093 PO
== END ==
LOC: M PAIN 08:30
PROVIDERS: ATTEND Nurse Practitioner Family
DX: M51.16 Intervertebral disc disorders with radiculopathy, lumbar region (principal); G89.29 Other chronic pain; J45.909 Unspecified asthma, uncomplicated; E03.9 Hypothyroidism, unspecified; G43.909 Migraine, unspecified, not intractable, without status migrainosus; E55.9 Vitamin D deficiency, unspecified; M79.7 Fibromyalgia; G47.30 Sleep apnea, unspecified; Z86.59 Personal history of other mental and behavioral disorders; Z88.5 Allergy status to narcotic agent; Z88.6 Allergy status to analgesic agent; Z88.8 Allergy status to other drugs, medicaments and biological substances; E66.01 Morbid (severe) obesity due to excess calories; Z68.42 Body mass index [BMI] 45.0-49.9, adult; Z79.51 Long term (current) use of inhaled steroids; Z79.899 Other long term (current) drug therapy

== ENCOUNTER → 2021-10-04 | Outpatient (REF) | payer OTHER ==
[2021-10-04 16:53] LABS: BLOOD UREA NITROGEN 8 MG/DL (7-18); CALCIUM LEVEL 9.7 MG/DL (8.5-10.1); CARBON DIOXIDE LEVEL 30 MEQ/L (21-32); CHLORIDE LEVEL 109 MEQ/L (98-107); CREATININE FOR GFR 0.71 MG/DL (0.55-1.30); FREE T4 1.21 NG/DL (0.76-1.46); GLOMERULAR FILTRATION RATE > 60.0 (>58); GLUCOSE, FASTING 96 MG/DL (70-100); SODIUM LEVEL 141 MEQ/L (136-145); THYROID STIMULATING HORMONE 0.474 uIU/ML (0.358-3.740)
[2021-10-04 17:06] LABS: HEMOGLOBIN A1c 6.5 %
== END ==
LOC: M SFHCCLAY 11:45
PROVIDERS: ATTEND Family Medicine
DX: I11.9 Hypertensive heart disease without heart failure (principal); R73.03 Prediabetes; E03.9 Hypothyroidism, unspecified

== ENCOUNTER → 2021-10-08 | Outpatient (REF) | payer OTHER ==
[2021-10-08 11:29] LABS: PLATELET COUNT, AUTOMATED 428 10^3/uL (150-450)
[2021-10-08 11:39] LABS: COLLAGEN EPINEPHRINE 93 SECONDS (74-162)
[2021-10-08 11:42] LABS: INR 0.99; PROTHROMBIN TIME 13.5 SECONDS (12.7-14.5)
[2021-10-08 11:43] LABS: PARTIAL THROMBOPLASTIN TIME 31.5 SECONDS (25.9-37.0)
[2021-10-08 11:59] LABS: HCG, SERUM QUALITATIVE NEGATIVE (NEGATIVE)
== END ==
LOC: M LABDRAWC 11:04
PROVIDERS: ATTEND Physician Assistant
DX: M47.897 Other spondylosis, lumbosacral region (principal)

== ENCOUNTER 2021-10-16 08:14 | Emergency (ER) | payer OTHER ==
[~2021-10-16] VITALS: Ht 170.2 cm; Wt 128.2 kg
[2021-10-16] MEDS ORDERED: TOPI200T7 (08:39)
[2021-10-16] MEDS ORDERED: LOSA25TA13 (08:39)
[2021-10-16] MEDS ORDERED: DOXY-350 PO (08:41)
[2021-10-16] MEDS ORDERED: ONDANSETRON 4MG/2ML VIAL IV ONE (09:25)
[2021-10-16] MEDS ORDERED: KETOROLAC 30 MG/ML 1ML VIAL IV ONE (09:25)
[2021-10-16 09:44] LABS: BASO # 0.1 10^3/uL (0.0-0.2); BASO % 1.1 % (0.0-1.0); EOS # 0.6 10^3/uL (0.0-0.5); EOS % 5.1 % (0.0-3.0); HEMATOCRIT 38.8 % (36.0-47.0); HEMOGLOBIN 12.3 g/dl (12.0-15.5); LYMPH # 3.5 10^3/uL (1.5-5.0); LYMPH % 29.6 % (24.0-44.0); MEAN CORPUSCULAR HEMOGLOBIN 27.8 pg (27.0-33.0); MEAN CORPUSCULAR HGB CONC 31.7 g/dl (32.0-36.5); MEAN CORPUSCULAR VOLUME 87.8 fl (80.0-96.0); MONO # 0.9 10^3/uL (0.0-0.8); MONO % 7.9 % (2.0-8.0); NEUTROPHILS # 6.5 10^3/uL (1.5-8.5); NEUTROPHILS % 55.9 % (36.0-66.0); PLATELET COUNT, AUTOMATED 446 10^3/uL (150-450); RED BLOOD COUNT 4.42 10^6/uL (4.00-5.40); WHITE BLOOD COUNT 11.7 10^3/uL (4.0-10.0)
[2021-10-16 10:16] LABS: BLOOD UREA NITROGEN 10 MG/DL (7-18); CALCIUM LEVEL 9.2 MG/DL (8.5-10.1); CARBON DIOXIDE LEVEL 27 MEQ/L (21-32); CHLORIDE LEVEL 113 MEQ/L (98-107); FREE T4 1.12 NG/DL (0.76-1.46); GLOMERULAR FILTRATION RATE > 60.0 (>58); GLUCOSE, FASTING 125 MG/DL (70-100); POTASSIUM SERUM 3.4 MEQ/L (3.5-5.1); SODIUM LEVEL 143 MEQ/L (136-145); THYROID STIMULATING HORMONE 0.424 uIU/ML (0.358-3.740)
[2021-10-16 11:21] VITALS: BP 147/95
== END 2021-10-16 11:56 | disposition home or self-care (01) ==
LOC: M ED 08:14
DX: R42 Dizziness and giddiness (principal); E87.6 Hypokalemia; W19.XXXA Unspecified fall, initial encounter; Y92.9 Unspecified place or not applicable; Y93.89 Activity, other specified; Y99.9 Unspecified external cause status; D64.9 Anemia, unspecified; M06.9 Rheumatoid arthritis, unspecified; G47.33 Obstructive sleep apnea (adult) (pediatric); E11.9 Type 2 diabetes mellitus without complications; I10 Essential (primary) hypertension; R51.9 Headache, unspecified; J45.909 Unspecified asthma, uncomplicated; M54.9 Dorsalgia, unspecified; E03.9 Hypothyroidism, unspecified; M51.37 Other intervertebral disc degeneration, lumbosacral region; Z87.81 Personal history of (healed) traumatic fracture; M50.322 Other cervical disc degeneration at C5-C6 level; M50.323 Other cervical disc degeneration at C6-C7 level; Z79.899 Other long term (current) drug therapy; Z88.5 Allergy status to narcotic agent; Z88.8 Allergy status to other drugs, medicaments and biological substances
CPT/HCPCS: 36415; 70450; 71111; 72125; 72128; 72131; 80048; 84439; 84443; 85025; 96374; 96375; 99284; J1885; J2405

== ENCOUNTER → 2021-10-18 | Outpatient (REF) | payer OTHER ==
[~2021-10-18] MED LIST changes: +DOXY-350 PO; +LOSA25TA13; +TOPI200T7
[2021-10-18 16:19] LABS: BASO # 0.1 10^3/uL (0.0-0.2); BASO % 0.9 % (0.0-1.0); EOS # 0.7 10^3/uL (0.0-0.5); HEMATOCRIT 39.9 % (36.0-47.0); HEMOGLOBIN 12.4 g/dl (12.0-15.5); LYMPH # 3.8 10^3/uL (1.5-5.0); LYMPH % 26.4 % (24.0-44.0); MEAN CORPUSCULAR HGB CONC 31.1 g/dl (32.0-36.5); MEAN CORPUSCULAR VOLUME 86.9 fl (80.0-96.0); MONO % 7.1 % (2.0-8.0); NEUTROPHILS # 8.6 10^3/uL (1.5-8.5); NEUTROPHILS % 60.1 % (36.0-66.0); PLATELET COUNT, AUTOMATED 478 10^3/uL (150-450); RED BLOOD COUNT 4.59 10^6/uL (4.00-5.40); WHITE BLOOD COUNT 14.3 10^3/uL (4.0-10.0)
[2021-10-18 16:56] LABS: ALBUMIN 3.6 GM/DL (3.2-5.2); ALT/SGPT 31 U/L (12-78); BILIRUBIN,TOTAL 0.6 MG/DL (0.2-1.0); BLOOD UREA NITROGEN 10 MG/DL (7-18); CALCIUM LEVEL 9.8 MG/DL (8.5-10.1); CARBON DIOXIDE LEVEL 25 MEQ/L (21-32); CHLORIDE LEVEL 111 MEQ/L (98-107); CREATININE FOR GFR 0.85 MG/DL (0.55-1.30); GLOMERULAR FILTRATION RATE > 60.0 (>58); GLUCOSE, FASTING 154 MG/DL (70-100); POTASSIUM SERUM 3.8 MEQ/L (3.5-5.1); SODIUM LEVEL 142 MEQ/L (136-145); TOTAL PROTEIN 7.6 GM/DL (6.4-8.2)
== END ==
LOC: M LABDRAWC 15:34
DX: D72.829 Elevated white blood cell count, unspecified (principal); M25.50 Pain in unspecified joint; N83.209 Unspecified ovarian cyst, unspecified side; R77.8 Other specified abnormalities of plasma proteins; D72.10 Eosinophilia, unspecified

== ENCOUNTER → 2021-10-18 | Outpatient (CLI) | payer OTHER | LOC: M PLAIMG 09:58 | PROVIDERS: ATTEND Physician Assistant Surgical | DX: M25.561 Pain in right knee (principal); M94.261 Chondromalacia, right knee; M25.461 Effusion, right knee; S83.281A Other tear of lateral meniscus, current injury, right knee, initial encounter; X58.XXXA Exposure to other specified factors, initial encounter; Y92.9 Unspecified place or not applicable; Y93.9 Activity, unspecified; Y99.9 Unspecified external cause status ==

== ENCOUNTER → 2021-10-22 | Outpatient (REF) | payer OTHER | LOC: M LAB REF 11:13 | DX: D72.829 Elevated white blood cell count, unspecified (principal); M25.50 Pain in unspecified joint; N83.209 Unspecified ovarian cyst, unspecified side; R77.8 Other specified abnormalities of plasma proteins; D72.10 Eosinophilia, unspecified ==

== ENCOUNTER → 2021-10-26 | Outpatient (CLI) | payer OTHER | LOC: M PAIN 14:15 | PROVIDERS: ATTEND Anesthesiology | DX: Z53.29 Procedure and treatment not carried out because of patient's decision for other reasons (principal) ==

== ENCOUNTER 2021-11-07 14:50 | Emergency (ER) | payer OTHER ==
[~2021-11-07] VITALS: Ht 170.2 cm; Wt 126.4 kg
[2021-11-07] MEDS ORDERED: ONDANSETRON 4MG/2ML VIAL IV ONE (19:45)
[2021-11-07] MEDS ORDERED: MORPHINE 4 MG/ML 1ML VIAL/SYRINGE IV PRN (19:45)
[2021-11-07] MEDS ORDERED: NS 1,000 ML IV ONE (19:45)
[2021-11-07 20:25] LABS: HEMATOCRIT 39.8 % (36.0-47.0); HEMOGLOBIN 12.7 g/dl (12.0-15.5); MEAN CORPUSCULAR HEMOGLOBIN 27.4 pg (27.0-33.0); MEAN CORPUSCULAR HGB CONC 31.9 g/dl (32.0-36.5); MEAN CORPUSCULAR VOLUME 85.8 fl (80.0-96.0); PLATELET COUNT, AUTOMATED 379 10^3/uL (150-450); RED BLOOD COUNT 4.64 10^6/uL (4.00-5.40); WHITE BLOOD COUNT 11.2 10^3/uL (4.0-10.0)
[2021-11-07 20:51] LABS: ALBUMIN 3.3 GM/DL (3.2-5.2); ALT/SGPT 47 U/L (12-78); BILIRUBIN,DIRECT < 0.1 MG/DL (0.0-0.2); BILIRUBIN,TOTAL 0.1 MG/DL (0.2-1.0); BLOOD UREA NITROGEN 9 MG/DL (7-18); CALCIUM LEVEL 9.5 MG/DL (8.5-10.1); CARBON DIOXIDE LEVEL 24 MEQ/L (21-32); CHLORIDE LEVEL 111 MEQ/L (98-107); CREATININE FOR GFR 0.62 MG/DL (0.55-1.30); GLOMERULAR FILTRATION RATE > 60.0 (>58); GLUCOSE, FASTING 110 MG/DL (70-100); LIPASE 94 U/L (73-393); POTASSIUM SERUM 3.6 MEQ/L (3.5-5.1); SODIUM LEVEL 144 MEQ/L (136-145); TOTAL PROTEIN 7.5 GM/DL (6.4-8.2)
[2021-11-07 20:55] LABS: HCG, SERUM QUALITATIVE NEGATIVE (NEGATIVE)
[2021-11-07 20:58] LABS: CK-MB VALUE MASS < 1.0 NG/ML (<3.6); CPK CREATINE PHOSPHOKINASE 153 U/L (26-192); MB/CK RELATIVE INDEX 0.65 (< OR =4)
[2021-11-07] MEDS ORDERED: ISOVUE-370 76% 100ML VIAL As Ordered ONE (21:02)
[2021-11-07 21:06] LABS: BASOPHILS 1 % (0-1); EOSINOPHILS 6 % (0-3); LYMPHOCYTES 48 % (16-44); MONOCYTES 3 % (0-5); NEUTROPHILS 42 % (28-66)
[2021-11-07 21:07] LABS: ANISOCYTOSIS 1+; OVALOCYTES 1+; PLATELET ESTIMATE NORMAL (NORMAL)
[2021-11-07 23:10] VITALS: BP 124/70
== END 2021-11-07 23:12 | disposition home or self-care (01) ==
LOC: M ED 14:50
DX: I88.0 Nonspecific mesenteric lymphadenitis (principal); R93.421 Abnormal radiologic findings on diagnostic imaging of right kidney; R16.0 Hepatomegaly, not elsewhere classified; R73.01 Impaired fasting glucose; J45.909 Unspecified asthma, uncomplicated; F43.10 Post-traumatic stress disorder, unspecified; F31.9 Bipolar disorder, unspecified; E03.9 Hypothyroidism, unspecified; M79.7 Fibromyalgia; Z83.3 Family history of diabetes mellitus; Z79.899 Other long term (current) drug therapy; Z88.5 Allergy status to narcotic agent; Z88.8 Allergy status to other drugs, medicaments and biological substances
CPT/HCPCS: 71275; 74177; 80048; 80076; 82550; 82553; 83690; 84703; 85025; 93005; 93041; 96361; 96374; 96375; 99285; J2270; J2405; Q9967

== ENCOUNTER → 2021-11-12 | Outpatient (REF) | payer OTHER ==
[2021-11-12 11:56] LABS: CHOLESTEROL RISK RATIO 3.813 (<5)
[2021-11-12 12:19] LABS: CREATININE, URINE 65.2 MG/DL; MALB URINE SIEMENS 6.5 MG/L; MAU/CREAT RATIO 9.9 MCG/MG (0.0-30.0)
== END ==
LOC: M SFHCCLAY 07:08
PROVIDERS: ATTEND Family Medicine
DX: E11.9 Type 2 diabetes mellitus without complications (principal)

== ENCOUNTER 2021-11-14 15:04 | Emergency (ER) | payer OTHER ==
[~2021-11-14] VITALS: Ht 167.6 cm; Wt 130.0 kg
[~2021-11-14 15:04] MED LIST changes: +SODIUM CHLORIDE 0.9% INJ 10 ML SYR IV ONE
[2021-11-14] MEDS ORDERED: KETOROLAC 30 MG/ML 1ML VIAL IV ONE (16:55)
[2021-11-14 17:19] LABS: HEMATOCRIT 39.2 % (36.0-47.0); HEMOGLOBIN 12.8 g/dl (12.0-15.5); MEAN CORPUSCULAR HEMOGLOBIN 27.5 pg (27.0-33.0); MEAN CORPUSCULAR HGB CONC 32.7 g/dl (32.0-36.5); MEAN CORPUSCULAR VOLUME 84.3 fl (80.0-96.0); PLATELET COUNT, AUTOMATED 531 10^3/uL (150-450); RED BLOOD COUNT 4.65 10^6/uL (4.00-5.40); WHITE BLOOD COUNT 17.1 10^3/uL (4.0-10.0)
[2021-11-14 17:28] LABS: BLOOD UREA NITROGEN 7 MG/DL (7-18); CALCIUM LEVEL 9.6 MG/DL (8.5-10.1); CARBON DIOXIDE LEVEL 26 MEQ/L (21-32); CHLORIDE LEVEL 114 MEQ/L (98-107); GLOMERULAR FILTRATION RATE > 60.0 (>58); GLUCOSE, FASTING 121 MG/DL (70-100); POTASSIUM SERUM 3.6 MEQ/L (3.5-5.1); SODIUM LEVEL 145 MEQ/L (136-145)
[2021-11-14 17:31] LABS: INR 0.98; PROTHROMBIN TIME 13.4 SECONDS (12.7-14.5)
[2021-11-14 17:32] LABS: CK-MB VALUE MASS < 1.0 NG/ML (<3.6); CPK CREATINE PHOSPHOKINASE 110 U/L (26-192); MB/CK RELATIVE INDEX 0.91 (< OR =4); PARTIAL THROMBOPLASTIN TIME 29.3 SECONDS (25.9-37.0)
[2021-11-14] MEDS ORDERED: ISOVUE-370 76% 100ML VIAL As Ordered ONE (17:36)
[2021-11-14] MEDS ORDERED: TENECTEPLASE 50 MG KIT (TNKase) (J3101 PER 1MG) IVP ONE (17:40)
[2021-11-14 17:58] LABS: BASOPHILS 1 % (0-1); EOSINOPHILS 12 % (0-3); LYMPHOCYTES 36 % (16-44); MONOCYTES 3 % (0-5); NEUTROPHILS 48 % (28-66); PLATELET ESTIMATE INCREASED (NORMAL)
[2021-11-14 17:59] LABS: PLATELET CLUMPS SMALL AMT
[2021-11-14 18:32] LABS: RSV AMPLIFICATION NEGATIVE (NEGATIVE)
[2021-11-14 20:01] VITALS: BP 119/74
[2021-11-14 20:25] VITALS: BP 148/92
== END 2021-11-14 20:28 | disposition short-term general hospital (02) ==
LOC: M ED 15:04
DX: I63.9 Cerebral infarction, unspecified (principal); J45.909 Unspecified asthma, uncomplicated; G43.909 Migraine, unspecified, not intractable, without status migrainosus; F43.10 Post-traumatic stress disorder, unspecified; F31.9 Bipolar disorder, unspecified; K21.9 Gastro-esophageal reflux disease without esophagitis; K58.8 Other irritable bowel syndrome; D64.9 Anemia, unspecified; E55.9 Vitamin D deficiency, unspecified; G47.30 Sleep apnea, unspecified; M06.9 Rheumatoid arthritis, unspecified; M79.7 Fibromyalgia; Z88.8 Allergy status to other drugs, medicaments and biological substances; Z79.899 Other long term (current) drug therapy
CPT/HCPCS: 70450; 70496; 70498; 70544; 70551; 71045; 80048; 82550; 82553; 85025; 85610; 85730; 87631; 93005; 93041; 94760; 96374; 96375; 99285; J1885; J3101; Q9967

== ENCOUNTER 2021-11-19 21:57 | Emergency (ER) | payer OTHER ==
[~2021-11-19] VITALS: Ht 170.2 cm; Wt 126.1 kg
[~2021-11-19 21:57] MED LIST changes: -ALBU8.5H INH; -COZA1TAB PO; -CRAN400C PO; -DOXE25CA PO; -FURO20TA2 PO; -GARL500C2 PO; -MACR100C43 PO; -MIRA1POW3 PO; -ONDA-195 PO; -PATIENT COMMENT; -PRAZ1CAP46 PO; -TOPI200T7 PO; -VITATAB31 PO
[2021-11-19] MEDS ORDERED: METOCLOPRAMIDE INJ 10MG/2ML VIAL (J2765 PER 1) IV ONE (22:50)
[2021-11-19] MEDS ORDERED: KETOROLAC 30 MG/ML 1ML VIAL IV ONE (22:50)
[2021-11-19] MEDS ORDERED: NS 1,000 ML IV ONE (22:50)
[2021-11-19 23:29] LABS: HEMATOCRIT 38.7 % (36.0-47.0); HEMOGLOBIN 12.3 g/dl (12.0-15.5); MEAN CORPUSCULAR HGB CONC 31.8 g/dl (32.0-36.5); MEAN CORPUSCULAR VOLUME 84.9 fl (80.0-96.0); PLATELET COUNT, AUTOMATED 485 10^3/uL (150-450); RED BLOOD COUNT 4.56 10^6/uL (4.00-5.40)
[2021-11-19 23:54] LABS: ALBUMIN 3.4 GM/DL (3.2-5.2); ALT/SGPT 22 U/L (12-78); BILIRUBIN,TOTAL 0.2 MG/DL (0.2-1.0); BLOOD UREA NITROGEN 9 MG/DL (7-18); CALCIUM LEVEL 9.1 MG/DL (8.5-10.1); CARBON DIOXIDE LEVEL 27 MEQ/L (21-32); CHLORIDE LEVEL 110 MEQ/L (98-107); CREATININE FOR GFR 0.72 MG/DL (0.55-1.30); GLOMERULAR FILTRATION RATE > 60.0 (>58); GLUCOSE, FASTING 119 MG/DL (70-100); MAGNESIUM LEVEL 2.4 MG/DL (1.8-2.4); POTASSIUM SERUM 3.5 MEQ/L (3.5-5.1); SODIUM LEVEL 141 MEQ/L (136-145); TOTAL PROTEIN 7.2 GM/DL (6.4-8.2)
[2021-11-19 23:57] LABS: ATYPICAL LYMPH 4 % (0-5); EOSINOPHILS 15 % (0-3); HYPOCHROMASIA 1+; LYMPHOCYTES 18 % (16-44); MONOCYTES 5 % (0-5); NEUTROPHILS 58 % (28-66); PLATELET ESTIMATE NORMAL (NORMAL)
[2021-11-20 00:01] LABS: HYPERSEGMENTED POLYS 1+; SMUDGE CELLS 1+
[2021-11-20] MEDS ORDERED: ISOVUE-370 76% 100ML VIAL As Ordered ONE (00:31)
[2021-11-20] MEDS ORDERED: cefTRIAXone SOD 2 GM in D5W MINI-BAG PLUS 50 ML IV ONE (02:25)
[2021-11-20 03:15] VITALS: BP 131/70
[2021-11-20] MEDS ORDERED: MACR100C43 PO (03:49)
[2021-11-21] MEDS ORDERED: MACR100C43 PO (02:53)
[2021-11-21] MEDS ORDERED: TOPI200T7 PO (02:53)
[2021-11-21] MEDS ORDERED: CRAN400C PO (02:53)
[2021-11-21] MEDS ORDERED: FURO20TA2 PO (02:53)
[2021-11-21] MEDS ORDERED: GARL500C2 PO (02:53)
[2021-11-21] MEDS ORDERED: DOXE25CA PO (02:53)
[2021-11-21] MEDS ORDERED: PATIENT COMMENT (02:53)
[2021-11-21] MEDS ORDERED: DICY20TA3 PO (02:53)
[2021-11-21] MEDS ORDERED: ISOS10TA3 PO (02:53)
[2021-11-21] MEDS ORDERED: PRAZ1CAP46 PO (02:53)
[2021-11-21] MEDS ORDERED: ONDA-195 PO (02:53)
[2021-11-21] MEDS ORDERED: MIRA1POW3 PO (02:53)
[2021-11-21] MEDS ORDERED: AMLO1TAB25 PO (02:53)
[2021-11-21] MEDS ORDERED: ALBU8.5H INH (02:53)
[2021-11-21] MEDS ORDERED: COZA1TAB PO (02:53)
[2021-11-21] MEDS ORDERED: VITATAB31 PO (02:53)
[2021-11-21] MEDS ORDERED: MINI1CAP PO (19:18)
== END 2021-11-20 04:50 | disposition home or self-care (01) ==
LOC: M ED 21:57
DX: G43.909 Migraine, unspecified, not intractable, without status migrainosus (principal); N39.0 Urinary tract infection, site not specified; F31.9 Bipolar disorder, unspecified; J45.909 Unspecified asthma, uncomplicated; F43.10 Post-traumatic stress disorder, unspecified; E03.9 Hypothyroidism, unspecified; Z79.899 Other long term (current) drug therapy; Z88.8 Allergy status to other drugs, medicaments and biological substances
CPT/HCPCS: 70450; 70496; 70498; 80053; 81001; 83735; 85025; 87086; 87486; 87581; 87633; 87798; 96361; 96365; 96375; 99284; J0696; J1885; J2765; Q9967

== ENCOUNTER → 2021-11-19 | Outpatient (REF) | payer OTHER ==
[~2021-11-19] MED LIST changes: +ALBU8.5H INH; +AZEL1SPR3; -AZEL1SPR3 NARES; +COZA1TAB PO; +CRAN400C PO; +DOXE25CA PO; +FURO20TA2 PO; +GARL500C2 PO; +MACR100C43 PO; +MIRA1POW3 PO; +ONDA-195 PO; +PATIENT COMMENT; +PRAZ1CAP46 PO; -SODIUM CHLORIDE 0.9% INJ 10 ML SYR IV ONE; +TOPI200T7 PO; +VITATAB31 PO
[2021-11-19 12:10] LABS: ALBUMIN 3.5 GM/DL (3.2-5.2); ALT/SGPT 23 U/L (12-78); BILIRUBIN,TOTAL 0.3 MG/DL (0.2-1.0); BLOOD UREA NITROGEN 12 MG/DL (7-18); CALCIUM LEVEL 9.6 MG/DL (8.5-10.1); CARBON DIOXIDE LEVEL 28 MEQ/L (21-32); CHLORIDE LEVEL 110 MEQ/L (98-107); CREATININE FOR GFR 0.71 MG/DL (0.55-1.30); FERRITIN 111 NG/ML (8-252); GLOMERULAR FILTRATION RATE > 60.0 (>58); GLUCOSE, FASTING 124 MG/DL (70-100); IRON (FE) 88 UG/DL (50-170); PERCENT SATURATION 27.8 % (13.2-45.0); POTASSIUM SERUM 4.1 MEQ/L (3.5-5.1); SODIUM LEVEL 141 MEQ/L (136-145); TOTAL IRON BINDING CAPACITY 316 UG/DL (250-450); TOTAL PROTEIN 7.5 GM/DL (6.4-8.2); VITAMIN B12 LEVEL 1673 PG/ML (247-911)
[2021-11-19 12:13] LABS: BASO # 0.1 10^3/uL (0.0-0.2); BASO % 0.8 % (0.0-1.0); EOS # 1.8 10^3/uL (0.0-0.5); EOS % 13.7 % (0.0-3.0); HEMATOCRIT 40.7 % (36.0-47.0); HEMOGLOBIN 12.6 g/dl (12.0-15.5); LYMPH # 4.3 10^3/uL (1.5-5.0); LYMPH % 32.7 % (24.0-44.0); MEAN CORPUSCULAR HEMOGLOBIN 26.6 pg (27.0-33.0); MEAN CORPUSCULAR VOLUME 85.9 fl (80.0-96.0); MONO % 7.3 % (2.0-8.0); PLATELET COUNT, AUTOMATED 504 10^3/uL (150-450); RED BLOOD COUNT 4.74 10^6/uL (4.00-5.40); WHITE BLOOD COUNT 13.2 10^3/uL (4.0-10.0)
== END ==
LOC: M LABDRAWC 11:16
DX: D72.829 Elevated white blood cell count, unspecified (principal); M25.50 Pain in unspecified joint; N83.209 Unspecified ovarian cyst, unspecified side; R77.8 Other specified abnormalities of plasma proteins; D72.10 Eosinophilia, unspecified

== ENCOUNTER 2021-11-20 19:46 | Observation (INO) | payer OTHER ==
[~2021-11-20] VITALS: Ht 170.2 cm; Wt 126.0 kg
[~2021-11-20 19:46] MED LIST changes: +MACR100C43 PO
[2021-11-20] MEDS ORDERED: NS 1,000 ML IV ONE (20:25)
[2021-11-20 20:36] LABS: BASO # 0.1 10^3/uL (0.0-0.2); BASO % 0.7 % (0.0-1.0); EOS # 1.9 10^3/uL (0.0-0.5); EOS % 10.3 % (0.0-3.0); HEMATOCRIT 35.1 % (36.0-47.0); HEMOGLOBIN 11.3 g/dl (12.0-15.5); LYMPH # 4.3 10^3/uL (1.5-5.0); MEAN CORPUSCULAR HEMOGLOBIN 27.2 pg (27.0-33.0); MEAN CORPUSCULAR HGB CONC 32.2 g/dl (32.0-36.5); MEAN CORPUSCULAR VOLUME 84.4 fl (80.0-96.0); MONO # 1.2 10^3/uL (0.0-0.8); MONO % 6.4 % (2.0-8.0); NEUTROPHILS % 59.2 % (36.0-66.0); PLATELET COUNT, AUTOMATED 450 10^3/uL (150-450); RED BLOOD COUNT 4.16 10^6/uL (4.00-5.40); WHITE BLOOD COUNT 18.7 10^3/uL (4.0-10.0)
[2021-11-20 21:02] LABS: HCG, SERUM QUALITATIVE NEGATIVE (NEGATIVE)
[2021-11-20 21:09] LABS: ACETAMINOPHEN LEVEL < 2.0 UG/ML (10.0-30.0); ALBUMIN 3.2 GM/DL (3.2-5.2); ALT/SGPT 21 U/L (12-78); BILIRUBIN,DIRECT 0.2 MG/DL (0.0-0.2); BILIRUBIN,TOTAL 0.2 MG/DL (0.2-1.0); BLOOD UREA NITROGEN 13 MG/DL (7-18); CALCIUM LEVEL 9.3 MG/DL (8.5-10.1); CARBON DIOXIDE LEVEL 26 MEQ/L (21-32); CHLORIDE LEVEL 111 MEQ/L (98-107); CREATININE FOR GFR 0.75 MG/DL (0.55-1.30); ETHYL ALCOHOL (ETHANOL) 0.003 % (0.000-0.010); GLOMERULAR FILTRATION RATE > 60.0 (>58); GLUCOSE, FASTING 195 MG/DL (70-100); LITHIUM LEVEL < 0.20 MEQ/L (0.60-1.20); POTASSIUM SERUM 3.5 MEQ/L (3.5-5.1); SALICYLATE LEVEL < 1.7 MG/DL (5.0-30.0); SODIUM LEVEL 143 MEQ/L (136-145); THYROID STIMULATING HORMONE 0.966 uIU/ML (0.358-3.740)
[2021-11-20 21:12] LABS: RSV AMPLIFICATION NEGATIVE (NEGATIVE)
[2021-11-20 22:11] LABS: AMPHETAMINES LEVEL URINE NEGATIVE (NEGATIVE); BARBITURATES URINE POSITIVE (NEGATIVE); BENZODIAZEPINES URINE NEGATIVE (NEGATIVE); CANNABINOIDS URINE NEGATIVE (NEGATIVE); COCAINE METABOLITE URINE NEGATIVE (NEGATIVE); METHADONE URINE NEGATIVE (NEGATIVE); OPIATES URINE NEGATIVE (NEGATIVE); PHENCYCLIDINE URINE NEGATIVE (NEGATIVE)
[2021-11-20] MEDS: NS 1,000 ML IV SCH (23:34)
[2021-11-21] MEDS ORDERED: ISOS10TA3 PO (02:53)
[2021-11-21] MEDS ORDERED: ONDA-195 PO (02:53)
[2021-11-21] MEDS ORDERED: DICY20TA3 PO (02:53)
[2021-11-21] MEDS ORDERED: GARL500C2 PO (02:53)
[2021-11-21] MEDS ORDERED: CRAN400C PO (02:53)
[2021-11-21] MEDS ORDERED: FURO20TA2 PO (02:53)
[2021-11-21] MEDS ORDERED: COZA1TAB PO (02:53)
[2021-11-21] MEDS ORDERED: ALBU8.5H INH (02:53)
[2021-11-21] MEDS ORDERED: DOXE25CA PO (02:53)
[2021-11-21] MEDS ORDERED: VITATAB31 PO (02:53)
[2021-11-21] MEDS ORDERED: PRAZ1CAP46 PO (02:53)
[2021-11-21] MEDS ORDERED: MACR100C43 PO (02:53)
[2021-11-21] MEDS ORDERED: MIRA1POW3 PO (02:53)
[2021-11-21] MEDS ORDERED: TOPI200T7 PO (02:53)
[2021-11-21] MEDS ORDERED: AMLO1TAB25 PO (02:53)
[2021-11-21] MEDS ORDERED: PATIENT COMMENT (02:53)
[2021-11-21] MEDS ORDERED: HOME MED LIST COMPLETE! XX SCH (02:55)
[2021-11-21] MEDS: NS 1,000 ML IV SCH ×2 (04:11→06:09)
[2021-11-21 05:50] VITALS: BP 119/65
[2021-11-21] MEDS ORDERED: LEVOTHYROXINE 50MCG TABLET (0.05MG) PO SCH (06:00)
[2021-11-21] MEDS ORDERED: FLUTICASONE PROP 0.05% NASAL SPRAY 16 GM (FLONASE) PRN (07:35)
[2021-11-21] MEDS ORDERED: ALBUTEROL 90 MCG/ACT 8GM HFA INHALER INH PRN (07:35)
[2021-11-21] MEDS ORDERED: ISOSORBIDE DIN (ISORDIL) 10MG TAB PO PRN (07:35)
[2021-11-21] MEDS ORDERED: MIRALAX *UNIT DOSE* 17GM PACKET PO PRN (07:35)
[2021-11-21] MEDS ORDERED: TIOTROPIUM INHALER/CAPSULE (SPIRIVA) INH SCH (08:00)
[2021-11-21 08:42] LABS: AMORPHOUS SEDIMENT MODERATE (NEGATIVE); APPEARANCE, URINE CLOUDY (CLEAR); BACTERIA, URINE AUTO 1+ (NEGATIVE); BILIRUBIN, URINE AUTO NEGATIVE (NEGATIVE); BLOOD, URINE BLOOD NEGATIVE (NEGATIVE); COLOR, URINE YELLOW (YELLOW); GLUCOSE, URINE (UA) AUTO NEGATIVE (NEGATIVE); KETONE, URINE AUTO NEGATIVE (NEGATIVE); LEUKOCYTE ESTERASE, URINE AUTO NEGATIVE (NEGATIVE); NITRITE, URINE AUTO NEGATIVE (NEGATIVE); PROTEIN, URINE AUTO NEGATIVE (NEGATIVE); RBC, URINE AUTO 0 /HPF (0-3); SPECIFIC GRAVITY URINE AUTO 1.008 (1.002-1.035); SQUAMOUS EPITHELIAL CELL UR AU 1 /HPF (0-6); UROBILINOGEN, URINE AUTO 0.2 mg/dL (0.0-2.0); WBC, URINE AUTO 1 /HPF (0-3)
[2021-11-21] MEDS: SYMBICORT 160/4.5MCG INHALER 6GM INH SCH ×2 (08:45→19:39)
[2021-11-21] MEDS ORDERED: LACTOBACILLUS ACIDOPHILUS CAP (BACID) PO SCH (09:00)
[2021-11-21] MEDS ORDERED: PANTOPRAZOLE 40MG TAB (PROTONIX) PO SCH (09:00)
[2021-11-21] MEDS ORDERED: FUROSEMIDE 20 MG TAB PO SCH (09:00)
[2021-11-21] MEDS ORDERED: MULTIVITAMINS/MINERALS THERAP 1 TAB PO SCH (09:00)
[2021-11-21] MEDS ORDERED: TAMSULOSIN 0.4 MG CAP PO SCH (09:00)
[2021-11-21] MEDS ORDERED: LOSARTAN 25 MG TAB PO SCH (09:00)
[2021-11-21] MEDS: TOPIRAMATE (TopAMAX) 100 MG TAB PO SCH ×2 (09:08→22:19)
[2021-11-21 09:35] LABS: BASO # 0.1 10^3/uL (0.0-0.2); BASO % 0.8 % (0.0-1.0); EOS # 1.9 10^3/uL (0.0-0.5); EOS % 12.8 % (0.0-3.0); HEMATOCRIT 37.5 % (36.0-47.0); LYMPH # 3.7 10^3/uL (1.5-5.0); LYMPH % 25.4 % (24.0-44.0); MEAN CORPUSCULAR HEMOGLOBIN 27.5 pg (27.0-33.0); MONO % 6.7 % (2.0-8.0); NEUTROPHILS # 7.9 10^3/uL (1.5-8.5); PLATELET COUNT, AUTOMATED 428 10^3/uL (150-450); RED BLOOD COUNT 4.36 10^6/uL (4.00-5.40); WHITE BLOOD COUNT 14.7 10^3/uL (4.0-10.0)
[2021-11-21] MEDS: AZELASTINE 137MCG NASAL SPY 30 ML (ASTELIN) SCH ×2 (10:02→22:19)
[2021-11-21 10:18] LABS: ALBUMIN 3.1 GM/DL (3.2-5.2); ALT/SGPT 24 U/L (12-78); BILIRUBIN,DIRECT < 0.1 MG/DL (0.0-0.2); BILIRUBIN,TOTAL 0.3 MG/DL (0.2-1.0); BLOOD UREA NITROGEN 11 MG/DL (7-18); CALCIUM LEVEL 9.1 MG/DL (8.5-10.1); CARBON DIOXIDE LEVEL 26 MEQ/L (21-32); CHLORIDE LEVEL 115 MEQ/L (98-107); FREE T4 1.01 NG/DL (0.76-1.46); GLOMERULAR FILTRATION RATE > 60.0 (>58); GLUCOSE, FASTING 116 MG/DL (70-100); MAGNESIUM LEVEL 2.3 MG/DL (1.8-2.4); POTASSIUM SERUM 3.8 MEQ/L (3.5-5.1); SODIUM LEVEL 146 MEQ/L (136-145); TOTAL PROTEIN 6.8 GM/DL (6.4-8.2)
[2021-11-21] MEDS ORDERED: ISOVUE-370 76% 100ML VIAL As Ordered ONE (13:38)
[2021-11-21 14:00] VITALS: BP 124/78
[2021-11-21] MEDS ORDERED: MINI1CAP PO (19:18)
[2021-11-21 20:00] VITALS: BP 118/68
[2021-11-21] MEDS ORDERED: PRAZOSIN 1 MG CAP PO SCH (21:00)
[2021-11-21] MEDS ORDERED: ASCORBIC ACID 500 MG TAB PO SCH (21:00)
[2021-11-21 22:19] VITALS: BP 134/75
== END 2021-11-21 23:00 ==
LOC: M ED 19:46 → EDBD 19:46 → M ED INP 19:47 → M MSPAV 11-21 05:44
PROVIDERS: ADMIT Internal Medicine; ATTEND Family Medicine
DX: T48.1X2A Poisoning by skeletal muscle relaxants [neuromuscular blocking agents], intentional self-harm, initial encounter (principal); R45.851 Suicidal ideations; G47.33 Obstructive sleep apnea (adult) (pediatric); E03.9 Hypothyroidism, unspecified; I10 Essential (primary) hypertension; N28.89 Other specified disorders of kidney and ureter; E66.9 Obesity, unspecified; F31.9 Bipolar disorder, unspecified; Z79.899 Other long term (current) drug therapy; Z88.8 Allergy status to other drugs, medicaments and biological substances; Y92.89 Other specified places as the place of occurrence of the external cause
CPT/HCPCS: 36415; 51701; 71045; 74178; 76775; 80048; 80076; 80143; 80178; 80307; 81001; 82077; 82550; 83735; 84439; 84443; 84703; 85025; 87631; 93005; 93041; 93970; 94640; 94760; 96361; 96374; 99285; Q9967

== ENCOUNTER 2021-11-21 17:51 | Inpatient (IN) | payer OTHER ==
[~2021-11-21] VITALS: Ht 170.2 cm; Wt 123.7 kg
[~2021-11-21 17:51] MED LIST changes: +ALBU8.5H INH; +COZA1TAB PO; +CRAN400C PO; +DOXE25CA PO; +FURO20TA2 PO; +GARL500C2 PO; +MIRA1POW3 PO; +ONDA-195 PO; +PATIENT COMMENT; +PRAZ1CAP46 PO; +TOPI200T7 PO; +VITATAB31 PO
[2021-11-21] MEDS ORDERED: MOM 30ML SUSPENSION UDC PO PRN (17:55)
[2021-11-21] MEDS ORDERED: MAALOX 30 ML SUSP *UDC PO PRN (17:55)
[2021-11-21] MEDS ORDERED: MINI1CAP PO (19:18)
[2021-11-21] MEDS ORDERED: HOME MED LIST COMPLETE! XX SCH (23:20)
[2021-11-21] MEDS ORDERED: ALBUTEROL 90 MCG/ACT 8GM HFA INHALER INH PRN (23:55)
[2021-11-21] MEDS ORDERED: DICYCLOMINE 10 MG CAP PO PRN (23:55)
[2021-11-21] MEDS ORDERED: METAMUCIL (PSYLLIUM) PACKET PO PRN (23:55)
[2021-11-21] MEDS ORDERED: ONDANSETRON 4MG TAB PO PRN (23:55)
[2021-11-21] MEDS ORDERED: ISOSORBIDE DIN (ISORDIL) 10MG TAB PO PRN (23:55)
[2021-11-21] MEDS ORDERED: MIRALAX *UNIT DOSE* 17GM PACKET PO PRN (23:55)
[2021-11-21] MEDS ORDERED: FLUTICASONE PROP 0.05% NASAL SPRAY 16 GM (FLONASE) PRN (23:55)
[2021-11-22 00:59] VITALS: BP 128/75
[2021-11-22] MEDS: LEVOTHYROXINE 50MCG TABLET (0.05MG) PO SCH (05:49)
[2021-11-22] MEDS: TOPIRAMATE (TopAMAX) 100 MG TAB PO SCH ×2 (08:56→20:19)
[2021-11-22] MEDS: LACTOBACILLUS ACIDOPHILUS CAP (BACID) PO SCH (08:57)
[2021-11-22] MEDS: TAMSULOSIN 0.4 MG CAP PO SCH (08:57)
[2021-11-22] MEDS: NITROFURANTOIN (MACROBID) 100 MG CAP PO SCH ×2 (08:57→20:18)
[2021-11-22] MEDS: VITAMIN B COMPLEX/VIT C CAP PO SCH (08:58)
[2021-11-22] MEDS: LOSARTAN 25 MG TAB PO SCH (08:58)
[2021-11-22] MEDS: MAGNESIUM OXIDE 400MG TAB (MAG-OX) PO SCH ×2 (08:59→20:19)
[2021-11-22] MEDS: ACETAMINOPHEN TAB 650MG DOSE (2X325MG) PO PRN (08:59)
[2021-11-22] MEDS: PANTOPRAZOLE 40MG TAB (PROTONIX) PO SCH (08:59)
[2021-11-22] MEDS: FUROSEMIDE 20 MG TAB PO SCH (08:59)
[2021-11-22] MEDS: AZELASTINE 137MCG NASAL SPY 30 ML (ASTELIN) SCH ×2 (09:00→20:19)
[2021-11-22] MEDS: LACTULOSE 20 GM/30 ML SYRUP UD PO SCH (09:00)
[2021-11-22] MEDS: MULTIVITAMINS/MINERALS THERAP 1 TAB PO SCH (09:01)
[2021-11-22] MEDS: VENLAFAXINE **XR** 75MG CAPSULE PO SCH (13:03)
[2021-11-22] MEDS ORDERED: LIDOCAINE 5% (LIDODERM) PATCH TD ONE (17:40)
[2021-11-22 18:00] VITALS: BP 148/81
[2021-11-22] MEDS: ARIPiprazole 2 MG TAB PO SCH (20:16)
[2021-11-22] MEDS: PRAZOSIN 1 MG CAP PO SCH (20:18)
[2021-11-22] MEDS: ASCORBIC ACID 500 MG TAB PO SCH (20:20)
[2021-11-23] MEDS: ONDANSETRON 4MG ORAL DISINTEGRATING TAB PO PRN ×2 (04:06→09:26)
[2021-11-23] MEDS: LEVOTHYROXINE 50MCG TABLET (0.05MG) PO SCH (05:56)
[2021-11-23 06:00] VITALS: BP 145/94
[2021-11-23] MEDS: **NOTE PATIENT COMMENT** MISC XX SCH (06:00)
[2021-11-23] MEDS: LACTULOSE 20 GM/30 ML SYRUP UD PO SCH (09:06)
[2021-11-23] MEDS: TAMSULOSIN 0.4 MG CAP PO SCH (09:06)
[2021-11-23] MEDS: AZELASTINE 137MCG NASAL SPY 30 ML (ASTELIN) SCH ×2 (09:06→21:23)
[2021-11-23] MEDS: LOSARTAN 25 MG TAB PO SCH (09:07)
[2021-11-23] MEDS: MULTIVITAMINS/MINERALS THERAP 1 TAB PO SCH (09:13)
[2021-11-23] MEDS: VENLAFAXINE **XR** 75MG CAPSULE PO SCH (09:13)
[2021-11-23] MEDS: PANTOPRAZOLE 40MG TAB (PROTONIX) PO SCH (09:13)
[2021-11-23] MEDS: MAGNESIUM OXIDE 400MG TAB (MAG-OX) PO SCH ×2 (09:14→21:28)
[2021-11-23] MEDS: LACTOBACILLUS ACIDOPHILUS CAP (BACID) PO SCH (09:14)
[2021-11-23] MEDS: FUROSEMIDE 20 MG TAB PO SCH (09:14)
[2021-11-23] MEDS: NITROFURANTOIN (MACROBID) 100 MG CAP PO SCH ×2 (09:14→21:25)
[2021-11-23] MEDS: TOPIRAMATE (TopAMAX) 100 MG TAB PO SCH ×2 (09:15→21:24)
[2021-11-23] MEDS: ACETAMINOPHEN TAB 650MG DOSE (2X325MG) PO PRN (09:26)
[2021-11-23] MEDS: VITAMIN B COMPLEX/VIT C CAP PO SCH (11:37)
[2021-11-23] MEDS: busPIRone 5 MG TAB PO SCH ×2 (16:52→21:25)
[2021-11-23 18:03] VITALS: BP 129/84
[2021-11-23] MEDS: ASCORBIC ACID 500 MG TAB PO SCH (21:25)
[2021-11-23] MEDS: ARIPiprazole 2 MG TAB PO SCH (21:25)
[2021-11-23] MEDS: PRAZOSIN 1 MG CAP PO SCH (21:25)
[2021-11-24] MEDS: LEVOTHYROXINE 50MCG TABLET (0.05MG) PO SCH (05:09)
[2021-11-24] MEDS: **NOTE PATIENT COMMENT** MISC XX SCH (05:11)
[2021-11-24 06:38] VITALS: BP 136/83
[2021-11-24] MEDS ORDERED: LACTULOSE 20 GM/30 ML SYRUP UD PO PRN (07:50)
[2021-11-24] MEDS: AZELASTINE 137MCG NASAL SPY 30 ML (ASTELIN) SCH ×2 (09:10→21:45)
[2021-11-24] MEDS: VITAMIN B COMPLEX/VIT C CAP PO SCH (09:11)
[2021-11-24] MEDS: busPIRone 5 MG TAB PO SCH ×3 (09:11→21:45)
[2021-11-24] MEDS: NITROFURANTOIN (MACROBID) 100 MG CAP PO SCH ×2 (09:12→21:45)
[2021-11-24] MEDS: MULTIVITAMINS/MINERALS THERAP 1 TAB PO SCH (09:12)
[2021-11-24] MEDS: PANTOPRAZOLE 40MG TAB (PROTONIX) PO SCH (09:12)
[2021-11-24] MEDS: LACTOBACILLUS ACIDOPHILUS CAP (BACID) PO SCH (09:12)
[2021-11-24] MEDS: TAMSULOSIN 0.4 MG CAP PO SCH (09:12)
[2021-11-24] MEDS: VENLAFAXINE **XR** 75MG CAPSULE PO SCH (09:12)
[2021-11-24] MEDS: TOPIRAMATE (TopAMAX) 100 MG TAB PO SCH ×2 (09:13→21:45)
[2021-11-24] MEDS: FUROSEMIDE 20 MG TAB PO SCH (09:13)
[2021-11-24] MEDS: LOSARTAN 25 MG TAB PO SCH (09:16)
[2021-11-24] MEDS: MAGNESIUM OXIDE 400MG TAB (MAG-OX) PO SCH ×2 (09:17→21:46)
[2021-11-24] MEDS: ACETAMINOPHEN TAB 650MG DOSE (2X325MG) PO PRN (14:10)
[2021-11-24 15:56] VITALS: BP 134/92
[2021-11-24] MEDS: ARIPiprazole 2 MG TAB PO SCH (21:45)
[2021-11-24] MEDS: ASCORBIC ACID 500 MG TAB PO SCH (21:45)
[2021-11-24] MEDS: PRAZOSIN 1 MG CAP PO SCH (21:50)
[2021-11-25] MEDS: **NOTE PATIENT COMMENT** MISC XX SCH (05:43)
[2021-11-25] MEDS: LEVOTHYROXINE 50MCG TABLET (0.05MG) PO SCH (05:44)
[2021-11-25 05:58] VITALS: BP 154/98
[2021-11-25] MEDS: AZELASTINE 137MCG NASAL SPY 30 ML (ASTELIN) SCH ×2 (10:12→21:35)
[2021-11-25] MEDS: VITAMIN B COMPLEX/VIT C CAP PO SCH (10:12)
[2021-11-25] MEDS: TOPIRAMATE (TopAMAX) 100 MG TAB PO SCH ×2 (10:13→21:34)
[2021-11-25] MEDS: FUROSEMIDE 20 MG TAB PO SCH (10:13)
[2021-11-25] MEDS: TAMSULOSIN 0.4 MG CAP PO SCH (10:13)
[2021-11-25] MEDS: VENLAFAXINE **XR** 75MG CAPSULE PO SCH (10:13)
[2021-11-25] MEDS: busPIRone 5 MG TAB PO SCH ×3 (10:14→21:34)
[2021-11-25] MEDS: LACTOBACILLUS ACIDOPHILUS CAP (BACID) PO SCH (10:14)
[2021-11-25] MEDS: NITROFURANTOIN (MACROBID) 100 MG CAP PO SCH ×2 (10:14→21:34)
[2021-11-25] MEDS: PANTOPRAZOLE 40MG TAB (PROTONIX) PO SCH (10:14)
[2021-11-25] MEDS: MULTIVITAMINS/MINERALS THERAP 1 TAB PO SCH (10:14)
[2021-11-25] MEDS: ACETAMINOPHEN TAB 650MG DOSE (2X325MG) PO PRN (10:15)
[2021-11-25] MEDS: LOSARTAN 25 MG TAB PO SCH (10:17)
[2021-11-25] MEDS: MAGNESIUM OXIDE 400MG TAB (MAG-OX) PO SCH ×2 (10:20→21:35)
[2021-11-25] MEDS ORDERED: FIORICET TAB PO PRN (14:10)
[2021-11-25 16:32] VITALS: BP 121/71
[2021-11-25] MEDS: ARIPiprazole 2 MG TAB PO SCH (21:34)
[2021-11-25] MEDS: ASCORBIC ACID 500 MG TAB PO SCH (21:34)
[2021-11-25] MEDS: PRAZOSIN 1 MG CAP PO SCH (21:36)
[2021-11-26] MEDS: LEVOTHYROXINE 50MCG TABLET (0.05MG) PO SCH (05:43)
[2021-11-26] MEDS: **NOTE PATIENT COMMENT** MISC XX SCH (05:44)
[2021-11-26 06:18] VITALS: BP 166/76
[2021-11-26] MEDS: MAGNESIUM OXIDE 400MG TAB (MAG-OX) PO SCH ×2 (09:56→20:43)
[2021-11-26] MEDS: LACTOBACILLUS ACIDOPHILUS CAP (BACID) PO SCH (09:56)
[2021-11-26] MEDS: FUROSEMIDE 20 MG TAB PO SCH (09:57)
[2021-11-26] MEDS: TAMSULOSIN 0.4 MG CAP PO SCH (09:57)
[2021-11-26] MEDS: busPIRone 5 MG TAB PO SCH ×3 (09:57→20:43)
[2021-11-26] MEDS: MULTIVITAMINS/MINERALS THERAP 1 TAB PO SCH (09:57)
[2021-11-26] MEDS: VITAMIN B COMPLEX/VIT C CAP PO SCH (09:57)
[2021-11-26] MEDS: LOSARTAN 25 MG TAB PO SCH (09:57)
[2021-11-26] MEDS: PANTOPRAZOLE 40MG TAB (PROTONIX) PO SCH (09:57)
[2021-11-26] MEDS: NITROFURANTOIN (MACROBID) 100 MG CAP PO SCH ×2 (09:57→20:44)
[2021-11-26] MEDS: AZELASTINE 137MCG NASAL SPY 30 ML (ASTELIN) SCH ×2 (09:58→20:42)
[2021-11-26] MEDS: TOPIRAMATE (TopAMAX) 100 MG TAB PO SCH ×2 (09:58→20:43)
[2021-11-26] MEDS: VENLAFAXINE **XR** 75MG CAPSULE PO SCH (10:28)
[2021-11-26] MEDS: IBUPROFEN 600MG TAB PO PRN ×2 (10:29→20:44)
[2021-11-26] MEDS: ONDANSETRON 4MG ORAL DISINTEGRATING TAB PO PRN (17:55)
[2021-11-26 19:14] VITALS: BP 136/86
[2021-11-26] MEDS: ASCORBIC ACID 500 MG TAB PO SCH (20:43)
[2021-11-26] MEDS: ARIPiprazole 2 MG TAB PO SCH (20:44)
[2021-11-26] MEDS: PRAZOSIN 1 MG CAP PO SCH (20:44)
[2021-11-27] MEDS: LEVOTHYROXINE 50MCG TABLET (0.05MG) PO SCH (05:31)
[2021-11-27] MEDS: **NOTE PATIENT COMMENT** MISC XX SCH (05:34)
[2021-11-27 07:03] VITALS: BP 152/98
[2021-11-27 08:22] VITALS: BP 152/98
[2021-11-27] MEDS: LOSARTAN 25 MG TAB PO SCH (08:22)
[2021-11-27] MEDS: TAMSULOSIN 0.4 MG CAP PO SCH (08:22)
[2021-11-27] MEDS: busPIRone 5 MG TAB PO SCH (08:22)
[2021-11-27] MEDS: AZELASTINE 137MCG NASAL SPY 30 ML (ASTELIN) SCH (08:22)
[2021-11-27] MEDS: MAGNESIUM OXIDE 400MG TAB (MAG-OX) PO SCH (08:23)
[2021-11-27] MEDS: VENLAFAXINE **XR** 75MG CAPSULE PO SCH (08:23)
[2021-11-27] MEDS: TOPIRAMATE (TopAMAX) 100 MG TAB PO SCH (08:23)
[2021-11-27] MEDS: PANTOPRAZOLE 40MG TAB (PROTONIX) PO SCH (08:23)
[2021-11-27] MEDS: LACTOBACILLUS ACIDOPHILUS CAP (BACID) PO SCH (08:23)
[2021-11-27] MEDS: MULTIVITAMINS/MINERALS THERAP 1 TAB PO SCH (08:23)
[2021-11-27] MEDS: FUROSEMIDE 20 MG TAB PO SCH (08:23)
[2021-11-27] MEDS: VITAMIN B COMPLEX/VIT C CAP PO SCH (08:23)
[2021-11-27] MEDS: IBUPROFEN 600MG TAB PO PRN (09:08)
[2021-11-27] MEDS ORDERED: BUSP15TA47 PO (11:03)
[2021-11-27] MEDS ORDERED: ABIL1TAB13 PO (11:03)
[2021-11-27] MEDS ORDERED: MINI1CAP PO (11:03)
[2021-11-27] MEDS ORDERED: EFFE150C2 PO (11:05)
[2021-11-27] MEDS ORDERED: EFFE75CA2 PO (11:05)
[2021-12-03] MEDS ORDERED: VITAMIN D 50,000 UNITS CAPSULE (ERGOCALCIFEROL 1.25MG) PO SCH (09:00)
== END 2021-11-27 15:05 | disposition home or self-care (01) | DRG 755 ==
LOC: M PSY 23:06
PROVIDERS: ADMIT Student in an Organized Health Care Education/Training Program; ATTEND Student in an Organized Health Care Education/Training Program
DX: F43.10 Post-traumatic stress disorder, unspecified (principal); I10 Essential (primary) hypertension; R45.851 Suicidal ideations; F31.9 Bipolar disorder, unspecified; F41.9 Anxiety disorder, unspecified; F45.1 Undifferentiated somatoform disorder; F60.3 Borderline personality disorder; E11.9 Type 2 diabetes mellitus without complications; G47.33 Obstructive sleep apnea (adult) (pediatric); Z79.899 Other long term (current) drug therapy; Z88.8 Allergy status to other drugs, medicaments and biological substances; E66.9 Obesity, unspecified; G43.909 Migraine, unspecified, not intractable, without status migrainosus; E03.9 Hypothyroidism, unspecified; N28.9 Disorder of kidney and ureter, unspecified

== ENCOUNTER → 2021-12-19 | Outpatient (CLI) | payer OTHER ==
[~2021-12-19] MED LIST changes: +ABIL1TAB13 PO; +CEFD300C PO; +CLAR500T97 PO; +DEPA250T32 PO; +EFFE75CA2 PO; +FERR1TAB8 PO; -GLUCTAB6 PO; +GLUCTAB7 PO; +LYRI75CA PO; +SERO50TA PO
== END ==
LOC: M PAIN 11:45
PROVIDERS: ATTEND Nurse Practitioner Family
DX: M51.16 Intervertebral disc disorders with radiculopathy, lumbar region (principal); G89.29 Other chronic pain; J44.9 Chronic obstructive pulmonary disease, unspecified; R73.03 Prediabetes; E03.9 Hypothyroidism, unspecified; K21.9 Gastro-esophageal reflux disease without esophagitis; G43.909 Migraine, unspecified, not intractable, without status migrainosus; M06.9 Rheumatoid arthritis, unspecified; E55.9 Vitamin D deficiency, unspecified; M79.7 Fibromyalgia; G47.30 Sleep apnea, unspecified; Z86.59 Personal history of other mental and behavioral disorders; Z88.5 Allergy status to narcotic agent; Z88.6 Allergy status to analgesic agent; Z88.8 Allergy status to other drugs, medicaments and biological substances; E66.01 Morbid (severe) obesity due to excess calories; Z68.41 Body mass index [BMI] 40.0-44.9, adult; Z79.51 Long term (current) use of inhaled steroids; Z79.899 Other long term (current) drug therapy

== ENCOUNTER 2022-01-02 08:08 | Emergency (ER) | payer OTHER ==
[~2022-01-02] VITALS: Ht 170.2 cm; Wt 123.8 kg
[~2022-01-02 08:08] MED LIST changes: -CEFD300C PO; -CLAR500T97 PO; -DEPA250T32 PO; -FERR1TAB8 PO; -LYRI75CA PO; -SERO50TA PO
[2022-01-02 08:10] VITALS: BP 123/77
[2022-01-02] MEDS ORDERED: TIZA4CAP PO (09:05)
[2022-01-02] MEDS ORDERED: LYRI75CA PO (09:05)
[2022-01-02] MEDS ORDERED: BUTACAP78 PO (09:05)
[2022-01-02] MEDS ORDERED: AMLO1TAB25 PO (09:05)
[2022-01-02] MEDS ORDERED: CLAR500T97 PO (09:05)
[2022-01-02] MEDS ORDERED: SERO50TA PO (09:05)
[2022-01-02] MEDS ORDERED: BACL10TA2 PO (09:05)
[2022-01-02] MEDS ORDERED: LITH300C PO (09:05)
[2022-01-02] MEDS ORDERED: AJOV225I SC (09:05)
[2022-01-02] MEDS ORDERED: FERR1TAB8 PO (09:05)
[2022-01-02] MEDS ORDERED: DEPA250T32 PO (09:05)
[2022-01-02] MEDS ORDERED: NS 1,000 ML IV ONE (09:30)
[2022-01-02 09:57] LABS: HEMOGLOBIN 11.7 g/dl (12.0-15.5); MEAN CORPUSCULAR HEMOGLOBIN 26.2 pg (27.0-33.0); MEAN CORPUSCULAR HGB CONC 31.6 g/dl (32.0-36.5); MEAN CORPUSCULAR VOLUME 82.8 fl (80.0-96.0); PLATELET COUNT, AUTOMATED 544 10^3/uL (150-450); RED BLOOD COUNT 4.47 10^6/uL (4.00-5.40)
[2022-01-02 10:24] LABS: ALBUMIN 2.6 GM/DL (3.2-5.2); ALT/SGPT 35 U/L (12-78); BILIRUBIN,TOTAL 0.6 MG/DL (0.2-1.0); BLOOD UREA NITROGEN 6 MG/DL (7-18); CALCIUM LEVEL 8.6 MG/DL (8.5-10.1); CARBON DIOXIDE LEVEL 26 MEQ/L (21-32); CHLORIDE LEVEL 114 MEQ/L (98-107); CREATININE FOR GFR 0.64 MG/DL (0.55-1.30); GLOMERULAR FILTRATION RATE > 60.0 (>58); GLUCOSE, FASTING 93 MG/DL (70-100); POTASSIUM SERUM 3.9 MEQ/L (3.5-5.1); SODIUM LEVEL 148 MEQ/L (136-145); TOTAL PROTEIN 6.9 GM/DL (6.4-8.2)
[2022-01-02 10:29] LABS: EOSINOPHILS 8 % (0-3); LYMPHOCYTES 36 % (16-44); MONOCYTES 3 % (0-5); NEUTROPHILS 53 % (28-66); PLATELET ESTIMATE INCREASED (NORMAL)
[2022-01-02] MEDS ORDERED: ISOVUE-370 76% 100ML VIAL As Ordered ONE (10:43)
[2022-01-02] MEDS ORDERED: CEFD300C PO (11:24)
== END 2022-01-02 11:38 | disposition home or self-care (01) ==
LOC: M ED 08:08
DX: J18.1 Lobar pneumonia, unspecified organism (principal); R10.9 Unspecified abdominal pain; I10 Essential (primary) hypertension; F43.10 Post-traumatic stress disorder, unspecified; E11.9 Type 2 diabetes mellitus without complications; G47.33 Obstructive sleep apnea (adult) (pediatric); Z79.899 Other long term (current) drug therapy; Z88.8 Allergy status to other drugs, medicaments and biological substances
CPT/HCPCS: 74177; 80053; 85025; 93971; 96360; 96361; 99283; Q9967

== ENCOUNTER → 2022-01-15 | Outpatient (CLI) | payer OTHER ==
[~2022-01-15] MED LIST changes: +CEFD300C PO; +CLAR500T97 PO; +DEPA250T32 PO; +FERR1TAB8 PO; +LYRI75CA PO; +SERO50TA PO
== END ==
LOC: M RAD 08:45
PROVIDERS: ATTEND Otolaryngology
DX: J32.0 Chronic maxillary sinusitis (principal); J34.1 Cyst and mucocele of nose and nasal sinus

== ENCOUNTER → 2022-01-21 | Outpatient (REF) | payer OTHER | LOC: M LABDRAWC 15:44 | PROVIDERS: ATTEND Internal Medicine Hematology & Oncology | DX: D72.829 Elevated white blood cell count, unspecified (principal); M25.50 Pain in unspecified joint; N83.209 Unspecified ovarian cyst, unspecified side; R77.8 Other specified abnormalities of plasma proteins; D72.10 Eosinophilia, unspecified ==

== ENCOUNTER → 2022-01-30 | Outpatient (CLI) | payer OTHER | LOC: M CLY 13:52 | PROVIDERS: ATTEND Physician Assistant | DX: J18.9 Pneumonia, unspecified organism (principal) ==

== ENCOUNTER → 2022-03-26 | Outpatient (REF) | payer OTHER ==
[~2022-03-26] MED LIST changes: +ALBU6.7H6 INH; -PROV108A INH
[2022-03-26 19:15] LABS: APPEARANCE, URINE MANUAL CLEAR (CLEAR); COLOR, URINE MANUAL LT YELLOW (YELLOW)
[2022-03-26 19:16] LABS: BILIRUBIN, URINE MANUAL NEGATIVE (NEGATIVE); GLUCOSE, URINE (UA) MANUAL NEGATIVE (NEGATIVE); KETONE, URINE MANUAL NEGATIVE (NEGATIVE); NITRITE, URINE MANUAL NEGATIVE (NEGATIVE); PH,URINE MAN 6.5 UNITS (5.0 - 7.0); PROTEIN, URINE MANUAL NEGATIVE (NEGATIVE); UROBILINOGEN, URINE MANUAL NORMAL (NORMAL)
[2022-03-26 19:17] LABS: BLOOD URINE MANUAL NEGATIVE (NEGATIVE); LEUKOCYTE ESTERASE, URINE MAN NEGATIVE (NEGATIVE)
== END ==
LOC: M SMT 16:53
PROVIDERS: ATTEND Urology
DX: N32.89 Other specified disorders of bladder (principal)

== ENCOUNTER → 2022-03-28 | Outpatient (REF) | payer OTHER ==
[2022-03-28 18:06] LABS: BASO # 0.1 10^3/uL (0.0-0.2); BASO % 0.8 % (0.0-1.0); EOS # 1.8 10^3/uL (0.0-0.5); EOS % 15.4 % (0.0-3.0); HEMATOCRIT 39.7 % (36.0-47.0); HEMOGLOBIN 11.8 g/dl (12.0-15.5); LYMPH # 3.6 10^3/uL (1.5-5.0); LYMPH % 30.5 % (24.0-44.0); MEAN CORPUSCULAR HEMOGLOBIN 26.3 pg (27.0-33.0); MEAN CORPUSCULAR HGB CONC 29.7 g/dl (32.0-36.5); MEAN CORPUSCULAR VOLUME 88.4 fl (80.0-96.0); MONO # 0.9 10^3/uL (0.0-0.8); MONO % 7.5 % (2.0-8.0); NEUTROPHILS # 5.3 10^3/uL (1.5-8.5); NEUTROPHILS % 45.3 % (36.0-66.0); PLATELET COUNT, AUTOMATED 348 10^3/uL (150-450); RED BLOOD COUNT 4.49 10^6/uL (4.00-5.40); WHITE BLOOD COUNT 11.8 10^3/uL (4.0-10.0)
[2022-03-28 19:18] LABS: ALBUMIN 3.2 GM/DL (3.2-5.2); ALT/SGPT 19 U/L (12-78); BILIRUBIN,TOTAL 0.3 MG/DL (0.2-1.0); BLOOD UREA NITROGEN 8 MG/DL (7-18); CALCIUM LEVEL 9.6 MG/DL (8.5-10.1); CARBON DIOXIDE LEVEL 27 MEQ/L (21-32); CHLORIDE LEVEL 111 MEQ/L (98-107); GLOMERULAR FILTRATION RATE > 60.0 (>58); GLUCOSE, FASTING 103 MG/DL (70-100); IMMUNOGLOBULIN A 36.4 MG/DL (70-400); IMMUNOGLOBULIN G 1530 MG/DL (681-1648); IMMUNOGLOBULIN M 18.2 MG/DL (40-230); POTASSIUM SERUM 4.8 MEQ/L (3.5-5.1); SODIUM LEVEL 141 MEQ/L (136-145); TOTAL PROTEIN 7.3 GM/DL (6.4-8.2)
[2022-03-28 21:59] LABS: ERYTHROCYTE SEDIMENTATION RATE 48 mm/hr (0-20)
== END ==
LOC: M LABDRAWC 17:16
PROVIDERS: ATTEND Allergy & Immunology Allergy
DX: D84.9 Immunodeficiency, unspecified (principal)

== ENCOUNTER → 2022-04-01 | Outpatient (CLI) | payer OTHER ==
[2022-04-01 15:24] LABS: CK-MB VALUE MASS < 1.0 NG/ML (<3.6); CPK CREATINE PHOSPHOKINASE 64 U/L (26-192)
[2022-04-01 15:25] LABS: MB/CK RELATIVE INDEX 1.56 (< OR =4)
[2022-04-01 15:26] LABS: RHEUMATOID FACTOR QUANT < 10.0 IU/ML (<15.0)
[2022-04-01 16:00] LABS: VITAMIN B12 LEVEL 458 PG/ML (247-911)
[2022-04-01 16:40] LABS: HIV 1&2 SCREEN CENTAUR NEGATIVE (NEGATIVE)
== END ==
LOC: M LAB 14:01
PROVIDERS: ATTEND Allergy & Immunology Allergy
DX: D72.10 Eosinophilia, unspecified (principal)

== ENCOUNTER 2022-04-17 14:57 | Emergency (ER) | payer OTHER ==
[~2022-04-17] VITALS: Ht 170.2 cm; Wt 132.6 kg
[~2022-04-17 14:57] MED LIST changes: -CLOZ25TA3 PO; +CLOZ25TA6 PO
[2022-04-17] MEDS ORDERED: ACETAMINOPHEN 500 MG TAB PO ONE (18:00)
[2022-04-17] MEDS ORDERED: KETOROLAC 30 MG/ML 1ML VIAL IV ONE (19:00)
[2022-04-17 19:29] LABS: BASO # 0.2 10^3/uL (0.0-0.2); BASO % 0.8 % (0.0-1.0); EOS # 7.1 10^3/uL (0.0-0.5); HEMATOCRIT 37.7 % (36.0-47.0); HEMOGLOBIN 12.1 g/dl (12.0-15.5); LYMPH % 23.3 % (24.0-44.0); MEAN CORPUSCULAR HEMOGLOBIN 27.2 pg (27.0-33.0); MEAN CORPUSCULAR HGB CONC 32.1 g/dl (32.0-36.5); MEAN CORPUSCULAR VOLUME 84.7 fl (80.0-96.0); MONO # 1.3 10^3/uL (0.0-0.8); NEUTROPHILS # 7.7 10^3/uL (1.5-8.5); PLATELET COUNT, AUTOMATED 405 10^3/uL (150-450); RED BLOOD COUNT 4.45 10^6/uL (4.00-5.40); WHITE BLOOD COUNT 21.3 10^3/uL (4.0-10.0)
[2022-04-17 19:32] LABS: EOS % 33.5 % (0.0-3.0)
[2022-04-17] MEDS ORDERED: ISOVUE-370 76% 100ML VIAL As Ordered ONE (19:37)
[2022-04-17 20:24] LABS: ALBUMIN 3.4 GM/DL (3.2-5.2); ALT/SGPT 28 U/L (12-78); BILIRUBIN,DIRECT < 0.1 MG/DL (0.0-0.2); BILIRUBIN,TOTAL 0.2 MG/DL (0.2-1.0); TOTAL PROTEIN 7.4 GM/DL (6.4-8.2)
[2022-04-17 21:01] VITALS: BP 124/96
== END 2022-04-17 21:11 | disposition home or self-care (01) ==
LOC: M ED 14:57
DX: D72.829 Elevated white blood cell count, unspecified (principal); R10.9 Unspecified abdominal pain; I10 Essential (primary) hypertension; E78.5 Hyperlipidemia, unspecified; D25.9 Leiomyoma of uterus, unspecified; R56.9 Unspecified convulsions; R51.9 Headache, unspecified; J45.909 Unspecified asthma, uncomplicated; K21.9 Gastro-esophageal reflux disease without esophagitis; Z79.890 Hormone replacement therapy; Z79.899 Other long term (current) drug therapy; Z88.5 Allergy status to narcotic agent; Z88.8 Allergy status to other drugs, medicaments and biological substances
CPT/HCPCS: 74177; 76705; 80047; 80076; 85025; 96374; 99284; J1885; Q9967

== ENCOUNTER → 2022-04-25 | Outpatient (REF) | payer OTHER ==
[2022-04-25 12:08] LABS: HEMATOCRIT 36.9 % (36.0-47.0); HEMOGLOBIN 11.6 g/dl (12.0-15.5); MEAN CORPUSCULAR HGB CONC 31.4 g/dl (32.0-36.5); MEAN CORPUSCULAR VOLUME 85.8 fl (80.0-96.0); PLATELET COUNT, AUTOMATED 428 10^3/uL (150-450); WHITE BLOOD COUNT 16.7 10^3/uL (4.0-10.0)
[2022-04-25 12:33] LABS: HEMOGLOBIN A1c 6.7 %
[2022-04-25 12:50] LABS: BLOOD UREA NITROGEN 7 MG/DL (7-18); CARBON DIOXIDE LEVEL 25 MEQ/L (21-32); CHLORIDE LEVEL 112 MEQ/L (98-107); CREATININE FOR GFR 0.75 MG/DL (0.55-1.30); GLOMERULAR FILTRATION RATE > 60.0 (>58); GLUCOSE, FASTING 114 MG/DL (70-100); POTASSIUM SERUM 4.1 MEQ/L (3.5-5.1); SODIUM LEVEL 144 MEQ/L (136-145)
[2022-04-25 12:51] LABS: ALBUMIN 3.4 GM/DL (3.2-5.2); ALT/SGPT 28 U/L (12-78); BILIRUBIN,TOTAL 0.2 MG/DL (0.2-1.0); CALCIUM LEVEL 9.4 MG/DL (8.5-10.1); CHOLESTEROL LEVEL 162 MG/DL (<200); CHOLESTEROL RISK RATIO 3.446 (<5); FREE T4 0.98 NG/DL (0.76-1.46); HDL CHOLESTEROL 47 MG/DL (>40); LDL CHOLESTEROL 80 MG/DL (<100); NON-HDL-C 115 MG/DL; TOTAL PROTEIN 7.3 GM/DL (6.4-8.2); TRIGLYCERIDES LEVEL 177 MG/DL (<150)
== END ==
LOC: M SFHCCLAY 08:00
PROVIDERS: ATTEND Nurse Practitioner Family
DX: E78.5 Hyperlipidemia, unspecified (principal); I11.9 Hypertensive heart disease without heart failure; E03.9 Hypothyroidism, unspecified; E11.9 Type 2 diabetes mellitus without complications

== ENCOUNTER → 2022-05-26 | Outpatient (CLI) | payer OTHER ==
[~2022-05-26] MED LIST changes: -DOXY-350 PO; +DOXY-444 PO
== END ==
LOC: M LABSMTC 09:06
PROVIDERS: ATTEND Anesthesiology
DX: Z01.812 Encounter for preprocedural laboratory examination (principal); Z20.822 Contact with and (suspected) exposure to COVID-19

== ENCOUNTER → 2022-05-30 | Outpatient (CLI) | payer OTHER ==
[~2022-05-30] MED LIST changes: +ISOVUE-M 300 61% 15ML VIAL As Ordered ONE; +LIDOCAINE 1% SDV 30ML VIAL As Ordered ONE; +NORCO, ANEXSIA 5/325MG TABLET (HYDROcodone/ACETAMINOPHEN) As Ordered ONE; +diazePAM 5MG TABLET As Ordered ONE; +methylPREDNISolone SUSP 40MG/ML 1ML VIAL (DEPO MEDROL) As Ordered ONE
== END ==
LOC: M PAIN 08:30
PROVIDERS: ATTEND Anesthesiology
DX: M51.16 Intervertebral disc disorders with radiculopathy, lumbar region (principal); G89.29 Other chronic pain; G47.30 Sleep apnea, unspecified; J45.909 Unspecified asthma, uncomplicated; I10 Essential (primary) hypertension; R73.03 Prediabetes; E03.9 Hypothyroidism, unspecified; K21.9 Gastro-esophageal reflux disease without esophagitis; G43.909 Migraine, unspecified, not intractable, without status migrainosus; M06.9 Rheumatoid arthritis, unspecified; E55.9 Vitamin D deficiency, unspecified; M79.7 Fibromyalgia; Z86.59 Personal history of other mental and behavioral disorders; Z88.5 Allergy status to narcotic agent; Z88.6 Allergy status to analgesic agent; Z88.8 Allergy status to other drugs, medicaments and biological substances; E66.01 Morbid (severe) obesity due to excess calories; Z68.42 Body mass index [BMI] 45.0-49.9, adult; Z79.51 Long term (current) use of inhaled steroids; Z79.890 Hormone replacement therapy; Z79.899 Other long term (current) drug therapy
CPT/HCPCS: 62323; J1030

== ENCOUNTER → 2022-06-09 | Outpatient (CLI) | payer OTHER ==
[~2022-06-09] MED LIST changes: -ISOVUE-M 300 61% 15ML VIAL As Ordered ONE; -LIDOCAINE 1% SDV 30ML VIAL As Ordered ONE; -NORCO, ANEXSIA 5/325MG TABLET (HYDROcodone/ACETAMINOPHEN) As Ordered ONE; -diazePAM 5MG TABLET As Ordered ONE; -methylPREDNISolone SUSP 40MG/ML 1ML VIAL (DEPO MEDROL) As Ordered ONE
== END ==
LOC: M LABSMTC 11:06
PROVIDERS: ATTEND Nurse Practitioner Family
DX: Z01.812 Encounter for preprocedural laboratory examination (principal); Z11.52 Encounter for screening for COVID-19

== ENCOUNTER → 2022-06-13 | Outpatient (CLI) | payer OTHER ==
[2022-06-13 17:09] LABS: HEMATOCRIT 38.9 % (36.0-47.0); MEAN CORPUSCULAR HEMOGLOBIN 26.6 pg (27.0-33.0); MEAN CORPUSCULAR HGB CONC 30.8 g/dl (32.0-36.5); MEAN CORPUSCULAR VOLUME 86.3 fl (80.0-96.0); PLATELET COUNT, AUTOMATED 550 10^3/uL (150-450); RED BLOOD COUNT 4.51 10^6/uL (4.00-5.40); WHITE BLOOD COUNT 16.8 10^3/uL (4.0-10.0)
[2022-06-13 18:10] LABS: ERYTHROCYTE SEDIMENTATION RATE 49 mm/hr (0-20)
== END ==
LOC: M PLALAB 16:21
PROVIDERS: ATTEND Physician Assistant
DX: M25.461 Effusion, right knee (principal)

== ENCOUNTER → 2022-06-19 | Outpatient (CLI) | payer OTHER | LOC: M PAIN 11:15 | PROVIDERS: ATTEND Anesthesiology | DX: M51.16 Intervertebral disc disorders with radiculopathy, lumbar region (principal); G89.29 Other chronic pain; R73.03 Prediabetes; J45.909 Unspecified asthma, uncomplicated; I10 Essential (primary) hypertension; E03.9 Hypothyroidism, unspecified; K21.9 Gastro-esophageal reflux disease without esophagitis; G43.909 Migraine, unspecified, not intractable, without status migrainosus; M06.9 Rheumatoid arthritis, unspecified; E55.9 Vitamin D deficiency, unspecified; M79.7 Fibromyalgia; G47.30 Sleep apnea, unspecified; Z86.59 Personal history of other mental and behavioral disorders; Z88.5 Allergy status to narcotic agent; Z88.6 Allergy status to analgesic agent; Z88.8 Allergy status to other drugs, medicaments and biological substances; Z79.51 Long term (current) use of inhaled steroids; Z79.890 Hormone replacement therapy; Z79.899 Other long term (current) drug therapy ==

== ENCOUNTER → 2022-06-28 | Outpatient (REF) | payer OTHER ==
[2022-06-28 17:57] LABS: HEMATOCRIT 42.4 % (36.0-47.0); HEMOGLOBIN 13.3 g/dl (12.0-15.5); MEAN CORPUSCULAR HEMOGLOBIN 26.3 pg (27.0-33.0); MEAN CORPUSCULAR HGB CONC 31.4 g/dl (32.0-36.5); MEAN CORPUSCULAR VOLUME 83.8 fl (80.0-96.0); PLATELET COUNT, AUTOMATED 406 10^3/uL (150-450); RED BLOOD COUNT 5.06 10^6/uL (4.00-5.40); WHITE BLOOD COUNT 12.9 10^3/uL (4.0-10.0)
[2022-06-28 18:39] LABS: ATYPICAL LYMPH 3 % (0-5); EOSINOPHILS 5 % (0-3); LYMPHOCYTES 40 % (16-44); MONOCYTES 5 % (0-5); NEUTROPHILS 46 % (28-66); PLATELET ESTIMATE NORMAL (NORMAL)
[2022-06-28 20:08] LABS: ERYTHROCYTE SEDIMENTATION RATE 25 mm/hr (0-20)
== END ==
LOC: M LABDRAWC 17:08
PROVIDERS: ATTEND Physician Assistant
DX: L03.115 Cellulitis of right lower limb (principal)

== ENCOUNTER → 2022-07-11 | Outpatient (REF) | payer OTHER | LOC: M LABDRAWC 11:57 | DX: D72.10 Eosinophilia, unspecified (principal) ==

== ENCOUNTER → 2022-07-11 | Outpatient (REF) | payer OTHER ==
[2022-07-11 12:34] LABS: BASO # 0.2 10^3/uL (0.0-0.2); BASO % 1.2 % (0.0-1.0); EOS % 7.9 % (0.0-3.0); HEMATOCRIT 38.2 % (36.0-47.0); HEMOGLOBIN 11.8 g/dl (12.0-15.5); LYMPH # 3.9 10^3/uL (1.5-5.0); LYMPH % 29.7 % (24.0-44.0); MEAN CORPUSCULAR HEMOGLOBIN 26.2 pg (27.0-33.0); MEAN CORPUSCULAR HGB CONC 30.9 g/dl (32.0-36.5); MEAN CORPUSCULAR VOLUME 84.9 fl (80.0-96.0); MONO # 1.2 10^3/uL (0.0-0.8); MONO % 8.9 % (2.0-8.0); NEUTROPHILS # 6.9 10^3/uL (1.5-8.5); NEUTROPHILS % 51.9 % (36.0-66.0); PLATELET COUNT, AUTOMATED 465 10^3/uL (150-450); WHITE BLOOD COUNT 13.2 10^3/uL (4.0-10.0)
[2022-07-11 12:48] LABS: ALBUMIN 3.4 G/DL (3.2-5.2); ALKALINE PHOSPHATASE 81 U/L (46-116); ALT/SGPT 21 U/L (7.0-40); AST/SGOT 20 U/L (<34); BILIRUBIN,TOTAL 0.2 MG/DL (0.3-1.2); BLOOD UREA NITROGEN 11 MG/DL (9-23); CALCIUM LEVEL 9.2 MG/DL (8.5-10.1); CARBON DIOXIDE LEVEL 23 MMOL/L (20-31); CHLORIDE LEVEL 112 MMOL/L (98-107); CREATININE FOR GFR 0.59 MG/DL (0.55-1.30); GLOMERULAR FILTRATION RATE > 60.0 (>58); GLUCOSE, FASTING 121 MG/DL (60-100); IRON (FE) 51 UG/DL (50-170); PERCENT SATURATION 16.1 % (13.2-45.0); POTASSIUM SERUM 3.9 MMOL/L (3.5-5.1); SODIUM LEVEL 145 MMOL/L (136-145); TOTAL IRON BINDING CAPACITY 316 UG/DL (250-425)
[2022-07-11 12:52] LABS: FERRITIN 52.2 NG/ML (7.3-270.7)
== END ==
LOC: M LABDRAWC 11:54
DX: D72.829 Elevated white blood cell count, unspecified (principal); M25.50 Pain in unspecified joint; N83.209 Unspecified ovarian cyst, unspecified side; R77.8 Other specified abnormalities of plasma proteins; D72.10 Eosinophilia, unspecified

== ENCOUNTER 2022-07-13 07:56 | Emergency (ER) | payer OTHER ==
[~2022-07-13] VITALS: Ht 170.2 cm; Wt 130.9 kg
[2022-07-13 13:53] VITALS: BP 143/77
== END 2022-07-13 14:38 | disposition home or self-care (01) ==
LOC: M ED 07:56
DX: J45.901 Unspecified asthma with (acute) exacerbation (principal); J06.9 Acute upper respiratory infection, unspecified; I10 Essential (primary) hypertension; K21.9 Gastro-esophageal reflux disease without esophagitis; Z87.440 Personal history of urinary (tract) infections; F43.10 Post-traumatic stress disorder, unspecified; F31.9 Bipolar disorder, unspecified; Z79.890 Hormone replacement therapy; Z79.899 Other long term (current) drug therapy; Z88.6 Allergy status to analgesic agent; Z88.8 Allergy status to other drugs, medicaments and biological substances; Z88.5 Allergy status to narcotic agent

== ENCOUNTER → 2022-08-28 | Outpatient (CLI) | payer OTHER ==
[~2022-08-28] MED LIST changes: +DIPH-435 PO; -DIPH25CA32 PO
== END ==
LOC: M PAIN 11:00
PROVIDERS: ATTEND Anesthesiology
DX: M54.17 Radiculopathy, lumbosacral region (principal); G89.29 Other chronic pain; E11.9 Type 2 diabetes mellitus without complications; J45.909 Unspecified asthma, uncomplicated; I10 Essential (primary) hypertension; E03.9 Hypothyroidism, unspecified; K21.9 Gastro-esophageal reflux disease without esophagitis; G43.909 Migraine, unspecified, not intractable, without status migrainosus; M06.9 Rheumatoid arthritis, unspecified; E55.9 Vitamin D deficiency, unspecified; M79.7 Fibromyalgia; G47.30 Sleep apnea, unspecified; Z88.5 Allergy status to narcotic agent; Z88.6 Allergy status to analgesic agent; Z88.8 Allergy status to other drugs, medicaments and biological substances; Z79.51 Long term (current) use of inhaled steroids; Z79.890 Hormone replacement therapy; Z79.899 Other long term (current) drug therapy

== ENCOUNTER → 2022-08-29 | Outpatient (CLI) | payer OTHER | LOC: M LAB 13:26 | PROVIDERS: ATTEND Allergy & Immunology Allergy | DX: D84.9 Immunodeficiency, unspecified (principal) ==

== ENCOUNTER 2022-09-15 14:43 | Emergency (ER) | payer OTHER ==
[~2022-09-15] VITALS: Ht 170.2 cm; Wt 133.2 kg
[2022-09-15 14:43] VITALS: BP 138/87
[2022-09-15] MEDS ORDERED: NS 1,000 ML IV ONE (15:15)
[2022-09-15] MEDS ORDERED: ACETAMINOPHEN 1000MG 100ML IV BAG IV ONE (15:25)
[2022-09-15 15:45] LABS: BASO # 0.1 10^3/uL (0.0-0.2); BASO % 0.5 % (0.0-1.0); HEMATOCRIT 41.5 % (36.0-47.0); HEMOGLOBIN 13.2 g/dl (12.0-15.5); LYMPH # 3.4 10^3/uL (1.5-5.0); LYMPH % 30.3 % (24.0-44.0); MEAN CORPUSCULAR HEMOGLOBIN 26.7 pg (27.0-33.0); MEAN CORPUSCULAR HGB CONC 31.8 g/dl (32.0-36.5); MONO # 0.8 10^3/uL (0.0-0.8); MONO % 7.5 % (2.0-8.0); NEUTROPHILS # 6.8 10^3/uL (1.5-8.5); NEUTROPHILS % 61.2 % (36.0-66.0); PLATELET COUNT, AUTOMATED 392 10^3/uL (150-450); RED BLOOD COUNT 4.94 10^6/uL (4.00-5.40); WHITE BLOOD COUNT 11.2 10^3/uL (4.0-10.0)
[2022-09-15] MEDS ORDERED: ISOVUE-370 76% 100ML VIAL As Ordered ONE (15:53)
[2022-09-15 16:11] LABS: LIPASE 33 U/L (12-53)
[2022-09-15 16:14] LABS: RSV AMPLIFICATION NEGATIVE (NEGATIVE)
[2022-09-15 16:17] LABS: ALBUMIN 3.4 G/DL (3.2-5.2); ALKALINE PHOSPHATASE 87 U/L (46-116); ALT/SGPT 31 U/L (7.0-40); AST/SGOT 35 U/L (<34); BILIRUBIN,DIRECT < 0.1 MG/DL (<0.4); BILIRUBIN,TOTAL 0.3 MG/DL (0.3-1.2); TOTAL PROTEIN 7.1 G/DL (5.7-8.2)
== END 2022-09-15 17:17 | disposition home or self-care (01) ==
LOC: M ED 14:43
DX: R11.10 Vomiting, unspecified (principal); R19.7 Diarrhea, unspecified; E11.9 Type 2 diabetes mellitus without complications; I10 Essential (primary) hypertension; K21.9 Gastro-esophageal reflux disease without esophagitis; F41.9 Anxiety disorder, unspecified; F32.A Depression, unspecified; E78.5 Hyperlipidemia, unspecified; G47.33 Obstructive sleep apnea (adult) (pediatric); D69.3 Immune thrombocytopenic purpura; J45.909 Unspecified asthma, uncomplicated; Z88.6 Allergy status to analgesic agent; Z88.8 Allergy status to other drugs, medicaments and biological substances; Z79.890 Hormone replacement therapy; Z79.899 Other long term (current) drug therapy
CPT/HCPCS: 74177; 80047; 80076; 81001; 83605; 83690; 85025; 87631; 96374; 99283; J0131

== ENCOUNTER → 2022-09-15 | Outpatient (REF) | payer OTHER ==
[~2022-09-15] MED LIST changes: +TOPI-254 PO; -TOPI50TA9 PO
== END ==
LOC: M LAB REF 11:33
PROVIDERS: ATTEND Physician Assistant Medical
DX: R19.7 Diarrhea, unspecified (principal)

== ENCOUNTER → 2022-10-15 | Outpatient (REF) | payer OTHER ==
[2022-10-15 20:05] LABS: BASO # 0.1 10^3/uL (0.0-0.2); BASO % 0.6 % (0.0-1.0); HEMATOCRIT 39.8 % (36.0-47.0); HEMOGLOBIN 12.2 g/dl (12.0-15.5); LYMPH # 3.5 10^3/uL (1.5-5.0); LYMPH % 31.6 % (24.0-44.0); MEAN CORPUSCULAR HEMOGLOBIN 26.6 pg (27.0-33.0); MEAN CORPUSCULAR HGB CONC 30.7 g/dl (32.0-36.5); MEAN CORPUSCULAR VOLUME 86.7 fl (80.0-96.0); MONO # 0.9 10^3/uL (0.0-0.8); MONO % 7.8 % (2.0-8.0); NEUTROPHILS # 6.6 10^3/uL (1.5-8.5); NEUTROPHILS % 59.5 % (36.0-66.0); PLATELET COUNT, AUTOMATED 384 10^3/uL (150-450); RED BLOOD COUNT 4.59 10^6/uL (4.00-5.40); WHITE BLOOD COUNT 11.1 10^3/uL (4.0-10.0)
== END ==
LOC: M LABDRAWC 17:04
PROVIDERS: ATTEND Internal Medicine Hematology & Oncology
DX: D50.9 Iron deficiency anemia, unspecified (principal); R53.83 Other fatigue; D72.829 Elevated white blood cell count, unspecified; M25.50 Pain in unspecified joint; N83.209 Unspecified ovarian cyst, unspecified side; R77.8 Other specified abnormalities of plasma proteins; D72.10 Eosinophilia, unspecified

== ENCOUNTER → 2022-10-15 | Outpatient (REF) | payer OTHER ==
[2022-10-15 20:33] LABS: CHOLESTEROL RISK RATIO 3.48 (<5); HDL CHOLESTEROL 45.9 MG/DL (>40); LDL CHOLESTEROL 78.5 MG/DL (<100); NON-HDL-C 114.1 MG/DL
[2022-10-15 20:35] LABS: FREE T4 0.99 NG/DL (0.89-1.76); THYROID STIMULATING HORMONE 1.518 uIU/ML (0.55-4.78)
[2022-10-15 20:41] LABS: HEMOGLOBIN A1c 6.7 % (4.0-6.0)
== END ==
LOC: M SFHCCLAY 09:59
PROVIDERS: ATTEND Nurse Practitioner Family
DX: M06.9 Rheumatoid arthritis, unspecified (principal); E11.9 Type 2 diabetes mellitus without complications; E78.5 Hyperlipidemia, unspecified; E03.9 Hypothyroidism, unspecified

== ENCOUNTER → 2022-10-22 | Outpatient (CLI) | payer OTHER | LOC: M CLY 10:31 | PROVIDERS: ATTEND Nurse Practitioner Family | DX: M25.551 Pain in right hip (principal) ==

== ENCOUNTER → 2022-10-23 | Outpatient (CLI) | payer OTHER | LOC: M PAIN 09:45 | PROVIDERS: ATTEND Anesthesiology | DX: M51.16 Intervertebral disc disorders with radiculopathy, lumbar region (principal); G89.29 Other chronic pain; J45.909 Unspecified asthma, uncomplicated; R73.03 Prediabetes; I10 Essential (primary) hypertension; E03.9 Hypothyroidism, unspecified; K21.9 Gastro-esophageal reflux disease without esophagitis; G43.909 Migraine, unspecified, not intractable, without status migrainosus; M06.9 Rheumatoid arthritis, unspecified; M79.7 Fibromyalgia; G47.30 Sleep apnea, unspecified; Z88.6 Allergy status to analgesic agent; Z88.8 Allergy status to other drugs, medicaments and biological substances; Z79.51 Long term (current) use of inhaled steroids; Z79.890 Hormone replacement therapy; Z79.899 Other long term (current) drug therapy ==

== ENCOUNTER 2022-11-15 07:54 | Outpatient (CLI) | payer OTHER ==
[~2022-11-15] VITALS: Ht 170.2 cm; Wt 133.0 kg
[~2022-11-15 07:54] MED LIST changes: +EPINEPHrine INJ 1 MG/ML 1ML AMP IM PRN
[2022-11-15 08:10] VITALS: BP 160/92
[2022-11-15] MEDS ORDERED: IMMUNE GLOBULIN 10% 40 GM in IV 1 EA IV ONE (08:30)
[2022-11-15] MEDS ORDERED: ACETAMINOPHEN TAB 650MG DOSE (2X325MG) PO PRN (08:30)
[2022-11-15] MEDS ORDERED: diphenhydrAMINE 25MG CAP PO PRN (08:30)
[2022-11-15 08:45] VITALS: BP 131/81
[2022-11-15 09:47] VITALS: BP 129/74
[2022-11-15 10:45] VITALS: BP 161/99
== END 2022-11-15 10:47 | disposition home or self-care (01) ==
LOC: M INFU 07:54
PROVIDERS: ATTEND Allergy & Immunology Allergy
DX: D83.9 Common variable immunodeficiency, unspecified (principal); Z88.4 Allergy status to anesthetic agent; Z88.6 Allergy status to analgesic agent; Z88.8 Allergy status to other drugs, medicaments and biological substances
CPT/HCPCS: 96365; 96366; J1459

== ENCOUNTER → 2022-11-27 | Outpatient (REF) | payer OTHER ==
[~2022-11-27] MED LIST changes: -EPINEPHrine INJ 1 MG/ML 1ML AMP IM PRN
[2022-11-27 12:03] LABS: HEMATOCRIT 39.1 % (36.0-47.0); HEMOGLOBIN 12.3 g/dl (12.0-15.5); MEAN CORPUSCULAR HEMOGLOBIN 27.5 pg (27.0-33.0); MEAN CORPUSCULAR HGB CONC 31.5 g/dl (32.0-36.5); MEAN CORPUSCULAR VOLUME 87.3 fl (80.0-96.0); PLATELET COUNT, AUTOMATED 482 10^3/uL (150-450); RED BLOOD COUNT 4.48 10^6/uL (4.00-5.40); WHITE BLOOD COUNT 12.1 10^3/uL (4.0-10.0)
[2022-11-27 12:08] LABS: ALBUMIN 3.3 G/DL (3.2-5.2); ALKALINE PHOSPHATASE 87 U/L (46-116); ALT/SGPT 26 U/L (7.0-40); AST/SGOT 9 U/L (<34); BILIRUBIN,TOTAL 0.2 MG/DL (0.3-1.2); BLOOD UREA NITROGEN 11 MG/DL (9-23); CALCIUM LEVEL 9.1 MG/DL (8.5-10.1); CARBON DIOXIDE LEVEL 27 MMOL/L (20-31); CHLORIDE LEVEL 109 MMOL/L (98-107); CREATININE FOR GFR 0.59 MG/DL (0.55-1.30); GLOMERULAR FILTRATION RATE > 60.0 (>58); GLUCOSE, FASTING 128 MG/DL (60-100); SODIUM LEVEL 141 MMOL/L (136-145); TOTAL PROTEIN 7.2 G/DL (5.7-8.2)
[2022-11-27 12:10] LABS: VITAMIN B12 LEVEL 367 PG/ML (211-911)
[2022-11-27 12:11] LABS: FOLATE > 24.0 NG/ML (>5.4)
[2022-11-27 13:40] LABS: ATYPICAL LYMPH 11 % (0-5); LYMPHOCYTES 37 % (16-44); MONOCYTES 6 % (0-5); NEUTROPHILS 46 % (28-66)
[2022-11-27 13:45] LABS: PLATELET ESTIMATE INCREASED (NORMAL)
== END ==
LOC: M LABDRAWC 11:15
PROVIDERS: ATTEND Psychiatry & Neurology Neurology
DX: E53.8 Deficiency of other specified B group vitamins (principal); R51.9 Headache, unspecified

== ENCOUNTER → 2022-12-31 | Outpatient (CLI) | payer OTHER | LOC: M PAIN 15:15 | PROVIDERS: ATTEND Nurse Practitioner Family | DX: M51.16 Intervertebral disc disorders with radiculopathy, lumbar region (principal); G89.29 Other chronic pain; E11.9 Type 2 diabetes mellitus without complications; J45.909 Unspecified asthma, uncomplicated; I10 Essential (primary) hypertension; E03.9 Hypothyroidism, unspecified; G43.909 Migraine, unspecified, not intractable, without status migrainosus; M06.9 Rheumatoid arthritis, unspecified; M79.7 Fibromyalgia; G47.30 Sleep apnea, unspecified; Z86.59 Personal history of other mental and behavioral disorders; Z88.6 Allergy status to analgesic agent; Z88.8 Allergy status to other drugs, medicaments and biological substances; E66.01 Morbid (severe) obesity due to excess calories; Z68.42 Body mass index [BMI] 45.0-49.9, adult; Z79.51 Long term (current) use of inhaled steroids; Z79.890 Hormone replacement therapy; Z79.899 Other long term (current) drug therapy ==

== ENCOUNTER → 2023-01-08 | Outpatient (CLI) | payer OTHER | LOC: M RAD 09:59 | PROVIDERS: ATTEND Urology | DX: Z87.440 Personal history of urinary (tract) infections (principal); N28.1 Cyst of kidney, acquired; N28.89 Other specified disorders of kidney and ureter ==

== ENCOUNTER → 2023-01-17 | Outpatient (CLI) | payer OTHER | LOC: M CLY 11:14 | PROVIDERS: ATTEND Nurse Practitioner Family | DX: M54.2 Cervicalgia (principal) ==

== ENCOUNTER → 2023-02-14 | Outpatient (CLI) | payer OTHER ==
[~2023-02-14] MED LIST changes: +DICL100G10 TD; +DICL100G10 TOP; -DICL1GEL3 TD; -DICL1GEL3 TOP; -GABA-283 PO; +GABA-284 PO
== END ==
LOC: M RAD 14:56
PROVIDERS: ATTEND Internal Medicine Rheumatology
DX: M25.50 Pain in unspecified joint (principal); D72.118 Other hypereosinophilic syndrome; Z79.899 Other long term (current) drug therapy; Z90.49 Acquired absence of other specified parts of digestive tract; K76.0 Fatty (change of) liver, not elsewhere classified

== ENCOUNTER → 2023-03-11 | Outpatient (CLI) | payer OTHER ==
[~2023-03-11] MED LIST changes: -COZA1TAB PO; +LOSA-527 PO; +MECL-209 PO; -MECL1TAB31 PO; -PREG50CA2 PO; +PREG50CA3 PO
== END ==
LOC: M PAIN 10:15
PROVIDERS: ATTEND Nurse Practitioner Family
DX: M51.16 Intervertebral disc disorders with radiculopathy, lumbar region (principal); G89.29 Other chronic pain; G47.30 Sleep apnea, unspecified; J45.909 Unspecified asthma, uncomplicated; R73.03 Prediabetes; I10 Essential (primary) hypertension; E03.9 Hypothyroidism, unspecified; K21.9 Gastro-esophageal reflux disease without esophagitis; G43.909 Migraine, unspecified, not intractable, without status migrainosus; M06.9 Rheumatoid arthritis, unspecified; M79.7 Fibromyalgia; Z86.59 Personal history of other mental and behavioral disorders; Z88.5 Allergy status to narcotic agent; Z88.6 Allergy status to analgesic agent; Z88.8 Allergy status to other drugs, medicaments and biological substances; E66.01 Morbid (severe) obesity due to excess calories; Z68.42 Body mass index [BMI] 45.0-49.9, adult; Z79.890 Hormone replacement therapy; Z79.899 Other long term (current) drug therapy

== ENCOUNTER → 2023-03-20 | Outpatient (REF) | payer OTHER ==
[2023-03-20 18:41] LABS: BASO # 0.1 10^3/uL (0.0-0.2); BASO % 0.6 % (0.0-1.0); HEMATOCRIT 43.1 % (36.0-47.0); HEMOGLOBIN 13.4 g/dl (12.0-15.5); LYMPH # 3.3 10^3/uL (1.5-5.0); LYMPH % 22.8 % (24.0-44.0); MEAN CORPUSCULAR HEMOGLOBIN 26.8 pg (27.0-33.0); MEAN CORPUSCULAR HGB CONC 31.1 g/dl (32.0-36.5); MEAN CORPUSCULAR VOLUME 86.2 fl (80.0-96.0); MONO % 7.2 % (2.0-8.0); NEUTROPHILS % 68.9 % (36.0-66.0); PLATELET COUNT, AUTOMATED 515 10^3/uL (150-450); WHITE BLOOD COUNT 14.5 10^3/uL (4.0-10.0)
[2023-03-20 19:04] LABS: ALBUMIN 3.5 G/DL (3.2-5.2); ALKALINE PHOSPHATASE 94 U/L (46-116); ALT/SGPT 32 U/L (7.0-40); AST/SGOT 18 U/L (<34); BILIRUBIN,TOTAL 0.3 MG/DL (0.3-1.2); BLOOD UREA NITROGEN 14 MG/DL (9-23); CALCIUM LEVEL 9.5 MG/DL (8.5-10.1); CARBON DIOXIDE LEVEL 25 MMOL/L (20-31); CHLORIDE LEVEL 106 MMOL/L (98-107); CREATININE FOR GFR 0.62 MG/DL (0.55-1.30); GLOMERULAR FILTRATION RATE > 60.0 (>58); GLUCOSE, FASTING 158 MG/DL (60-100); POTASSIUM SERUM 3.9 MMOL/L (3.5-5.1); SODIUM LEVEL 139 MMOL/L (136-145); TOTAL PROTEIN 7.6 G/DL (5.7-8.2)
== END ==
LOC: M LABDRAWC 17:19
PROVIDERS: ATTEND Psychiatry & Neurology Neurology
DX: R51.9 Headache, unspecified (principal)

== ENCOUNTER → 2023-04-15 | Outpatient (REF) | payer OTHER ==
[2023-04-15 17:23] LABS: ALBUMIN 3.2 G/DL (3.2-5.2); ALKALINE PHOSPHATASE 99 U/L (46-116); ALT/SGPT 28 U/L (7.0-40); AST/SGOT 16 U/L (<34); BASO # 0.1 10^3/uL (0.0-0.2); BASO % 0.6 % (0.0-1.0); BILIRUBIN,TOTAL 0.3 MG/DL (0.3-1.2); BLOOD UREA NITROGEN 9 MG/DL (9-23); CALCIUM LEVEL 9.3 MG/DL (8.5-10.1); CARBON DIOXIDE LEVEL 26 MMOL/L (20-31); CHLORIDE LEVEL 112 MMOL/L (98-107); CHOLESTEROL LEVEL 171 MG/DL (<200); CHOLESTEROL RISK RATIO 3.44 (<5); CREATININE FOR GFR 0.56 MG/DL (0.55-1.30); FREE T4 1.14 NG/DL (0.89-1.76); GLOMERULAR FILTRATION RATE > 60.0 (>58); GLUCOSE, FASTING 138 MG/DL (60-100); HDL CHOLESTEROL 49.7 MG/DL (>40); HEMATOCRIT 41.9 % (36.0-47.0); HEMOGLOBIN 13.3 g/dl (12.0-15.5); LDL CHOLESTEROL 98.1 MG/DL (<100); LYMPH # 3.6 10^3/uL (1.5-5.0); LYMPH % 28.8 % (24.0-44.0); MEAN CORPUSCULAR HEMOGLOBIN 27.3 pg (27.0-33.0); MEAN CORPUSCULAR HGB CONC 31.7 g/dl (32.0-36.5); MEAN CORPUSCULAR VOLUME 85.9 fl (80.0-96.0); NEUTROPHILS # 7.6 10^3/uL (1.5-8.5); NEUTROPHILS % 62.1 % (36.0-66.0); NON-HDL-C 121.3 MG/DL; PLATELET COUNT, AUTOMATED 538 10^3/uL (150-450); POTASSIUM SERUM 4.1 MMOL/L (3.5-5.1); RED BLOOD COUNT 4.88 10^6/uL (4.00-5.40); SODIUM LEVEL 145 MMOL/L (136-145); TOTAL PROTEIN 7.1 G/DL (5.7-8.2); TRIGLYCERIDES LEVEL 116 MG/DL (<150); WHITE BLOOD COUNT 12.3 10^3/uL (4.0-10.0)
[2023-04-15 17:25] LABS: THYROID STIMULATING HORMONE 1.058 uIU/ML (0.55-4.78)
[2023-04-15 17:38] LABS: HEMOGLOBIN A1c 6.8 % (4.0-6.0)
== END ==
LOC: M SFHCCLAY 10:33
PROVIDERS: ATTEND Nurse Practitioner Family
DX: M06.9 Rheumatoid arthritis, unspecified (principal); D69.3 Immune thrombocytopenic purpura; E03.9 Hypothyroidism, unspecified; E78.5 Hyperlipidemia, unspecified; E11.9 Type 2 diabetes mellitus without complications

== ENCOUNTER → 2023-04-22 | Outpatient (CLI) | payer OTHER ==
[~2023-04-22] MED LIST changes: -CEFD300C41 PO; +CEFD300C42 PO
== END ==
LOC: M PAIN 10:00
PROVIDERS: ATTEND Nurse Practitioner Family
DX: M51.16 Intervertebral disc disorders with radiculopathy, lumbar region (principal); G89.29 Other chronic pain; Z80.8 Family history of malignant neoplasm of other organs or systems; Z88.5 Allergy status to narcotic agent; Z88.6 Allergy status to analgesic agent; Z88.8 Allergy status to other drugs, medicaments and biological substances; E66.01 Morbid (severe) obesity due to excess calories; Z68.42 Body mass index [BMI] 45.0-49.9, adult; Z79.899 Other long term (current) drug therapy

== ENCOUNTER → 2023-05-01 | Outpatient (REF) | payer OTHER ==
[2023-05-01 12:23] LABS: BASO # 0.1 10^3/uL (0.0-0.2); BASO % 0.6 % (0.0-1.0); HEMATOCRIT 41.9 % (36.0-47.0); HEMOGLOBIN 13.2 g/dl (12.0-15.5); LYMPH # 4.8 10^3/uL (1.5-5.0); MEAN CORPUSCULAR HEMOGLOBIN 27.3 pg (27.0-33.0); MEAN CORPUSCULAR HGB CONC 31.5 g/dl (32.0-36.5); MEAN CORPUSCULAR VOLUME 86.6 fl (80.0-96.0); MONO # 1.1 10^3/uL (0.0-0.8); MONO % 7.6 % (2.0-8.0); NEUTROPHILS # 8.2 10^3/uL (1.5-8.5); NEUTROPHILS % 57.2 % (36.0-66.0); PLATELET COUNT, AUTOMATED 443 10^3/uL (150-450); RED BLOOD COUNT 4.84 10^6/uL (4.00-5.40); WHITE BLOOD COUNT 14.3 10^3/uL (4.0-10.0)
== END ==
LOC: M LABDRAWC 11:37
PROVIDERS: ATTEND Internal Medicine Hematology & Oncology
DX: D50.9 Iron deficiency anemia, unspecified (principal); R53.83 Other fatigue; D72.829 Elevated white blood cell count, unspecified; M25.50 Pain in unspecified joint; N83.209 Unspecified ovarian cyst, unspecified side; R77.8 Other specified abnormalities of plasma proteins

== ENCOUNTER 2023-05-29 08:46 | Emergency (ER) | payer OTHER ==
[~2023-05-29] VITALS: Ht 170.2 cm; Wt 134.6 kg
[2023-05-29] MEDS ORDERED: KETOROLAC 30 MG/ML 1ML VIAL IV ONE (11:55)
[2023-05-29] MEDS ORDERED: PROMETHAZINE 25MG/ML 1ML VIAL IV ONE (11:55)
[2023-05-29 12:01] LABS: BASO # 0.1 10^3/uL (0.0-0.2); BASO % 0.5 % (0.0-1.0); HEMATOCRIT 41.9 % (36.0-47.0); HEMOGLOBIN 13.2 g/dl (12.0-15.5); LYMPH # 3.4 10^3/uL (1.5-5.0); LYMPH % 25.2 % (24.0-44.0); MEAN CORPUSCULAR HGB CONC 31.5 g/dl (32.0-36.5); MEAN CORPUSCULAR VOLUME 85.7 fl (80.0-96.0); MONO # 0.9 10^3/uL (0.0-0.8); MONO % 6.9 % (2.0-8.0); NEUTROPHILS % 66.8 % (36.0-66.0); PLATELET COUNT, AUTOMATED 392 10^3/uL (150-450); RED BLOOD COUNT 4.89 10^6/uL (4.00-5.40); WHITE BLOOD COUNT 13.4 10^3/uL (4.0-10.0)
[2023-05-29 12:33] LABS: LIPASE 32 U/L (12-53)
[2023-05-29 12:35] LABS: ALBUMIN 3.4 G/DL (3.2-5.2); ALKALINE PHOSPHATASE 100 U/L (46-116); ALT/SGPT 18 U/L (7.0-40); AST/SGOT 14 U/L (<34); BILIRUBIN,DIRECT 0.1 MG/DL (<0.4); BILIRUBIN,TOTAL 0.4 MG/DL (0.3-1.2); BLOOD UREA NITROGEN 9 MG/DL (9-23); CALCIUM LEVEL 9.4 MG/DL (8.5-10.1); CARBON DIOXIDE LEVEL 26 MMOL/L (20-31); CHLORIDE LEVEL 109 MMOL/L (98-107); CREATININE FOR GFR 0.53 MG/DL (0.55-1.30); GLOMERULAR FILTRATION RATE > 60.0 (>58); GLUCOSE, FASTING 119 MG/DL (60-100); POTASSIUM SERUM 4.2 MMOL/L (3.5-5.1); SODIUM LEVEL 142 MMOL/L (136-145); TOTAL PROTEIN 7.3 G/DL (5.7-8.2)
[2023-05-29] MEDS ORDERED: ISOVUE-370 76% 100ML VIAL As Ordered ONE (12:39)
[2023-05-29] MEDS ORDERED: BISACODYL 10MG SUPP PR ONE (13:20)
[2023-05-29 13:36] VITALS: BP 129/63; TEMP 98.2; O2SAT 100
[2023-05-29] MEDS ORDERED: POLY17PO18 PO (14:00)
== END 2023-05-29 14:23 | disposition home or self-care (01) ==
LOC: M ED 08:46
DX: K59.00 Constipation, unspecified (principal); R19.7 Diarrhea, unspecified; K76.0 Fatty (change of) liver, not elsewhere classified; Z90.49 Acquired absence of other specified parts of digestive tract; Z90.81 Acquired absence of spleen; E11.9 Type 2 diabetes mellitus without complications; I10 Essential (primary) hypertension; M79.7 Fibromyalgia; F31.9 Bipolar disorder, unspecified; F43.10 Post-traumatic stress disorder, unspecified; K21.9 Gastro-esophageal reflux disease without esophagitis; E03.9 Hypothyroidism, unspecified; Z88.8 Allergy status to other drugs, medicaments and biological substances; Z79.890 Hormone replacement therapy; Z79.899 Other long term (current) drug therapy
CPT/HCPCS: 74177; 80047; 80048; 80076; 81001; 83690; 85025; 87088; 87186; 96374; 96375; 99284; J1885; J2550; Q9967

== ENCOUNTER 2023-05-30 08:00 | Outpatient (CLI) | payer OTHER ==
[~2023-05-30] VITALS: Ht 170.2 cm; Wt 134.2 kg
[~2023-05-30 08:00] MED LIST changes: +ALBUTEROL SULFATE 2.5MG/0.5ML INH NEB SOLN INH PRN; +EPINEPHrine INJ 1 MG/ML 1ML AMP IM PRN; +NS 1,000 ML IV SCH; +POLY17PO18 PO; +diphenhydrAMINE 50MG/ML VIAL IV PRN; +methylPREDNISolone 125MG 2ML VIAL IV PRN
[2023-05-30 08:11] VITALS: BP 125/75; O2SAT 97
[2023-05-30] MEDS ORDERED: ACETAMINOPHEN 650MG PO PRIOR TO INFUSION PO ONE (08:25)
[2023-05-30] MEDS ORDERED: IMMUNE GLOBULIN 10% 40 GM in IV 1 EA IV ONE (08:25)
[2023-05-30] MEDS ORDERED: diphenhydrAMINE 25MG PO PRIOR TO INFUSION PO ONE (08:25)
[2023-05-30 09:15] VITALS: BP 119/63; O2SAT 100
[2023-05-30 09:45] VITALS: BP 126/67; O2SAT 100
[2023-05-30 10:15] VITALS: BP 129/68; O2SAT 100
[2023-05-30 11:05] VITALS: BP 131/72; O2SAT 98
== END 2023-05-30 11:15 | disposition home or self-care (01) ==
LOC: M INFU 08:00
PROVIDERS: ATTEND Allergy & Immunology Allergy
DX: D80.6 Antibody deficiency with near-normal immunoglobulins or with hyperimmunoglobulinemia (principal); Z88.6 Allergy status to analgesic agent; Z88.5 Allergy status to narcotic agent; Z88.8 Allergy status to other drugs, medicaments and biological substances

== ENCOUNTER → 2023-06-17 | Outpatient (CLI) | payer OTHER ==
[~2023-06-17] MED LIST changes: -ALBUTEROL SULFATE 2.5MG/0.5ML INH NEB SOLN INH PRN; +CEFD1CAP9 PO; -CEFD300C42 PO; -EFFE150C2 PO; +EFFE150C3 PO; -EPINEPHrine INJ 1 MG/ML 1ML AMP IM PRN; +ISOVUE-M 300 61% 15ML VIAL As Ordered ONE; +LIDOCAINE 1% SDV 30ML VIAL As Ordered ONE; +NORCO, ANEXSIA 5/325MG TABLET (HYDROcodone/ACETAMINOPHEN) As Ordered ONE; -NS 1,000 ML IV SCH; +TOPI-21 PO; -TOPI-254 PO; +dexAMETHasone 10MG/1ML VIAL PRES.FREE As Ordered ONE; +diazePAM 5MG TABLET As Ordered ONE; -diphenhydrAMINE 50MG/ML VIAL IV PRN; -methylPREDNISolone 125MG 2ML VIAL IV PRN
== END ==
LOC: M PAIN 08:30
PROVIDERS: ATTEND Anesthesiology
DX: M51.16 Intervertebral disc disorders with radiculopathy, lumbar region (principal); J45.909 Unspecified asthma, uncomplicated; F43.10 Post-traumatic stress disorder, unspecified; R73.03 Prediabetes; F31.9 Bipolar disorder, unspecified; I10 Essential (primary) hypertension; E78.00 Pure hypercholesterolemia, unspecified; E03.9 Hypothyroidism, unspecified; K21.9 Gastro-esophageal reflux disease without esophagitis; K58.9 Irritable bowel syndrome, unspecified; G43.909 Migraine, unspecified, not intractable, without status migrainosus; M06.9 Rheumatoid arthritis, unspecified; N39.46 Mixed incontinence; E66.9 Obesity, unspecified; N32.81 Overactive bladder; E55.9 Vitamin D deficiency, unspecified; D64.9 Anemia, unspecified; M79.7 Fibromyalgia; G47.30 Sleep apnea, unspecified; K76.0 Fatty (change of) liver, not elsewhere classified; Z79.890 Hormone replacement therapy; Z79.899 Other long term (current) drug therapy; Z88.5 Allergy status to narcotic agent; Z88.6 Allergy status to analgesic agent; Z88.8 Allergy status to other drugs, medicaments and biological substances
CPT/HCPCS: 64483; 64484; J0665; J1100; Q9967

== ENCOUNTER → 2023-07-22 | Outpatient (CLI) | payer OTHER ==
[~2023-07-22] MED LIST changes: -ISOVUE-M 300 61% 15ML VIAL As Ordered ONE; -LIDOCAINE 1% SDV 30ML VIAL As Ordered ONE; -NORCO, ANEXSIA 5/325MG TABLET (HYDROcodone/ACETAMINOPHEN) As Ordered ONE; -dexAMETHasone 10MG/1ML VIAL PRES.FREE As Ordered ONE; -diazePAM 5MG TABLET As Ordered ONE
== END ==
LOC: M PAIN 11:15
PROVIDERS: ATTEND Nurse Practitioner Family
DX: M51.16 Intervertebral disc disorders with radiculopathy, lumbar region (principal); G89.29 Other chronic pain; I10 Essential (primary) hypertension; E78.00 Pure hypercholesterolemia, unspecified; E66.9 Obesity, unspecified; E03.9 Hypothyroidism, unspecified; E55.9 Vitamin D deficiency, unspecified; K58.9 Irritable bowel syndrome, unspecified; M79.7 Fibromyalgia; Z79.890 Hormone replacement therapy; Z79.899 Other long term (current) drug therapy; Z68.42 Body mass index [BMI] 45.0-49.9, adult; Z88.5 Allergy status to narcotic agent; Z88.6 Allergy status to analgesic agent; Z88.8 Allergy status to other drugs, medicaments and biological substances

== ENCOUNTER → 2023-09-22 | Outpatient (REF) | payer OTHER ==
[~2023-09-22] MED LIST changes: -MIRA1POW3 PO; +MIRA33506 PO
== END ==
LOC: M SFHCCLAY 14:33
PROVIDERS: ATTEND Physician Assistant
DX: J02.9 Acute pharyngitis, unspecified (principal)

== ENCOUNTER → 2023-09-23 | Outpatient (CLI) | payer OTHER | LOC: M PAIN 16:30 | PROVIDERS: ATTEND Nurse Practitioner Family | DX: M51.16 Intervertebral disc disorders with radiculopathy, lumbar region (principal); I10 Essential (primary) hypertension; E03.9 Hypothyroidism, unspecified; D69.3 Immune thrombocytopenic purpura; Z79.890 Hormone replacement therapy; Z79.899 Other long term (current) drug therapy; Z88.4 Allergy status to anesthetic agent; Z88.5 Allergy status to narcotic agent; Z88.6 Allergy status to analgesic agent; Z88.8 Allergy status to other drugs, medicaments and biological substances ==

== ENCOUNTER 2023-11-19 11:48 | Emergency (ER) | payer OTHER ==
[~2023-11-19] VITALS: Ht 170.2 cm; Wt 127.5 kg
[2023-11-19 11:48] VITALS: BP 130/90; TEMP 98.4; O2SAT 99
[~2023-11-19 11:48] MED LIST changes: +DOXY-440 PO; -DOXY-444 PO; -GARL500C2 PO; +GARL500C6 PO
[2023-11-19] MEDS: KETOROLAC 60MG 2ML VIAL IM ONE (13:47)
== END 2023-11-19 13:53 | disposition home or self-care (01) ==
LOC: M ED 11:48
DX: M71.22 Synovial cyst of popliteal space [Baker], left knee (principal); I10 Essential (primary) hypertension; J45.909 Unspecified asthma, uncomplicated; K58.9 Irritable bowel syndrome, unspecified; E03.9 Hypothyroidism, unspecified; Z88.4 Allergy status to anesthetic agent; Z88.5 Allergy status to narcotic agent; Z88.6 Allergy status to analgesic agent; Z88.8 Allergy status to other drugs, medicaments and biological substances; Z79.82 Long term (current) use of aspirin; Z79.52 Long term (current) use of systemic steroids; Z79.2 Long term (current) use of antibiotics; Z79.811 Long term (current) use of aromatase inhibitors; Z79.899 Other long term (current) drug therapy
CPT/HCPCS: 93971; 96372; 99282; J1885

== ENCOUNTER 2023-12-12 07:40 | Outpatient (CLI) | payer OTHER ==
[~2023-12-12] VITALS: Ht 170.2 cm; Wt 129.0 kg
[~2023-12-12 07:40] MED LIST changes: +LOSA50TA28; +TIZA2TA PO
[2023-12-12 07:56] VITALS: BP 133/83; O2SAT 100
[2023-12-12] MEDS ORDERED: IMMUNE GLOBULIN 10% 40 GM in IV 1 EA IV ONE (08:00)
[2023-12-12] MEDS: IMMUNE GLOBULIN 10% 40 GM in IV 1 EA IV ONE (08:15)
[2023-12-12 09:15] VITALS: BP 144/90; O2SAT 100
[2023-12-12 09:45] VITALS: BP 135/72; O2SAT 99
[2023-12-12 10:50] VITALS: BP 158/88; O2SAT 100
== END 2023-12-12 10:50 | disposition home or self-care (01) ==
LOC: M INFU 07:40
PROVIDERS: ATTEND Allergy & Immunology Allergy
DX: D80.6 Antibody deficiency with near-normal immunoglobulins or with hyperimmunoglobulinemia (principal); Z88.6 Allergy status to analgesic agent; Z88.5 Allergy status to narcotic agent; Z88.8 Allergy status to other drugs, medicaments and biological substances

== ENCOUNTER → 2024-01-08 | Outpatient (CLI) | payer OTHER ==
[~2024-01-08] MED LIST changes: -CRAN400C PO; +CRANBERRY400 MG PO; +ISOVUE-M 300 61% 15ML VIAL As Ordered ONE; +LIDOCAINE 1% SDV 30ML VIAL As Ordered ONE; +NORCO, ANEXSIA 5/325MG TABLET (HYDROcodone/ACETAMINOPHEN) As Ordered ONE; +ONDA-282 PO; -ONDA4TAB6 PO; +dexAMETHasone 10MG/1ML VIAL PRES.FREE As Ordered ONE; +diazePAM 5MG TABLET As Ordered ONE
== END ==
LOC: M PAIN 08:15
PROVIDERS: ATTEND Anesthesiology
DX: M51.16 Intervertebral disc disorders with radiculopathy, lumbar region (principal); G89.29 Other chronic pain; E11.9 Type 2 diabetes mellitus without complications; J45.909 Unspecified asthma, uncomplicated; F43.10 Post-traumatic stress disorder, unspecified; F31.9 Bipolar disorder, unspecified; E78.00 Pure hypercholesterolemia, unspecified; E03.9 Hypothyroidism, unspecified; K21.9 Gastro-esophageal reflux disease without esophagitis; G43.909 Migraine, unspecified, not intractable, without status migrainosus; E55.9 Vitamin D deficiency, unspecified; G47.30 Sleep apnea, unspecified; Z79.84 Long term (current) use of oral hypoglycemic drugs; Z79.899 Other long term (current) drug therapy; Z88.6 Allergy status to analgesic agent; Z88.5 Allergy status to narcotic agent; Z88.8 Allergy status to other drugs, medicaments and biological substances; Z79.890 Hormone replacement therapy
CPT/HCPCS: 64483; 64484; J0665; J1100; Q9967

== ENCOUNTER 2024-01-09 07:30 | Outpatient (CLI) | payer OTHER ==
[~2024-01-09] VITALS: Ht 170.2 cm; Wt 128.0 kg
[2024-01-09 07:30] VITALS: BP 136/75; O2SAT 97
[~2024-01-09 07:30] MED LIST changes: -ISOVUE-M 300 61% 15ML VIAL As Ordered ONE; -LIDOCAINE 1% SDV 30ML VIAL As Ordered ONE; -NORCO, ANEXSIA 5/325MG TABLET (HYDROcodone/ACETAMINOPHEN) As Ordered ONE; -dexAMETHasone 10MG/1ML VIAL PRES.FREE As Ordered ONE; -diazePAM 5MG TABLET As Ordered ONE
[2024-01-09] MEDS: IMMUNE GLOBULIN 10% 40 GM in IV 1 EA IV ONE (08:00)
[2024-01-09] MEDS ORDERED: IMMUNE GLOBULIN 10% 40 GM in IV 1 EA IV ONE ×2 (08:00)
[2024-01-09 08:30] VITALS: BP 119/67; O2SAT 98
[2024-01-09 09:00] VITALS: BP 122/74; O2SAT 98
[2024-01-09 09:30] VITALS: BP 132/71; O2SAT 97
[2024-01-09 10:29] VITALS: BP 129/79; O2SAT 98
== END 2024-01-09 10:35 ==
LOC: M INFU 07:30
PROVIDERS: ATTEND Allergy & Immunology Allergy
DX: D80.6 Antibody deficiency with near-normal immunoglobulins or with hyperimmunoglobulinemia (principal); Z88.5 Allergy status to narcotic agent; Z88.6 Allergy status to analgesic agent; Z88.8 Allergy status to other drugs, medicaments and biological substances

== ENCOUNTER → 2024-01-20 | Outpatient (CLI) | payer OTHER | LOC: M PAIN 15:15 | PROVIDERS: ATTEND Anesthesiology | DX: M51.16 Intervertebral disc disorders with radiculopathy, lumbar region (principal); M51.17 Intervertebral disc disorders with radiculopathy, lumbosacral region; G89.29 Other chronic pain; J45.909 Unspecified asthma, uncomplicated; F43.10 Post-traumatic stress disorder, unspecified; R73.03 Prediabetes; F31.9 Bipolar disorder, unspecified; I10 Essential (primary) hypertension; E78.00 Pure hypercholesterolemia, unspecified; E03.9 Hypothyroidism, unspecified; K21.9 Gastro-esophageal reflux disease without esophagitis; K58.9 Irritable bowel syndrome, unspecified; G43.909 Migraine, unspecified, not intractable, without status migrainosus; E66.9 Obesity, unspecified; N32.81 Overactive bladder; E55.9 Vitamin D deficiency, unspecified; D64.9 Anemia, unspecified; M79.7 Fibromyalgia; G47.30 Sleep apnea, unspecified; K76.0 Fatty (change of) liver, not elsewhere classified; Z79.890 Hormone replacement therapy; Z79.84 Long term (current) use of oral hypoglycemic drugs; Z79.899 Other long term (current) drug therapy; Z88.5 Allergy status to narcotic agent; Z88.6 Allergy status to analgesic agent; Z88.8 Allergy status to other drugs, medicaments and biological substances ==

== ENCOUNTER → 2024-01-21 | Outpatient (CLI) | payer OTHER | LOC: M RAD 07:49 | PROVIDERS: ATTEND Urology | DX: Z87.440 Personal history of urinary (tract) infections (principal) ==

== ENCOUNTER → 2024-01-28 | Outpatient (REF) | payer OTHER ==
[2024-01-28 18:35] LABS: BASO # 0.1 10^3/uL (0.0-0.2); BASO % 0.6 % (0.0-1.0); HEMATOCRIT 41.7 % (36.0-47.0); HEMOGLOBIN 13.1 g/dl (12.0-15.5); LYMPH % 23.3 % (24.0-44.0); MEAN CORPUSCULAR HEMOGLOBIN 27.1 pg (27.0-33.0); MEAN CORPUSCULAR HGB CONC 31.4 g/dl (32.0-36.5); MEAN CORPUSCULAR VOLUME 86.2 fl (80.0-96.0); MONO # 0.9 10^3/uL (0.0-0.8); MONO % 7.2 % (2.0-8.0); NEUTROPHILS # 8.9 10^3/uL (1.5-8.5); NEUTROPHILS % 68.4 % (36.0-66.0); PLATELET COUNT, AUTOMATED 410 10^3/uL (150-450); RED BLOOD COUNT 4.84 10^6/uL (4.00-5.40)
[2024-01-28 19:14] LABS: ALBUMIN 3.6 G/DL (3.2-5.2); ALKALINE PHOSPHATASE 106 U/L (46-116); ALT/SGPT 28 U/L (7.0-40); AST/SGOT 15 U/L (<34); BILIRUBIN,TOTAL 0.2 MG/DL (0.3-1.2); BLOOD UREA NITROGEN 6 MG/DL (9-23); CALCIUM LEVEL 9.7 MG/DL (8.5-10.1); CARBON DIOXIDE LEVEL 24 MMOL/L (20-31); CHLORIDE LEVEL 110 MMOL/L (98-107); CHOLESTEROL LEVEL 169 MG/DL (<200); CHOLESTEROL RISK RATIO 4.09 (<5); GLOMERULAR FILTRATION RATE > 60.0 (>58); GLUCOSE, FASTING 131 MG/DL (60-100); HDL CHOLESTEROL 41.3 MG/DL (>40); LDL CHOLESTEROL 94.9 MG/DL (<100); NON-HDL-C 127.7 MG/DL; POTASSIUM SERUM 4.4 MMOL/L (3.5-5.1); SODIUM LEVEL 143 MMOL/L (136-145); TOTAL PROTEIN 7.2 G/DL (5.7-8.2); TRIGLYCERIDES LEVEL 164 MG/DL (<150)
== END ==
LOC: M SFHCCLAY 11:29
PROVIDERS: ATTEND Nurse Practitioner Family
DX: E11.9 Type 2 diabetes mellitus without complications (principal); E78.5 Hyperlipidemia, unspecified; D69.3 Immune thrombocytopenic purpura

== ENCOUNTER → 2024-02-04 | Outpatient (CLI) | payer OTHER | LOC: M PAIN 09:00 | PROVIDERS: ATTEND Anesthesiology | DX: M51.16 Intervertebral disc disorders with radiculopathy, lumbar region (principal); M06.9 Rheumatoid arthritis, unspecified; I10 Essential (primary) hypertension; J45.909 Unspecified asthma, uncomplicated; E78.00 Pure hypercholesterolemia, unspecified; G47.30 Sleep apnea, unspecified; Z79.899 Other long term (current) drug therapy; E11.9 Type 2 diabetes mellitus without complications; Z79.1 Long term (current) use of non-steroidal anti-inflammatories (NSAID); Z79.51 Long term (current) use of inhaled steroids; Z79.811 Long term (current) use of aromatase inhibitors; Z88.1 Allergy status to other antibiotic agents; Z88.5 Allergy status to narcotic agent; Z88.8 Allergy status to other drugs, medicaments and biological substances ==

== ENCOUNTER 2024-02-06 07:50 | Outpatient (CLI) | payer OTHER ==
[~2024-02-06] VITALS: Ht 170.2 cm; Wt 126.0 kg
[2024-02-06 08:10] VITALS: BP 114/66; O2SAT 100
[2024-02-06] MEDS: IMMUNE GLOBULIN 10% 40 GM in IV 1 EA IV ONE (08:28)
[2024-02-06 09:00] VITALS: BP 105/59; O2SAT 100
[2024-02-06 09:30] VITALS: BP 119/64; O2SAT 100
[2024-02-06 10:00] VITALS: BP 120/69; O2SAT 100
[2024-02-06 11:05] VITALS: BP 132/80; O2SAT 100
== END 2024-02-06 11:05 ==
LOC: M INFU 07:50
PROVIDERS: ATTEND Allergy & Immunology Allergy
DX: D80.6 Antibody deficiency with near-normal immunoglobulins or with hyperimmunoglobulinemia (principal); Z88.5 Allergy status to narcotic agent; Z88.8 Allergy status to other drugs, medicaments and biological substances; Z88.6 Allergy status to analgesic agent

== ENCOUNTER → 2024-02-11 | Outpatient (CLI) | payer OTHER ==
[~2024-02-11] MED LIST changes: +ISOVUE-370 76% 100ML VIAL As Ordered ONE
== END ==
LOC: M RAD 14:38
PROVIDERS: ATTEND Urology
DX: N28.89 Other specified disorders of kidney and ureter (principal)
CPT/HCPCS: 74178; Q9967

== ENCOUNTER → 2024-02-16 | Outpatient (CLI) | payer OTHER ==
[~2024-02-16] MED LIST changes: -ARIP1TAB43 PO; +ARIP20TA51 PO; -ISOVUE-370 76% 100ML VIAL As Ordered ONE
== END ==
LOC: M PAIN 10:15
PROVIDERS: ATTEND Nurse Practitioner Family
DX: M79.12 Myalgia of auxiliary muscles, head and neck (principal); M54.2 Cervicalgia; G89.29 Other chronic pain; J45.909 Unspecified asthma, uncomplicated; F43.10 Post-traumatic stress disorder, unspecified; R73.03 Prediabetes; F31.9 Bipolar disorder, unspecified; I10 Essential (primary) hypertension; E78.00 Pure hypercholesterolemia, unspecified; E03.9 Hypothyroidism, unspecified; K21.9 Gastro-esophageal reflux disease without esophagitis; K58.9 Irritable bowel syndrome, unspecified; G43.909 Migraine, unspecified, not intractable, without status migrainosus; M06.9 Rheumatoid arthritis, unspecified; N39.46 Mixed incontinence; E66.9 Obesity, unspecified; N32.81 Overactive bladder; D64.9 Anemia, unspecified; E55.9 Vitamin D deficiency, unspecified; G47.30 Sleep apnea, unspecified; Z79.84 Long term (current) use of oral hypoglycemic drugs; Z79.899 Other long term (current) drug therapy; Z88.5 Allergy status to narcotic agent; Z88.6 Allergy status to analgesic agent; Z88.8 Allergy status to other drugs, medicaments and biological substances

== ENCOUNTER → 2024-02-23 | Outpatient (REF) | payer OTHER ==
[2024-02-23 18:19] LABS: APPEARANCE, URINE CLEAR (CLEAR); BACTERIA, URINE AUTO 1+ (NEGATIVE); BILIRUBIN, URINE AUTO NEGATIVE (NEGATIVE); BLOOD, URINE BLOOD NEGATIVE (NEGATIVE); COLOR, URINE STRAW (YELLOW); GLUCOSE, URINE (UA) AUTO NEGATIVE (NEGATIVE); KETONE, URINE AUTO NEGATIVE (NEGATIVE); LEUKOCYTE ESTERASE, URINE AUTO NEGATIVE (NEGATIVE); MUCUS, URINE SMALL (NEGATIVE); NITRITE, URINE AUTO NEGATIVE (NEGATIVE); PROTEIN, URINE AUTO NEGATIVE (NEGATIVE); RBC, URINE AUTO 0 /HPF (0-3); SPECIFIC GRAVITY URINE AUTO 1.009 (1.002-1.035); SQUAMOUS EPITHELIAL CELL UR AU 0 /HPF (0-6); UROBILINOGEN, URINE AUTO 0.2 mg/dL (0.0-2.0); WBC, URINE AUTO 0 /HPF (0-3)
== END ==
LOC: M SMT 17:42
PROVIDERS: ATTEND Urology
DX: D17.71 Benign lipomatous neoplasm of kidney (principal)

== ENCOUNTER 2024-03-05 08:04 | Outpatient (CLI) | payer OTHER ==
[~2024-03-05] VITALS: Ht 170.2 cm; Wt 127.0 kg
[2024-03-05 08:10] VITALS: BP 134/78; O2SAT 100
[2024-03-05] MEDS: IMMUNE GLOBULIN 10% 40 GM in IV 1 EA IV ONE (08:19)
[2024-03-05 09:00] VITALS: BP 146/70; O2SAT 98
[2024-03-05 09:30] VITALS: BP 135/74; O2SAT 100
[2024-03-05 10:00] VITALS: BP 133/79; O2SAT 100
[2024-03-05 11:03] VITALS: BP 131/75; O2SAT 100
== END 2024-03-05 11:05 ==
LOC: M INFU 08:04
PROVIDERS: ATTEND Allergy & Immunology Allergy
DX: D80.6 Antibody deficiency with near-normal immunoglobulins or with hyperimmunoglobulinemia (principal); Z88.6 Allergy status to analgesic agent; Z88.5 Allergy status to narcotic agent; Z88.8 Allergy status to other drugs, medicaments and biological substances

== ENCOUNTER → 2024-03-25 | Outpatient (CLI) | payer OTHER ==
[~2024-03-25] MED LIST changes: +GABA-1490 PO; -GABA600T4 PO
== END ==
LOC: M PAIN 15:30
PROVIDERS: ATTEND Nurse Practitioner Family
DX: M51.16 Intervertebral disc disorders with radiculopathy, lumbar region (principal); G89.29 Other chronic pain; J45.909 Unspecified asthma, uncomplicated; F43.10 Post-traumatic stress disorder, unspecified; R73.03 Prediabetes; F31.9 Bipolar disorder, unspecified; I10 Essential (primary) hypertension; E78.00 Pure hypercholesterolemia, unspecified; E03.9 Hypothyroidism, unspecified; K21.9 Gastro-esophageal reflux disease without esophagitis; K58.9 Irritable bowel syndrome, unspecified; G43.909 Migraine, unspecified, not intractable, without status migrainosus; M06.9 Rheumatoid arthritis, unspecified; E66.9 Obesity, unspecified; E55.9 Vitamin D deficiency, unspecified; M79.7 Fibromyalgia; Z79.890 Hormone replacement therapy; Z79.899 Other long term (current) drug therapy; Z79.84 Long term (current) use of oral hypoglycemic drugs; Z88.5 Allergy status to narcotic agent; Z88.6 Allergy status to analgesic agent; Z88.8 Allergy status to other drugs, medicaments and biological substances; Z68.41 Body mass index [BMI] 40.0-44.9, adult

== ENCOUNTER → 2024-04-06 | Outpatient (REF) | payer OTHER ==
[2024-04-06 18:28] LABS: RSV AMPLIFICATION NEGATIVE (NEGATIVE)
== END ==
LOC: M SFHCLACO 16:29
PROVIDERS: ATTEND Physician Assistant
DX: R05.1 Acute cough (principal)

== ENCOUNTER → 2024-04-19 | Outpatient (REF) | payer OTHER ==
[~2024-04-19] MED LIST changes: +GABA-1172 PO; -GABA-282 PO
[2024-04-19 14:58] LABS: HEMOGLOBIN 12.7 g/dl (12.0-15.5); MEAN CORPUSCULAR HEMOGLOBIN 27.1 pg (27.0-33.0); MEAN CORPUSCULAR VOLUME 87.6 fl (80.0-96.0); PLATELET COUNT, AUTOMATED 494 10^3/uL (150-450); RED BLOOD COUNT 4.68 10^6/uL (4.00-5.40)
[2024-04-19 15:33] LABS: BASOPHILS 1 % (0-1); LYMPHOCYTES 41 % (16-44); MONOCYTES 7 % (0-5); NEUTROPHILS 51 % (28-66)
[2024-04-19 15:34] LABS: ALBUMIN 3.5 G/DL (3.2-5.2); ALKALINE PHOSPHATASE 103 U/L (46-116); ALT/SGPT 18 U/L (7.0-40); ANISOCYTOSIS 1+; AST/SGOT 10 U/L (<34); BILIRUBIN,TOTAL < 0.2 MG/DL (0.3-1.2); BLOOD UREA NITROGEN 10 MG/DL (9-23); CALCIUM LEVEL 9.5 MG/DL (8.5-10.1); CARBON DIOXIDE LEVEL 26 MMOL/L (20-31); CHLORIDE LEVEL 109 MMOL/L (98-107); CREATININE FOR GFR 0.55 MG/DL (0.55-1.30); GLOMERULAR FILTRATION RATE > 60.0 (>58); GLUCOSE, FASTING 128 MG/DL (60-100); PLATELET ESTIMATE NORMAL (NORMAL); POTASSIUM SERUM 4.2 MMOL/L (3.5-5.1); SODIUM LEVEL 142 MMOL/L (136-145); TOTAL PROTEIN 7.3 G/DL (5.7-8.2)
[2024-04-19 15:39] LABS: ERYTHROCYTE SEDIMENTATION RATE 40 mm/hr (0-20)
== END ==
LOC: M SFHCCLAY 08:04
PROVIDERS: ATTEND Internal Medicine Rheumatology
DX: M25.50 Pain in unspecified joint (principal); D72.118 Other hypereosinophilic syndrome; Z79.899 Other long term (current) drug therapy; R79.82 Elevated C-reactive protein (CRP)

== ENCOUNTER → 2024-04-23 | Outpatient (CLI) | payer OTHER ==
[~2024-04-23] MED LIST changes: +TRIAMCINOLONE ACETONIDE SUSP 40MG/ML 1ML VIAL As Ordered ONE; +diazePAM 5MG TABLET As Ordered ONE; +oxyCODONE 5MG TAB As Ordered ONE
== END ==
LOC: M PAIN 11:00
PROVIDERS: ATTEND Anesthesiology
DX: M79.18 Myalgia, other site (principal); M51.16 Intervertebral disc disorders with radiculopathy, lumbar region; G89.29 Other chronic pain; J45.909 Unspecified asthma, uncomplicated; F43.10 Post-traumatic stress disorder, unspecified; R73.03 Prediabetes; F31.9 Bipolar disorder, unspecified; I10 Essential (primary) hypertension; E78.00 Pure hypercholesterolemia, unspecified; E03.9 Hypothyroidism, unspecified; K21.9 Gastro-esophageal reflux disease without esophagitis; K58.9 Irritable bowel syndrome, unspecified; G43.909 Migraine, unspecified, not intractable, without status migrainosus; M06.9 Rheumatoid arthritis, unspecified; E66.9 Obesity, unspecified; E55.9 Vitamin D deficiency, unspecified; Z79.890 Hormone replacement therapy; Z79.899 Other long term (current) drug therapy; Z79.84 Long term (current) use of oral hypoglycemic drugs; Z88.5 Allergy status to narcotic agent; Z88.6 Allergy status to analgesic agent; Z88.8 Allergy status to other drugs, medicaments and biological substances; Z68.41 Body mass index [BMI] 40.0-44.9, adult
CPT/HCPCS: 20552; J0665; J3301

== ENCOUNTER → 2024-04-29 | Outpatient (REF) | payer OTHER ==
[~2024-04-29] MED LIST changes: -TRIAMCINOLONE ACETONIDE SUSP 40MG/ML 1ML VIAL As Ordered ONE; -diazePAM 5MG TABLET As Ordered ONE; -oxyCODONE 5MG TAB As Ordered ONE
[2024-04-29 13:41] LABS: HEMOGLOBIN 13.1 g/dl (12.0-15.5); MEAN CORPUSCULAR HEMOGLOBIN 27.3 pg (27.0-33.0); MEAN CORPUSCULAR HGB CONC 31.2 g/dl (32.0-36.5); MEAN CORPUSCULAR VOLUME 87.7 fl (80.0-96.0); PLATELET COUNT, AUTOMATED 542 10^3/uL (150-450); RED BLOOD COUNT 4.79 10^6/uL (4.00-5.40); WHITE BLOOD COUNT 13.4 10^3/uL (4.0-10.0)
[2024-04-29 18:21] LABS: ATYPICAL LYMPH 5 % (0-5); BASOPHILS 2 % (0-1); LYMPHOCYTES 37 % (16-44); MONOCYTES 5 % (0-5); NEUTROPHILS 51 % (28-66)
[2024-04-29 18:22] LABS: PLATELET ESTIMATE INCREASED (NORMAL)
[2024-04-29 18:23] LABS: MICROCYTOSIS 1+
== END ==
LOC: M LAB REF 12:23 → M LABDRAWC 12:23
PROVIDERS: ATTEND Allergy & Immunology Allergy
DX: D80.6 Antibody deficiency with near-normal immunoglobulins or with hyperimmunoglobulinemia (principal)

== ENCOUNTER 2024-04-30 09:40 | Outpatient (CLI) | payer OTHER ==
[~2024-04-30] VITALS: Ht 170.2 cm; Wt 125.0 kg
[2024-04-30 09:40] VITALS: BP 156/89; O2SAT 97
[2024-04-30] MEDS: IMMUNE GLOBULIN 10% 40 GM in IV 1 EA IV ONE (09:45)
[2024-04-30 10:30] VITALS: BP 138/78; O2SAT 98
[2024-04-30 11:00] VITALS: BP 141/72; O2SAT 100
[2024-04-30 11:30] VITALS: BP 132/75; O2SAT 100
[2024-04-30 12:30] VITALS: BP 138/65; O2SAT 100
== END 2024-04-30 12:30 ==
LOC: M INFU 09:40
PROVIDERS: ATTEND Allergy & Immunology Allergy
DX: D80.6 Antibody deficiency with near-normal immunoglobulins or with hyperimmunoglobulinemia (principal); Z88.5 Allergy status to narcotic agent; Z88.6 Allergy status to analgesic agent; Z88.8 Allergy status to other drugs, medicaments and biological substances

== ENCOUNTER → 2024-04-30 | Outpatient (CLI) | payer OTHER | LOC: M PLAIMG 08:01 | PROVIDERS: ATTEND Nurse Practitioner Family | DX: M51.16 Intervertebral disc disorders with radiculopathy, lumbar region (principal); M51.360 Other intervertebral disc degeneration, lumbar region with discogenic back pain only; M51.26 Other intervertebral disc displacement, lumbar region ==

== ENCOUNTER → 2024-05-10 | Outpatient (CLI) | payer OTHER | LOC: M PAIN 14:45 | PROVIDERS: ATTEND Nurse Practitioner Family | DX: M51.16 Intervertebral disc disorders with radiculopathy, lumbar region (principal); G89.29 Other chronic pain; J45.909 Unspecified asthma, uncomplicated; F43.10 Post-traumatic stress disorder, unspecified; R73.03 Prediabetes; M79.7 Fibromyalgia; M54.2 Cervicalgia; F31.9 Bipolar disorder, unspecified; I10 Essential (primary) hypertension; E78.00 Pure hypercholesterolemia, unspecified; E03.9 Hypothyroidism, unspecified; K21.9 Gastro-esophageal reflux disease without esophagitis; K58.9 Irritable bowel syndrome, unspecified; G43.909 Migraine, unspecified, not intractable, without status migrainosus; M06.9 Rheumatoid arthritis, unspecified; E66.9 Obesity, unspecified; N39.46 Mixed incontinence; N32.81 Overactive bladder; D64.9 Anemia, unspecified; E55.9 Vitamin D deficiency, unspecified; G47.30 Sleep apnea, unspecified; Z68.41 Body mass index [BMI] 40.0-44.9, adult; Z88.5 Allergy status to narcotic agent; Z88.6 Allergy status to analgesic agent; Z88.8 Allergy status to other drugs, medicaments and biological substances; Z79.84 Long term (current) use of oral hypoglycemic drugs; Z79.890 Hormone replacement therapy; Z79.899 Other long term (current) drug therapy ==

== ENCOUNTER → 2024-05-24 | Outpatient (CLI) | payer OTHER | LOC: M PAIN 17:00 | PROVIDERS: ATTEND Nurse Practitioner Family | DX: M79.18 Myalgia, other site (principal); G89.29 Other chronic pain; J45.909 Unspecified asthma, uncomplicated; F43.10 Post-traumatic stress disorder, unspecified; R73.03 Prediabetes; F31.9 Bipolar disorder, unspecified; I10 Essential (primary) hypertension; E78.00 Pure hypercholesterolemia, unspecified; E03.9 Hypothyroidism, unspecified; K21.9 Gastro-esophageal reflux disease without esophagitis; K58.9 Irritable bowel syndrome, unspecified; G43.909 Migraine, unspecified, not intractable, without status migrainosus; M06.9 Rheumatoid arthritis, unspecified; E66.9 Obesity, unspecified; E55.9 Vitamin D deficiency, unspecified; Z79.84 Long term (current) use of oral hypoglycemic drugs; Z79.899 Other long term (current) drug therapy; Z88.6 Allergy status to analgesic agent; Z88.5 Allergy status to narcotic agent; Z88.8 Allergy status to other drugs, medicaments and biological substances; Z68.41 Body mass index [BMI] 40.0-44.9, adult ==

== ENCOUNTER → 2024-06-24 | Outpatient (REF) | payer OTHER ==
[~2024-06-24] MED LIST changes: +ATOG60TA; +BACL10TA2; +BENR30AU SQ; +CLIN1PAD2; +DICL50TA2 PO; +METF-838; +ZONI100C67; +[UNRECOGNIZED DRUG - CODE] TOP
[2024-06-24 17:49] LABS: APPEARANCE, URINE HAZY (CLEAR); BACTERIA, URINE AUTO 2+ (NEGATIVE); BILIRUBIN, URINE AUTO NEGATIVE (NEGATIVE); BLOOD, URINE BLOOD NEGATIVE (NEGATIVE); COLOR, URINE YELLOW (YELLOW); GLUCOSE, URINE (UA) AUTO NEGATIVE (NEGATIVE); KETONE, URINE AUTO NEGATIVE (NEGATIVE); LEUKOCYTE ESTERASE, URINE AUTO NEGATIVE (NEGATIVE); NITRITE, URINE AUTO NEGATIVE (NEGATIVE); PROTEIN, URINE AUTO NEGATIVE (NEGATIVE); RBC, URINE AUTO 0 /HPF (0-3); SPECIFIC GRAVITY URINE AUTO 1.005 (1.002-1.035); SQUAMOUS EPITHELIAL CELL UR AU 1 /HPF (0-6); UROBILINOGEN, URINE AUTO 0.2 mg/dL (0.0-2.0); WBC, URINE AUTO 1 /HPF (0-3)
== END ==
LOC: M SFHCCLAY 14:17
PROVIDERS: ATTEND Urology
DX: R30.0 Dysuria (principal)

== ENCOUNTER 2024-06-29 15:37 | Emergency (ER) | payer OTHER ==
[~2024-06-29] VITALS: Ht 170.2 cm; Wt 126.3 kg
[~2024-06-29 15:37] MED LIST changes: -ATOG60TA; -BACL10TA2; -BENR30AU SQ; -CLIN1PAD2; -DICL50TA2 PO; -METF-838; -ZONI100C67; -[UNRECOGNIZED DRUG - CODE] TOP
[2024-06-29 17:12] LABS: HEMATOCRIT 43.7 % (36.0-47.0); HEMOGLOBIN 13.8 g/dl (12.0-15.5); MEAN CORPUSCULAR HEMOGLOBIN 27.1 pg (27.0-33.0); MEAN CORPUSCULAR HGB CONC 31.6 g/dl (32.0-36.5); MEAN CORPUSCULAR VOLUME 85.9 fl (80.0-96.0); PLATELET COUNT, AUTOMATED 534 10^3/uL (150-450); RED BLOOD COUNT 5.09 10^6/uL (4.00-5.40)
[2024-06-29 17:44] LABS: ALBUMIN 3.5 G/DL (3.2-5.2); ALKALINE PHOSPHATASE 103 U/L (35-104); ALT/SGPT 24 U/L (7.0-40); AST/SGOT 19 U/L (<34); BILIRUBIN,TOTAL 0.2 MG/DL (0.3-1.2); BLOOD UREA NITROGEN 11 MG/DL (9-23); CALCIUM LEVEL 10.1 MG/DL (8.5-10.1); CARBON DIOXIDE LEVEL 27 MMOL/L (20-31); CHLORIDE LEVEL 103 MMOL/L (98-107); CREATININE FOR GFR 0.54 MG/DL (0.55-1.30); GLOMERULAR FILTRATION RATE > 60.0 (>58); GLUCOSE, FASTING 133 MG/DL (60-100); POTASSIUM SERUM 3.9 MMOL/L (3.5-5.1); SODIUM LEVEL 140 MMOL/L (136-145); TOTAL PROTEIN 8.6 G/DL (5.7-8.2)
[2024-06-29 17:55] LABS: ATYPICAL LYMPH 1 % (0-5); BASOPHILS 3 % (0-1); LYMPHOCYTES 31 % (16-44); MONOCYTES 2 % (0-5); NEUTROPHILS 63 % (28-66); PLATELET ESTIMATE INCREASED (NORMAL)
[2024-06-30] MEDS: ACETAMINOPHEN 500 MG TAB PO ONE (02:34)
[2024-06-30] MEDS: NS (Normal Saline) 0.9% 1,000 ML IV ONE (04:16)
[2024-06-30] MEDS: KETOROLAC 30 MG/ML 1ML VIAL IV ONE (04:19)
[2024-06-30] MEDS: METOCLOPRAMIDE INJ 10MG/2ML VIAL IV ONE (04:20)
[2024-06-30 04:52] LABS: KETONE, URINE AUTO RFX TRACE mg/dL (NEGATIVE); LEUKOCYTE ESTERASE UR AUTO RFX TRACE (NEGATIVE); MUCUS, URINE RFX SMALL (NEGATIVE); NITRITE, URINE AUTO RFX NEGATIVE (NEGATIVE); RBC, URINE AUTO RFX 2 /HPF (0-3); SQUAM EPITHELIAL CELL UR AURFX 3 /HPF (0-6); WBC, URINE AUTO RFX 9 /HPF (0-3)
[2024-06-30 07:50] VITALS: BP 139/88; TEMP 98; O2SAT 99
[2024-07-02] MEDS ORDERED: METF-838 (13:59)
[2024-07-02] MEDS ORDERED: CLIN1PAD2 (13:59)
[2024-07-02] MEDS ORDERED: ZONI100C67 (13:59)
[2024-07-02] MEDS ORDERED: ATOG60TA (13:59)
[2024-07-02] MEDS ORDERED: BENR30AU SQ (13:59)
[2024-07-02] MEDS ORDERED: DICL50TA2 PO (13:59)
[2024-07-02] MEDS ORDERED: [UNRECOGNIZED DRUG - CODE] TOP (13:59)
[2024-07-02] MEDS ORDERED: BACL10TA2 (13:59)
== END 2024-06-30 08:00 | disposition home or self-care (01) ==
LOC: M ED 15:37
DX: R55 Syncope and collapse (principal); I10 Essential (primary) hypertension; R16.0 Hepatomegaly, not elsewhere classified; K76.0 Fatty (change of) liver, not elsewhere classified; J98.11 Atelectasis; E03.9 Hypothyroidism, unspecified; K21.9 Gastro-esophageal reflux disease without esophagitis; F43.10 Post-traumatic stress disorder, unspecified; F31.9 Bipolar disorder, unspecified; Z90.49 Acquired absence of other specified parts of digestive tract; Z88.5 Allergy status to narcotic agent; Z88.8 Allergy status to other drugs, medicaments and biological substances; Z79.52 Long term (current) use of systemic steroids; Z79.83 Long term (current) use of bisphosphonates; Z79.899 Other long term (current) drug therapy
CPT/HCPCS: 70450; 72125; 74176; 80053; 81001; 83605; 85025; 87086; 93005; 96374; 96375; 99284; J1100; J1885; J2765

== ENCOUNTER → 2024-07-08 | Outpatient (REF) | payer OTHER ==
[~2024-07-08] MED LIST changes: +ATOG60TA; +BACL10TA2; +BENR30AU SQ; +CLIN1PAD2; +DICL50TA2 PO; +METF-838; +ZONI100C67; +[UNRECOGNIZED DRUG - CODE] TOP
[2024-07-08 13:27] LABS: BASO # 0.1 10^3/uL (0.0-0.2); BASO % 0.9 % (0.0-1.0); HEMATOCRIT 42.9 % (36.0-47.0); HEMOGLOBIN 13.4 g/dl (12.0-15.5); LYMPH # 3.9 10^3/uL (1.5-5.0); LYMPH % 25.8 % (24.0-44.0); MEAN CORPUSCULAR HEMOGLOBIN 27.3 pg (27.0-33.0); MEAN CORPUSCULAR HGB CONC 31.2 g/dl (32.0-36.5); MEAN CORPUSCULAR VOLUME 87.6 fl (80.0-96.0); MONO # 1.1 10^3/uL (0.0-0.8); MONO % 7.5 % (2.0-8.0); NEUTROPHILS # 9.9 10^3/uL (1.5-8.5); NEUTROPHILS % 65.3 % (36.0-66.0); PLATELET COUNT, AUTOMATED 624 10^3/uL (150-450); WHITE BLOOD COUNT 15.2 10^3/uL (4.0-10.0)
[2024-07-08 13:56] LABS: ALBUMIN 3.5 G/DL (3.2-5.2); ALKALINE PHOSPHATASE 91 U/L (35-104); ALT/SGPT 17 U/L (7.0-40); AST/SGOT 9 U/L (<34); BILIRUBIN,TOTAL 0.2 MG/DL (0.3-1.2); BLOOD UREA NITROGEN 14 MG/DL (9-23); CALCIUM LEVEL 9.9 MG/DL (8.5-10.1); CARBON DIOXIDE LEVEL 27 MMOL/L (20-31); CHLORIDE LEVEL 106 MMOL/L (98-107); CREATININE FOR GFR 0.58 MG/DL (0.55-1.30); GLOMERULAR FILTRATION RATE > 60.0 (>58); GLUCOSE, FASTING 204 MG/DL (60-100); POTASSIUM SERUM 4.5 MMOL/L (3.5-5.1); SODIUM LEVEL 142 MMOL/L (136-145); TOTAL PROTEIN 7.8 G/DL (5.7-8.2)
== END ==
LOC: M SFHCCLAY 09:17
PROVIDERS: ATTEND Physician Assistant
DX: D72.829 Elevated white blood cell count, unspecified (principal)

== ENCOUNTER → 2024-07-22 | Outpatient (CLI) | payer OTHER ==
[~2024-07-22] MED LIST changes: +ISOVUE-M 300 61% 15ML VIAL As Ordered ONE; +LIDOCAINE 1% SDV 30ML VIAL As Ordered ONE; +dexAMETHasone 10MG/1ML VIAL PRES.FREE As Ordered ONE; +diazePAM 5MG TABLET As Ordered ONE; +oxyCODONE 5MG TAB As Ordered ONE
== END ==
LOC: M PAIN 10:00
PROVIDERS: ATTEND Anesthesiology
DX: M51.16 Intervertebral disc disorders with radiculopathy, lumbar region (principal); G89.29 Other chronic pain; Z79.51 Long term (current) use of inhaled steroids; Z79.84 Long term (current) use of oral hypoglycemic drugs; Z79.899 Other long term (current) drug therapy; Z88.5 Allergy status to narcotic agent; Z88.6 Allergy status to analgesic agent; Z88.8 Allergy status to other drugs, medicaments and biological substances; E66.01 Morbid (severe) obesity due to excess calories; Z68.41 Body mass index [BMI] 40.0-44.9, adult
CPT/HCPCS: 64483; 64484; J0665; J1100; Q9967

== ENCOUNTER → 2024-07-22 | Outpatient (REF) | payer OTHER ==
[~2024-07-22] MED LIST changes: -ISOVUE-M 300 61% 15ML VIAL As Ordered ONE; -LIDOCAINE 1% SDV 30ML VIAL As Ordered ONE; -dexAMETHasone 10MG/1ML VIAL PRES.FREE As Ordered ONE; -diazePAM 5MG TABLET As Ordered ONE; -oxyCODONE 5MG TAB As Ordered ONE
== END ==
LOC: M SFHCCLAY 07:04
PROVIDERS: ATTEND Internal Medicine Rheumatology
DX: M25.50 Pain in unspecified joint (principal); D72.118 Other hypereosinophilic syndrome; Z79.899 Other long term (current) drug therapy; R79.82 Elevated C-reactive protein (CRP)

== ENCOUNTER → 2024-07-29 | Outpatient (REF) | payer OTHER | LOC: M SFHCCLAY 08:19 | PROVIDERS: ATTEND Physician Assistant | DX: R30.0 Dysuria (principal) ==

== ENCOUNTER → 2024-08-09 | Outpatient (CLI) | payer OTHER | LOC: M PAIN 16:45 | PROVIDERS: ATTEND Nurse Practitioner Family | DX: M79.10 Myalgia, unspecified site (principal); M54.2 Cervicalgia; M51.16 Intervertebral disc disorders with radiculopathy, lumbar region; G89.29 Other chronic pain; M79.18 Myalgia, other site; J45.909 Unspecified asthma, uncomplicated; R73.03 Prediabetes; I10 Essential (primary) hypertension; E78.00 Pure hypercholesterolemia, unspecified; E03.9 Hypothyroidism, unspecified; K21.9 Gastro-esophageal reflux disease without esophagitis; G43.909 Migraine, unspecified, not intractable, without status migrainosus; M06.9 Rheumatoid arthritis, unspecified; E66.9 Obesity, unspecified; E55.9 Vitamin D deficiency, unspecified; Z79.84 Long term (current) use of oral hypoglycemic drugs; Z79.899 Other long term (current) drug therapy; Z88.6 Allergy status to analgesic agent; Z88.5 Allergy status to narcotic agent; Z88.8 Allergy status to other drugs, medicaments and biological substances; Z68.41 Body mass index [BMI] 40.0-44.9, adult ==

== ENCOUNTER → 2024-08-23 | Outpatient (CLI) | payer OTHER | LOC: M PAIN 09:45 | PROVIDERS: ATTEND Nurse Practitioner Family | DX: M51.16 Intervertebral disc disorders with radiculopathy, lumbar region (principal); M54.2 Cervicalgia; G89.29 Other chronic pain; J45.909 Unspecified asthma, uncomplicated; I10 Essential (primary) hypertension; E78.00 Pure hypercholesterolemia, unspecified; E03.9 Hypothyroidism, unspecified; K21.9 Gastro-esophageal reflux disease without esophagitis; Z79.84 Long term (current) use of oral hypoglycemic drugs; Z79.890 Hormone replacement therapy; Z79.899 Other long term (current) drug therapy; Z88.6 Allergy status to analgesic agent; Z88.8 Allergy status to other drugs, medicaments and biological substances ==

== ENCOUNTER → 2024-09-16 | Outpatient (REF) | payer OTHER ==
[2024-09-16 17:53] LABS: PLATELET COUNT, AUTOMATED 666 10^3/uL (150-450)
== END ==
LOC: M LABDRAWC 16:52
PROVIDERS: ATTEND Nurse Practitioner Family
DX: M54.12 Radiculopathy, cervical region (principal); M54.2 Cervicalgia

== ENCOUNTER → 2024-09-24 | Outpatient (REF) | payer OTHER ==
[2024-09-24 17:46] LABS: FREE T4 1.37 NG/DL (0.89-1.76); THYROID STIMULATING HORMONE 0.489 uIU/ML (0.55-4.78)
== END ==
LOC: M SFHCCLAY 10:26
PROVIDERS: ATTEND Nurse Practitioner Family
DX: E11.9 Type 2 diabetes mellitus without complications (principal); E03.9 Hypothyroidism, unspecified

== ENCOUNTER → 2024-09-24 | Outpatient (REF) | payer OTHER ==
[2024-09-24 17:38] LABS: BASO # 0.1 10^3/uL (0.0-0.2); BASO % 0.7 % (0.0-1.0); HEMATOCRIT 43.6 % (36.0-47.0); HEMOGLOBIN 13.7 g/dl (12.0-15.5); LYMPH # 3.5 10^3/uL (1.5-5.0); LYMPH % 26.3 % (24.0-44.0); MEAN CORPUSCULAR HEMOGLOBIN 27.1 pg (27.0-33.0); MEAN CORPUSCULAR HGB CONC 31.4 g/dl (32.0-36.5); MEAN CORPUSCULAR VOLUME 86.3 fl (80.0-96.0); MONO # 0.9 10^3/uL (0.0-0.8); MONO % 6.7 % (2.0-8.0); NEUTROPHILS # 8.8 10^3/uL (1.5-8.5); NEUTROPHILS % 65.9 % (36.0-66.0); PLATELET COUNT, AUTOMATED 539 10^3/uL (150-450); RED BLOOD COUNT 5.05 10^6/uL (4.00-5.40); WHITE BLOOD COUNT 13.4 10^3/uL (4.0-10.0)
[2024-09-24 17:45] LABS: ALBUMIN 3.7 G/DL (3.2-5.2); ALKALINE PHOSPHATASE 102 U/L (35-104); ALT/SGPT 20 U/L (7.0-40); AST/SGOT 13 U/L (<34); BILIRUBIN,TOTAL 0.3 MG/DL (0.3-1.2); BLOOD UREA NITROGEN 10 MG/DL (9-23); CALCIUM LEVEL 9.9 MG/DL (8.5-10.1); CARBON DIOXIDE LEVEL 26 MMOL/L (20-31); CHLORIDE LEVEL 107 MMOL/L (98-107); CREATININE FOR GFR 0.53 MG/DL (0.55-1.30); GLOMERULAR FILTRATION RATE > 60.0 (>58); GLUCOSE, FASTING 132 MG/DL (60-100); POTASSIUM SERUM 4.1 MMOL/L (3.5-5.1); SODIUM LEVEL 143 MMOL/L (136-145); TOTAL PROTEIN 7.9 G/DL (5.7-8.2)
[2024-09-24 17:48] LABS: FOLATE > 24.0 NG/ML (>5.4); TOTAL 25(OH) VITAMIN D 51.1 NG/ML (20.0-100.0)
[2024-09-24 17:49] LABS: VITAMIN B12 LEVEL 592 PG/ML (211-911)
== END ==
LOC: M LABDRAWC 16:33
PROVIDERS: ATTEND Psychiatry & Neurology Neurology
DX: R51.9 Headache, unspecified (principal)

== ENCOUNTER 2024-10-12 16:17 | Emergency (ER) | payer OTHER ==
[~2024-10-12] VITALS: Ht 170.2 cm; Wt 122.7 kg
[2024-10-12 16:26] VITALS: TEMP 98.2
[2024-10-12] MEDS: ACETAMINOPHEN 325 MG TAB PO ONE (18:30)
[2024-10-12 20:29] VITALS: BP 127/68; O2SAT 99
== END 2024-10-12 20:30 | disposition home or self-care (01) ==
LOC: EDBD 16:17 → M ED 16:17
DX: S40.011A Contusion of right shoulder, initial encounter (principal); S80.01XA Contusion of right knee, initial encounter; W01.198A Fall on same level from slipping, tripping and stumbling with subsequent striking against other object, initial encounter; M17.11 Unilateral primary osteoarthritis, right knee; G40.909 Epilepsy, unspecified, not intractable, without status epilepticus; K21.9 Gastro-esophageal reflux disease without esophagitis; K58.9 Irritable bowel syndrome, unspecified; I10 Essential (primary) hypertension; J45.909 Unspecified asthma, uncomplicated; E78.5 Hyperlipidemia, unspecified; R51.9 Headache, unspecified; Y92.000 Kitchen of unspecified non-institutional (private) residence as the place of occurrence of the external cause; Y93.89 Activity, other specified; Y99.9 Unspecified external cause status; Z88.5 Allergy status to narcotic agent; Z88.6 Allergy status to analgesic agent; Z88.8 Allergy status to other drugs, medicaments and biological substances; Z79.52 Long term (current) use of systemic steroids; Z79.899 Other long term (current) drug therapy; Z79.83 Long term (current) use of bisphosphonates

== ENCOUNTER → 2024-10-13 | Outpatient (REF) | payer OTHER ==
[2024-10-13 15:38] LABS: BASO # 0.1 10^3/uL (0.0-0.2); BASO % 0.7 % (0.0-1.0); HEMATOCRIT 43.4 % (36.0-47.0); HEMOGLOBIN 13.4 g/dl (12.0-15.5); LYMPH # 3.1 10^3/uL (1.5-5.0); LYMPH % 29.6 % (24.0-44.0); MEAN CORPUSCULAR HEMOGLOBIN 26.4 pg (27.0-33.0); MEAN CORPUSCULAR HGB CONC 30.9 g/dl (32.0-36.5); MEAN CORPUSCULAR VOLUME 85.4 fl (80.0-96.0); MONO # 0.8 10^3/uL (0.0-0.8); MONO % 7.2 % (2.0-8.0); NEUTROPHILS # 6.6 10^3/uL (1.5-8.5); PLATELET COUNT, AUTOMATED 544 10^3/uL (150-450); RED BLOOD COUNT 5.08 10^6/uL (4.00-5.40); WHITE BLOOD COUNT 10.6 10^3/uL (4.0-10.0)
[2024-10-13 15:39] LABS: IMMUNOGLOBULIN E 230.4 IU/ML (0-378)
== END ==
LOC: M LABDRAWC 12:45
PROVIDERS: ATTEND Nurse Practitioner Family
DX: D80.6 Antibody deficiency with near-normal immunoglobulins or with hyperimmunoglobulinemia (principal); J45.40 Moderate persistent asthma, uncomplicated

== ENCOUNTER → 2024-11-30 | Outpatient (REF) | payer OTHER ==
[~2024-11-30] MED LIST changes: +LIDO1ADH93 TD; -LIDO5DIS41 TD; +TOPI-14; +TOPI-14 PO; +TOPI-257 PO; -TOPI100T9 PO; -TOPI200T7; -TOPI200T7 PO
[2024-11-30 18:38] LABS: FREE T4 1.54 NG/DL (0.89-1.76); THYROID STIMULATING HORMONE 0.891 uIU/ML (0.55-4.78)
== END ==
LOC: M SFHCCLAY 09:40
PROVIDERS: ATTEND Nurse Practitioner Family
DX: E11.9 Type 2 diabetes mellitus without complications (principal); D69.3 Immune thrombocytopenic purpura

== ENCOUNTER → 2025-01-12 | Outpatient (REF) | payer OTHER ==
[~2025-01-12] MED LIST changes: -DEPA250T32 PO; +DIVA-65 PO; -EQL50TAB2 PO; +VITA1TAB82 PO
[2025-01-12 13:15] LABS: BASO # 0.1 10^3/uL (0.0-0.2); BASO % 0.7 % (0.0-1.0); EOS # 0.0 10^3/uL (0.0-0.5); EOS % 0.0 % (0.0-3.0); LYMPH # 3.6 10^3/uL (1.5-5.0); LYMPH % 31.0 % (24.0-44.0); MONO # 1.0 10^3/uL (0.0-0.8); MONO % 8.6 % (2.0-8.0); NEUTROPHILS # 6.9 10^3/uL (1.5-8.5); NEUTROPHILS % 59.4 % (36.0-66.0); PLATELET COUNT, AUTOMATED 517 10^3/uL (150-450)
[2025-01-12 13:35] LABS: ALT/SGPT 25 U/L (7.0-40); AST/SGOT 19 U/L (<34); CALCIUM LEVEL 9.7 MG/DL (8.5-10.1); CARBON DIOXIDE LEVEL 26 MMOL/L (20-31); CHLORIDE LEVEL 106 MMOL/L (98-107); CREATININE FOR GFR 0.57 MG/DL (0.55-1.30); GLOMERULAR FILTRATION RATE > 90.0 (>58); POTASSIUM SERUM 4.4 MMOL/L (3.5-5.1); SODIUM LEVEL 142 MMOL/L (136-145)
== END ==
LOC: M LABDRAWC 12:40
PROVIDERS: ATTEND Specialist
DX: D50.9 Iron deficiency anemia, unspecified (principal)

== ENCOUNTER → 2025-01-12 | Outpatient (REF) | payer OTHER ==
[2025-01-12 13:14] LABS: BASO # 0.1 10^3/uL (0.0-0.2); BASO % 0.8 % (0.0-1.0); EOS # 0.0 10^3/uL (0.0-0.5); EOS % 0.0 % (0.0-3.0); LYMPH # 3.5 10^3/uL (1.5-5.0); LYMPH % 30.5 % (24.0-44.0); MONO # 1.0 10^3/uL (0.0-0.8); MONO % 8.5 % (2.0-8.0); NEUTROPHILS # 6.9 10^3/uL (1.5-8.5); NEUTROPHILS % 59.9 % (36.0-66.0); PLATELET COUNT, AUTOMATED 506 10^3/uL (150-450)
[2025-01-12 13:15] LABS: C REACTIVE PROTEIN QUANTITATIV 1.55 MG/DL (<1.0)
[2025-01-12 13:19] LABS: ALT/SGPT 24 U/L (7.0-40); AST/SGOT 19 U/L (<34); CALCIUM LEVEL 9.7 MG/DL (8.5-10.1); CARBON DIOXIDE LEVEL 26 MMOL/L (20-31); CHLORIDE LEVEL 105 MMOL/L (98-107); CREATININE FOR GFR 0.55 MG/DL (0.55-1.30); GLOMERULAR FILTRATION RATE > 90.0 (>58); POTASSIUM SERUM 4.5 MMOL/L (3.5-5.1); SODIUM LEVEL 144 MMOL/L (136-145)
[2025-01-12 13:21] LABS: ERYTHROCYTE SEDIMENTATION RATE 55 mm/hr (0-20)
[2025-01-16 12:14] LABS: Antimyeloperxidase(MPO) Abs < 1.0 AI (<1.0)
[2025-01-20 18:15] LABS: ANCA SCREEN REFLEX Negative (Negative)
== END ==
LOC: M SFHCCLAY 09:34
PROVIDERS: ATTEND Internal Medicine Rheumatology
DX: M25.50 Pain in unspecified joint (principal); D72.118 Other hypereosinophilic syndrome; Z79.899 Other long term (current) drug therapy; R79.82 Elevated C-reactive protein (CRP)

== ENCOUNTER → 2025-02-03 | Outpatient (REF) | payer OTHER ==
[2025-02-03 13:19] LABS: CALCIUM LEVEL 9.9 MG/DL (8.5-10.1); CARBON DIOXIDE LEVEL 30 MMOL/L (20-31); CHLORIDE LEVEL 103 MMOL/L (98-107); CREATININE FOR GFR 0.66 MG/DL (0.55-1.30); GLOMERULAR FILTRATION RATE > 90.0 (>58); POTASSIUM SERUM 4.4 MMOL/L (3.5-5.1); SODIUM LEVEL 144 MMOL/L (136-145)
== END ==
LOC: M LABSMT 07:42
PROVIDERS: ATTEND Urology
DX: N39.41 Urge incontinence (principal)

== ENCOUNTER → 2025-02-23 | Outpatient (CLI) | payer OTHER ==
[~2025-02-23] MED LIST changes: +ASCO1TAB5 PO; +BUSP15TA47; +EMGA120I; +ISOVUE-370 76% 100 ML VIAL ONE; +SEMA1PEN2; +THERTAB52 PO
== END ==
LOC: M PLAIMG 12:02
PROVIDERS: ATTEND Urology
DX: D17.71 Benign lipomatous neoplasm of kidney (principal); N28.1 Cyst of kidney, acquired
CPT/HCPCS: 74170; Q9967

== ENCOUNTER → 2025-04-20 | Outpatient (REF) | payer OTHER ==
[~2025-04-20] MED LIST changes: -ISOVUE-370 76% 100 ML VIAL ONE
[2025-04-20 17:25] LABS: INR 1.02
== END ==
LOC: M LABDRAWC 17:04
PROVIDERS: ATTEND Nurse Practitioner Family
DX: Z00.00 Encounter for general adult medical examination without abnormal findings (principal); G89.29 Other chronic pain

== ENCOUNTER → 2025-04-21 | Outpatient (REF) | payer OTHER ==
[2025-04-21 18:18] LABS: PLATELET COUNT, AUTOMATED 665 10^3/uL (150-450)
== END ==
LOC: M LABDRAWC 17:13
PROVIDERS: ATTEND Nurse Practitioner Family
DX: Z00.00 Encounter for general adult medical examination without abnormal findings (principal); G89.29 Other chronic pain

== ENCOUNTER → 2025-05-18 | Outpatient (CLI) | payer OTHER | LOC: M CLY 10:33 | PROVIDERS: ATTEND Internal Medicine Rheumatology | DX: M25.50 Pain in unspecified joint (principal) ==

== ENCOUNTER → 2025-05-18 | Outpatient (REF) | payer OTHER | LOC: M SFHCCLAY 10:30 | PROVIDERS: ATTEND Internal Medicine Rheumatology | DX: M25.50 Pain in unspecified joint (principal) ==

== ENCOUNTER → 2025-05-19 | Outpatient (REF) | payer OTHER | LOC: M SFHCCLAY 08:04 | PROVIDERS: ATTEND Nurse Practitioner Family | DX: Z53.9 Procedure and treatment not carried out, unspecified reason (principal) ==

== ENCOUNTER 2025-05-20 15:05 | Emergency (ER) | payer OTHER ==
[~2025-05-20] VITALS: Ht 170.2 cm; Wt 115.8 kg
[2025-05-20] MEDS ORDERED: ISOVUE-370 76% 100 ML VIAL As Ordered ONE (15:50)
[2025-05-20 16:11] LABS: BASO # 0.1 10^3/uL (0.0-0.2); BASO % 0.7 % (0.0-1.0); EOS # 0.0 10^3/uL (0.0-0.5); EOS % 0.0 % (0.0-3.0); LYMPH # 3.9 10^3/uL (1.5-5.0); LYMPH % 37.5 % (24.0-44.0); MONO # 0.9 10^3/uL (0.0-0.8); MONO % 8.4 % (2.0-8.0); NEUTROPHILS # 5.5 10^3/uL (1.5-8.5); NEUTROPHILS % 52.8 % (36.0-66.0); PLATELET COUNT, AUTOMATED 698 10^3/uL (150-450)
[2025-05-20 17:51] LABS: HCG, SERUM QUALITATIVE NEGATIVE (NEGATIVE)
[2025-05-20 17:55] LABS: CALCIUM LEVEL 8.8 MG/DL (8.5-10.1); CARBON DIOXIDE LEVEL 23 MMOL/L (20-31); CHLORIDE LEVEL 111 MMOL/L (98-107); CREATININE FOR GFR 0.54 MG/DL (0.55-1.30); GLOMERULAR FILTRATION RATE > 90.0 (>58); POTASSIUM SERUM 4.0 MMOL/L (3.5-5.1); SODIUM LEVEL 144 MMOL/L (136-145)
[2025-05-20 21:11] VITALS: BP 135/80; TEMP 97.8; O2SAT 100
== END 2025-05-20 21:16 | disposition home or self-care (01) ==
LOC: M ED 15:05
DX: S82.141A Displaced bicondylar fracture of right tibia, initial encounter for closed fracture (principal); V03.10XA Pedestrian on foot injured in collision with car, pick-up truck or van in traffic accident, initial encounter; M25.461 Effusion, right knee; M25.462 Effusion, left knee; M17.0 Bilateral primary osteoarthritis of knee; M25.761 Osteophyte, right knee; M50.30 Other cervical disc degeneration, unspecified cervical region; M51.360 Other intervertebral disc degeneration, lumbar region with discogenic back pain only; M47.816 Spondylosis without myelopathy or radiculopathy, lumbar region; M47.812 Spondylosis without myelopathy or radiculopathy, cervical region; K21.9 Gastro-esophageal reflux disease without esophagitis; D64.9 Anemia, unspecified; K58.9 Irritable bowel syndrome, unspecified; G43.909 Migraine, unspecified, not intractable, without status migrainosus; F43.10 Post-traumatic stress disorder, unspecified; E78.5 Hyperlipidemia, unspecified; E03.9 Hypothyroidism, unspecified; G47.33 Obstructive sleep apnea (adult) (pediatric); M06.9 Rheumatoid arthritis, unspecified; J45.909 Unspecified asthma, uncomplicated; Z79.52 Long term (current) use of systemic steroids; Z79.4 Long term (current) use of insulin; Z79.899 Other long term (current) drug therapy; Z88.5 Allergy status to narcotic agent; Z88.6 Allergy status to analgesic agent; Z88.8 Allergy status to other drugs, medicaments and biological substances; Y92.410 Unspecified street and highway as the place of occurrence of the external cause; Y93.01 Activity, walking, marching and hiking; Y99.9 Unspecified external cause status
CPT/HCPCS: 70450; 71260; 72125; 72128; 72131; 73130; 73502; 73552; 73564; 73590; 73630; 73700; 74177; 80047; 80048; 84703; 85025; 93041; 94760; 96374; 99285; J3010; Q9967

== ENCOUNTER → 2025-05-26 | Outpatient (CLI) | payer OTHER | LOC: M CLY 13:53 | PROVIDERS: ATTEND Physician Assistant | DX: S69.91XD Unspecified injury of right wrist, hand and finger(s), subsequent encounter (principal) ==

== ENCOUNTER → 2025-06-13 | Outpatient (REF) | payer OTHER ==
[2025-06-13 17:24] LABS: BASO # 0.1 10^3/uL (0.0-0.2); BASO % 0.8 % (0.0-1.0); EOS # 0.0 10^3/uL (0.0-0.5); EOS % 0.0 % (0.0-3.0); LYMPH # 3.9 10^3/uL (1.5-5.0); LYMPH % 38.0 % (24.0-44.0); MONO # 0.7 10^3/uL (0.0-0.8); MONO % 6.6 % (2.0-8.0); NEUTROPHILS # 5.5 10^3/uL (1.5-8.5); NEUTROPHILS % 54.2 % (36.0-66.0); PLATELET COUNT, AUTOMATED 522 10^3/uL (150-450)
== END ==
LOC: M LAB REF 10:22
PROVIDERS: ATTEND Nurse Practitioner Family
DX: D80.5 Immunodeficiency with increased immunoglobulin M [IgM] (principal); J01.91 Acute recurrent sinusitis, unspecified; J45.40 Moderate persistent asthma, uncomplicated

== ENCOUNTER → 2025-06-13 | Outpatient (REF) | payer OTHER ==
[2025-06-13 10:47] LABS: BASO # 0.1 10^3/uL (0.0-0.2); BASO % 0.7 % (0.0-1.0); EOS # 0.0 10^3/uL (0.0-0.5); EOS % 0.0 % (0.0-3.0); LYMPH # 3.7 10^3/uL (1.5-5.0); LYMPH % 37.0 % (24.0-44.0); MONO # 0.7 10^3/uL (0.0-0.8); MONO % 7.2 % (2.0-8.0); NEUTROPHILS # 5.5 10^3/uL (1.5-8.5); NEUTROPHILS % 54.8 % (36.0-66.0); PLATELET COUNT, AUTOMATED 514 10^3/uL (150-450)
[2025-06-13 11:00] LABS: ESTIMATED AVERAGE GLUCOSE 117.0 MG/DL (60-110)
[2025-06-13 11:11] LABS: C REACTIVE PROTEIN QUANTITATIV 0.98 MG/DL (<1.0)
[2025-06-13 11:13] LABS: ALT/SGPT 19 U/L (7.0-40); AST/SGOT 17 U/L (<34); CALCIUM LEVEL 10.2 MG/DL (8.5-10.1); CARBON DIOXIDE LEVEL 26 MMOL/L (20-31); CHLORIDE LEVEL 104 MMOL/L (98-107); CHOLESTEROL LEVEL 175 MG/DL (<200); CHOLESTEROL RISK RATIO 3.88 (<5); CREATININE FOR GFR 0.68 MG/DL (0.55-1.30); GLOMERULAR FILTRATION RATE > 90.0 (>58); LDL CHOLESTEROL 104.6 MG/DL (<100); NON-HDL-C 130.0 MG/DL; POTASSIUM SERUM 4.1 MMOL/L (3.5-5.1); SODIUM LEVEL 140 MMOL/L (136-145); TRIGLYCERIDES LEVEL 127 MG/DL (<150)
[2025-06-15 13:38] LABS: Antimyeloperxidase(MPO) Abs < 1.0 AI (<1.0)
[2025-06-16 18:42] LABS: ANCA SCREEN REFLEX Negative (Negative)
== END ==
LOC: M LAB REF 10:17
PROVIDERS: ATTEND Nurse Practitioner Family
DX: E11.9 Type 2 diabetes mellitus without complications (principal)

== ENCOUNTER → 2025-06-16 | Outpatient (CLI) | payer OTHER | LOC: M SOG 07:30 | PROVIDERS: ATTEND Physician Assistant | DX: S82.121A Displaced fracture of lateral condyle of right tibia, initial encounter for closed fracture (principal); W18.30XA Fall on same level, unspecified, initial encounter; Y92.009 Unspecified place in unspecified non-institutional (private) residence as the place of occurrence of the external cause ==

== ENCOUNTER → 2025-07-11 | Outpatient (REF) | payer OTHER ==
[2025-07-11 15:06] LABS: CREATININE FOR GFR 0.61 MG/DL (0.55-1.30); GLOMERULAR FILTRATION RATE > 90.0 (>58)
== END ==
LOC: M LAB REF 14:22
PROVIDERS: ATTEND Physician Assistant
DX: M50.33 Other cervical disc degeneration, cervicothoracic region (principal); M47.22 Other spondylosis with radiculopathy, cervical region